=== PATIENT | male | born 1980 | race American Indian/Alaskan Native ===

== ENCOUNTER 2017-03-20 15:47 | Inpatient (IN) | payer OTHER ==
[2017-03-20 15:48] VITALS: BMI 19.2
--- NOTE | 2017-03-20 16:33 | C.PDOC ---
History Of Present Illness Patient is a 36 y/o male, with PMHx of HTN, and ESRD on hemodialysis (Wednesday, Wednesday, Wednesday), that presents to the ED for evaluation of diffuse abdominal pain associated with nausea and vomiting that began today. Notes last dialysis was yesterday. Otherwise, denies any fever, chills, diarrhea, back pain, urinary symptoms, or any other associated symptoms at this time. Time Seen by Provider: 03/20/17 16:11 Chief Complaint (Nursing): Abdominal Pain History Per: Patient History/Exam Limitations: no limitations Onset/Duration Of Symptoms: Hrs Current Symptoms Are (Timing): Still Present Location Of Pain/Discomfort: Diffuse Radiation Of Pain To:: None Quality Of Discomfort: "Pain" Associated Symptoms: Nausea, Vomiting. denies: Fever, Chills, Diarrhea, Loss Of Appetite, Back Pain, Chest Pain, Constipation, Urinary Symptoms Exacerbating Factors: None Alleviating Factors: None Recent travel outside of the [place]: No Additional History Per: Patient Past Medical History Reviewed: Historical Data, Nursing Documentation, Vital Signs Vital Signs: Last Vital Signs Temp 98.0 F 03/20/17 16:07 Pulse 108 H 03/20/17 19:20 Resp 20 03/20/17 19:20 BP 148/105 H 03/20/17 19:20 Pulse Ox 96 03/20/17 19:20 - Medical History PMH: HTN, End Stage Renal Disease, Chronic Kidney Disease Family History: States: Unknown Family Hx - Social History Hx Tobacco Use: No (DENIED) Hx Alcohol Use: No (DENIED) Hx Substance Use: No (DENIED) - Immunization History Hx Tetanus Toxoid Vaccination: No Hx Influenza Vaccination: No Hx Pneumococcal Vaccination: No Review Of Systems Except As Marked, All Systems Reviewed And Found Negative. Constitutional: Negative for: Fever, Chills Cardiovascular: Negative for: Chest Pain, Palpitations Respiratory: Negative for: Shortness of Breath Gastrointestinal: Positive for: Nausea, Vomiting, Abdominal Pain. Negative for : Diarrhea, Constipation Genitourinary: Negative for: Dysuria, Frequency, Hematuria Musculoskeletal: Negative for: Back Pain Physical Exam - Physical Exam Appears: Non-toxic, Other (moderate painful distress) Skin: Normal Color, Warm, Dry Head: Atraumatic, Normacephalic Eye(s): bilateral: Normal Inspection Neck: Normal ROM, Supple Chest: Symmetrical, No Tenderness Cardiovascular: Rhythm Regular, No Murmur Respiratory: Normal Breath Sounds, No Rales, No Rhonchi, No Wheezing Gastrointestinal/Abdominal: Soft, Tenderness (diffuse, non-focal), No Guarding, No Rebound Neurological/Psych: Oriented x3, Normal Speech, Normal Cognition ED Course And Treatment - Laboratory Results Result Diagrams: 03/20/17 18:54 03/20/17 16:38 O2 Sat by Pulse Oximetry: 95 Pulse Ox Interpretation: Normal Progress Note: Blood work, urinalysis ordered and reviewed. Patient was given Zofran, and Protonix in the ER. Medical Decision Making Medical Decision Making: abdominal n/v- consider colitis, gastritis, pud- labs imaging pending 700: labs resulted with hyperkalemia, pt reports that received hd yesterday. arrangements made for hd Spoke with Dr. Wilson, covering physician for Dr. El, who suggested patient to get dialysis after IV contrast. ekg sinus tach 104 lvh with repol. 800: ct shows iliac dissection and aneursym. case discussed with dr velez, surgical residnet, and dr elliott. advise as small, likely incidentla. no e/o of ischemia. pulses palp, femoral and distal. no motor deficit. foot warm. resident saw pt bedside. advises non op. accepted to tele. Disposition - Disposition Disposition: HOSPITALIZED Disposition Time: 20:38 Condition: FAIR - Clinical Impression Clinical Impression: Hyperkalemia, Abdominal pain, Renal failure, Iliac aneurysm, Iliac dissection - Scribe Statement The provider has reviewed the documentation as recorded by the Moiibgemma Kim All medical record entries made by the Moiibgemma were at my direction and personally dictated by me. I have reviewed the chart and agree that the record accurately reflects my personal performance of the history, physical exam, medical decision making, and the department course for this patient. I have also personally directed, reviewed, and agree with the discharge instructions and disposition. Decision To Admit - Pt Status Changed To: Hospital Disposition Of: Inpatient - Admit Certification Admit to Inpatient:: After my assessment, the patient will require hospitalization for at least two midnights. This is because of the severity of symptoms shown, intensity of services needed, and/or the medical risk in this patient being treated as an outpatient. - InPatient: Physician Admission Certification:: pt with iliac dissection, hyperk , needs emergent hd, and surgicla eval. - . Bed Request Type: Telemetry Admitting Physician: Maggie Elliott Patient Diagnosis: Hyperkalemia, Abdominal pain, Renal failure, Iliac aneurysm, Iliac dissection
[2017-03-20 16:54] LABS: ALBUMIN 4.1 g/dL (3.5-5.0)
[2017-03-20 16:58] LABS: CALCIUM 10.2 mg/dl (8.6-10.4)
[2017-03-20] MEDS ORDERED: Dextrose 50% SYRINGE Inj (50 ml) IV STA (17:12)
[2017-03-20] MEDS ORDERED: (Novolin R) Insulin Human Regular 100 units/ml vial IV STA (17:12)
[2017-03-20] MEDS ORDERED: (Novolin R) Insulin Human Regular 100 units/ml vial ONE (17:20)
[2017-03-20] MEDS ORDERED: Dextrose 50% SYRINGE Inj (50 ml) ONE (17:21)
[2017-03-20] MEDS ORDERED: Iodixanol 320 mg/ml 150 ml Bottle IV ONE (17:31)
--- NOTE | 2017-03-20 18:43 | CT ---
EXAM: CT Abdomen and Pelvis With Intravenous Contrast CLINICAL HISTORY: 36 years old, male; Pain; Abdominal pain; Epigastric; Additional info: Abd pain TECHNIQUE: Axial computed tomography images of the abdomen and pelvis with intravenous contrast. This CT exam was performed using one or more of the following dose reduction techniques: automated exposure control, adjustment of the mA and/or kV according to patient size, and/or use of iterative reconstruction technique. Coronal and sagittal reformatted images were created and reviewed. CONTRAST: 100 mL of [id number] administered intravenously. EXAM DATE/TIME: Exam ordered 03/20/2017 4:43 PM COMPARISON: No relevant prior studies available. FINDINGS: Lower thorax: The heart is moderately enlarged. There is a trace amount of pericardial fluid/thickening. Epicardial pacemaker wires are noted. There is elevation of the right hemidiaphragm. There is a 4.5 mm nodule noted in the right lower lobe anterior basal segment (series 2 image 2). A 2 mm nodule is noted in the lateral basal segment of the right lower lobe (series 2 image 6). Coarse linear densities are noted in the left lower lobe which may represent discoid atelectasis or scar. Hazy groundglass densities noted in the dependent portion of both lung bases may to be due to hypoventilatory change. ABDOMEN: Liver: Surgical clips are noted in the anterior aspect of the abdomen just below the inferior edge of the liver. The liver measures 19 cm in craniocaudal span. Gallbladder and bile ducts: Surgical clips are seen in the gallbladder fossa. No calcified stones. No ductal dilation. Pancreas: Unremarkable. No mass. No ductal dilation. Spleen: The spleen measures 11 cm in craniocaudal span. Adrenals: Unremarkable. No mass. Kidneys and ureters: The kidneys are atrophic. A 1 cm hyperdense mass projecting off the lower pole of the left kidney. 1H. No hydronephrosis. Stomach and bowel: Unremarkable. No obstruction. No mucosal thickening. Appendix: No findings to suggest acute appendicitis. PELVIS: Bladder: Unremarkable. No mass. Reproductive: Unremarkable as visualized. ABDOMEN and PELVIS: Intraperitoneal space: There is moderate perihepatic ascites and perisplenic ascites. there is moderate amount of pelvic ascites. No free air. Bones/joints: The patient has had a median sternotomy. Is abnormal increased density noted of the bones which may reflect underlying renal osteodystrophy. No acute fracture. No dislocation. Soft tissues: Hazy change is noted of the mesenteric fat. Vasculature: The inferior vena cava and hepatic veins are distended. There is an aneurysm of the left common iliac artery with a maximal diameter of 1.9 cm.There is aneurysmal dilatation of the left external iliac artery with a maximal diameter of 2.2 cm. There is a dissection of the left external iliac artery Lymph nodes: Unremarkable. No enlarged lymph nodes. IMPRESSION: 1. Right-sided heart failure with mild hepatomegaly, moderate intra-abdominal ascites. 2. Atrophic kidneys bilaterally. 3. 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 4. Renal osteodystrophy. 5. Right sided pulmonary nodules. For low-risk patients, no follow-up is necessary. For high-risk patients (smoking history or other known risk factors) an optional CT at 12 months could be performed. 6. Hyperdense left renal mass measuring 1 cm. This could represent a hemorrhagic cyst or a solid renal mass
[2017-03-20 19:03] LABS: BASO # 0.1 K/uL (0.0-0.2); BASO % 0.9 % (0.0-2.0); EOS % 0.4 % (0.0-4.0); LYMPH # 1.5 K/uL (1.0-4.3); LYMPH % 17.8 % (20.0-40.0); MEAN CELL VOLUME 93.9 fL (80.0-94.0); MEAN CORPUSCULAR HEMOGLOBIN 29.1 pg (27.0-31.0); MEAN PLATELET VOLUME 10.4 fL (7.2-11.7); MONO # 1.1 K/uL (0.0-0.8); MONO % 13.5 % (0.0-10.0); NEUT # 5.7 K/uL (1.8-7.0); NEUT % 67.4 % (50.0-75.0); NRBC % 0.4 % (0.0-2.0); RBC 4.28 Mil/uL (4.40-5.90); RED CELL DISTRIBUTION WIDTH 24.3 % (11.5-14.5); WHITE BLOOD COUNT 8.5 K/uL (4.8-10.8)
[2017-03-20 19:13] LABS: INR 1.5; PROTHROMBIN TIME 16.9 SECONDS (9.7-12.2)
[2017-03-20 19:21] LABS: HEMOGLOBIN 12.5 g/dL (12.0-18.0)
--- NOTE | 2017-03-20 21:41 | CP.PCM.CON ---
History of Present Illness - History of Present Illness History of Present Illness: Vascular Surgery Consult note. Dr. Sanchez 36yo M with PMHx of HTN, ESRD, Cardiac valve disease here for evaluation of Abdominal pain. Vascular surgery consulted due incidental findings on CT Abd on 03/20. Patient states that he came to the ER for evaluation of abdominal pain which has been present for the past 5 years off and on, worse today. Patient states that he was diagnosed with ESRD about 10 years ago and gets dialysis on MWF, last dialysis was yesterday. Today, he had an episode of nausea and vomiting (nonbloody, nonbilious) with associated severe abdominal pain located in the center of his abdomen and came to [facility] ED for further evaluation. Patient states that he was never been told that he has any vascular aneurysms. In the ED, Patient underwent a CT Abd/Pelvis with IV contrast to evaluate abd pain and was found to have L common iliac and L external iliac aneurysm with questionable dissection of left external iliac. Patient does report pain in right distal lower leg upon walking for an extended amount of time. Patient states that he sometimes also feels a pain at the right groin region, however, he is unable to describe the quality or character. He denies any current pain in either lower extremity. Denies any F/C. No CP/SOB. No headaches. Does c/o fatigue. PMHx: HTN, ESRD (HD on MWF), Kidney stones (reports unknown procedure to extract stones 5 years ago), Cardiac valvular disease (unknown procedure performed at [facility] last month to "repair damaged valve") PSHx: Kidney stones removed 5 yrs ago. "Cardiac valve repair" last month at [facility] Faimly Hx: Father - ESRD Social Hx: Denies Tobacco use, denies ETOH use, Denies illicit drugs. NKDA Review of Systems - Review of Systems All systems: reviewed and no additional remarkable complaints except - Constitutional Constitutional: Fatigue. absent: Chills, Fever - Cardiovascular Cardiovascular: absent: Chest Pain, Diaphoresis, Dyspnea - Respiratory Respiratory: absent: Dyspnea - Gastrointestinal Gastrointestinal: Abdominal Pain, Nausea, Vomiting. absent: Diarrhea, Melena - Musculoskeletal Musculoskeletal: absent: Back Pain - Neurological Neurological: absent: Dizziness, Focal Weakness - Psychiatric Psychiatric: absent: Anxiety Past Patient History - Past Social History Smoking Status: Never Smoked - CARDIAC Hx Hypertension: Yes - RENAL Hx Chronic Kidney Disease: Yes - PSYCHIATRIC Hx Substance Use: No (DENIED) - SURGICAL HISTORY Hx Surgeries: Yes Hx Arteriovenous Shunt: Yes (left arm(new) ,rt arm(old)) Hx Valve Replacement: Yes - ANESTHESIA Hx Anesthesia: Yes Hx Anesthesia Reactions: No Meds Allergies/Adverse Reactions: Allergies Allergy/AdvReac Type Severity Reaction Status Date / Time No Known Allergies Allergy Verified 03/20/17 16:25 Physical Exam - Constitutional Appears: Well, No Acute Distress Additional comments: Currently receiving HD bedside at ED room 5. - Head Exam Head Exam: ATRAUMATIC, NORMAL INSPECTION, NORMOCEPHALIC - Eye Exam Eye Exam: EOMI - ENT Exam ENT Exam: Mucous Membranes Moist - Respiratory Exam Respiratory Exam: NORMAL BREATHING PATTERN - GI/Abdominal Exam GI & Abdominal Exam: Soft. absent: Distended, Firm, Guarding, Rebound, Rigid, Tenderness - Extremities Exam Extremities exam: Positive for: normal inspection, pedal pulses present. Negative for: calf tenderness, pedal edema, tenderness Additional comments: Lower extremity exam: Palpable femoral pulses bilaterally. Palpable Dorsalis pedis and Posterial tibial pulses bilaterally. Bilateral Dorsalis pedis pulses confirmed with doppler. No calf tenderness. Muscle strength intact bilaterally. No erythema. Cap refill intact. - Neurological Exam Neurological exam: Alert, Oriented x3 - Psychiatric Exam Psychiatric exam: Normal Affect, Normal Mood - Skin Skin Exam: Dry, Intact, Normal Color, Warm Results - Vital Signs Recent Vital Signs: Last Vital Signs Temp 97.5 F L 03/20/17 19:55 Pulse 108 H 03/20/17 19:55 Resp 20 03/20/17 19:55 BP 137/56 L 03/20/17 21:23 Pulse Ox 95 03/20/17 20:39 - Labs Result Diagrams: 03/20/17 18:54 03/20/17 16:38 Assessment & Plan - Assessment and Plan (Free Text) Assessment: 36M with 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 ? Dissection of left external iliac - low suspicion for acute limb ischemia - Continue to monitor clinically - continue current treatment - No current plans for urgent surgical intervention - will follow Discussed case with Dr. Daniel Marques PGY1
[2017-03-20] MEDS ORDERED: HYDROmorphone 1 mg/ml ISec IVP PRN (21:53)
[2017-03-21] MEDS: Pantoprazole 40 mg EC Tab PO SCH (10:22)
--- NOTE | 2017-03-21 11:35 | CP.PCM.CON ---
History of Present Illness - History of Present Illness History of Present Illness: I was asked to see patient by Dr. Elliott. Patient is 36 year old male with PMH HTN, ESRD on HD,mitral regurgitation s/p mitral valve replacement who presents with abdominal pain. Symptoms began one day ago. There was associated nausea. He had a CT scan abdomen and pelvis. The patient has been seen by surgery. Review of Systems - Constitutional Constitutional: absent: As Per HPI, Anorexia, Chills, Daytime Sleepiness, Excessive Sweating, Fatigue, Fever, Frequent Falls, Headache, Increased Appetite , Lethargy, Malaise, Night Sweats, Snoring, Sleep Apnea, Weight Gain, Weight Loss, Weakness, Other - EENT Eyes: absent: As Per HPI, Blind Spots, Blurred Vision, Change in Vision, Decreased Night Vision, Diplopia, Discharge, Dry Eye, Exophthalmos, Floaters, Irritation, Itchy Eyes, Loss of Peripheral Vision, Pain, Photophobia, Requires Corrective Lenses, Sees Flashes, Spots in Vision, Tunnel Vision, Other Visual Disturbances, Loss of Vision, Other Ears: absent: As Per HPI, Decreased Hearing, Ear Discharge, Ear Pain, Tinnitus, Abnormal Hearing, Disequilibrium, Dizziness, Other Nose/Mouth/Throat: absent: As Per HPI, Epistaxis, Nasal Congestion, Nasal Discharge, Nasal Obstruction, Nasal Trauma, Nose Pain, Post Nasal Drip, Sinus Pain, Sinus Pressure, Bleeding Gums, Change in Voice, Dental Pain, Dry Mouth, Dysphagia, Halitosis, Hoarsness, Lip Swelling, Mouth Lesions, Mouth Pain, Odynophagia, Sore Throat, Throat Swelling, Tongue Swelling, Facial Pain, Neck Pain, Neck Mass, Other - Cardiovascular Cardiovascular: absent: As Per HPI, Acrocyanosis, Chest Pain, Chest Pain at Rest , Chest Pain with Activity, Claudication, Diaphoresis, Dyspnea, Dyspnea on Exertion, Edema, Irregular Heart Rhythm, Pain Radiating to Arm/Neck/Jaw, Leg Edema, Leg Ulcers, Lightheadedness, Orthopnea, Palpitations, Paroxysmal Nocturnal Dyspnea, Pedal Edema, Radiating Pain, Rapid Heart Rate, Slow Heart Rate, Syncope, Other - Respiratory Respiratory: absent: As Per HPI, Cough, Dyspnea, Hemoptysis, Dyspnea on Exertion , Wheezing, Snoring, Stridor, Pain on Inspiration, Chest Congestion, Excessive Mucous Production, Change in Mucous Color, Pain with Coughing, Other - Gastrointestinal Gastrointestinal: Abdominal Pain - Genitourinary Genitourinary: absent: As Per HPI, Change in Urinary Stream, Difficulty Urinating, Dysuria, Flank Pain, Hematuria, Pyuria, Nocturia, Urinary Incontinence, Urinary Frequency, Urinary Hesitance, Urinary Urgency, Voiding Freq/Small Amts, Freq UTI, Hx Renal/Bladder Calculi, Hx /Renal Surgery, Bladder Distension, Other - Musculoskeletal Musculoskeletal: absent: As Per HPI, Abnormal Gait, Arthralgias, Atrophy, Back Pain, Deformity, Joint Swelling, Limited Range of Motion, Loss of Height, Muscle Cramps, Muscle Weakness, Myalgias, Neck Pain, Numbness, Radiating Pain into Limb, Stiffness, Tingling, Other - Integumentary Integumentary: absent: As Per HPI, Acne, Alopecia, Bleeding Lesions, Change in Hair, Change in Nails, Change in Pigmentation, Changing Lesions, Dry Skin, Erythema, Furuncle, Hirsutism, Lesions, New Lesions, Non-Healing Lesions, Photosensitivity, Pruritus, Rash, Skin Pain, Skin Ulcer, Sores, Striae, Swelling , Unusual Bruising, Wounds, Jaundice, Other - Neurological Neurological: absent: As Per HPI, Abnormal Gait, Abnormal Hearing, Abnormal Movements, Abnormal Speech, Behavioral Changes, Burning Sensations, Confusion, Convulsions, Disequilibrium, Dizziness, Numbness, Focal Weakness, Frequent Falls , Headaches, Lack of Coordination, Loss of Vision, Memory Loss, Paresthesias, Radicular Pain, Restless Legs, Sensory Deficit, Syncope, Tingling, Tremor, Vertigo, Weakness, Other Visual Disturbances, Other - Psychiatric Psychiatric: absent: As Per HPI, Abnormal Sleep Pattern, Anhedonia, Anxiety, Auditory Hallucinations, Behavioral Changes, Change in Appetite, Change in Libido, Confusion, Depression, Difficulty Concentrating, Hallucinations, Homicidal Ideation, Hopelessness, Irritability, Memory Loss, Mood Swings, Panic Attacks, Paranoia, Suicidal Ideation, Visual Hallucinations, Tactile Hallucinations, Other - Endocrine Endocrine: absent: As Per HPI, Change in Body Appearance, Change in Libido, Cold Intolorance, Deepening of Voice, Excessive Sweating, Fatigue, Flushing, Heat Intolorance, Increase in Ring/Shoe/Hat Size, Palpitations, Polydipsia, Polyphagia, Polyuria, Other - Hematologic/Lymphatic Hematologic: absent: As Per HPI, Easy Bleeding, Easy Bruising, Lymphadenopathy, Other Past Patient History - Past Medical History & Family History Past Medical History?: Yes - Past Social History Smoking Status: Never Smoked - CARDIAC Hx Hypertension: Yes - RENAL Hx Chronic Kidney Disease: Yes Type of Dialysis Access: left avs Date of Last Dialysis Treatment: 03/20/17 - ENDOCRINE/METABOLIC Hx Endocrine Disorders: No - HEMATOLOGICAL/ONCOLOGICAL Hx Blood Disorders: No - INTEGUMENTARY Hx Dermatological Problems: No - MUSCULOSKELETAL/RHEUMATOLOGICAL Hx Musculoskeletal Disorders: No Hx Falls: No - GASTROINTESTINAL Hx Gastrointestinal Disorders: No - GENITOURINARY/GYNECOLOGICAL Hx Genitourinary Disorders: No - PSYCHIATRIC Hx Psychophysiologic Disorder: No Hx Substance Use: No (DENIED) - SURGICAL HISTORY Hx Surgeries: Yes Hx Arteriovenous Shunt: Yes (left arm(new) ,rt arm(old)) Hx Valve Replacement: Yes - ANESTHESIA Hx Anesthesia: Yes Hx Anesthesia Reactions: No Hx Malignant Hyperthermia: No Has any member of the family had a problem w/ anesthesia?: No Meds Allergies/Adverse Reactions: Allergies Allergy/AdvReac Type Severity Reaction Status Date / Time No Known Allergies Allergy Verified 03/20/17 16:25 - Medications Medications: Current Medications Clonidine HCl (Catapres) 0.3 mg PO TID [facility] Last Admin: 03/21/17 10:22 Dose: 0.3 mg Hydromorphone HCl (Dilaudid) 1 mg IVP Q4H PRN PRN Reason: Pain, severe (8-10) Last Admin: 03/20/17 22:01 Dose: 1 mg Ondansetron HCl (Zofran Inj) 4 mg IVP ONCE ONE Stop: 03/21/17 11:29 Pantoprazole Sodium (Protonix Ec Tab) 40 mg PO DAILY [facility] Last Admin: 03/21/17 10:22 Dose: 40 mg Physical Exam - Constitutional Appears: Non-toxic - Head Exam Head Exam: NORMAL INSPECTION - Eye Exam Eye Exam: Normal appearance - ENT Exam ENT Exam: Mucous Membranes Moist - Neck Exam Neck exam: Positive for: Full Rom - Respiratory Exam Respiratory Exam: NORMAL BREATHING PATTERN - Cardiovascular Exam Cardiovascular Exam: REGULAR RHYTHM - GI/Abdominal Exam GI & Abdominal Exam: Normal Bowel Sounds - Rectal Exam Rectal Exam: Deferred - Extremities Exam Extremities exam: Positive for: pedal edema - Back Exam Back exam: NORMAL INSPECTION - Neurological Exam Neurological exam: Alert, Oriented x3 - Psychiatric Exam Psychiatric exam: Normal Affect - Skin Skin Exam: Normal Color Results - Vital Signs Recent Vital Signs: Last Vital Signs Temp 97.4 F L 03/21/17 00:22 Pulse 99 H 03/21/17 11:18 Resp 20 03/21/17 00:22 BP 151/112 H 03/21/17 11:18 Pulse Ox 95 03/21/17 00:22 - Labs Result Diagrams: 03/20/17 18:54 03/20/17 16:38 - EKG Data EKG Interpreted by: Myself Assessment & Plan (1) Mitral valve disease Assessment and Plan: s/p MVR. continue current management. Status: Acute (2) Hypertension Assessment and Plan: continue catapres. add Losartan Status: Acute (3) Cardiomyopathy Assessment and Plan: as above. no current CHF Status: Acute - Assessment and Plan (Free Text) Assessment: cardiomyopathy
--- NOTE | 2017-03-21 12:55 | CP.PCM.CON ---
History of Present Illness - History of Present Illness History of Present Illness: 36 y/o male with ESRD on Maintenance HD every MWF,Cardiomyopathy, MVR a month ago @ [facility] is admitted for abdominal pain Pt reports pain over mid lower abdomen & had noted some redness in that area prior to coming to hosp. Pt is anuric. A CT scan of abdomen was done last evening which showed abdominal ascitis & Lt iliac artery aneurysm Pt has dialysis last evening after CT scan with contrast Past Patient History - Past Medical History & Family History Past Medical History?: Yes - Past Social History Smoking Status: Never Smoked - CARDIAC Hx Hypertension: Yes - RENAL Hx Chronic Kidney Disease: Yes Hx Dialysis: Yes (HD MWF) Type of Dialysis Access: left avs Date of Last Dialysis Treatment: 03/20/17 - ENDOCRINE/METABOLIC Hx Endocrine Disorders: No - HEMATOLOGICAL/ONCOLOGICAL Hx Blood Disorders: No - INTEGUMENTARY Hx Dermatological Problems: No - MUSCULOSKELETAL/RHEUMATOLOGICAL Hx Musculoskeletal Disorders: No Hx Falls: No - GASTROINTESTINAL Hx Gastrointestinal Disorders: No - GENITOURINARY/GYNECOLOGICAL Hx Genitourinary Disorders: No - PSYCHIATRIC Hx Psychophysiologic Disorder: No Hx Substance Use: No (DENIED) - SURGICAL HISTORY Hx Surgeries: Yes Hx Arteriovenous Shunt: Yes (left arm(new) ,rt arm(old)) Hx Valve Replacement: Yes - ANESTHESIA Hx Anesthesia: Yes Hx Anesthesia Reactions: No Hx Malignant Hyperthermia: No Has any member of the family had a problem w/ anesthesia?: No Meds Allergies/Adverse Reactions: Allergies Allergy/AdvReac Type Severity Reaction Status Date / Time No Known Allergies Allergy Verified 03/20/17 16:25 - Medications Medications: Current Medications Clonidine HCl (Catapres) 0.3 mg PO TID [facility] Last Admin: 03/21/17 10:22 Dose: 0.3 mg Hydromorphone HCl (Dilaudid) 1 mg IVP Q4H PRN PRN Reason: Pain, severe (8-10) Last Admin: 03/20/17 22:01 Dose: 1 mg Losartan Potassium (Cozaar) 25 mg PO DAILY [facility] Last Admin: 03/21/17 12:35 Dose: 25 mg Pantoprazole Sodium (Protonix Ec Tab) 40 mg PO DAILY [facility] Last Admin: 03/21/17 10:22 Dose: 40 mg Physical Exam - Constitutional Appears: No Acute Distress - Head Exam Head Exam: ATRAUMATIC, NORMOCEPHALIC - Eye Exam Eye Exam: Normal appearance - ENT Exam ENT Exam: Mucous Membranes Dry - Neck Exam Additional comments: JVD + @ 35 degrees - Respiratory Exam Additional comments: Lungs clear - Cardiovascular Exam Cardiovascular Exam: REGULAR RHYTHM Additional comments: Well healed surgical scar ayanna chest - GI/Abdominal Exam GI & Abdominal Exam: Soft Additional comments: Tenderness with guarding over suprapubic area Now[place]th or erythema noted - Extremities Exam Additional comments: No edema or cyanosis PP palp b/l Results - Vital Signs Recent Vital Signs: Last Vital Signs Temp 97.4 F L 03/21/17 00:22 Pulse 99 H 03/21/17 11:18 Resp 20 03/21/17 00:22 BP 151/112 H 03/21/17 11:18 Pulse Ox 95 03/21/17 00:22 - Labs Result Diagrams: 03/20/17 18:54 03/20/17 16:38 Assessment & Plan - Assessment and Plan (Free Text) Assessment: ESRD on HD Abdominal pain Cardiomyopathy, S/P MVR Plan: Continue HD MWF UA + C/S Phos level Renal diet
--- NOTE | 2017-03-22 07:02 | CP.PCM.PN ---
Subjective - Date & Time of Evaluation Date of Evaluation: 03/21/17 Time of Evaluation: 07:00 - Subjective Subjective: VASCULAR SURGERY PROGRESS NOTE FOR DR. JOHNS Patient seen and examined at bedside. He states that he has had pain in his legs for years from the knee to the ankle and this pain is unchanged. Objective - Vital Signs/Intake and Output Vital Signs (last 24 hours): Temp Pulse Resp BP Pulse Ox 98 F 95 H 18 144/93 H 94 L 03/22/17 00:00 03/22/17 00:00 03/22/17 00:00 03/22/17 00:00 03/22/17 00:00 - Medications Medications: Current Medications Clonidine HCl (Catapres) 0.3 mg PO TID [facility] Last Admin: 03/21/17 19:16 Dose: 0.3 mg Hydromorphone HCl (Dilaudid) 1 mg IVP Q4H PRN PRN Reason: Pain, severe (8-10) Last Admin: 03/20/17 22:01 Dose: 1 mg Losartan Potassium (Cozaar) 25 mg PO DAILY [facility] Last Admin: 03/21/17 12:35 Dose: 25 mg Pantoprazole Sodium (Protonix Ec Tab) 40 mg PO DAILY [facility] Last Admin: 03/21/17 10:22 Dose: 40 mg Pneumococcal Polyvalent Vaccine (Pneumovax 23 Vaccine) 0.5 ml IM .ONCE ONE Stop: 03/24/17 10:01 - Labs Labs: PT 16.9 SECONDS (9.7-12.2) H 03/20/17 18:54 INR 1.5 03/20/17 18:54 APTT 34 SECONDS (21-34) 03/20/17 18:54 - Constitutional Appears: Non-toxic, No Acute Distress - Head Exam Head Exam: ATRAUMATIC - Respiratory Exam Respiratory Exam: NORMAL BREATHING PATTERN. 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 Questionable dissection of left external iliac, low suspicion for acute limb ischemia - Continue to monitor clinically - Pulses palpable bilateral DP - No plans for urgent surgical intervention - Will continue to follow - Discussed plan with Dr. Daniel June PGY-3
[2017-03-22] MEDS: Pantoprazole 40 mg EC Tab PO SCH (09:24)
--- NOTE | 2017-03-22 09:42 | CP.PCM.PN ---
Subjective - Date & Time of Evaluation Date of Evaluation: 03/22/17 Time of Evaluation: 09:42 - Subjective Subjective: PGY 2 Medicine Note- Dr. Elliott's service Pt seen and examined in no acute distress. Patient denies abdominal pain at this time. In brief, this is a 36yo M with PMHx of HTN, ESRD on HD, history of mitral regurgitation with mitral valve replacement in February of 2017 who presented here on 03/20 for evaluation of Abdominal pain. He has had the abdominal pain off and on for the past five years however the pain intensified on the day of admission. Patient states that he was diagnosed with ESRD about 10 years ago and receives dialysis on MWF, with last dialysis March 20. In the ED, Patient had a CT Abd/Pelvis with IV contrast to evaluate abd pain and was found to have L common iliac and L external iliac aneurysm with questionable dissection of left external iliac. Patient reported pain in right distal lower leg with ambulation to vascular surgery team; however denies pain today on further questioning. He currently denies lower extremity pain either sitting or with ambulation, subjective fevers or chills, nausea, vomiting, diarrhea, radiation of abdominal pain, chest pain, palpitations, constipation or diarrhea at this time. PMHx: HTN, ESRD (HD on MWF), Kidney stones (reports unknown procedure to extract stones 5 years ago), Cardiac valvular disease mitral valve replacement performed at [facility] [place] February 2017 PSHx: Kidney stones removed 5 yrs ago, mitral valve replacement last month at [facility] [place] Family Hx: Father - ESRD Social Hx: Denies Tobacco use, denies ETOH use, Denies illicit drugs. Allergies- NKDA Objective - Vital Signs/Intake and Output Vital Signs (last 24 hours): Temp Pulse Resp BP Pulse Ox 97.5 F L 95 H 20 119/66 93 L 03/22/17 07:00 03/22/17 00:00 03/22/17 07:00 03/22/17 07:00 03/22/17 07:00 Intake and Output: 03/22/17 03/22/17 06:59 18:59 Intake Total 400 Balance 400 - Medications Medications: Current Medications Clonidine HCl (Catapres) 0.3 mg PO TID [facility] Last Admin: 03/22/17 09:24 Dose: 0.3 mg Hydromorphone HCl (Dilaudid) 1 mg IVP Q4H PRN PRN Reason: Pain, severe (8-10) Last Admin: 03/20/17 22:01 Dose: 1 mg Losartan Potassium (Cozaar) 25 mg PO DAILY [facility] Last Admin: 03/22/17 09:24 Dose: 25 mg Pantoprazole Sodium (Protonix Ec Tab) 40 mg PO DAILY [facility] Last Admin: 03/22/17 09:24 Dose: 40 mg Pneumococcal Polyvalent Vaccine (Pneumovax 23 Vaccine) 0.5 ml IM .ONCE ONE Stop: 03/24/17 10:01 - Labs Labs: PT 16.9 SECONDS (9.7-12.2) H 03/20/17 18:54 INR 1.5 03/20/17 18:54 APTT 34 SECONDS (21-34) 03/20/17 18:54 - Constitutional Appears: Non-toxic, No Acute Distress - Head Exam Head Exam: ATRAUMATIC, NORMAL INSPECTION, NORMOCEPHALIC - Eye Exam Eye Exam: EOMI, Normal appearance, PERRL Pupil Exam: NORMAL ACCOMODATION, PERRL - ENT Exam ENT Exam: Mucous Membranes Moist - Neck Exam Neck Exam: Full ROM - Respiratory Exam Respiratory Exam: NORMAL BREATHING PATTERN. absent: Wheezes - Cardiovascular Exam Cardiovascular Exam: Tachycardia, +S1, +S2 - GI/Abdominal Exam GI & Abdominal Exam: Soft, Normal Bowel Sounds. absent: Tenderness - Extremities Exam Extremities Exam: Full ROM, Normal Capillary Refill. absent: Calf Tenderness, Joint Swelling, Pedal Edema, Tenderness Additional comments: Dorsalis pedis pulses palpated bilaterally; extremities warm to touch - Back Exam Back Exam: Full ROM - Neurological Exam Neurological Exam: Alert, Awake, CN II-XII Intact, Oriented x3 - Psychiatric Exam Psychiatric exam: Normal Affect, Normal Mood - Skin Skin Exam: Dry, Intact, Normal Color, Warm Assessment and Plan (1) Transaminitis Assessment & Plan: F/U abd U/S Review NAN Mendoza has adverse reaction of hepatitis.- Will hold at this time as blood pressure is normotensive Status: Acute (2) Abdominal pain Assessment & Plan: CT abdomen and pelvis performed 03/20: Right sided heart failure with mild hepatomegaly; moderate ascites; atrophic kidneys bilaterally; noted left iliac aneursym ( see below); renal osteodystrophy; pulm nodules ( right) and left renal mass ( hemorrhagic cyst vs solid renal mass) Dilaudid 1 mg Q4 PRN Zofran one time dose (x2)- Stable at this time; will add on board if nausea continues Transaminitis- Will review NOV. F/U Abd U/S Status: Acute (3) ESRD (end stage renal disease) on dialysis Assessment & Plan: Will have HD this afternoon- draw labs then. On HD M,W,F ( had last HD on 03/20) Patient states that he completed HD on Monday 03/19 as well. F/U UA and U/C- Renal Diet F/U labs Status: Chronic (4) S/P mitral valve replacement Assessment & Plan: Hx of mtitral regurg Patient s/p mitral valve replacement at [facility] [place] 02/27 Continue Catapres 0.3 mg PO TID and Losartan 25mg PO daily Continue to monitor Status: Acute (5) Iliac aneurysm Assessment & Plan: -Dr. Sanchez (Vascular Surg) on the case- F/U recommendations - low suspicion for acute limb ischemia - Continue to monitor clinically - Dorsalis pedis pulses palpated bilaterally; extremities warm to touch - No current plans for urgent surgical intervention Status: Acute (6) Hypertension Assessment & Plan: Normotensive at this time. Continue meds Clonidine and Losartan Cont to monitor Status: Acute (7) Prophylactic measure Assessment & Plan: SCDs GI prophylaxis 40 mg PO daily Patient was to be discharged however in light of recent tranaminitis; will monitor overnight. F/U U/S as indicated above. Status: Acute
--- NOTE | 2017-03-22 11:23 | CP.PCM.PN ---
Subjective - Date & Time of Evaluation Date of Evaluation: 03/22/17 Time of Evaluation: 11:15 - Subjective Subjective: Feels better today. No c/o abdominal pain today. Objective - Vital Signs/Intake and Output Vital Signs (last 24 hours): Temp Pulse Resp BP Pulse Ox 97.5 F L 95 H 20 119/66 93 L 03/22/17 07:00 03/22/17 00:00 03/22/17 07:00 03/22/17 07:00 03/22/17 07:00 Intake and Output: 03/22/17 03/22/17 06:59 18:59 Intake Total 400 Balance 400 - Medications Medications: Current Medications Clonidine HCl (Catapres) 0.3 mg PO TID [facility] Last Admin: 03/22/17 09:24 Dose: 0.3 mg Hydromorphone HCl (Dilaudid) 1 mg IVP Q4H PRN PRN Reason: Pain, severe (8-10) Last Admin: 03/20/17 22:01 Dose: 1 mg Losartan Potassium (Cozaar) 25 mg PO DAILY [facility] Last Admin: 03/22/17 09:24 Dose: 25 mg Pantoprazole Sodium (Protonix Ec Tab) 40 mg PO DAILY [facility] Last Admin: 03/22/17 09:24 Dose: 40 mg Pneumococcal Polyvalent Vaccine (Pneumovax 23 Vaccine) 0.5 ml IM .ONCE ONE Stop: 03/24/17 10:01 - Labs Labs: PT 16.9 SECONDS (9.7-12.2) H 03/20/17 18:54 INR 1.5 03/20/17 18:54 APTT 34 SECONDS (21-34) 03/20/17 18:54 - Respiratory Exam Additional comments: Lungs clear - Cardiovascular Exam Cardiovascular Exam: REGULAR RHYTHM - GI/Abdominal Exam Additional comments: Abdomen soft & nontender - Extremities Exam Additional comments: No edema Assessment and Plan - Assessment and Plan (Free Text) Assessment: ESRD on [facility] HD HTN Cardiomyopathy, MVR Plan: For dialysis today BP & labs stable Labs ordered
--- NOTE | 2017-03-22 13:33 | CARD ---
APPROVED REPORT EKG Measurement Heart [id number] <Conclusion> Sinus tachycardia with occasional premature ventricular complexes Left ventricular hypertrophy with repolarization abnormality Abnormal ECG
[2017-03-22 14:16] LABS: BASO # 0.1 K/uL (0.0-0.2); BASO % 1.1 % (0.0-2.0); EOS # 0.1 K/uL (0.0-0.7)
[2017-03-22 14:26] LABS: EOS % 1.2 % (0.0-4.0); HEMOGLOBIN 11.7 g/dL (12.0-18.0); LYMPH % 15.7 % (20.0-40.0); MEAN CORPUSCULAR HEMOGLOBIN 29.5 pg (27.0-31.0); MEAN CORPUSCULAR HGB CONC 32.1 g/dL (33.0-37.0); MEAN PLATELET VOLUME 10.2 fL (7.2-11.7); MONO % 15.6 % (0.0-10.0); NEUT # 4.1 K/uL (1.8-7.0); NEUT % 66.4 % (50.0-75.0); NRBC % 2.3 % (0.0-2.0); RBC 3.98 Mil/uL (4.40-5.90); RED CELL DISTRIBUTION WIDTH 23.6 % (11.5-14.5); WHITE BLOOD COUNT 6.1 K/uL (4.8-10.8)
[2017-03-22 14:29] LABS: ALBUMIN 3.3 g/dL (3.5-5.0)
[2017-03-22 14:33] LABS: CALCIUM 9.1 mg/dl (8.6-10.4); MAGNESIUM 2.4 mg/dL (1.6-2.3)
--- NOTE | 2017-03-22 16:35 | CP.PCM.PN ---
Subjective - Date & Time of Evaluation Date of Evaluation: 03/22/17 Time of Evaluation: 07:15 - Subjective Subjective: Patient seen and examined this morning. No complaints. Denies fever/chills, n/v , abdominal pain. Objective - Vital Signs/Intake and Output Vital Signs (last 24 hours): Temp Pulse Resp BP Pulse Ox 97.5 F L 96 H 20 119/66 93 L 03/22/17 07:00 03/22/17 08:00 03/22/17 07:00 03/22/17 07:00 03/22/17 07:00 Intake and Output: 03/22/17 03/22/17 06:59 18:59 Intake Total 400 Balance 400 - Medications Medications: Current Medications Clonidine HCl (Catapres) 0.3 mg PO TID [facility] Last Admin: 03/22/17 13:07 Dose: 0.3 mg Hydromorphone HCl (Dilaudid) 1 mg IVP Q4H PRN PRN Reason: Pain, severe (8-10) Losartan Potassium (Cozaar) 25 mg PO DAILY [facility] Last Admin: 03/22/17 09:24 Dose: 25 mg Pantoprazole Sodium (Protonix Ec Tab) 40 mg PO DAILY [facility] Last Admin: 03/22/17 09:24 Dose: 40 mg Pneumococcal Polyvalent Vaccine (Pneumovax 23 Vaccine) 0.5 ml IM .ONCE ONE Stop: 03/24/17 10:01 - Labs Labs: 03/22/17 14:04 03/22/17 14:04 PT 16.9 SECONDS (9.7-12.2) H 03/20/17 18:54 INR 1.5 03/20/17 18:54 APTT 34 SECONDS (21-34) 03/20/17 18:54 - Constitutional Appears: Non-toxic, No Acute Distress - Head Exam Head Exam: NORMOCEPHALIC - Eye Exam Eye Exam: Normal appearance - ENT Exam ENT Exam: Mucous Membranes Moist - Respiratory Exam Respiratory Exam: NORMAL BREATHING PATTERN - Cardiovascular Exam Cardiovascular Exam: +S1, +S2 - GI/Abdominal Exam GI & Abdominal Exam: Soft - Neurological Exam Neurological Exam: Alert, Awake, Oriented x3 - Psychiatric Exam Psychiatric exam: Normal Mood - Skin Skin Exam: Dry, Intact, Warm Assessment and Plan - Assessment and Plan (Free Text) Assessment: 36yo M with 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 Questionable dissection of left external iliac, low suspicion for acute limb ischemia - No plans for urgent surgical intervention -Patient clear for discharge from surgical standpoint - Discussed plan with Dr. Sanchez
--- NOTE | 2017-03-22 18:29 | CP.PCM.PN ---
Subjective - Date & Time of Evaluation Date of Evaluation: 03/22/17 Time of Evaluation: 18:25 - Subjective Subjective: patient has no complaints. denies chest pain or dyspnea Objective - Vital Signs/Intake and Output Vital Signs (last 24 hours): Temp Pulse Resp BP Pulse Ox 97.3 F L 107 H 17 115/87 97 03/22/17 16:29 03/22/17 16:29 03/22/17 16:29 03/22/17 16:40 03/22/17 14:40 Intake and Output: 03/22/17 03/22/17 06:59 18:59 Intake Total 400 Balance 400 - Medications Medications: Current Medications Clonidine HCl (Catapres) 0.3 mg PO TID [facility] Last Admin: 03/22/17 13:07 Dose: 0.3 mg Hydromorphone HCl (Dilaudid) 1 mg IVP Q4H PRN PRN Reason: Pain, severe (8-10) Losartan Potassium (Cozaar) 25 mg PO DAILY [facility] Last Admin: 03/22/17 09:24 Dose: 25 mg Pantoprazole Sodium (Protonix Ec Tab) 40 mg PO DAILY [facility] Last Admin: 03/22/17 09:24 Dose: 40 mg Pneumococcal Polyvalent Vaccine (Pneumovax 23 Vaccine) 0.5 ml IM .ONCE ONE Stop: 03/24/17 10:01 - Labs Labs: 03/22/17 14:04 03/22/17 14:04 PT 16.9 SECONDS (9.7-12.2) H 03/20/17 18:54 INR 1.5 03/20/17 18:54 APTT 34 SECONDS (21-34) 03/20/17 18:54 - Constitutional Appears: Non-toxic - Head Exam Head Exam: NORMAL INSPECTION - Eye Exam Eye Exam: Normal appearance - ENT Exam ENT Exam: Mucous Membranes Moist - Neck Exam Neck Exam: Normal Inspection - Respiratory Exam Respiratory Exam: Clear to Ausculation Bilateral - Cardiovascular Exam Cardiovascular Exam: REGULAR RHYTHM - GI/Abdominal Exam GI & Abdominal Exam: Normal Bowel Sounds - Rectal Exam Rectal Exam: Deferred - Extremities Exam Extremities Exam: absent: Pedal Edema - Back Exam Back Exam: NORMAL INSPECTION - Neurological Exam Neurological Exam: Alert - Psychiatric Exam Psychiatric exam: Normal Affect - Skin Skin Exam: Normal Color Assessment and Plan (1) Mitral valve disease Assessment & Plan: stable valvular status Status: Acute (2) Hypertension Assessment & Plan: blood pressure improving ARB added Status: Acute (3) Cardiomyopathy Assessment & Plan: no current CHF Status: Acute
--- NOTE | 2017-03-23 07:11 | CP.PCM.PN ---
Subjective - Date & Time of Evaluation Date of Evaluation: 03/23/17 Time of Evaluation: 07:35 - Subjective Subjective: PGY 2 Medicine Note- Dr. Elliott's service Pt seen and examined in no acute distress. Patient denied abdominal pain, nausea or vomiting. He expressed wanting to go home. He denies subjective fevers or chills, headaches, chest pain, paresthesias at this time. Patient expressed wanting to go home. Patient was to be discharged yesterday but kept overnight for monitoring after a jump in the liver enzymes. Objective - Vital Signs/Intake and Output Vital Signs (last 24 hours): Temp Pulse Resp BP Pulse Ox 97.7 F 81 16 118/80 98 03/22/17 17:40 03/22/17 17:40 03/22/17 17:40 03/22/17 17:40 03/22/17 17:40 - Medications Medications: Current Medications Clonidine HCl (Catapres) 0.3 mg PO TID [facility] Last Admin: 03/22/17 20:12 Dose: Not Given Hydromorphone HCl (Dilaudid) 1 mg IVP Q4H PRN PRN Reason: Pain, severe (8-10) Losartan Potassium (Cozaar) 25 mg PO DAILY [facility] Last Admin: 03/22/17 09:24 Dose: 25 mg Pantoprazole Sodium (Protonix Ec Tab) 40 mg PO DAILY [facility] Last Admin: 03/22/17 09:24 Dose: 40 mg Pneumococcal Polyvalent Vaccine (Pneumovax 23 Vaccine) 0.5 ml IM .ONCE ONE Stop: 03/24/17 10:01 - Labs Labs: 03/22/17 14:04 03/22/17 14:04 PT 16.9 SECONDS (9.7-12.2) H 03/20/17 18:54 INR 1.5 03/20/17 18:54 APTT 34 SECONDS (21-34) 03/20/17 18:54 - Constitutional Appears: Non-toxic, No Acute Distress - Head Exam Head Exam: ATRAUMATIC, NORMAL INSPECTION, NORMOCEPHALIC - Eye Exam Eye Exam: EOMI, Normal appearance, PERRL Pupil Exam: NORMAL ACCOMODATION - ENT Exam ENT Exam: Mucous Membranes Moist - Neck Exam Neck Exam: Full ROM - Respiratory Exam Respiratory Exam: NORMAL BREATHING PATTERN. absent: Wheezes - Cardiovascular Exam Cardiovascular Exam: REGULAR RHYTHM, +S1, +S2 - GI/Abdominal Exam GI & Abdominal Exam: Soft, Normal Bowel Sounds. absent: Distended, Firm, Guarding, Tenderness - Extremities Exam Extremities Exam: Full ROM. absent: Pedal Edema, Tenderness - Back Exam Back Exam: Full ROM - Neurological Exam Neurological Exam: Alert, Awake, Oriented x3 Neuro motor strength exam: Left Upper Extremity: 5, Right Upper Extremity: 5, Left Lower Extremity: 5, Right Lower Extremity: 5 - Psychiatric Exam Psychiatric exam: Normal Affect, Normal Mood - Skin Skin Exam: Dry, Normal Color, Warm Assessment and Plan (1) Transaminitis Status: Acute (2) Abdominal pain Status: Resolved (3) ESRD (end stage renal disease) on dialysis Status: Chronic (4) S/P mitral valve replacement Status: Acute (5) Iliac aneurysm Status: Acute (6) Hypertension Status: Acute (7) Prophylactic measure Status: Acute - Assessment and Plan (Free Text) Assessment: (1) Transaminitis Assessment & Plan: Abd U/S- bilateral atrophic kidneys w/o hydronephrosis; fatty liver with ascites; non visualized cholecystectomy; CBD 4 mm ( no dilatation noted) Cozaar has adverse reaction of hepatitis.- Will hold at this time as blood pressure is normotensive Hepatitis panel negative Status: Acute (2) Abdominal pain Assessment & Plan: Resolved CT abdomen and pelvis performed 03/20: Right sided heart failure with mild hepatomegaly; moderate ascites; atrophic kidneys bilaterally; noted left iliac aneursym (see below); renal osteodystrophy; pulm nodules (right) and left renal mass ( hemorrhagic cyst vs solid renal mass) Dilaudid 1 mg Q4 PRN Zofran one time dose (x2)- Stable at this time; will add on board if nausea continues Transaminitis noted above- Cozaar has adverse reaction of hepatitis.- Will hold at this time as blood pressure is normotensive Abd U/S results reported above Status: Acute (3) ESRD (end stage renal disease) on dialysis Assessment & Plan: HD 03/22 On HD M,W,F ( had last HD on 03/20) Patient states that he completed HD on Monday 03/19 as well. F/U UA and U/C Renal Diet F/U labs Status: Chronic (4) S/P mitral valve replacement Assessment & Plan: Hx of mtitral regurg Patient s/p mitral valve replacement at [facility] [place] 02/27 Continue Catapres 0.3 mg PO TID. Hold Losartan 25mg PO daily due to adverse elevation of LFTs Continue to monitor Status: Acute (5) Iliac aneurysm Assessment & Plan: -Dr. Sanchez (Vascular Surg) on the case- F/U recommendations - low suspicion for acute limb ischemia - Continue to monitor clinically - Dorsalis pedis pulses palpated bilaterally; extremities warm to touch - No current plans for urgent surgical intervention Status: Acute (6) Hypertension Assessment & Plan: Normotensive at this time. Continue meds Clonidine . Hold Losartan Cont to monitor Status: Acute (7) Prophylactic measure Assessment & Plan: SCDs GI prophylaxis 40 mg PO daily Discharge planning: Patient is medically stable for discharge home per Dr. Elliott. Patient to follow up with primary medical doctor within one week to follow up with liver enzyme levels. He will be provided with a prescriptionn/. Patient to follow up with [employer], Dr. Mora within two weeks for follow up management. Patient may resume hemodialysis schedule. Patient to resume other home medications. Patient counseled on not drinking alcohol or taking medications that have tylenol/ acetaminophen. If symptoms return, go to emergency room. Instructions explained to patient who is aware. Management per Dr. Elliott
[2017-03-23 08:15] VITALS: BP 126/74; RESP 20; TEMP 97.6; O2SAT 95
[2017-03-23 08:17] VITALS: PULSE 107
[2017-03-23] MEDS: Pantoprazole 40 mg EC Tab PO SCH (10:16)
[2017-03-23 10:58] LABS: BASO % 0.8 % (0.0-2.0); EOS # 0.1 K/uL (0.0-0.7); EOS % 1.7 % (0.0-4.0); HEMOGLOBIN 11.5 g/dL (12.0-18.0); LYMPH # 0.9 K/uL (1.0-4.3); MEAN CELL VOLUME 93.4 fL (80.0-94.0); MEAN CORPUSCULAR HEMOGLOBIN 29.8 pg (27.0-31.0); MEAN CORPUSCULAR HGB CONC 31.9 g/dL (33.0-37.0); MEAN PLATELET VOLUME 10.4 fL (7.2-11.7); MONO # 0.4 K/uL (0.0-0.8); NEUT # 3.4 K/uL (1.8-7.0); NEUT % 69.5 % (50.0-75.0); NRBC % 0.3 % (0.0-2.0); RBC 3.88 Mil/uL (4.40-5.90); WHITE BLOOD COUNT 4.9 K/uL (4.8-10.8)
[2017-03-23 11:01] LABS: ALB/GLOB RATIO 0.9 (1.0-2.1)
[2017-03-23 11:02] LABS: CALCIUM 8.2 mg/dl (8.6-10.4)
--- NOTE | 2017-03-23 11:21 | CP.PCM.PN ---
Subjective - Date & Time of Evaluation Date of Evaluation: 03/23/17 Time of Evaluation: 11:00 - Subjective Subjective: Pt states that he feels better today Objective - Vital Signs/Intake and Output Vital Signs (last 24 hours): Temp Pulse Resp BP Pulse Ox 97.6 F 81 20 126/74 95 03/23/17 08:14 03/22/17 17:40 03/23/17 08:14 03/23/17 08:14 03/23/17 08:14 - Medications Medications: Current Medications Clonidine HCl (Catapres) 0.3 mg PO TID [facility] Last Admin: 03/23/17 10:16 Dose: 0.3 mg Hydromorphone HCl (Dilaudid) 1 mg IVP Q4H PRN PRN Reason: Pain, severe (8-10) Losartan Potassium (Cozaar) 25 mg PO DAILY [facility] Last Admin: 03/22/17 09:24 Dose: 25 mg Pantoprazole Sodium (Protonix Ec Tab) 40 mg PO DAILY [facility] Last Admin: 03/23/17 10:16 Dose: 40 mg Pneumococcal Polyvalent Vaccine (Pneumovax 23 Vaccine) 0.5 ml IM .ONCE ONE Stop: 03/24/17 10:01 - Labs Labs: 03/23/17 10:38 03/23/17 10:38 PT 16.9 SECONDS (9.7-12.2) H 03/20/17 18:54 INR 1.5 03/20/17 18:54 APTT 34 SECONDS (21-34) 03/20/17 18:54 - Respiratory Exam Respiratory Exam: NORMAL BREATHING PATTERN - Cardiovascular Exam Cardiovascular Exam: REGULAR RHYTHM - Extremities Exam Additional comments: Noedema or cyanosis Assessment and Plan - Assessment and Plan (Free Text) Assessment: ESRD on maintenance HD Cardiomyopathy, MVR Iliac artery aneurysm f/b Vascular Plan: Dialysis was tolerated well yesterday Labs stable Volume controlled Continue HD per schedule
--- NOTE | 2017-03-23 11:25 | US ---
HISTORY: abdominal pain, transaminitis COMPARISON: CT abdomen and pelvis 03/20/2017 TECHNIQUE: Sonographic evaluation of the abdomen. FINDINGS: LIVER: Measures 18 cm cm. Increased echogenicity of the liver parenchyma. No mass. No intrahepatic bile duct dilatation. GALLBLADDER: Nonvisualized -cholecystectomy COMMON BILE DUCT: Measures 4 mm. No stones. No dilatation. PANCREAS: Unremarkable as visualized. No mass. No ductal dilatation. RIGHT KIDNEY: Measures 7.5 x 3.8 x 3.8cm. Diffuse increased echogenicity small kidneys consistent with . No calculus, solid mass, or hydronephrosis. Midpole cyst 1.8 x 1.6 x 1.5 cm LEFT KIDNEY: Measures similarly the as small atrophic appearing left kidneymeasuring 7 x 3.4 x 4.2 cm atrophic kidneys . No calculus, solid mass, or hydronephrosis. Mid to lower pole left renal cyst 8 x 10 x 6 mm -this probably relates to be hyperdense CT cyst - a hemorrhagic cyst is consistent with this SPLEEN: Normal in size and contour. No mass. AORTA: No aneurysmal dilatation. IVC: Unremarkable. OTHER FINDINGS: Ascites around the liver and spleen IMPRESSION: Bilateral atrophic kidneys. No hydronephrosis. Bilateral renal cysts. The hyperdense mass left renal lower pole is consistent with a hemorrhagic cyst. Fatty liver. Ascites
--- NOTE | 2017-03-23 11:32 | CP.PCM.PN ---
Subjective - Date & Time of Evaluation Date of Evaluation: 03/23/17 Time of Evaluation: 11:00 - Subjective Subjective: no complaints Objective - Vital Signs/Intake and Output Vital Signs (last 24 hours): Temp Pulse Resp BP Pulse Ox 97.6 F 81 20 126/74 95 03/23/17 08:14 03/22/17 17:40 03/23/17 08:14 03/23/17 08:14 03/23/17 08:14 - Medications Medications: Current Medications Clonidine HCl (Catapres) 0.3 mg PO TID [facility] Last Admin: 03/23/17 10:16 Dose: 0.3 mg Hydromorphone HCl (Dilaudid) 1 mg IVP Q4H PRN PRN Reason: Pain, severe (8-10) Losartan Potassium (Cozaar) 25 mg PO DAILY [facility] Last Admin: 03/22/17 09:24 Dose: 25 mg Pantoprazole Sodium (Protonix Ec Tab) 40 mg PO DAILY [facility] Last Admin: 03/23/17 10:16 Dose: 40 mg Pneumococcal Polyvalent Vaccine (Pneumovax 23 Vaccine) 0.5 ml IM .ONCE ONE Stop: 03/24/17 10:01 - Labs Labs: 03/23/17 10:38 03/23/17 10:38 PT 16.9 SECONDS (9.7-12.2) H 03/20/17 18:54 INR 1.5 03/20/17 18:54 APTT 34 SECONDS (21-34) 03/20/17 18:54 - Constitutional Appears: Non-toxic - Head Exam Head Exam: NORMAL INSPECTION - Eye Exam Eye Exam: Normal appearance - ENT Exam ENT Exam: Mucous Membranes Moist - Respiratory Exam Respiratory Exam: NORMAL BREATHING PATTERN - Cardiovascular Exam Cardiovascular Exam: REGULAR RHYTHM - GI/Abdominal Exam GI & Abdominal Exam: Normal Bowel Sounds - Rectal Exam Rectal Exam: Deferred - Extremities Exam Extremities Exam: Full ROM - Neurological Exam Neurological Exam: Alert, Oriented x3 - Psychiatric Exam Psychiatric exam: Normal Mood Assessment and Plan (1) Mitral valve disease Assessment & Plan: normal valvular function Status: Acute (2) Hypertension Assessment & Plan: blood pressure control Status: Acute (3) Cardiomyopathy Assessment & Plan: not in CHF. Status: Acute
[2017-03-23 11:35] LABS: HEPATITIS B SURFACE AG NEGATIVE (NEGATIVE)
[2017-03-23 11:40] LABS: HEPATITIS A IGM NEGATIVE (NEGATIVE)
[2017-03-23 11:41] LABS: HEPATITIS B CORE AB NEGATIVE (NEGATIVE)
[2017-03-23 11:52] LABS: HEPATITIS C ANTIBODY NEGATIVE (NEGATIVE)
[2017-03-24] MEDS ORDERED: Pneumococcal 23-Valent Vaccine IM ONE (10:00)
== END 2017-03-23 15:00 | disposition home or self-care (01) | DRG 543 ==
LOC: C.ER 15:47 → C.9E 20:39 → C.5T 22:48
PROVIDERS: ADMIT Internal Medicine Pulmonary Disease; ATTEND Internal Medicine Pulmonary Disease
PROC: 5A1D60Z (ICD-10-PCS; principal; 2017-03-20)
DX: I72.3 Aneurysm of iliac artery (principal); I77.72 Dissection of iliac artery; I12.0 Hypertensive chronic kidney disease with stage 5 chronic kidney disease or end stage renal disease; N18.6 End stage renal disease; I42.9 Cardiomyopathy, unspecified; R18.8 Other ascites; E87.5 Hyperkalemia; Z99.2 Dependence on renal dialysis; Z95.2 Presence of prosthetic heart valve; R74.0 Nonspecific elevation of levels of transaminase and lactic acid dehydrogenase [LDH]

== ENCOUNTER 2017-03-27 19:33 | Emergency (ER) | payer OTHER ==
[2017-03-27 19:34] VITALS: BMI 19.2
[2017-03-27 19:46] VITALS: O2SAT 98
[2017-03-27 21:25] LABS: BASO # 0.1 K/uL (0.0-0.2); BASO % 1.2 % (0.0-2.0); EOS # 0.1 K/uL (0.0-0.7); EOS % 1.6 % (0.0-4.0); HEMOGLOBIN 12.1 g/dL (12.0-18.0); LYMPH % 24.9 % (20.0-40.0); MEAN CELL VOLUME 92.8 fL (80.0-94.0); MEAN CORPUSCULAR HEMOGLOBIN 29.5 pg (27.0-31.0); MEAN CORPUSCULAR HGB CONC 31.8 g/dL (33.0-37.0); MEAN PLATELET VOLUME 10.9 fL (7.2-11.7); MONO # 0.8 K/uL (0.0-0.8); MONO % 10.3 % (0.0-10.0); NRBC % 0.3 % (0.0-2.0); RBC 4.09 Mil/uL (4.40-5.90); RED CELL DISTRIBUTION WIDTH 23.7 % (11.5-14.5)
[2017-03-27 21:38] LABS: ALBUMIN 3.7 g/dL (3.5-5.0)
--- NOTE | 2017-03-27 21:39 | C.PDOC ---
History Of Present Illness 26 year old male who presents to the ER with a complaint of vague abdominal pain since his evaluation on 03/20 where he had an incidental finding of a left iliac artery aneurysm; he was evaluated and cleared by vascular surgery and cardiology. Patient was on dilaudid regularly during inpatient and is having the same discomfort now that he had since he was discharged. Denies fever, nausea, or vomiting. Time Seen by Provider: 03/27/17 20:22 Chief Complaint (Nursing): Abdominal Pain History Per: Patient History/Exam Limitations: no limitations Onset/Duration Of Symptoms: Days Current Symptoms Are (Timing): Still Present Location Of Pain/Discomfort: Diffuse Radiation Of Pain To:: None Quality Of Discomfort: Unable To Describe Associated Symptoms: denies: Fever, Nausea, Vomiting Exacerbating Factors: None Alleviating Factors: None Recent travel outside of the [place]: No Past Medical History Reviewed: Historical Data, Nursing Documentation, Vital Signs Vital Signs: Last Vital Signs Temp Pulse 103 H 03/27/17 19:40 Resp 17 03/27/17 19:40 BP 189/83 H 03/27/17 19:40 Pulse Ox 98 03/27/17 21:45 - Medical History PMH: HTN, End Stage Renal Disease, Chronic Kidney Disease - [facility] Procedures PERFORMANCE OF URINARY FILTRATION, MULTIPLE (03/20/17) Family History: States: Unknown Family Hx - Social History Hx Tobacco Use: No (DENIED) Hx Alcohol Use: No Hx Substance Use: No (DENIED) - Immunization History Hx Tetanus Toxoid Vaccination: No Hx Influenza Vaccination: No Hx Pneumococcal Vaccination: No Review Of Systems Constitutional: Negative for: Fever Gastrointestinal: Positive for: Abdominal Pain. Negative for: Nausea, Vomiting Physical Exam - Physical Exam Appears: Non-toxic, No Acute Distress Skin: Normal Color, Warm, Dry Head: Atraumatic, Normacephalic Oral Mucosa: Moist Chest: Symmetrical, No Tenderness Cardiovascular: Rhythm Regular, No Murmur Respiratory: Normal Breath Sounds, No Rales, No Rhonchi, No Wheezing Gastrointestinal/Abdominal: Soft, Tenderness (Vague diffusely), Distention (Mild ), Other (Dull to percussion) Neurological/Psych: Oriented x3, Normal Speech, Normal Cognition ED Course And Treatment - Laboratory Results Result Diagrams: 03/27/17 21:21 03/27/17 21:21 Lab Interpretation: Abnormal (baseline for HD pt) O2 Sat by Pulse Oximetry: 98 (Room air) Pulse Ox Interpretation: Normal - Radiology CXR: Interpreted by Me CXR Interpretation: Yes: No Acute Disease, Heart Size - Other Rad abd x 2 X-Ray: Interpreted by Me (+FOS, + mild ascites) Progress Note: EKG, blood work, and abdominal x-ray ordered. Reevaluation Time: 21:50 Reassessment Condition: Unchanged Medical Decision Making Medical Decision Making: mild/mod ascites, and large constipation, may be related to extensive recent narcotics use for abd pain without stool softners/laxatives Defer more narcotics and prescribe Miralax for relief. opt f/u with PMD Disposition Doctor Will See Patient In The: Office Counseled Patient/Family Regarding: Studies Performed, Diagnosis - Disposition Disposition: HOME/ ROUTINE Disposition Time: 21:52 Condition: GOOD - Clinical Impression Clinical Impression: ESRD (end stage renal disease) on dialysis, Abdominal bloating, Ascites - Scribe Statement The provider has reviewed the documentation as recorded by the Moiibgemma Major All medical record entries made by the Moiibgemma were at my direction and personally dictated by me. I have reviewed the chart and agree that the record accurately reflects my personal performance of the history, physical exam, medical decision making, and the department course for this patient. I have also personally directed, reviewed, and agree with the discharge instructions and disposition.
[2017-03-27 21:41] LABS: CALCIUM 9.1 mg/dl (8.6-10.4)
[2017-03-27 21:53] LABS: TROPONIN I 0.074 ng/mL (0.00-0.120)
[2017-03-27 22:31] VITALS: BP 178/82; PULSE 100; RESP 18; TEMP 98.6
--- NOTE | 2017-03-28 11:12 | RAD ---
PROCEDURE: Radiographs of the chest and abdomen (obstructive series) HISTORY: abd pain COMPARISON: Comparison is made to the previous CT of the abdomen dated 03/20/2017 previous chest x-ray dated 05/25/2015 TECHNIQUE: AP radiograph of the chest, with upright and supine radiographs of the abdomen. FINDINGS: CHEST: Lungs: Mild pulmonary vascular congestion and reticular opacities are seen more prominent at the mid and lower portion. Cardiovascular: Cardiomegaly. Status post mitral valve replacement. Pleura: No pleural fluid. No pneumothorax. Other findings: None. ABDOMEN AND PELVIS: Bowel: Unremarkable bowel gas pattern. No evidence of mechanical obstruction. Free air: None. Bones: Unremarkable. Other findings: Surgical clips at the right upper abdomen likely due to prior cholecystectomy. IMPRESSION: Cardiomegaly and mild pulmonary vascular congestion. . No evidence of mechanical bowel obstruction.
== END 2017-03-27 22:31 | disposition home or self-care (01) ==
LOC: C.ER 19:33
DX: R18.8 Other ascites (principal); I12.0 Hypertensive chronic kidney disease with stage 5 chronic kidney disease or end stage renal disease; N18.6 End stage renal disease; Z99.2 Dependence on renal dialysis

== ENCOUNTER 2017-08-01 10:41 | Inpatient (IN) | payer OTHER ==
[2017-08-01 10:41] VITALS: BMI 19.2
[2017-08-01] MEDS ORDERED: Sodium Chloride 0.9% 500 ML IV ONE (11:20)
--- NOTE | 2017-08-01 11:28 | C.PDOC ---
History Of Present Illness 37 yo male w/PMHx of ESRD on HD ( M,W,F), cardiomyopathy, hx of iliac aneurysm, come in for evaluation of left sided reproducible chest pain for past 1.5 weeks. Pt reports, pain is localized, reproducible, constant,m sharp. Otherwise , pt denies fever, chills, headache, dizziness, weakness, neck apin, SOB, dyspnea, diaphoresis, palpitation, abd. pain, N/V/D. Pt admits, last dialysis was on Wednesday. Due to holidays, pt was scheduled to have dialysis today and Wednesday instead of Wednesday. Pt reports, was seen at [facility] 1 week ago due to same complaints, when was told " have some infection in my chest and was given medication, but did not received rx". Ambulate to Ed for evaluation, not in any apparent distress. Time Seen by Provider: 08/01/17 10:43 Chief Complaint (Nursing): Chest Pain History Per: Patient Past Medical History Reviewed: Historical Data, Nursing Documentation, Vital Signs Vital Signs: Last Vital Signs Temp 97.8 F 08/01/17 10:48 Pulse 67 08/01/17 13:50 Resp 20 08/01/17 13:50 BP 123/70 08/01/17 13:50 Pulse Ox 99 08/01/17 13:50 - Medical History PMH: CHF, HTN, End Stage Renal Disease, Chronic Kidney Disease Other PMH: iliac aneurysm - [facility] Procedures PERFORMANCE OF URINARY FILTRATION, MULTIPLE (03/20/17) Family History: States: CAD, Other - Social History Hx Tobacco Use: No (DENIED) Hx Alcohol Use: No Hx Substance Use: No (DENIED) - Immunization History Hx Tetanus Toxoid Vaccination: No Hx Influenza Vaccination: No Hx Pneumococcal Vaccination: No Review Of Systems Except As Marked, All Systems Reviewed And Found Negative. Constitutional: Negative for: Fever, Chills Eyes: Negative for: Conjunctivae Inflammation ENT: Negative for: Throat Pain, Throat Swelling Cardiovascular: Positive for: Chest Pain. Negative for: Palpitations, Orthopnea , Light Headedness Respiratory: Negative for: Cough, Shortness of Breath, Wheezing Gastrointestinal: Negative for: Nausea, Vomiting, Abdominal Pain, Diarrhea Genitourinary: Negative for: Dysuria Musculoskeletal: Negative for: Neck Pain, Back Pain Skin: Negative for: Rash Neurological: Negative for: Weakness, Numbness, Altered Mental Status, Headache , Dizziness Physical Exam - Physical Exam Appears: Well, Non-toxic, No Acute Distress Skin: Normal Color, Warm, Dry, No Rash Head: Normacephalic Eye(s): bilateral: PERRL Nose: No Flaring, No Discharge Oral Mucosa: Moist, No Drooling Throat: No Erythema, No Exudate, No Drooling Neck: Trachea Midline, Supple Chest: Tenderness (left lateral anterior chest wall overlying 4-5 intercostal spaces. No deformity, no skin changes.), No Ecchymosis, No Subcutaneous Emphysema Cardiovascular: Rhythm Regular, Murmur, No JVD Respiratory: No Decreased Breath Sounds, No Accessory Muscle Use, No Stridor, No Wheezing Gastrointestinal/Abdominal: Soft, No Tenderness, Distention (mild), No Guarding , No Ascites Extremity: Normal ROM, No Pedal Edema, No Deformity, Other (Left upper arm AV shunt, (+) thrill.) Neurological/Psych: Oriented x3, Normal Speech ED Course And Treatment - Laboratory Results Result Diagrams: 08/01/17 11:20 08/01/17 Unknown Lab Interpretation: Abnormal ECG: Interpreted By Me, Viewed By Me ECG Interpretation: No Changes From Prior Interpretation Of ECG: SR@72/min,NAD, LVH, prolong QT, no acute ST-T changes. O2 Sat by Pulse Oximetry: 97 Pulse Ox Interpretation: Normal Progress Note: On re-evaluation, pt remained stable. NOn-toxic. case discussed with ( pts nephro) and blood work review. Low hemoglobin noted, as per , last CBC result was 2 weeks ago and Hg 8.2. NO other new acute abnoramlitie snoted on blood work. BUN/Cr appears at baseline. recommend dialysis tomorrow, as scheduled at 10:30 AM. paged to review case at 14:15. Disposition - Disposition Disposition: HOSPITALIZED Disposition Time: 13:40 Condition: STABLE Forms: [facility] (Namibian) - Clinical Impression Clinical Impression: Cardiomyopathy, Chest pain, ESRD (end stage renal disease) on dialysis
[2017-08-01 11:43] LABS: BASO # 0.1 K/uL (0.0-0.2); BASO % 1.3 % (0.0-2.0); EOS # 0.1 K/uL (0.0-0.7); EOS % 2.2 % (0.0-4.0); HEMATOCRIT 23.9 % (35.0-51.0); LYMPH # 1.1 K/uL (1.0-4.3); LYMPH % 20.1 % (20.0-40.0); MEAN CORPUSCULAR HEMOGLOBIN 27.2 pg (27.0-31.0); MEAN PLATELET VOLUME 8.1 fL (7.2-11.7); MONO # 0.6 K/uL (0.0-0.8); MONO % 10.5 % (0.0-10.0); NRBC % 0.1 % (0.0-2.0); RED CELL DISTRIBUTION WIDTH 21.8 % (11.5-14.5); WHITE BLOOD COUNT 5.3 K/uL (4.8-10.8)
[2017-08-01 11:51] LABS: INR 1.2
[2017-08-01 13:22] LABS: ALB/GLOB RATIO 0.7 (1.0-2.1); ALKALINE PHOSPHATASE 231 U/L (38-126); ALT/SGPT 35 U/L (21-72); AST/SGOT 47 U/L (17-59); BLOOD UREA NITROGEN 54 mg/dL (9-20); CALCIUM 9.2 mg/dl (8.6-10.4); CARBON DIOXIDE 29 mmol/L (22-30); CHLORIDE 94 mmol/L (98-107); GFR AFRICAN-AMERICAN 8; GLUCOSE,RANDOM 84 mg/dL (75-110); POTASSIUM 4.2 mmol/L (3.6-5.2); SODIUM 136 mmol/L (132-148); TOTAL PROTEIN 8.1 g/dL (6.3-8.3)
--- NOTE | 2017-08-01 13:34 | RAD ---
HISTORY: chest pain COMPARISON: 05/25/2015 TECHNIQUE: Chest PA and lateral FINDINGS: LUNGS: Left-sided pacer device. Clinical correlation as to positioning. Status post median sternotomy. Prior valve replacement. Surgical clips in the left axilla. Diffuse increased interstitial lung markings which may represent moderate venous congestion and/or interstitial infiltrates. Some patchy increased markings at both lung bases ; left greater than right. Question trace left pleural effusion. Few punctate nodular densities projecting over the left lung apex. PLEURA: As above. CARDIOVASCULAR: Cardiomegaly. OSSEOUS STRUCTURES: Degenerative changes. VISUALIZED UPPER ABDOMEN: Normal. OTHER FINDINGS: None. IMPRESSION: Left-sided pacer device. Clinical correlation as to positioning. Status post median sternotomy. Prior valve replacement. Surgical clips in the left axilla. Diffuse increased interstitial lung markings which may represent moderate venous congestion and/or interstitial infiltrates. Some patchy increased markings at both lung bases ; left greater than right. Question trace left pleural effusion. Few punctate nodular densities projecting over the left lung apex.
[2017-08-01] MEDS: Oxycodone/Acetaminophen 5/325 mg Tab PO PRN (19:06)
[2017-08-02] MEDS: Oxycodone/Acetaminophen 5/325 mg Tab PO PRN ×4 (00:25→19:31)
--- NOTE | 2017-08-02 07:59 | CP.PCM.CON ---
History of Present Illness - History of Present Illness History of Present Illness: patient seen/examined. full consult to follow. recommend transfusion (Hgb 7.6) has severe LV dysfunction. Past Patient History - Past Medical History & Family History Past Medical History?: Yes - Past Social History Smoking Status: Former Smoker - CARDIAC Hx Congestive Heart Failure: Yes Hx Hypertension: Yes - PULMONARY Hx Respiratory Disorders: No - NEUROLOGICAL Hx Neurological Disorder: No - RENAL Hx Chronic Kidney Disease: Yes Hx Dialysis: Yes Date of Last Dialysis Treatment: 07/30/17 - ENDOCRINE/METABOLIC Hx Endocrine Disorders: No - HEMATOLOGICAL/ONCOLOGICAL Hx Blood Disorders: No - INTEGUMENTARY Hx Dermatological Problems: No - MUSCULOSKELETAL/RHEUMATOLOGICAL Hx Musculoskeletal Disorders: No Hx Falls: No - GASTROINTESTINAL Hx Gastrointestinal Disorders: No - GENITOURINARY/GYNECOLOGICAL Hx Genitourinary Disorders: No - PSYCHIATRIC Hx Substance Use: No (DENIED) - SURGICAL HISTORY Hx Surgeries: Yes Hx Arteriovenous Shunt: Yes (left arm(new) ,rt arm(old)) Hx Valve Replacement: Yes - ANESTHESIA Hx Anesthesia: Yes Hx Anesthesia Reactions: No Hx Malignant Hyperthermia: No Has any member of the family had a problem w/ anesthesia?: No Meds Allergies/Adverse Reactions: Allergies Allergy/AdvReac Type Severity Reaction Status Date / Time No Known Allergies Allergy Verified 08/01/17 10:58 - Medications Medications: Current Medications Amiodarone HCl (Cordarone) 200 mg PO DAILY [facility] Aspirin (Aspirin Chewable) 81 mg PO DAILY [facility] Clonidine HCl (Catapres) 0.1 mg PO TID [facility] Gabapentin (Neurontin) 100 mg PO HS [facility] Last Admin: 08/01/17 21:59 Dose: 100 mg Heparin Sodium (Porcine) (Heparin) 5,000 units SC Q8 [facility] Last Admin: 08/02/17 06:00 Dose: 5,000 units Hydralazine HCl (Apresoline) 25 mg PO TID [facility] Metoprolol Tartrate (Lopressor) 50 mg PO DAILY [facility] Ondansetron HCl (Zofran Tab) 4 mg PO Q6H PRN PRN Reason: Nausea/Vomiting Oxycodone/Acetaminophen (Percocet 5/325 Mg Tab) 1 tab PO Q4H PRN PRN Reason: Pain Stop: 08/04/17 18:21 Last Admin: 08/02/17 05:59 Dose: 1 tab Pantoprazole Sodium (Protonix Ec Tab) 40 mg PO DAILY [facility] Rosuvastatin Calcium (Crestor) 20 mg PO HS [facility] Last Admin: 08/01/17 21:59 Dose: 20 mg Results - Vital Signs Recent Vital Signs: Last Vital Signs Temp 98.3 F 08/02/17 07:53 Pulse 79 08/02/17 07:53 Resp 20 08/02/17 07:53 BP 163/93 H 08/02/17 07:53 Pulse Ox 99 08/02/17 07:53 - Labs Result Diagrams: 08/01/17 11:20 08/01/17 Unknown Labs: Laboratory Results - last 24 hr 08/01/17 08/01/17 08/01/17 11:20 11:20 Unknown WBC 5.3 RBC 2.81 L Hgb 7.6 L D Hct 23.9 L MCV 85.0 D MCH 27.2 MCHC 32.0 L RDW 21.8 H Plt Count 154 MPV 8.1 Neut % (Auto) 65.9 Lymph % (Auto) 20.1 [place] % (Auto) 10.5 H Eos % (Auto) 2.2 Baso % (Auto) 1.3 Neut # 3.5 Lymph # 1.1 [place] # 0.6 Eos # 0.1 Baso # 0.1 PT 14.1 H INR 1.2 APTT 38 H Sodium 136 Potassium 4.2 Chloride 94 L Carbon Dioxide 29 Anion Gap 17 BUN 54 H Creatinine 8.7 H* Est GFR ( Amer) 8 Est GFR (Non-Af Amer) 7 Random Glucose 84 Calcium 9.2 Total Bilirubin 1.0 AST 47 ALT 35 Alkaline Phosphatase 231 H Troponin I 0.0600 NT-Pro-B Natriuret Pep > 621263 H Total Protein 8.1 Albumin 3.5 Globulin 4.6 H Albumin/Globulin Ratio 0.7 L
--- NOTE | 2017-08-02 08:32 | CP.PCM.PN ---
Subjective - Date & Time of Evaluation Date of Evaluation: 08/02/17 Time of Evaluation: 10:00 - Subjective Subjective: Dr. Elliott: Patient is a 37 year old male with a history of cardiomyapthy, ESRD, pacemaker placement is here with chest pain. He says the pain is reproducible with pressure to his chest wall. He says the pain is stabbing, constant and non radiating. Objective - Vital Signs/Intake and Output Vital Signs (last 24 hours): Temp Pulse Resp BP Pulse Ox 98.3 F 79 20 163/93 H 99 08/02/17 07:53 08/02/17 07:53 08/02/17 07:53 08/02/17 07:53 08/02/17 07:53 Intake and Output: 08/02/17 08/02/17 06:59 18:59 Intake Total 130 Output Total 0 Balance 130 - Medications Medications: Current Medications Amiodarone HCl (Cordarone) 200 mg PO DAILY [facility] Aspirin (Aspirin Chewable) 81 mg PO DAILY [facility] Clonidine HCl (Catapres) 0.1 mg PO TID [facility] Gabapentin (Neurontin) 100 mg PO HS [facility] Last Admin: 08/01/17 21:59 Dose: 100 mg Heparin Sodium (Porcine) (Heparin) 5,000 units SC Q8 [facility] Last Admin: 08/02/17 06:00 Dose: 5,000 units Hydralazine HCl (Apresoline) 25 mg PO TID [facility] Metoprolol Tartrate (Lopressor) 50 mg PO DAILY [facility] Ondansetron HCl (Zofran Tab) 4 mg PO Q6H PRN PRN Reason: Nausea/Vomiting Oxycodone/Acetaminophen (Percocet 5/325 Mg Tab) 1 tab PO Q4H PRN PRN Reason: Pain Stop: 08/04/17 18:21 Last Admin: 08/02/17 05:59 Dose: 1 tab Pantoprazole Sodium (Protonix Ec Tab) 40 mg PO DAILY [facility] Rosuvastatin Calcium (Crestor) 20 mg PO HS [facility] Last Admin: 08/01/17 21:59 Dose: 20 mg - Labs Labs: 08/01/17 11:20 08/01/17 Unknown PT 14.1 SECONDS (9.7-12.2) H 08/01/17 11:20 INR 1.2 08/01/17 11:20 APTT 38 SECONDS (21-34) H 08/01/17 11:20 - Constitutional Appears: Non-toxic, No Acute Distress - Eye Exam Eye Exam: Normal appearance Pupil Exam: NORMAL ACCOMODATION - Neck Exam Neck Exam: Normal Inspection - Respiratory Exam Respiratory Exam: Clear to Ausculation Bilateral. absent: Rales, Rhonchi, Wheezes - Cardiovascular Exam Cardiovascular Exam: REGULAR RHYTHM, RRR, +S1, +S2. absent: Gallop, Rubs - GI/Abdominal Exam GI & Abdominal Exam: Soft, Normal Bowel Sounds. absent: Tenderness - Extremities Exam Extremities Exam: Pedal Edema. absent: Normal Inspection - Back Exam Back Exam: NORMAL INSPECTION - Psychiatric Exam Psychiatric exam: Normal Affect, Normal Mood - Skin Skin Exam: Normal Color Assessment and Plan (1) Chest pain Assessment & Plan: Troponin is negative x2, will follow up another one. Dr. Mora consulted, spoke with him he said he would have his pacemaker evaluated. Will give Status: Acute (2) Anemia Assessment & Plan: Follow up iron studies, most likely anemia of chronic disease. Status: Acute (3) ESRD (end stage renal disease) on dialysis Assessment & Plan: Dialysis today, continue his regular outpatient schedule. Status: Chronic (4) Hypertension Assessment & Plan: Clonidin 0.1mg TID Hydralazine 25mg tid Cozaar 25mg Lopressor 50mg Amiodarone 200mg Aspirin 81mg Status: Chronic (5) Cardiomyopathy Assessment & Plan: cardiology consult Status: Chronic (6) Mitral valve disease Assessment & Plan: Dr. Mora consulted. Status: Chronic (7) HLD (hyperlipidemia) Assessment & Plan: Crestor Status: Chronic (8) Prophylactic measure Assessment & Plan: Heparin 5000 units sc q8h Protonix 40mg SCDS as needed. Status: Acute
[2017-08-02] MEDS: Pantoprazole 40 mg EC Tab PO SCH (10:51)
[2017-08-02] MEDS ORDERED: EPOETIN ALFA 4,000 UNIT/ML ML Dialysis IV SCH (13:00)
[2017-08-02] MEDS ORDERED: Epoetin Alfa 10,000 unit/ml Dialysis IV SCH (13:00)
--- NOTE | 2017-08-02 15:46 | CP.PCM.CON ---
History of Present Illness - History of Present Illness History of Present Illness: Initial Nephrology Consultation: Assessment: Stable ? fluid overload status versus CHF exacerbation Hypertensive Chronic Kidney Disease (I12.0) End stage renal disease (N18.6) dependence on hemodialysis (Z99.2) (MWF) via AVF Anemia (D64.9), Hyperphosphatemia (E83.39), Secondary Hyperparathyroidism (E21.1 ), HTN (I12.0) CHF, hx of PPM Plan: Will plan for HD today as ordered. Continue with Nephrovite 1 tab/day. re- assess for extra HD in AM PRBC as needed for anemia. added ILIANA as epogen 14,000 with HD Continue with phos binders home dose, check phos level BP control with meds as ordered. Patient not on RAAS natasha hence will start losartan Glycemic control, Dialysis consistent diet Further work up/management as per primary team Dose meds/antibiotics (if needed) for ESRD status. Avoid fleets enema/magnesium based laxatives. Thanks for allowing me to participate in care of your patient. Will follow patient with you. Please call if any Qs Dr Hector Serrato Office: [phone] Chief Complaint;chest pain HPI: Pt is a 37 y/o M with hx of ESRD on hemodialysis (MWF) via AVF, last dialysis fri, chronic anemia, hyperphosphatemia, secondary hyperparathyroidism, hypertension, CHF, s/p PPM presented with complaints of left side chest pain x 1 month and also c/o shortness of breath, denies leg swelling ROS: Constitutional Symptoms: Denies fever. No chills. No Recent Weight Changes Eyes: denies change in vision, denies watery eyes, denies double vision Ears/Nose/Mouth/Throat: Denies Abnormal Taste. No Bad breath or Bad Taste. Cardiovascular: c/o chest pain. There is c/o shortness of breath. No palpitations. Pulmonary: c/o shortness of breath no cough. Gastrointestinal: denies abdominal pain No nausea. No vomiting. Denies change in bowel habits. Denies Bleeding Genitourinary: anuric. Neurological: Denies headaches. No dizziness. Denies loss of balance. Denies weakness, denies tingling/numbness Dermatological: No Rash or Bruising or ulcers. Psychiatric: Denies Anxiety. No depression. Denies hallucinations. Rheumatological: No joint pain. Denies Joint swelling Endocrine: Denies over tiredness. Denies Fatigue and denies Heat/Cold Intolerance. All other negative. Physical Examination: General Appearance: Comfortable, in no acute respiratory distress, co-operative . Vitals reviewed and noted as below Head; Atraumatic, normocephalic ENT: no ulcers no thrush. Tongue is midline. Oropharynx: no rash or ulcers. EYES: Pupils are equal, round and reactive to light accommodation. Eye muscles and extraocular movement intact. Sclera is anicteric. Neck; supple no lymphadenopathy, no thyromegaly or bruit. neck veins distended Lungs: Normal respiratory rate/effort. Breath sounds bilateral equal and has basal crackles Heart: Normal rate. s1s2 normal. No rub or gallop. Extremities: no edema. No varicose veins Neurological: Patient is alert, awake and oriented to person, place and time. No focal deficit. Strength bilateral appropriate and equal Skin: Warm and dry. Normal turgor. No rash. Palpitation: Normal elasticity for age Abdomen: Abdomen is soft. Bowel sounds +. There is no abdominal tenderness, no guarding/rigidity or organomegaly Psych: normal insight and normal affect/mood MSK: no joint tenderness or swelling. Digits and nails normal, no deformity : kidney or bladder not palpable Access: AVF Labs/imaging reviewed. Past medical history, past surgical history, family history, social history, allergy reviewed and noted as below Family Hx: no hx of CKD. Non contributory Past Patient History - Past Medical History & Family History Past Medical History?: Yes - Past Social History Smoking Status: Former Smoker - CARDIAC Hx Congestive Heart Failure: Yes Hx Hypertension: Yes - PULMONARY Hx Respiratory Disorders: No - NEUROLOGICAL Hx Neurological Disorder: No - RENAL Hx Chronic Kidney Disease: Yes Hx Dialysis: Yes Date of Last Dialysis Treatment: 07/30/17 - ENDOCRINE/METABOLIC Hx Endocrine Disorders: No - HEMATOLOGICAL/ONCOLOGICAL Hx Blood Disorders: No - INTEGUMENTARY Hx Dermatological Problems: No - MUSCULOSKELETAL/RHEUMATOLOGICAL Hx Musculoskeletal Disorders: No Hx Falls: No - GASTROINTESTINAL Hx Gastrointestinal Disorders: No - GENITOURINARY/GYNECOLOGICAL Hx Genitourinary Disorders: No - PSYCHIATRIC Hx Substance Use: No (DENIED) - SURGICAL HISTORY Hx Surgeries: Yes Hx Arteriovenous Shunt: Yes (left arm(new) ,rt arm(old)) Hx Valve Replacement: Yes - ANESTHESIA Hx Anesthesia: Yes Hx Anesthesia Reactions: No Hx Malignant Hyperthermia: No Has any member of the family had a problem w/ anesthesia?: No Meds Allergies/Adverse Reactions: Allergies Allergy/AdvReac Type Severity Reaction Status Date / Time No Known Allergies Allergy Verified 08/01/17 10:58 - Medications Medications: Current Medications Amiodarone HCl (Cordarone) 200 mg PO DAILY [facility] Last Admin: 08/02/17 10:51 Dose: 200 mg Aspirin (Aspirin Chewable) 81 mg PO DAILY [facility] Last Admin: 08/02/17 10:51 Dose: 81 mg Clonidine HCl (Catapres) 0.1 mg PO TID [facility] Last Admin: 08/02/17 14:02 Dose: Not Given Epoetin Thomas (Procrit) 10,000 unit IV MWF [facility] Epoetin Thomas (Procrit) 4,000 unit IV MWF [facility] Gabapentin (Neurontin) 100 mg PO HS [facility] Last Admin: 08/01/17 21:59 Dose: 100 mg Heparin Sodium (Porcine) (Heparin) 5,000 units SC Q8 [facility] Last Admin: 08/02/17 14:02 Dose: Not Given Hydralazine HCl (Apresoline) 25 mg PO TID [facility] Last Admin: 08/02/17 14:01 Dose: Not Given Losartan Potassium (Cozaar) 25 mg PO DAILY [facility] Metoprolol Tartrate (Lopressor) 50 mg PO DAILY [facility] Last Admin: 08/02/17 14:02 Dose: Not Given Ondansetron HCl (Zofran Tab) 4 mg PO Q6H PRN PRN Reason: Nausea/Vomiting Oxycodone/Acetaminophen (Percocet 5/325 Mg Tab) 1 tab PO Q4H PRN PRN Reason: Pain Stop: 08/04/17 18:21 Last Admin: 08/02/17 13:28 Dose: 1 tab Pantoprazole Sodium (Protonix Ec Tab) 40 mg PO DAILY [facility] Last Admin: 08/02/17 10:51 Dose: 40 mg Rosuvastatin Calcium (Crestor) 20 mg PO HS [facility] Last Admin: 08/01/17 21:59 Dose: 20 mg Vitamin B Complex/Vit C/Folic Acid (Nephro-Duane) 1 tab PO 0800 [facility] Results - Vital Signs Recent Vital Signs: Last Vital Signs Temp 98 F 08/02/17 13:19 Pulse 81 08/02/17 13:19 Resp 18 08/02/17 13:19 BP 137/75 08/02/17 13:19 Pulse Ox 94 L 08/02/17 13:19 - Labs Result Diagrams: 08/01/17 11:20 08/01/17 Unknown Labs: Laboratory Results - last 24 hr 08/02/17 14:47 Retic Count 2.4 H
[2017-08-02 16:01] LABS: TROPONIN I 0.038 ng/mL (0.00-0.120)
[2017-08-02 16:12] LABS: IRON 42 ug/dL (49-181)
[2017-08-02 16:13] LABS: ALB/GLOB RATIO 0.7 (1.0-2.1); BILIRUBIN,TOTAL 0.9 mg/dL (0.2-1.3); CALCIUM 8.9 mg/dl (8.6-10.4); PHOSPHOROUS 6.1 mg/dL (2.5-4.5); POTASSIUM 4.7 mmol/L (3.6-5.2); TOTAL PROTEIN 8.3 g/dL (6.3-8.3)
[2017-08-02 16:25] LABS: BASO % 0.8 % (0.0-2.0); EOS # 0.2 K/uL (0.0-0.7); EOS % 3.1 % (0.0-4.0); HEMATOCRIT 24.5 % (35.0-51.0); LYMPH % 21.8 % (20.0-40.0); MEAN CORPUSCULAR HEMOGLOBIN 26.1 pg (27.0-31.0); MEAN PLATELET VOLUME 8.3 fL (7.2-11.7); MONO # 0.3 K/uL (0.0-0.8); MONO % 6.9 % (0.0-10.0); NRBC % 0.2 % (0.0-2.0); RED CELL DISTRIBUTION WIDTH 22.2 % (11.5-14.5); WHITE BLOOD COUNT 4.8 K/uL (4.8-10.8)
[2017-08-02 16:58] LABS: FOLATE 7.1 ng/mL
[2017-08-03] MEDS: Oxycodone/Acetaminophen 5/325 mg Tab PO PRN ×3 (02:09→15:08)
--- NOTE | 2017-08-03 07:21 | HP ---
HISTORY OF PRESENT ILLNESS: A 37-year-old male admitted to the hospital with chief complaint of weakness, fatigue and tiredness. The patient came to the ER, while admission the patient had renal failure, hypertension, congestive heart failure, replacement. PHYSICAL EXAMINATION: GENERAL: Patient is awake, alert and oriented. VITAL SIGNS: Temperature 98, pulse 90. HEENT: Within normal limits. NECK: Supple. CHEST: Symmetrical. HEART: Distant sound. ABDOMEN: Soft. EXTREMITIES: No edema. ASSESSMENT AND PLAN: The patient suffered from chest pain, heart failure by history, renal failure and hypertension by history. The patient getting bedrest, dialysis, cardiology evaluation. Maggie Elliott MD
[2017-08-03] MEDS: Multivitamin Vitamin B Complex (Nephro-Vite) Tab PO SCH (08:29)
--- NOTE | 2017-08-03 09:12 | CP.PCM.PN ---
Subjective - Date & Time of Evaluation Date of Evaluation: 08/03/17 Time of Evaluation: 09:00 - Subjective Subjective: AICD interrogated. no events. patient is clinically stable from a cardiac standpoint. CP is noncardiac in origin Objective - Vital Signs/Intake and Output Vital Signs (last 24 hours): Temp Pulse Resp BP Pulse Ox 98.4 F 88 20 165/104 H 100 08/03/17 08:46 08/03/17 08:46 08/03/17 08:46 08/03/17 08:46 08/03/17 08:46 Intake and Output: 08/03/17 08/03/17 06:59 18:59 Intake Total 300 Balance 300 - Medications Medications: Current Medications Amiodarone HCl (Cordarone) 200 mg PO DAILY [facility] Last Admin: 08/02/17 10:51 Dose: 200 mg Aspirin (Aspirin Chewable) 81 mg PO DAILY [facility] Last Admin: 08/02/17 10:51 Dose: 81 mg Clonidine HCl (Catapres) 0.1 mg PO TID [facility] Last Admin: 08/02/17 17:17 Dose: 0.1 mg Epoetin Thomas (Procrit) 10,000 unit IV MWF [facility] Last Admin: 08/02/17 17:02 Dose: 10,000 unit Epoetin Thomas (Procrit) 4,000 unit IV [facility] Ferric Sodium Gluconate Complex (Ferrlecit) 125 mg IVPB DAILY [facility] Stop: 08/07/17 10:01 Gabapentin (Neurontin) 100 mg PO HS [facility] Last Admin: 08/02/17 21:51 Dose: 100 mg Heparin Sodium (Porcine) (Heparin) 5,000 units SC Q8 [facility] Last Admin: 08/02/17 21:53 Dose: Not Given Hydralazine HCl (Apresoline) 25 mg PO Q8 [facility] Last Admin: 08/03/17 08:24 Dose: 25 mg Losartan Potassium (Cozaar) 50 mg PO DAILY [facility] Metoprolol Tartrate (Lopressor) 50 mg PO DAILY [facility] Last Admin: 08/03/17 08:14 Dose: 50 mg Ondansetron HCl (Zofran Tab) 4 mg PO Q6H PRN PRN Reason: Nausea/Vomiting Oxycodone/Acetaminophen (Percocet 5/325 Mg Tab) 1 tab PO Q4H PRN PRN Reason: Pain Stop: 08/04/17 18:21 Last Admin: 08/03/17 02:09 Dose: 1 tab Pantoprazole Sodium (Protonix Ec Tab) 40 mg PO DAILY [facility] Last Admin: 08/02/17 10:51 Dose: 40 mg Rosuvastatin Calcium (Crestor) 20 mg PO HS [facility] Last Admin: 08/02/17 21:51 Dose: 20 mg Vitamin B Complex/Vit C/Folic Acid (Nephro-Duane) 1 tab PO 0800 [facility] Last Admin: 08/03/17 08:29 Dose: 1 tab - Labs Labs: 08/02/17 16:20 08/02/17 14:47 PT 14.1 SECONDS (9.7-12.2) H 08/01/17 11:20 INR 1.2 08/01/17 11:20 APTT 38 SECONDS (21-34) H 08/01/17 11:20
[2017-08-03] MEDS: Ferric Sodium Gluconat Complex 62.5 mg/5 ml Vial IVPB SCH ×2 (09:31→17:10)
[2017-08-03] MEDS: Pantoprazole 40 mg EC Tab PO SCH (09:31)
--- NOTE | 2017-08-03 11:07 | CP.PCM.PN ---
Subjective - Date & Time of Evaluation Date of Evaluation: 08/03/17 Time of Evaluation: 10:00 - Subjective Subjective: PGY3 on medicine Dr. Elliott service: Pt seen and examined at bedside this morning. Pt reports left nipple pain still and reproducible. No other complaints at the moment. AICD interrogated and showed no events per Dr. Mora. Pt also complains of worsening abdominal distention. Objective - Vital Signs/Intake and Output Vital Signs (last 24 hours): Temp Pulse Resp BP Pulse Ox 98.4 F 81 20 160/79 H 100 08/03/17 08:46 08/03/17 09:27 08/03/17 08:46 08/03/17 09:27 08/03/17 08:46 Intake and Output: 08/03/17 08/03/17 06:59 18:59 Intake Total 300 Balance 300 - Medications Medications: Current Medications Amiodarone HCl (Cordarone) 200 mg PO DAILY [facility] Last Admin: 08/03/17 09:31 Dose: 200 mg Aspirin (Aspirin Chewable) 81 mg PO DAILY [facility] Last Admin: 08/03/17 09:31 Dose: 81 mg Clonidine HCl (Catapres) 0.1 mg PO TID [facility] Last Admin: 08/03/17 09:32 Dose: 0.1 mg Epoetin Thomas (Procrit) 10,000 unit IV MWF [facility] Last Admin: 08/02/17 17:02 Dose: 10,000 unit Epoetin Thomas (Procrit) 4,000 unit IV MWF [facility] Ferric Sodium Gluconate Complex (Ferrlecit) 125 mg IVPB DAILY [facility] Stop: 08/07/17 10:01 Last Admin: 08/03/17 09:31 Dose: 125 mg Gabapentin (Neurontin) 100 mg PO HS [facility] Last Admin: 08/02/17 21:51 Dose: 100 mg Heparin Sodium (Porcine) (Heparin) 5,000 units SC Q8 [facility] Last Admin: 08/02/17 21:53 Dose: Not Given Hydralazine HCl (Apresoline) 25 mg PO Q8 [facility] Last Admin: 08/03/17 08:24 Dose: 25 mg Losartan Potassium (Cozaar) 50 mg PO DAILY [facility] Last Admin: 08/03/17 09:32 Dose: Not Given Metoprolol Tartrate (Lopressor) 50 mg PO DAILY [facility] Last Admin: 08/03/17 09:33 Dose: Not Given Ondansetron HCl (Zofran Tab) 4 mg PO Q6H PRN PRN Reason: Nausea/Vomiting Oxycodone/Acetaminophen (Percocet 5/325 Mg Tab) 1 tab PO Q4H PRN PRN Reason: Pain Stop: 08/04/17 18:21 Last Admin: 08/03/17 09:31 Dose: 1 tab Pantoprazole Sodium (Protonix Ec Tab) 40 mg PO DAILY [facility] Last Admin: 08/03/17 09:31 Dose: 40 mg Rosuvastatin Calcium (Crestor) 20 mg PO HS [facility] Last Admin: 08/02/17 21:51 Dose: 20 mg Vitamin B Complex/Vit C/Folic Acid (Nephro-Duane) 1 tab PO 0800 [facility] Last Admin: 08/03/17 08:29 Dose: 1 tab - Labs Labs: 08/02/17 16:20 08/02/17 14:47 PT 14.1 SECONDS (9.7-12.2) H 08/01/17 11:20 INR 1.2 08/01/17 11:20 APTT 38 SECONDS (21-34) H 08/01/17 11:20 - Constitutional Appears: Non-toxic, No Acute Distress, Chronically Ill - Head Exam Head Exam: NORMAL INSPECTION, NORMOCEPHALIC - Eye Exam Eye Exam: Normal appearance Pupil Exam: NORMAL ACCOMODATION - Respiratory Exam Respiratory Exam: Chest Wall Tenderness (left nipple), Clear to Ausculation Bilateral, NORMAL BREATHING PATTERN. absent: Wheezes - Cardiovascular Exam Cardiovascular Exam: REGULAR RHYTHM, +S1, +S2. absent: Gallop, Rubs Additional comments: AICD left axil - GI/Abdominal Exam GI & Abdominal Exam: Distended, Soft, Normal Bowel Sounds. absent: Tenderness, Hyperactive Bowel Sounds - Neurological Exam Neurological Exam: Alert, Awake, Oriented x3 - Psychiatric Exam Psychiatric exam: Normal Mood - Skin Skin Exam: Intact Assessment and Plan - Assessment and Plan (Free Text) Assessment: Abdominal distention Assessment & Plan: IR paracentesis consult placed, help appreciated. F/U fluid studies. Status: Acute Chest pain Assessment & Plan: AICD interrogated, no event noted per Dr. Mora. Status: Acute Anemia Assessment & Plan: Most likely secondary to anemia of chronic disease. Status: Acute ESRD (end stage renal disease) on dialysis Assessment & Plan: HD MWF Status: Chronic Hypertension Assessment & Plan: Clonidin 0.1mg TID Hydralazine 25mg tid Cozaar 25mg Lopressor 50mg Amiodarone 200mg Aspirin 81mg Status: Chronic Cardiomyopathy Assessment & Plan: cardiology consult Status: Chronic Mitral valve disease Assessment & Plan: Dr. Mora consulted. Status: Chronic HLD (hyperlipidemia) Assessment & Plan: Crestor Status: Chronic Prophylactic measure Assessment & Plan: Heparin 5000 units sc q8h Protonix 40mg SCDS as needed. Status: Acute Management as per Dr. Elliott.
[2017-08-03 12:05] LABS: BASO # 0.1 K/uL (0.0-0.2); BASO % 1.2 % (0.0-2.0); EOS # 0.1 K/uL (0.0-0.7); HEMATOCRIT 25.7 % (35.0-51.0); LYMPH # 0.9 K/uL (1.0-4.3); LYMPH % 19.2 % (20.0-40.0); MEAN CELL VOLUME 84.3 fL (80.0-94.0); MEAN CORPUSCULAR HEMOGLOBIN 26.9 pg (27.0-31.0); MEAN CORPUSCULAR HGB CONC 31.9 g/dL (33.0-37.0); MEAN PLATELET VOLUME 8.2 fL (7.2-11.7); MONO # 0.4 K/uL (0.0-0.8); MONO % 8.4 % (0.0-10.0); NRBC % 0.1 % (0.0-2.0); RED CELL DISTRIBUTION WIDTH 21.7 % (11.5-14.5); WHITE BLOOD COUNT 4.9 K/uL (4.8-10.8)
[2017-08-03 12:52] LABS: BILIRUBIN,TOTAL 1.2 mg/dL (0.2-1.3); CALCIUM 8.8 mg/dl (8.6-10.4); POTASSIUM 4.4 mmol/L (3.6-5.2); TOTAL PROTEIN 7.1 g/dL (6.3-8.3)
--- NOTE | 2017-08-03 13:48 | CP.PCM.PN ---
Subjective - Date & Time of Evaluation Date of Evaluation: 08/03/17 Time of Evaluation: 13:44 - Subjective Subjective: Nephrology Consultation: Assessment: Stable ? fluid overload status versus CHF exacerbation, atypical chest pain Hypertensive Chronic Kidney Disease (I12.0) End stage renal disease (N18.6) dependence on hemodialysis (Z99.2) (MWF) via AVF Anemia (D64.9), Hyperphosphatemia (E83.39), Secondary Hyperparathyroidism (E21.1 ), HTN (I12.0) CHF, hx of PPM ? ascites Plan: pt planned for dc home today hence Will plan for HD today as ordered as his next outpt HD will be on wednesday. Continue with Nephrovite 1 tab/day. PRBC as needed for anemia. added ILIANA as epogen 14,000 with HD and IV iron Continue with phos binders home dose, last phos level 6.1 BP control with meds as ordered. Patient not on RAAS natasha hence started on losartan, increased to 50 mg Glycemic control, Dialysis consistent diet Further work up/management as per primary team Dose meds/antibiotics (if needed) for ESRD status. Avoid fleets enema/magnesium based laxatives. if not done in past, consider work up for abdomen distension ? ascites Thanks for allowing me to participate in care of your patient. Will follow patient with you. Please call if any Qs. d/w team Dr Hector Serrato Office: [phone] Chief Complaint;chest pain HPI: Pt is a 37 y/o M with hx of ESRD on hemodialysis (MWF) via AVF, last dialysis fri, chronic anemia, hyperphosphatemia, secondary hyperparathyroidism, hypertension, CHF, s/p PPM presented with complaints of left side chest pain x 1 month and also c/o shortness of breath, denies leg swelling ros; feels better. denies SOB. c/o abdomen distension. chest wall pain better. denies leg swelling Physical Examination: General Appearance: Comfortable, in no acute respiratory distress, co-operative . Vitals reviewed and noted as below Head; Atraumatic, normocephalic ENT: no ulcers no thrush. Tongue is midline. Oropharynx: no rash or ulcers. EYES: Pupils are equal, round and reactive to light accommodation. Eye muscles and extraocular movement intact. Sclera is anicteric. Neck; supple no lymphadenopathy, no thyromegaly or bruit. neck veins distended chronically Lungs: Normal respiratory rate/effort. Breath sounds bilateral equal and clear today Heart: Normal rate. s1s2 normal. No rub or gallop. Extremities: no edema. No varicose veins Neurological: Patient is alert, awake and oriented to person, place and time. No focal deficit. Strength bilateral appropriate and equal Skin: Warm and dry. Normal turgor. No rash. Palpitation: Normal elasticity for age Abdomen: Abdomen is soft. Bowel sounds +. There is no abdominal tenderness, no guarding/rigidity or organomegaly. Distended ? ascitic Psych: normal insight and normal affect/mood MSK: no joint tenderness or swelling. Digits and nails normal, no deformity : kidney or bladder not palpable Access: AVF Labs/imaging reviewed. Past medical history, past surgical history, family history, social history, allergy reviewed and noted as below Family Hx: no hx of CKD. Non contributory Objective - Vital Signs/Intake and Output Vital Signs (last 24 hours): Temp Pulse Resp BP Pulse Ox 98.4 F 81 20 160/79 H 100 08/03/17 08:46 08/03/17 09:27 08/03/17 08:46 08/03/17 09:27 08/03/17 08:46 Intake and Output: 08/03/17 08/03/17 06:59 18:59 Intake Total 300 Balance 300 - Medications Medications: Current Medications Amiodarone HCl (Cordarone) 200 mg PO DAILY [facility] Last Admin: 08/03/17 09:31 Dose: 200 mg Aspirin (Aspirin Chewable) 81 mg PO DAILY [facility] Last Admin: 08/03/17 09:31 Dose: 81 mg Clonidine HCl (Catapres) 0.1 mg PO TID [facility] Last Admin: 08/03/17 09:32 Dose: 0.1 mg Epoetin Thomas (Procrit) 10,000 unit IV MWF [facility] Last Admin: 08/02/17 17:02 Dose: 10,000 unit Epoetin Thomas (Procrit) 4,000 unit IV MWF [facility] Ferric Sodium Gluconate Complex (Ferrlecit) 125 mg IVPB DAILY [facility] Stop: 08/07/17 10:01 Gabapentin (Neurontin) 100 mg PO HS [facility] Last Admin: 08/02/17 21:51 Dose: 100 mg Heparin Sodium (Porcine) (Heparin) 5,000 units SC Q8 [facility] Last Admin: 08/02/17 21:53 Dose: Not Given Hydralazine HCl (Apresoline) 25 mg PO Q8 [facility] Last Admin: 08/03/17 08:24 Dose: 25 mg Losartan Potassium (Cozaar) 50 mg PO DAILY [facility] Last Admin: 08/03/17 09:32 Dose: Not Given Metoprolol Tartrate (Lopressor) 50 mg PO DAILY [facility] Last Admin: 08/03/17 09:33 Dose: Not Given Ondansetron HCl (Zofran Tab) 4 mg PO Q6H PRN PRN Reason: Nausea/Vomiting Oxycodone/Acetaminophen (Percocet 5/325 Mg Tab) 1 tab PO Q4H PRN PRN Reason: Pain Stop: 08/04/17 18:21 Last Admin: 08/03/17 09:31 Dose: 1 tab Pantoprazole Sodium (Protonix Ec Tab) 40 mg PO DAILY [facility] Last Admin: 08/03/17 09:31 Dose: 40 mg Rosuvastatin Calcium (Crestor) 20 mg PO HS [facility] Last Admin: 08/02/17 21:51 Dose: 20 mg Vitamin B Complex/Vit C/Folic Acid (Nephro-Duane) 1 tab PO 0800 [facility] Last Admin: 08/03/17 08:29 Dose: 1 tab - Labs Labs: 08/03/17 11:53 08/03/17 11:53 PT 14.1 SECONDS (9.7-12.2) H 08/01/17 11:20 INR 1.2 08/01/17 11:20 APTT 38 SECONDS (21-34) H 08/01/17 11:20
[2017-08-03] MEDS ORDERED: DiphenhydrAMINE 50 mg/ml Inj IVP ONE (15:14)
[2017-08-03 19:13] VITALS: RESP 20
[2017-08-04] MEDS: Oxycodone/Acetaminophen 5/325 mg Tab PO PRN ×3 (00:53→17:53)
--- NOTE | 2017-08-04 07:10 | CP.PCM.CON ---
History of Present Illness - History of Present Illness History of Present Illness: I was asked to see patient by Dr Elliott. Patient is a 37 year old male with PMH dilated cardiomyopathy, AICD, severe mitral regurgitation s/p repair, who presents with chest pain and abdominal pain. The patient has noted pain at the left chest and nipple region, worse with palpation. The patient states symptoms do not worsen with walking. He has chronic abdominal pain and distension. Review of Systems - Constitutional Constitutional: absent: As Per HPI, Anorexia, Chills, Daytime Sleepiness, Excessive Sweating, Fatigue, Fever, Frequent Falls, Headache, Increased Appetite , Lethargy, Malaise, Night Sweats, Snoring, Sleep Apnea, Weight Gain, Weight Loss, Weakness, Other - EENT Eyes: absent: As Per HPI, Blind Spots, Blurred Vision, Change in Vision, Decreased Night Vision, Diplopia, Discharge, Dry Eye, Exophthalmos, Floaters, Irritation, Itchy Eyes, Loss of Peripheral Vision, Pain, Photophobia, Requires Corrective Lenses, Sees Flashes, Spots in Vision, Tunnel Vision, Other Visual Disturbances, Loss of Vision, Other Ears: absent: As Per HPI, Decreased Hearing, Ear Discharge, Ear Pain, Tinnitus, Abnormal Hearing, Disequilibrium, Dizziness, Other Nose/Mouth/Throat: absent: As Per HPI, Epistaxis, Nasal Congestion, Nasal Discharge, Nasal Obstruction, Nasal Trauma, Nose Pain, Post Nasal Drip, Sinus Pain, Sinus Pressure, Bleeding Gums, Change in Voice, Dental Pain, Dry Mouth, Dysphagia, Halitosis, Hoarsness, Lip Swelling, Mouth Lesions, Mouth Pain, Odynophagia, Sore Throat, Throat Swelling, Tongue Swelling, Facial Pain, Neck Pain, Neck Mass, Other - Cardiovascular Cardiovascular: Dyspnea - Respiratory Respiratory: absent: As Per HPI, Cough, Dyspnea, Hemoptysis, Dyspnea on Exertion , Wheezing, Snoring, Stridor, Pain on Inspiration, Chest Congestion, Excessive Mucous Production, Change in Mucous Color, Pain with Coughing, Other - Gastrointestinal Gastrointestinal: Abdominal Pain - Genitourinary Genitourinary: absent: As Per HPI, Change in Urinary Stream, Difficulty Urinating, Dysuria, Flank Pain, Hematuria, Pyuria, Nocturia, Urinary Incontinence, Urinary Frequency, Urinary Hesitance, Urinary Urgency, Voiding Freq/Small Amts, Freq UTI, Hx Renal/Bladder Calculi, Hx /Renal Surgery, Bladder Distension, Other - Musculoskeletal Musculoskeletal: absent: As Per HPI, Abnormal Gait, Arthralgias, Atrophy, Back Pain, Deformity, Joint Swelling, Limited Range of Motion, Loss of Height, Muscle Cramps, Muscle Weakness, Myalgias, Neck Pain, Numbness, Radiating Pain into Limb, Stiffness, Tingling, Other - Integumentary Integumentary: absent: As Per HPI, Acne, Alopecia, Bleeding Lesions, Change in Hair, Change in Nails, Change in Pigmentation, Changing Lesions, Dry Skin, Erythema, Furuncle, Hirsutism, Lesions, New Lesions, Non-Healing Lesions, Photosensitivity, Pruritus, Rash, Skin Pain, Skin Ulcer, Sores, Striae, Swelling , Unusual Bruising, Wounds, Jaundice, Other - Neurological Neurological: absent: As Per HPI, Abnormal Gait, Abnormal Hearing, Abnormal Movements, Abnormal Speech, Behavioral Changes, Burning Sensations, Confusion, Convulsions, Disequilibrium, Dizziness, Numbness, Focal Weakness, Frequent Falls , Headaches, Lack of Coordination, Loss of Vision, Memory Loss, Paresthesias, Radicular Pain, Restless Legs, Sensory Deficit, Syncope, Tingling, Tremor, Vertigo, Weakness, Other Visual Disturbances, Other - Endocrine Endocrine: absent: As Per HPI, Change in Body Appearance, Change in Libido, Cold Intolorance, Deepening of Voice, Excessive Sweating, Fatigue, Flushing, Heat Intolorance, Increase in Ring/Shoe/Hat Size, Palpitations, Polydipsia, Polyphagia, Polyuria, Other - Hematologic/Lymphatic Hematologic: absent: As Per HPI, Easy Bleeding, Easy Bruising, Lymphadenopathy, Other Past Patient History - Past Medical History & Family History Past Medical History?: Yes - Past Social History Smoking Status: Former Smoker - CARDIAC Hx Congestive Heart Failure: Yes Hx Hypertension: Yes - PULMONARY Hx Respiratory Disorders: No - NEUROLOGICAL Hx Neurological Disorder: No - RENAL Hx Chronic Kidney Disease: Yes Hx Dialysis: Yes Date of Last Dialysis Treatment: 07/30/17 - ENDOCRINE/METABOLIC Hx Endocrine Disorders: No - HEMATOLOGICAL/ONCOLOGICAL Hx Blood Disorders: No - INTEGUMENTARY Hx Dermatological Problems: No - MUSCULOSKELETAL/RHEUMATOLOGICAL Hx Musculoskeletal Disorders: No Hx Falls: No - GASTROINTESTINAL Hx Gastrointestinal Disorders: No - GENITOURINARY/GYNECOLOGICAL Hx Genitourinary Disorders: No - PSYCHIATRIC Hx Substance Use: No (DENIED) - SURGICAL HISTORY Hx Surgeries: Yes Hx Arteriovenous Shunt: Yes (left arm(new) ,rt arm(old)) Hx Valve Replacement: Yes - ANESTHESIA Hx Anesthesia: Yes Hx Anesthesia Reactions: No Hx Malignant Hyperthermia: No Has any member of the family had a problem w/ anesthesia?: No Meds Allergies/Adverse Reactions: Allergies Allergy/AdvReac Type Severity Reaction Status Date / Time No Known Allergies Allergy Verified 08/01/17 10:58 - Medications Medications: Current Medications Amiodarone HCl (Cordarone) 200 mg PO DAILY [facility] Last Admin: 08/03/17 09:31 Dose: 200 mg Aspirin (Aspirin Chewable) 81 mg PO DAILY [facility] Last Admin: 08/03/17 09:31 Dose: 81 mg Clonidine HCl (Catapres) 0.1 mg PO TID [facility] Last Admin: 08/03/17 19:15 Dose: 0.1 mg Epoetin Thomas (Procrit) 10,000 unit IV MWF [facility] Last Admin: 08/02/17 17:02 Dose: 10,000 unit Epoetin Thomas (Procrit) 4,000 unit IV MWF [facility] Ferric Sodium Gluconate Complex (Ferrlecit) 125 mg IVPB DAILY [facility] Stop: 08/07/17 10:01 Last Admin: 08/03/17 17:10 Dose: 125 mg Gabapentin (Neurontin) 100 mg PO HS [facility] Last Admin: 08/03/17 22:34 Dose: 100 mg Heparin Sodium (Porcine) (Heparin) 5,000 units SC Q8 [facility] Last Admin: 08/03/17 22:33 Dose: Not Given Hydralazine HCl (Apresoline) 25 mg PO Q8 [facility] Last Admin: 08/04/17 06:49 Dose: 25 mg Losartan Potassium (Cozaar) 50 mg PO DAILY [facility] Last Admin: 08/03/17 09:32 Dose: Not Given Metoprolol Tartrate (Lopressor) 50 mg PO DAILY [facility] Last Admin: 08/03/17 09:33 Dose: Not Given Ondansetron HCl (Zofran Tab) 4 mg PO Q6H PRN PRN Reason: Nausea/Vomiting Oxycodone/Acetaminophen (Percocet 5/325 Mg Tab) 1 tab PO Q4H PRN PRN Reason: Pain Stop: 08/04/17 18:21 Last Admin: 08/04/17 00:53 Dose: 1 tab Pantoprazole Sodium (Protonix Ec Tab) 40 mg PO DAILY [facility] Last Admin: 08/03/17 09:31 Dose: 40 mg Rosuvastatin Calcium (Crestor) 20 mg PO HS [facility] Last Admin: 08/03/17 22:34 Dose: 20 mg Sevelamer Carbonate (Renvela) 800 mg PO TIDCC [facility] Last Admin: 08/03/17 19:14 Dose: 800 mg Vitamin B Complex/Vit C/Folic Acid (Nephro-Duane) 1 tab PO 0800 [facility] Last Admin: 08/03/17 08:29 Dose: 1 tab Physical Exam - Constitutional Appears: Chronically Ill - Head Exam Head Exam: NORMAL INSPECTION - Eye Exam Eye Exam: Normal appearance - ENT Exam ENT Exam: Mucous Membranes Moist - Neck Exam Neck exam: Positive for: Full Rom - Respiratory Exam Respiratory Exam: Decreased Breath Sounds - Cardiovascular Exam Cardiovascular Exam: REGULAR RHYTHM - GI/Abdominal Exam GI & Abdominal Exam: Normal Bowel Sounds - Rectal Exam Rectal Exam: Deferred - Extremities Exam Extremities exam: Negative for: pedal edema - Back Exam Back exam: NORMAL INSPECTION - Neurological Exam Neurological exam: Alert, Oriented x3 - Psychiatric Exam Psychiatric exam: Normal Affect - Skin Skin Exam: Normal Color Results - Vital Signs Recent Vital Signs: Last Vital Signs Temp 98.5 F 08/04/17 06:51 Pulse 91 H 08/04/17 06:51 Resp 20 08/04/17 06:51 BP 172/110 H 08/04/17 06:51 Pulse Ox 99 08/04/17 06:51 - Labs Result Diagrams: 08/03/17 11:53 08/03/17 11:53 Labs: Laboratory Results - last 24 hr 08/03/17 08/03/17 08/03/17 11:53 11:53 18:46 WBC 4.9 RBC 3.05 L Hgb 8.2 L Hct 25.7 L MCV 84.3 MCH 26.9 L MCHC 31.9 L RDW 21.7 H Plt Count 160 MPV 8.2 Neut % (Auto) 69.2 Lymph % (Auto) 19.2 L Foard % (Auto) 8.4 Eos % (Auto) 2.0 Baso % (Auto) 1.2 Neut # 3.4 Lymph # 0.9 L Foard # 0.4 Eos # 0.1 Baso # 0.1 Sodium 134 Potassium 4.4 Chloride 93 L Carbon Dioxide 31 H Anion Gap 15 BUN 41 H Creatinine 7.9 H* D Est GFR ( Amer) 9 Est GFR (Non-Af Amer) 8 Random Glucose 98 Calcium 8.8 Total Bilirubin 1.2 AST 27 ALT 36 Alkaline Phosphatase 245 H Total Protein 7.1 Albumin 3.5 Globulin 3.6 Albumin/Globulin Ratio 1.0 Lipase 82 - EKG Data EKG Interpreted by: Myself Assessment & Plan (1) Anemia Assessment and Plan: patient's Hgb is 7.6. consider repeat and possible transfusion. Status: Acute (2) Chest pain Assessment and Plan: appears noncardiac. Status: Acute (3) Cardiomyopathy Assessment and Plan: s/p AICD. will interrogate Status: Chronic (4) ESRD (end stage renal disease) on dialysis Assessment and Plan: renal following Status: Chronic
[2017-08-04 07:58] LABS: BASO # 0.1 K/uL (0.0-0.2); EOS # 0.1 K/uL (0.0-0.7); HEMATOCRIT 25.8 % (35.0-51.0); LYMPH # 0.9 K/uL (1.0-4.3); LYMPH % 17.2 % (20.0-40.0); MEAN CELL VOLUME 84.3 fL (80.0-94.0); MEAN CORPUSCULAR HEMOGLOBIN 26.8 pg (27.0-31.0); MEAN CORPUSCULAR HGB CONC 31.7 g/dL (33.0-37.0); MONO # 0.5 K/uL (0.0-0.8); MONO % 8.5 % (0.0-10.0); NRBC % 0.1 % (0.0-2.0); RED CELL DISTRIBUTION WIDTH 21.7 % (11.5-14.5); WHITE BLOOD COUNT 5.3 K/uL (4.8-10.8)
[2017-08-04 08:26] LABS: ALB/GLOB RATIO 0.7 (1.0-2.1); CALCIUM 8.7 mg/dl (8.6-10.4); TOTAL PROTEIN 8.4 g/dL (6.3-8.3)
[2017-08-04] MEDS: Multivitamin Vitamin B Complex (Nephro-Vite) Tab PO SCH (08:42)
--- NOTE | 2017-08-04 09:01 | CP.PCM.PN ---
Subjective - Date & Time of Evaluation Date of Evaluation: 08/04/17 Time of Evaluation: 09:00 - Subjective Subjective: Dr. Elliott note: Patient seen and examined. He says he is still having chest pain that has worsened but is relieved with Tylenol. He says his breathing is better but feels is abdomen is distended. He currently denies shortness of breath. Objective - Vital Signs/Intake and Output Vital Signs (last 24 hours): Temp Pulse Resp BP Pulse Ox 98.6 F 93 H 20 165/110 H 99 08/04/17 08:22 08/04/17 08:22 08/04/17 08:22 08/04/17 08:22 08/04/17 08:22 - Medications Medications: Current Medications Amiodarone HCl (Cordarone) 200 mg PO DAILY [facility] Last Admin: 08/03/17 09:31 Dose: 200 mg Aspirin (Aspirin Chewable) 81 mg PO DAILY [facility] Last Admin: 08/03/17 09:31 Dose: 81 mg Clonidine HCl (Catapres) 0.1 mg PO TID [facility] Last Admin: 08/03/17 19:15 Dose: 0.1 mg Epoetin Thomas (Procrit) 10,000 unit IV MWF [facility] Last Admin: 08/02/17 17:02 Dose: 10,000 unit Epoetin Thomas (Procrit) 4,000 unit IV MWF [facility] Ferric Sodium Gluconate Complex (Ferrlecit) 125 mg IVPB DAILY [facility] Stop: 08/07/17 10:01 Last Admin: 08/03/17 17:10 Dose: 125 mg Gabapentin (Neurontin) 100 mg PO HS [facility] Last Admin: 08/03/17 22:34 Dose: 100 mg Heparin Sodium (Porcine) (Heparin) 5,000 units SC Q8 [facility] Last Admin: 08/04/17 06:45 Dose: Not Given Hydralazine HCl (Apresoline) 25 mg PO Q8 [facility] Last Admin: 08/04/17 06:49 Dose: 25 mg Losartan Potassium (Cozaar) 50 mg PO DAILY [facility] Last Admin: 08/03/17 09:32 Dose: Not Given Metoprolol Tartrate (Lopressor) 50 mg PO DAILY [facility] Last Admin: 08/03/17 09:33 Dose: Not Given Ondansetron HCl (Zofran Tab) 4 mg PO Q6H PRN PRN Reason: Nausea/Vomiting Oxycodone/Acetaminophen (Percocet 5/325 Mg Tab) 1 tab PO Q4H PRN PRN Reason: Pain Stop: 08/04/17 18:21 Last Admin: 08/04/17 00:53 Dose: 1 tab Pantoprazole Sodium (Protonix Ec Tab) 40 mg PO DAILY [facility] Last Admin: 08/03/17 09:31 Dose: 40 mg Rosuvastatin Calcium (Crestor) 20 mg PO HS [facility] Last Admin: 08/03/17 22:34 Dose: 20 mg Sevelamer Carbonate (Renvela) 800 mg PO TIDCC [facility] Last Admin: 08/04/17 08:42 Dose: 800 mg Vitamin B Complex/Vit C/Folic Acid (Nephro-Duane) 1 tab PO 0800 [facility] Last Admin: 08/04/17 08:42 Dose: 1 tab - Labs Labs: 08/04/17 07:28 08/04/17 07:28 PT 14.1 SECONDS (9.7-12.2) H 08/01/17 11:20 INR 1.2 08/01/17 11:20 APTT 38 SECONDS (21-34) H 08/01/17 11:20 - Constitutional Appears: Non-toxic, No Acute Distress - Eye Exam Eye Exam: Normal appearance - Respiratory Exam Respiratory Exam: Clear to Ausculation Bilateral. absent: Rales, Rhonchi, Wheezes - Cardiovascular Exam Cardiovascular Exam: REGULAR RHYTHM, RRR, +S1, +S2. absent: Gallop, Rubs - GI/Abdominal Exam GI & Abdominal Exam: Distended, Soft, Normal Bowel Sounds. absent: Tenderness - Extremities Exam Extremities Exam: absent: Pedal Edema - Back Exam Back Exam: NORMAL INSPECTION. absent: CVA tenderness (L), CVA tenderness (R) - Psychiatric Exam Psychiatric exam: Normal Affect, Normal Mood - Skin Skin Exam: Normal Color Assessment and Plan - Assessment and Plan (Free Text) Assessment: Abdominal distention Assessment & Plan: 08/04: Paracentesis prefored, 2.5 liters removed. IR paracentesis consult placed, help appreciated. F/U fluid studies. Status: Acute Chest pain Assessment & Plan: 08/04: Per Dr. Mora note patient's chest pain not cardiac in origin, no events recorded on pacer evaluation. AICD interrogated, no event noted per Dr. Mora. Status: Acute Anemia Assessment & Plan: 08/04: on IV ferricit for low iron. Most likely secondary to anemia of chronic disease. Status: Acute ESRD (end stage renal disease) on dialysis Assessment & Plan: 08/04: went to dialysis yesterday, missed today. HD MWF Status: Chronic Hypertension Assessment & Plan: 08/04: increased his Lopressor to 50mg bid, continue with other htn medication. Increase Cozaar to 50mg, consider further increase of BP not controlled. Clonidin 0.1mg TID Hydralazine 25mg tid Cozaar 25mg Lopressor 50mg Amiodarone 200mg Aspirin 81mg Status: Chronic Cardiomyopathy Assessment & Plan: cardiology consult Status: Chronic Mitral valve disease Assessment & Plan: Dr. Mora consulted. Status: Chronic HLD (hyperlipidemia) Assessment & Plan: Crestor Status: Chronic Prophylactic measure Assessment & Plan: Heparin 5000 units sc q8h Protonix 40mg SCDS as needed.
[2017-08-04] MEDS: Pantoprazole 40 mg EC Tab PO SCH (09:30)
[2017-08-04] MEDS: Ferric Sodium Gluconat Complex 62.5 mg/5 ml Vial IVPB SCH (11:02)
--- NOTE | 2017-08-04 12:30 | PCM.SURG1 ---
Surgeon's Initial Post Op Note - Surgeon's Notes Surgeon: Darwin Kumar MD Public Welfare Director: NONE Type of Anesthesia: Local Pre-Operative Diagnosis: Ascites Operative Findings: US showed a moderate amount of ascites Post-Operative Diagnosis: Ascites Operation Performed: US guided paracentesis. Specimen/Specimens Removed: 2.5 liters of straw colored fluid Estimated Blood Loss: EBL {In ML}: 0 Blood Products Given: N/A Drains Used: No Drains Post-Op Condition: Fair Date of Surgery/Procedure: 08/04/17 Time of Surgery/Procedure: 12:25
--- NOTE | 2017-08-04 12:37 | US ---
Date of Procedure: 08/04/2017 PROCEDURE: Ultrasound-guided paracentesis, CPT 63897 Medications: 7 cc 1% Lidocaine HISTORY: Ascites, abdominal pain TECHNIQUE: Following informed consent , the patient was placed supine on the stretcher and the site was marked. A limited abdominal ultrasound was performed that showed a moderate amount of intra-abdominal fluid. Procedural time out was called and the Pt's abdomen was marked and prepped and draped in the usual sterile fashion. Ultrasound-guided large volume paracentesis performed. A total of 2.5 liters of straw colored fluid was removed without complication. IMPRESSION: Ultrasound-guided large volume paracentesis.
[2017-08-04 13:01] LABS: BODY FLUID TYPE PERITONEAL/ASCITES
[2017-08-04 14:42] LABS: BF GROSS APPEARANCE CLOUDY (CLEAR)
[2017-08-04 14:43] LABS: BODY FLUID TOTAL COUNT 100 (0-0)
--- NOTE | 2017-08-04 16:09 | CP.PCM.PN ---
Subjective - Date & Time of Evaluation Date of Evaluation: 08/04/17 Time of Evaluation: 16:08 - Subjective Subjective: Follow up Nephrology Consultation: Assessment: Stable ? fluid overload status versus CHF exacerbation, atypical chest pain Hypertensive Chronic Kidney Disease (I12.0) End stage renal disease (N18.6) dependence on hemodialysis (Z99.2) (MWF) via AVF Anemia (D64.9), Hyperphosphatemia (E83.39), Secondary Hyperparathyroidism (E21.1 ), HTN (I12.0) CHF, hx of PPM ascites Plan: no acute need for dialysis today Continue with Nephrovite 1 tab/day. PRBC as needed for anemia. added ILIANA as epogen 14,000 with HD and IV iron Continue with phos binders home dose, last phos level 6.1 BP control with meds as ordered. Patient not on RAAS natasha hence started on losartan, increased to 50 mg Glycemic control, Dialysis consistent diet Further work up/management as per primary team Dose meds/antibiotics (if needed) for ESRD status. Avoid fleets enema/magnesium based laxatives. ascites for drainage by IR today Thanks for allowing me to participate in care of your patient. Will follow patient with you. Please call if any Qs. d/w team Dr Hector Serrato Office: [phone] Chief Complaint; abdomen distension HPI: Pt is a 37 y/o M with hx of ESRD on hemodialysis (MWF) via AVF, last dialysis fri, chronic anemia, hyperphosphatemia, secondary hyperparathyroidism, hypertension, CHF, s/p PPM presented with complaints of left side chest pain x 1 month and also c/o shortness of breath, denies leg swelling ros; feels better. denies SOB. c/o abdomen distension. chest wall pain better. denies leg swelling Physical Examination: General Appearance: Comfortable, in no acute respiratory distress, co-operative . Vitals reviewed and noted as below Head; Atraumatic, normocephalic ENT: no ulcers no thrush. Tongue is midline. Oropharynx: no rash or ulcers. EYES: Pupils are equal, round and reactive to light accommodation. Eye muscles and extraocular movement intact. Sclera is anicteric. Neck; supple no lymphadenopathy, no thyromegaly or bruit. neck veins distended chronically Lungs: Normal respiratory rate/effort. Breath sounds bilateral equal and clear Heart: Normal rate. s1s2 normal. No rub or gallop. Extremities: no edema. No varicose veins Neurological: Patient is alert, awake and oriented to person, place and time. No focal deficit. Strength bilateral appropriate and equal Skin: Warm and dry. Normal turgor. No rash. Palpitation: Normal elasticity for age Abdomen: Abdomen is soft. Bowel sounds +. There is no abdominal tenderness, no guarding/rigidity or organomegaly. Distended ? ascitic Psych: normal insight and normal affect/mood MSK: no joint tenderness or swelling. Digits and nails normal, no deformity : kidney or bladder not palpable Access: AVF Labs/imaging reviewed. Past medical history, past surgical history, family history, social history, allergy reviewed and noted as below Family Hx: no hx of CKD. Non contributory Objective - Vital Signs/Intake and Output Vital Signs (last 24 hours): Temp Pulse Resp BP Pulse Ox 99 F 90 20 154/108 H 99 08/04/17 12:44 08/04/17 13:26 08/04/17 12:44 08/04/17 13:26 08/04/17 12:44 - Medications Medications: Current Medications Amiodarone HCl (Cordarone) 200 mg PO DAILY [facility] Last Admin: 08/04/17 09:30 Dose: 200 mg Aspirin (Aspirin Chewable) 81 mg PO DAILY [facility] Last Admin: 08/04/17 10:19 Dose: Not Given Clonidine HCl (Catapres) 0.1 mg PO TID [facility] Last Admin: 08/04/17 13:28 Dose: 0.1 mg Epoetin Thomas (Procrit) 10,000 unit IV MWF [facility] Last Admin: 08/02/17 17:02 Dose: 10,000 unit Epoetin Thomas (Procrit) 4,000 unit IV MWF [facility] Ferric Sodium Gluconate Complex (Ferrlecit) 125 mg IVPB DAILY [facility] Stop: 08/07/17 10:01 Last Admin: 08/04/17 11:02 Dose: 125 mg Gabapentin (Neurontin) 100 mg PO HS [facility] Last Admin: 08/03/17 22:34 Dose: 100 mg Heparin Sodium (Porcine) (Heparin) 5,000 units SC Q8 [facility] Last Admin: 08/04/17 13:29 Dose: Not Given Hydralazine HCl (Apresoline) 25 mg PO Q8 [facility] Last Admin: 08/04/17 13:28 Dose: 25 mg Losartan Potassium (Cozaar) 50 mg PO DAILY [facility] Last Admin: 08/04/17 09:30 Dose: 50 mg Metoprolol Tartrate (Lopressor) 50 mg PO BID [facility] Ondansetron HCl (Zofran Tab) 4 mg PO Q6H PRN PRN Reason: Nausea/Vomiting Oxycodone/Acetaminophen (Percocet 5/325 Mg Tab) 1 tab PO Q4H PRN PRN Reason: Pain Stop: 08/04/17 18:21 Last Admin: 08/04/17 13:33 Dose: 1 tab Pantoprazole Sodium (Protonix Ec Tab) 40 mg PO DAILY [facility] Last Admin: 08/04/17 09:30 Dose: 40 mg Rosuvastatin Calcium (Crestor) 20 mg PO HS [facility] Last Admin: 08/03/17 22:34 Dose: 20 mg Sevelamer Carbonate (Renvela) 800 mg PO TIDCC [facility] Last Admin: 08/04/17 13:28 Dose: 800 mg Vitamin B Complex/Vit C/Folic Acid (Nephro-Duane) 1 tab PO 0800 [facility] Last Admin: 08/04/17 08:42 Dose: 1 tab - Labs Labs: 08/04/17 07:28 08/04/17 07:28 PT 14.1 SECONDS (9.7-12.2) H 08/01/17 11:20 INR 1.2 08/01/17 11:20 APTT 38 SECONDS (21-34) H 08/01/17 11:20
[2017-08-05] MEDS ORDERED: Oxycodone/Acetaminophen 5/325 mg Tab PO ONE (01:18)
[2017-08-05] MEDS: Multivitamin Vitamin B Complex (Nephro-Vite) Tab PO SCH (08:37)
--- NOTE | 2017-08-05 10:53 | CARD ---
APPROVED REPORT EKG Measurement Heart [id number] <Conclusion> Normal sinus rhythm Moderate voltage criteria for LVH, may be normal variant Prolonged QT Abnormal ECG
[2017-08-05] MEDS: Ferric Sodium Gluconat Complex 62.5 mg/5 ml Vial IVPB SCH (11:00)
[2017-08-05 11:09] VITALS: BP 153/98; PULSE 88
[2017-08-05] MEDS: Pantoprazole 40 mg EC Tab PO SCH (11:15)
[2017-08-05 15:56] VITALS: TEMP 98; O2SAT 96
--- NOTE | 2017-08-06 07:59 | DS ---
HOSPITAL COURSE: Mr. Monreal was admitted to the hospital with chief complaint of weakness, fatigue, shortness of breath and chest pain. The patient is now on bedrest, supportive care, getting dialysis. Cardiac exam negative. The patient with supportive care. Discharged to follow up as outpatient. Maggie Elliott MD
== END 2017-08-05 14:00 | disposition home or self-care (01) | DRG 143 ==
LOC: C.ER 10:41 → C.9E 13:45 → UNDOADMOB 13:45 → C.6T 16:58 → OBSVTOIN 08-04 15:58
PROVIDERS: ADMIT Internal Medicine Pulmonary Disease; ATTEND Internal Medicine Pulmonary Disease
PROC: 5A1D70Z Performance of Urinary Filtration, Intermittent, Less than 6 Hours Per Day (ICD-10-PCS; 2017-08-02)
PROC: 0W9G3ZZ Drainage of Peritoneal Cavity, Percutaneous Approach (ICD-10-PCS; principal; 2017-08-04)
PROC: BW40ZZZ Ultrasonography of Abdomen (ICD-10-PCS; 2017-08-04)
DX: R07.89 Other chest pain (principal); R18.8 Other ascites; I13.2 Hypertensive heart and chronic kidney disease with heart failure and with stage 5 chronic kidney disease, or end stage renal disease; I42.0 Dilated cardiomyopathy; N18.6 End stage renal disease; I25.10 Atherosclerotic heart disease of native coronary artery without angina pectoris; N25.81 Secondary hyperparathyroidism of renal origin; I50.9 Heart failure, unspecified; D64.9 Anemia, unspecified; E83.39 Other disorders of phosphorus metabolism; G89.29 Other chronic pain; I34.0 Nonrheumatic mitral (valve) insufficiency; Z87.891 Personal history of nicotine dependence; Z95.810 Presence of automatic (implantable) cardiac defibrillator; Z95.2 Presence of prosthetic heart valve; Z99.2 Dependence on renal dialysis

== ENCOUNTER 2018-02-02 00:06 | Inpatient (IN) | payer OTHER ==
[2018-02-02 00:06] VITALS: BMI 19.2
--- NOTE | 2018-02-02 00:34 | C.PDOC ---
History Of Present Illness Patient presents with worsening shortness of breath. Pt is a MWF HD . Also complaining of abdominal bloating. No f/c/n/v. Speaking in 3-4 word sentences. Pt states his pmd is dr jarrett and hd md is dr vizcarra Time Seen by Provider: 02/02/18 00:33 Chief Complaint (Nursing): Shortness Of Breath History Per: Patient History/Exam Limitations: no limitations Onset/Duration Of Symptoms: Days Current Symptoms Are (Timing): Worse Initiating Event: Other Quality: Dull Exacerbating Factor(s): Exertion, Laying Flat, Coughing Current Respiratory Medications: See Home Med List Severity: Severe Pain Scale Rating Of: 8 Associated Symptoms: denies: Fever, Chills, Chest Pain Reports Recently: Seen In ED, Treated By A Physician, Hospitalized Recent travel outside of the [place]: No Additional History Per: Patient Past Medical History Reviewed: Historical Data, Nursing Documentation, Vital Signs Vital Signs: Last Vital Signs Temp 97.8 F 02/02/18 00:20 Pulse 80 02/02/18 03:28 Resp 16 02/02/18 03:28 BP 133/91 H 02/02/18 03:28 Pulse Ox 100 02/02/18 04:31 - Medical History PMH: CHF, HTN, End Stage Renal Disease, Chronic Kidney Disease - [facility] Procedures (08/04/17) DRAINAGE OF PERITONEAL CAVITY, PERCUTANEOUS APPROACH (08/04/17) PERFORMANCE OF URINARY FILTRATION, MULTIPLE (03/20/17) ULTRASONOGRAPHY OF ABDOMEN (08/04/17) Family History: States: CAD - Social History Hx Tobacco Use: No (DENIED) Hx Alcohol Use: No Hx Substance Use: No (DENIED) - Immunization History Hx Tetanus Toxoid Vaccination: No Hx Influenza Vaccination: No Hx Pneumococcal Vaccination: No Review Of Systems Constitutional: Negative for: Fever, Chills Eyes: Negative for: Vision Change ENT: Negative for: Throat Pain Cardiovascular: Negative for: Chest Pain Respiratory: Positive for: Shortness of Breath, SOB with Excertion Gastrointestinal: Negative for: Nausea, Vomiting, Abdominal Pain Genitourinary: Negative for: Rash Musculoskeletal: Negative for: Back Pain Skin: Negative for: Rash Neurological: Negative for: Weakness Psych: Negative for: Anxiety Physical Exam - Physical Exam Appears: In Acute Distress Skin: Warm, Dry Head: Normacephalic Eye(s): bilateral: Normal Inspection Oral Mucosa: Dry Neck: Supple, Other (JVD) Chest: Symmetrical, Other (upper blebs, left pacer, sternotomy ) Cardiovascular: Rhythm Regular Respiratory: Rales, No Rhonchi, Wheezing Gastrointestinal/Abdominal: Soft, No Tenderness, Distention (? tense ascitis), No Guarding, No Rebound Back: Normal Inspection Extremity: No Tenderness, Pedal Edema, Other (left HD graft with good thrill and bruit) Extremity: Bilateral: Normal ROM Pulses: Left Dorsalis Pedis: Normal, Right Dorsalis Pedis: Normal Neurological/Psych: Oriented x3, Normal Speech, Normal Cognition Gait: Unable To Assess ED Course And Treatment - Laboratory Results Result Diagrams: 02/02/18 01:12 02/02/18 00:52 ECG: Interpreted By Me, Viewed By Me ECG Rhythm: Sinus Rhythm (90), Nonspecific Changes O2 Sat by Pulse Oximetry: 100 Pulse Ox Interpretation: Normal - Radiology CXR: Interpreted by Me CXR Interpretation: Yes: Infiltrates (? rll ), Cardiomegaly, Other (pacer left, avr, sternotomy, ) Critical Care Time - Critical Care Note Total Time (in mins): 30 Documented critical care: time excludes all time spent performing seperately billable procedures. Disposition Discussed With : Tyson Kate Comment: accepted the pt on his service and took over the care at 4:34 AM Doctor Will See Patient In The: ED Counseled Patient/Family Regarding: Studies Performed, Diagnosis - Disposition Disposition: HOSPITALIZED Disposition Time: 00:34 Condition: GUARDED Forms: [facility] ([place]) - POA Present On Arrival: None - Clinical Impression Clinical Impression: Dyspnea, Abdominal bloating, Ascites, ESRD (end stage renal disease) on dialysis, Hypertension Decision To Admit - Pt Status Changed To: Hospital Disposition Of: Inpatient - Admit Certification Admit to Inpatient:: After my assessment, the patient will require hospitalization for at least two midnights. This is because of the severity of symptoms shown, intensity of services needed, and/or the medical risk in this patient being treated as an outpatient. - InPatient: Physician Admission Certification: I certify that this patient requires 2 or more midnights of care for the following reason:: After my assessment, the patient will require hospitalization for at least two midnights. This is because of the severity of symptoms shown, intensity of services needed, and/or the medical risk in this patient being treated as an outpatient. - . Bed Request Type: Telemetry Admitting Physician: Tyson Kate Patient Diagnosis: Dyspnea, Abdominal bloating, Ascites, ESRD (end stage renal disease) on dialysis, Hypertension
[2018-02-02 01:02] LABS: INR 1.2; PROTHROMBIN TIME 13.6 SECONDS (9.7-12.2)
[2018-02-02 01:16] LABS: ALB/GLOB RATIO 0.9 (1.0-2.1); CALCIUM 10.5 mg/dl (8.6-10.4)
[2018-02-02 01:19] LABS: VENOUS BLOOD GAS BASE EXCESS 15.8 mmol/L (0.0-2.0); VENOUS BLOOD GAS PCO2 60 mmHg (40-60); VENOUS BLOOD GAS PO2 48 mm/Hg (30-55); VENOUS BLOOD PH 7.46 (7.32-7.43)
[2018-02-02 01:19] LABS: BASO # 0.1 K/uL (0.0-0.2); MONO # 0.4 K/uL (0.0-0.8); NEUT # 2.8 K/uL (1.8-7.0); NRBC % 0.2 % (0.0-2.0)
[2018-02-02 01:23] LABS: TROPONIN I 0.042 ng/mL (0.00-0.120)
[2018-02-02 01:24] LABS: BASO % 1.3 % (0.0-2.0); EOS # 0.2 K/uL (0.0-0.7); EOS % 4.1 % (0.0-4.0); LYMPH # 0.8 K/uL (1.0-4.3); LYMPH % 19.6 % (20.0-40.0); MEAN CELL VOLUME 87.5 fL (80.0-94.0); MEAN CORPUSCULAR HEMOGLOBIN 28.4 pg (27.0-31.0); MEAN CORPUSCULAR HGB CONC 32.5 g/dL (33.0-37.0); MEAN PLATELET VOLUME 9.4 fL (7.2-11.7); MONO % 9.1 % (0.0-10.0); NEUT % 65.9 % (50.0-75.0); RBC 3.15 Mil/uL (4.40-5.90); WHITE BLOOD COUNT 4.3 K/uL (4.8-10.8)
[2018-02-02 01:43] LABS: ABG ALLEN TEST POS; ARTERIAL BLOOD GAS HCO3 37.2 mmol/L (21-28); ARTERIAL BLOOD GAS O2 SAT 97.1 % (95-98); ARTERIAL BLOOD GAS PCO2 55 mm/Hg (35-45); ARTERIAL BLOOD GAS PH 7.49 (7.35-7.45); ARTERIAL BLOOD GAS PO2 75 mm/Hg (80-100); ARTERIAL BLOOD GAS TCO2 43.6 mmol/L (22-28)
[2018-02-02] MEDS ORDERED: Albuterol-Ipratrop 3 mg / 0.5 (3 ml) UD ONE (03:23)
--- NOTE | 2018-02-02 04:15 | CT ---
EXAM: CT Abdomen and Pelvis Without Intravenous Contrast EXAM DATE/TIME: 02/02/2018 1:51 AM CLINICAL HISTORY: 37 years old, male; Signs and symptoms; Bloating; Patient HX: Dialysis pt for 11 yrs; Additional info: Abd pain, distension TECHNIQUE: Axial computed tomography images of the abdomen and pelvis without intravenous contrast. All CT scans at this facility use one or more dose reduction techniques, viz.: automated exposure control; ma/kV adjustment per patient size (including targeted exams where dose is matched to indication; i.e. head); or iterative reconstruction technique. Coronal and sagittal reformatted images were created and reviewed. COMPARISON: Prior CT abdomen and pelvis of 2017-03-20 FINDINGS: LIMITATIONS: Mild to moderate motion artifact. Streak artifact from a metallic device in the left upper abdominal wall soft tissues. LUNG BASES: Consolidation in the right lung base, abutting the right pleural effusion, most likely representing compressive atelectasis, less likely pneumonia. Recommend clinical correlation. PLEURAL SPACE: Moderate right pleural effusion, incompletely seen, a new finding. HEART: Heart again appears moderately to markedly enlarged. Prosthetic cardiac valve noted. ABDOMEN: LIVER: Demonstrates enlargement of the intrahepatic IVC and the hepatic veins. Findings can be seen in the setting of right-sided heart dysfunction. GALLBLADDER AND BILE DUCTS: Cholecystectomy clips. PANCREAS: No CT evidence of acute pancreatitis. SPLEEN: Mild splenomegaly, with the spleen measuring 15 cm in length. ADRENALS: No acute abnormality of the adrenal glands identified. KIDNEYS AND URETERS: Kidneys appear atrophic, compatible with underlying chronic renal disease. Incidental 2.1 cm indeterminate lesion arising from the lower pole of the right kidney posteriorly, image 102/series 601, which does not appear to represent a simple cyst. There is also a small 7 mm indeterminate hyperdense lesion in the left kidney, image 75/series 3. Recommend further evaluation with renal ultrasound or renal protocol CT or MRI, on a nonemergent basis. Low density lesions in the right kidney, most likely representing cysts. No evidence of hydroureteronephrosis. STOMACH AND BOWEL: No acute abnormality of the stomach, small bowel or colon identified. No evidence of bowel obstruction. PELVIS: APPENDIX: Appendix is seen, and is within normal limits in appearance. BLADDER: No acute abnormality of the bladder identified. REPRODUCTIVE: No acute abnormality of the reproductive organs is seen. ABDOMEN and PELVIS: INTRAPERITONEAL SPACE: Abdominal and pelvic free fluid/ascites, moderate to large in amount, increased compared to the prior exam. No evidence of free air. No evidence of free air. BONES/JOINTS: Bones again appear diffusely abnormal. There is diffuse bony sclerosis, and there are multifocal bony lucencies of varying sizes. Findings are most likely secondary to renal osteodystrophy. No evidence of acute fracture is or large, lytic, destructive bony lesions.. SOFT TISSUES: Diffuse subcutaneous edema/anasarca, a new finding. VASCULATURE: Stable appearance of diffuse, mild aneurysmal dilatation of the left common and external iliac arteries. The left external iliac artery measures up to 2.5 cm in diameter. There is no evidence of aneurysm rupture. No evidence of abdominal aortic aneurysm. No evidence of periaortic hemorrhage. LYMPH NODES: No evidence of diffuse lymphadenopathy. TUBES, LINES AND DEVICES: See above. Epicardial pacing wires again seen. IMPRESSION: - Moderate to large amount of abdominal and pelvic free fluid, increased compared to a prior CT of 03/20/2017. - Moderate right pleural effusion. - Diffuse subcutaneous edema/anasarca. - Otherwise, no evidence of significant acute process on this unenhanced exam. - Cardiomegaly. - Incidental indeterminate renal lesion. See above recommendations. 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 No evidence of aneurysm rupture. - Diffusely abnormal appearance of the bones, most likely secondary to renal osteodystrophy. - See above for remaining findings.
--- NOTE | 2018-02-02 05:45 | CP.PCM.HP ---
Addendum entered and electronically signed by Arnol Herrera DO 02/02/18 07: 37: -will give trial of bipap prn 10/5 with 100 fio2 -will order ascitic fluid culture, gram stain, cell count, amylase, LDH, total protein Original Note: <Arnol Herrera - Last Filed: 02/02/18 07:14> History of Present Illness - History of Present Illness History of Present Illness: This is a 37 yo male with past medical hx of CHF, last EF unknown, valvular disease, ESRD on hemodialysis through left av fistula, cirrhosis of liver, chronic anemia, HTN, presenting with chief complaint of shortness of breath and abdominal pain. Pt states he gets his dialysis today and he does not miss sessions. He says he has been having chronic shortness of breath since his open heart surgery 1 year ago. He says that the shortness of breath was getting so bad he could not take it and he came in by ambulance. He says he would go to lie down in bed and every time he lied down, he became sob. He also reports abdominal pain and bloating feeling that has been going on for weeks. He says it is a "squeezing" sensation. The pain is diffusely located. It is 8/10 and getting worse. He also reports some substernal chest pain that went away prior to arrive. It was a pressure sensation. He took 2 asa and it went away. The pt does not make any urine. He denies current chest pain, fevers, chills, vomiting , diarrhea, nausea, blood in stool. He says he does not miss dialysis appts. PMD: Dr. Hu- last saw 3 weeks ago PMH: CHF, ESRD on HD wednesday, wednesday, , HTN EF unknown, no echo on file PSH: valvular open heart surgery, AICD, placement of AV fistula Allergies: NKDA Home meds: cannot name home meds; uses [facility] in [place] Social hx: Denies smoking. Denies drinking. Denies drug use. Not working. Born in . Lives at home with mother Family hx: Father- living- on dialysis mother-living- stroke No hx of cancer. Insurance: [facility] medicaid Code status: unknown Present on Admission - Present on Admission Any Indicators Present on Admission: No History of DVT/PE: No History of Uncontrolled Diabetes: No Urinary Catheter: No Decubitus Ulcer Present: No Review of Systems - Constitutional Constitutional: absent: Chills, Fever - EENT Eyes: absent: Blurred Vision, Change in Vision Nose/Mouth/Throat: Dry Mouth. absent: Sore Throat - Cardiovascular Cardiovascular: Chest Pain, Dyspnea, Pedal Edema - Respiratory Respiratory: Dyspnea, Dyspnea on Exertion - Gastrointestinal Gastrointestinal: Abdominal Pain, Bloating. absent: Diarrhea - Genitourinary Genitourinary: Change in Urinary Stream Additional comments: does not produce urine - Musculoskeletal Musculoskeletal: absent: Neck Pain, Numbness - Integumentary Integumentary: absent: Pruritus, Rash - Neurological Neurological: absent: Syncope, Other Visual Disturbances - Psychiatric Psychiatric: Abnormal Sleep Pattern - Hematologic/Lymphatic Hematologic: absent: Easy Bleeding, Easy Bruising Past Patient History - Infectious Disease Hx of Infectious Diseases: None - Tetanus Immunizations Tetanus Immunization: Unknown - Past Medical History & Family History Past Medical History?: Yes Pertinent Family History: renal disease and stroke in family - Past Social History Smoking Status: Never Smoked Chewing Tobacco Use: No Cigar Use: No Alcohol: None Drugs: Denies Home Situation {Lives}: With Family Domestic Violence: Negative - CARDIAC Hx Congestive Heart Failure: Yes Hx Hypertension: Yes - PULMONARY Hx Respiratory Disorders: No - NEUROLOGICAL Hx Neurological Disorder: No - HEENT Hx HEENT Problems: No - RENAL Hx Chronic Kidney Disease: Yes - ENDOCRINE/METABOLIC Hx Endocrine Disorders: No - HEMATOLOGICAL/ONCOLOGICAL Hx Blood Disorders: No - INTEGUMENTARY Hx Dermatological Problems: No - MUSCULOSKELETAL/RHEUMATOLOGICAL Hx Musculoskeletal Disorders: No Hx Falls: No - GASTROINTESTINAL Hx Gastrointestinal Disorders: Yes Hx Liver Failure: Yes - GENITOURINARY/GYNECOLOGICAL Hx Genitourinary Disorders: No - PSYCHIATRIC Hx Substance Use: No (DENIED) - SURGICAL HISTORY Hx Surgeries: Yes Hx Arteriovenous Shunt: Yes (left arm(new) ,rt arm(old)) Hx Open Heart Surgery: Yes Hx Valve Replacement: Yes Hx Vascular Access Device: Yes Other/Comment: PACEMAKER - ANESTHESIA Hx Anesthesia: Yes Hx Anesthesia Reactions: No Hx Malignant Hyperthermia: No Meds Allergies/Adverse Reactions: Allergies Allergy/AdvReac Type Severity Reaction Status Date / Time No Known Allergies Allergy Verified 02/02/18 00:24 Physical Exam - Constitutional Appears: Chronically Ill Additional comments: labored breathing, anxious - Head Exam Head Exam: ATRAUMATIC, NORMAL INSPECTION, NORMOCEPHALIC - Eye Exam Eye Exam: EOMI - ENT Exam ENT Exam: Mucous Membranes Dry - Neck Exam Neck exam: Negative for: Normal Inspection Additional comments: positive JVD - Respiratory Exam Respiratory Exam: Rales. absent: Respiratory Distress, NORMAL BREATHING PATTERN - Cardiovascular Exam Cardiovascular Exam: REGULAR RHYTHM, +S1, +S2 Additional comments: sternotomy scar - GI/Abdominal Exam GI & Abdominal Exam: Distended, Tenderness Additional comments: diffusely tender ; positive ascites - Extremities Exam Extremities exam: Positive for: pedal edema. Negative for: full ROM, normal inspection - Back Exam Back exam: NORMAL INSPECTION - Neurological Exam Neurological exam: Alert, CN II-XII Intact, Oriented x3 - Psychiatric Exam Psychiatric exam: Flat Affect - Skin Skin Exam: Dry, Intact, Normal Color, Warm Results - Vital Signs Recent Vital Signs: Last Vital Signs Temp 97.8 F 02/02/18 00:20 Pulse 85 02/02/18 05:14 Resp 20 02/02/18 05:14 BP 135/84 02/02/18 05:14 Pulse Ox 100 02/02/18 04:35 - Labs Result Diagrams: 02/02/18 06:30 02/02/18 06:30 Labs: Laboratory Results - last 24 hr 02/02/18 02/02/18 02/02/18 00:52 00:52 01:10 WBC RBC Hgb Hct MCV MCH MCHC RDW Plt Count MPV Neut % (Auto) Lymph % (Auto) [place] % (Auto) Eos % (Auto) Baso % (Auto) Neut # (Auto) Lymph # (Auto) [place] # (Auto) Eos # (Auto) Baso # (Auto) Differential Comment PT 13.6 H INR 1.2 APTT 32 Puncture Site pCO2 pO2 48 HCO3 ABG pH ABG Total CO2 ABG O2 Saturation ABG Base Excess Tucker Test ABG Potassium VBG pH 7.46 H VBG pCO2 60 VBG HCO3 36.9 VBG Total CO2 44.5 H VBG O2 Sat (Calc) 83.2 H VBG Base Excess 15.8 H VBG Potassium 4.1 A-a O2 Difference Respiratory Index Glucose 100 Lactate 1.1 Liter Flow FiO2 Sodium 151 H 145.0 Potassium 4.4 Chloride 95 L 102.0 Carbon Dioxide 40 H* D Anion Gap 21 H BUN 46 H Creatinine 8.9 H* D Est GFR ( Amer) 8 Est GFR (Non-Af Amer) 7 Random Glucose 98 Calcium 10.5 H Magnesium 2.2 Total Bilirubin 1.9 H AST 37 ALT 20 L D Alkaline Phosphatase 178 H D Troponin I 0.0420 NT-Pro-B Natriuret Pep 033578 H Total Protein 8.7 H Albumin 4.0 Globulin 4.6 H Albumin/Globulin Ratio 0.9 L Arterial Blood Potassium Venous Blood Potassium 4.1 02/02/18 02/02/18 01:12 01:35 WBC 4.3 L RBC 3.15 L Hgb 9.0 L Hct 27.5 L MCV 87.5 D MCH 28.4 MCHC 32.5 L RDW 23.0 H Plt Count 88 L D MPV 9.4 Neut % (Auto) 65.9 Lymph % (Auto) 19.6 L [place] % (Auto) 9.1 Eos % (Auto) 4.1 H Baso % (Auto) 1.3 Neut # (Auto) 2.8 Lymph # (Auto) 0.8 L [place] # (Auto) 0.4 Eos # (Auto) 0.2 Baso # (Auto) 0.1 Differential Comment PT INR APTT Puncture Site Rr pCO2 55 H pO2 75 L HCO3 37.2 H ABG pH 7.49 H ABG Total CO2 43.6 H ABG O2 Saturation 97.1 ABG Base Excess 15.8 H Tucker Test Pos ABG Potassium 4.2 VBG pH VBG pCO2 VBG HCO3 VBG Total CO2 VBG O2 Sat (Calc) VBG Base Excess VBG Potassium A-a O2 Difference 56.0 Respiratory Index 0.7 Glucose 98 Lactate 0.7 Liter Flow 2.0 FiO2 28.0 Sodium 145.0 Potassium Chloride 103.0 Carbon Dioxide Anion Gap BUN Creatinine Est GFR ( Amer) Est GFR (Non-Af Amer) Random Glucose Calcium Magnesium Total Bilirubin AST ALT Alkaline Phosphatase Troponin I NT-Pro-B Natriuret Pep Total Protein Albumin Globulin Albumin/Globulin Ratio Arterial Blood Potassium 4.2 Venous Blood Potassium Assessment & Plan - Assessment and Plan (Free Text) Assessment: This is a 37 yo male with past medical hx of CHF, open heart surgery, ESRD on HD presenting with 1. Shortness of breath -did get 80 mg IV lasix stat in ER -likely secondary to fluid overload -EKG initial shows normal sinus rhythm, no st changes -initial trop negative -second troponin negative -follow up serial romis and ekgs -needs dialysis -nephrology consult. recs appreciated. Dr. El. -admit to tele floor 2. Chest pain -asa 81 mg po daily -heparin 5000 mg sc q 8 hrs -serial ekgs -initial ekg normal sinus rhythm, no acute ST changes -first and second trop mildly elevated- likely secondary to renal failure -O2 by nasal cannula prn -HGB a1C -TSH and free t4 -lipid panel -echo ordered -cardio consult. Dr. Glover. recs appreciated. 3. Abominal pain/distention -has ascites -IR consult. Dr. Kumar. recs appreciated. -abdomen pelvis ct performed without PO or IV contrast. -shows diffuse anasarca -shows dilation of left common and iliac arteries -cardiomegaly -moderate abdominal and pelvic fluid 3. hx of CHF -I/O -daily weight -meets [place] criteria: neck vein distention, dyspnea on normal exertion, bilateral ankle edema, 1 major 2 minor -will confirm chf meds with [facility] -hold lasix for now as pt does not make urine and will need dialysis -BNP 167,000 but likely secondary to renal failure -blood culture x 2 4. hx heart surgery -cardio consult. recs appreciated. Dr. Glover 5. hypernatremia -unclear whether acute or chronic -will have dialysis today -no EKG changes 6. hx of end stage renal disease -BNP very elevated, 167,000 likely secondary -on dialysis -nephrology consult as stated above 7. Dilation of left common and iliac arteries -shown on abdominal ct scan -continue to monitor 5. GI/DVT ppx -heparin 5000 mg sc q 8 hrs -protonix 40 mg iv daily Renal diet Bedrest Pt uses [facility] in [place]- did not know home meds. Code status: unknown discussed with Dr. Kate <Tyson Kate - Last Filed: 02/02/18 19:07> Results - Vital Signs Recent Vital Signs: Last Vital Signs Temp 98.6 F 02/02/18 15:41 Pulse 105 H 02/02/18 15:41 Resp 20 02/02/18 15:41 BP 154/115 H 02/02/18 15:41 Pulse Ox 97 02/02/18 15:41 - Labs Result Diagrams: 02/02/18 06:30 02/02/18 06:30 Labs: Laboratory Results - last 24 hr 02/02/18 02/02/18 02/02/18 00:52 00:52 01:10 WBC RBC Hgb Hct MCV MCH MCHC RDW Plt Count MPV Neut % (Auto) Lymph % (Auto) [place] % (Auto) Eos % (Auto) Baso % (Auto) Neut # (Auto) Lymph # (Auto) [place] # (Auto) Eos # (Auto) Baso # (Auto) Differential Comment PT 13.6 H INR 1.2 APTT 32 Puncture Site pCO2 pO2 48 HCO3 ABG pH ABG Total CO2 ABG O2 Saturation ABG Base Excess Tucker Test ABG Potassium VBG pH 7.46 H VBG pCO2 60 VBG HCO3 36.9 VBG Total CO2 44.5 H VBG O2 Sat (Calc) 83.2 H VBG Base Excess 15.8 H VBG Potassium 4.1 A-a O2 Difference Respiratory Index Glucose 100 Lactate 1.1 Liter Flow FiO2 Sodium 151 H 145.0 Potassium 4.4 Chloride 95 L 102.0 Carbon Dioxide 40 H* D Anion Gap 21 H BUN 46 H Creatinine 8.9 H* D Est GFR ( Amer) 8 Est GFR (Non-Af Amer) 7 Random Glucose 98 Hemoglobin A1c Calcium 10.5 H Magnesium 2.2 Total Bilirubin 1.9 H AST 37 ALT 20 L D Alkaline Phosphatase 178 H D Total Creatine Kinase CK-MB (Mass) Troponin I 0.0420 NT-Pro-B Natriuret Pep 590371 H Total Protein 8.7 H Albumin 4.0 Globulin 4.6 H Albumin/Globulin Ratio 0.9 L Triglycerides Cholesterol LDL Cholesterol Direct HDL Cholesterol Free T4 TSH 3rd Generation Arterial Blood Potassium Venous Blood Potassium 4.1 Mycoplasma pneumon IgM 02/02/18 02/02/18 02/02/18 01:12 01:35 06:30 WBC 4.3 L 3.5 L RBC 3.15 L 3.18 L Hgb 9.0 L 9.1 L Hct 27.5 L 27.9 L MCV 87.5 D 87.9 MCH 28.4 28.7 MCHC 32.5 L 32.6 L RDW 23.0 H 22.7 H Plt Count 88 L D 94 L MPV 9.4 9.3 Neut % (Auto) 65.9 66.6 Lymph % (Auto) 19.6 L 19.7 L [place] % (Auto) 9.1 9.0 Eos % (Auto) 4.1 H 3.4 Baso % (Auto) 1.3 1.3 Neut # (Auto) 2.8 2.3 Lymph # (Auto) 0.8 L 0.7 L [place] # (Auto) 0.4 0.3 Eos # (Auto) 0.2 0.1 Baso # (Auto) 0.1 0.0 Differential Comment PT INR APTT Puncture Site Rr pCO2 55 H pO2 75 L HCO3 37.2 H ABG pH 7.49 H ABG Total CO2 43.6 H ABG O2 Saturation 97.1 ABG Base Excess 15.8 H Tucker Test Pos ABG Potassium 4.2 VBG pH VBG pCO2 VBG HCO3 VBG Total CO2 VBG O2 Sat (Calc) VBG Base Excess VBG Potassium A-a O2 Difference 56.0 Respiratory Index 0.7 Glucose 98 Lactate 0.7 Liter Flow 2.0 FiO2 28.0 Sodium 145.0 Potassium Chloride 103.0 Carbon Dioxide Anion Gap BUN Creatinine Est GFR ( Amer) Est GFR (Non-Af Amer) Random Glucose Hemoglobin A1c Calcium Magnesium Total Bilirubin AST ALT Alkaline Phosphatase Total Creatine Kinase CK-MB (Mass) Troponin I NT-Pro-B Natriuret Pep Total Protein Albumin Globulin Albumin/Globulin Ratio Triglycerides Cholesterol LDL Cholesterol Direct HDL Cholesterol Free T4 TSH 3rd Generation Arterial Blood Potassium 4.2 Venous Blood Potassium Mycoplasma pneumon IgM 02/02/18 02/02/18 02/02/18 06:30 10:06 11:30 WBC RBC Hgb Hct MCV MCH MCHC RDW Plt Count MPV Neut % (Auto) Lymph % (Auto) [place] % (Auto) Eos % (Auto) Baso % (Auto) Neut # (Auto) Lymph # (Auto) [place] # (Auto) Eos # (Auto) Baso # (Auto) Differential Comment PT INR APTT Puncture Site pCO2 pO2 HCO3 ABG pH ABG Total CO2 ABG O2 Saturation ABG Base Excess Tucker Test ABG Potassium VBG pH VBG pCO2 VBG HCO3 VBG Total CO2 VBG O2 Sat (Calc) VBG Base Excess VBG Potassium A-a O2 Difference Respiratory Index Glucose Lactate Liter Flow FiO2 Sodium 149 H Potassium 4.7 Chloride 95 L Carbon Dioxide 39 H Anion Gap 20 BUN 43 H Creatinine 9.4 H* Est GFR ( Amer) 8 Est GFR (Non-Af Amer) 6 Random Glucose 89 Hemoglobin A1c 4.5 Calcium 10.0 Magnesium Total Bilirubin 1.6 H AST 36 ALT 19 L Alkaline Phosphatase 158 H Total Creatine Kinase 125 CK-MB (Mass) 3.87 H Troponin I 0.0530 NT-Pro-B Natriuret Pep Total Protein 8.4 H Albumin 4.2 Globulin 4.1 H Albumin/Globulin Ratio 1.0 Triglycerides 44 Cholesterol 142 LDL Cholesterol Direct 54 HDL Cholesterol 49 Free T4 TSH 3rd Generation 2.00 Arterial Blood Potassium Venous Blood Potassium Mycoplasma pneumon IgM 02/02/18 02/02/18 02/02/18 11:30 11:30 16:00 WBC RBC Hgb Hct MCV MCH MCHC RDW Plt Count MPV Neut % (Auto) Lymph % (Auto) [place] % (Auto) Eos % (Auto) Baso % (Auto) Neut # (Auto) Lymph # (Auto) [place] # (Auto) Eos # (Auto) Baso # (Auto) Differential Comment PT INR APTT Puncture Site Right ra pCO2 46 H pO2 96 HCO3 36.5 H ABG pH 7.54 H ABG Total CO2 40.7 H ABG O2 Saturation 99.1 H ABG Base Excess 14.8 H Tucker Test Na ABG Potassium 4.4 VBG pH VBG pCO2 VBG HCO3 VBG Total CO2 VBG O2 Sat (Calc) VBG Base Excess VBG Potassium A-a O2 Difference 132.0 Respiratory Index 1.4 Glucose 95 Lactate 0.9 Liter Flow 5.0 FiO2 40.0 Sodium 141.0 Potassium Chloride 102.0 Carbon Dioxide Anion Gap BUN Creatinine Est GFR ( Amer) Est GFR (Non-Af Amer) Random Glucose Hemoglobin A1c Calcium Magnesium Total Bilirubin AST ALT Alkaline Phosphatase Total Creatine Kinase CK-MB (Mass) Troponin I NT-Pro-B Natriuret Pep Total Protein Albumin Globulin Albumin/Globulin Ratio Triglycerides Cholesterol LDL Cholesterol Direct HDL Cholesterol Free T4 2.20 H TSH 3rd Generation Arterial Blood Potassium 4.4 Venous Blood Potassium Mycoplasma pneumon IgM Negative 02/02/18 17:12 WBC RBC Hgb Hct MCV MCH MCHC RDW Plt Count MPV Neut % (Auto) Lymph % (Auto) [place] % (Auto) Eos % (Auto) Baso % (Auto) Neut # (Auto) Lymph # (Auto) [place] # (Auto) Eos # (Auto) Baso # (Auto) Differential Comment PT INR APTT Puncture Site pCO2 pO2 HCO3 ABG pH ABG Total CO2 ABG O2 Saturation ABG Base Excess Tucker Test ABG Potassium VBG pH VBG pCO2 VBG HCO3 VBG Total CO2 VBG O2 Sat (Calc) VBG Base Excess VBG Potassium A-a O2 Difference Respiratory Index Glucose Lactate Liter Flow FiO2 Sodium Potassium Chloride Carbon Dioxide Anion Gap BUN Creatinine Est GFR ( Amer) Est GFR (Non-Af Amer) Random Glucose Hemoglobin A1c Calcium Magnesium Total Bilirubin AST ALT Alkaline Phosphatase Total Creatine Kinase 131 CK-MB (Mass) 4.18 H Troponin I 0.0370 NT-Pro-B Natriuret Pep Total Protein Albumin Globulin Albumin/Globulin Ratio Triglycerides Cholesterol LDL Cholesterol Direct HDL Cholesterol Free T4 TSH 3rd Generation Arterial Blood Potassium Venous Blood Potassium Mycoplasma pneumon IgM Assessment & Plan - Date & Time Date: 02/02/18 (I have seen and examined the patient. I agree with the findings and plan of care as documented by Dr. Herrera. Patient with anasarca. history of ESRD on dialysis. Previously had paracentesis. Consult IR for repeat. Consult nephro for dialysis. ROMIx3 with EKG due to SOB and chest pain complaints. Monitor for acute changes.) Time: 19:06 Attending/Attestation - Attestation I have personally seen and examined this patient.: Yes I have fully participated in the care of the patient.: Yes I have reviewed all pertinent clinical information: Yes
[2018-02-02 06:37] LABS: BASO % 1.3 % (0.0-2.0); EOS # 0.1 K/uL (0.0-0.7); EOS % 3.4 % (0.0-4.0); HEMOGLOBIN 9.1 g/dL (12.0-18.0); LYMPH # 0.7 K/uL (1.0-4.3); LYMPH % 19.7 % (20.0-40.0); MEAN CELL VOLUME 87.9 fL (80.0-94.0); MEAN CORPUSCULAR HEMOGLOBIN 28.7 pg (27.0-31.0); MEAN CORPUSCULAR HGB CONC 32.6 g/dL (33.0-37.0); MEAN PLATELET VOLUME 9.3 fL (7.2-11.7); MONO # 0.3 K/uL (0.0-0.8); NEUT # 2.3 K/uL (1.8-7.0); NEUT % 66.6 % (50.0-75.0); NRBC % 0.1 % (0.0-2.0); RBC 3.18 Mil/uL (4.40-5.90); RED CELL DISTRIBUTION WIDTH 22.7 % (11.5-14.5); WHITE BLOOD COUNT 3.5 K/uL (4.8-10.8)
[2018-02-02 06:57] LABS: ALBUMIN 4.2 g/dL (3.5-5.0)
[2018-02-02 07:02] LABS: CK-MB 3.87 ng/mL (0.0-3.38); TROPONIN I 0.053 ng/mL (0.00-0.120)
[2018-02-02] MEDS ORDERED: Albuterol-Ipratrop 3 mg / 0.5 (3 ml) UD INH PRN (07:19)
--- NOTE | 2018-02-02 08:22 | CP.PCM.CON ---
History of Present Illness - History of Present Illness History of Present Illness: Patient seen/examined. full consult to follow echocardiogram likely acute on chronic systolic dsyfunction. Patient may need retirement inotropic therapy. Heart failure/ transplant evaluation at [facility]. Past Patient History - Infectious Disease Hx of Infectious Diseases: None - Tetanus Immunizations Tetanus Immunization: Unknown - Past Medical History & Family History Past Medical History?: Yes - Past Social History Smoking Status: Never Smoked Chewing Tobacco Use: No Cigar Use: No Alcohol: None Drugs: Denies Home Situation {Lives}: With Family Domestic Violence: Negative - CARDIAC Hx Congestive Heart Failure: Yes Hx Hypertension: Yes - PULMONARY Hx Respiratory Disorders: No - NEUROLOGICAL Hx Neurological Disorder: No - HEENT Hx HEENT Problems: No - RENAL Hx Chronic Kidney Disease: Yes - ENDOCRINE/METABOLIC Hx Endocrine Disorders: No - HEMATOLOGICAL/ONCOLOGICAL Hx Blood Disorders: No - INTEGUMENTARY Hx Dermatological Problems: No - MUSCULOSKELETAL/RHEUMATOLOGICAL Hx Musculoskeletal Disorders: No Hx Falls: No - GASTROINTESTINAL Hx Gastrointestinal Disorders: Yes Hx Liver Failure: Yes - GENITOURINARY/GYNECOLOGICAL Hx Genitourinary Disorders: No - PSYCHIATRIC Hx Substance Use: No (DENIED) - SURGICAL HISTORY Hx Surgeries: Yes Hx Arteriovenous Shunt: Yes (left arm(new) ,rt arm(old)) Hx Open Heart Surgery: Yes Hx Valve Replacement: Yes Hx Vascular Access Device: Yes Other/Comment: PACEMAKER - ANESTHESIA Hx Anesthesia: Yes Hx Anesthesia Reactions: No Hx Malignant Hyperthermia: No Meds Allergies/Adverse Reactions: Allergies Allergy/AdvReac Type Severity Reaction Status Date / Time No Known Allergies Allergy Verified 02/02/18 00:24 - Medications Medications: Current Medications Albuterol/Ipratropium (Duoneb 3 Mg/0.5 Mg (3 Ml) Ud) 3 ml INH RQ6 PRN PRN Reason: Shortness of Breath Aspirin (Aspirin Chewable) 81 mg PO DAILY [facility] Losartan Potassium (Cozaar) 50 mg PO DAILY [facility] Rosuvastatin Calcium (Crestor) 10 mg PO HS [facility] Vitamin B Complex/Vit C/Folic Acid (Nephro-Duane) 1 tab PO DAILY [facility] Results - Vital Signs Recent Vital Signs: Last Vital Signs Temp 97.8 F 02/02/18 00:20 Pulse 87 02/02/18 05:45 Resp 20 02/02/18 05:14 BP 135/84 02/02/18 05:14 Pulse Ox 100 02/02/18 05:45 - Labs Result Diagrams: 02/02/18 06:30 02/02/18 06:30 Labs: Laboratory Results - last 24 hr 02/02/18 02/02/18 02/02/18 00:52 00:52 01:10 WBC RBC Hgb Hct MCV MCH MCHC RDW Plt Count MPV Neut % (Auto) Lymph % (Auto) [place] % (Auto) Eos % (Auto) Baso % (Auto) Neut # (Auto) Lymph # (Auto) [place] # (Auto) Eos # (Auto) Baso # (Auto) Differential Comment PT 13.6 H INR 1.2 APTT 32 Puncture Site pCO2 pO2 48 HCO3 ABG pH ABG Total CO2 ABG O2 Saturation ABG Base Excess Tucker Test ABG Potassium VBG pH 7.46 H VBG pCO2 60 VBG HCO3 36.9 VBG Total CO2 44.5 H VBG O2 Sat (Calc) 83.2 H VBG Base Excess 15.8 H VBG Potassium 4.1 A-a O2 Difference Respiratory Index Glucose 100 Lactate 1.1 Liter Flow FiO2 Sodium 151 H 145.0 Potassium 4.4 Chloride 95 L 102.0 Carbon Dioxide 40 H* D Anion Gap 21 H BUN 46 H Creatinine 8.9 H* D Est GFR ( Amer) 8 Est GFR (Non-Af Amer) 7 Random Glucose 98 Calcium 10.5 H Magnesium 2.2 Total Bilirubin 1.9 H AST 37 ALT 20 L D Alkaline Phosphatase 178 H D Total Creatine Kinase CK-MB (Mass) Troponin I 0.0420 NT-Pro-B Natriuret Pep 337821 H Total Protein 8.7 H Albumin 4.0 Globulin 4.6 H Albumin/Globulin Ratio 0.9 L Arterial Blood Potassium Venous Blood Potassium 4.1 02/02/18 02/02/18 02/02/18 01:12 01:35 06:30 WBC 4.3 L 3.5 L RBC 3.15 L 3.18 L Hgb 9.0 L 9.1 L Hct 27.5 L 27.9 L MCV 87.5 D 87.9 MCH 28.4 28.7 MCHC 32.5 L 32.6 L RDW 23.0 H 22.7 H Plt Count 88 L D 94 L MPV 9.4 9.3 Neut % (Auto) 65.9 66.6 Lymph % (Auto) 19.6 L 19.7 L [place] % (Auto) 9.1 9.0 Eos % (Auto) 4.1 H 3.4 Baso % (Auto) 1.3 1.3 Neut # (Auto) 2.8 2.3 Lymph # (Auto) 0.8 L 0.7 L [place] # (Auto) 0.4 0.3 Eos # (Auto) 0.2 0.1 Baso # (Auto) 0.1 0.0 Differential Comment PT INR APTT Puncture Site Rr pCO2 55 H pO2 75 L HCO3 37.2 H ABG pH 7.49 H ABG Total CO2 43.6 H ABG O2 Saturation 97.1 ABG Base Excess 15.8 H Tucker Test Pos ABG Potassium 4.2 VBG pH VBG pCO2 VBG HCO3 VBG Total CO2 VBG O2 Sat (Calc) VBG Base Excess VBG Potassium A-a O2 Difference 56.0 Respiratory Index 0.7 Glucose 98 Lactate 0.7 Liter Flow 2.0 FiO2 28.0 Sodium 145.0 Potassium Chloride 103.0 Carbon Dioxide Anion Gap BUN Creatinine Est GFR ( Amer) Est GFR (Non-Af Amer) Random Glucose Calcium Magnesium Total Bilirubin AST ALT Alkaline Phosphatase Total Creatine Kinase CK-MB (Mass) Troponin I NT-Pro-B Natriuret Pep Total Protein Albumin Globulin Albumin/Globulin Ratio Arterial Blood Potassium 4.2 Venous Blood Potassium 02/02/18 06:30 WBC RBC Hgb Hct MCV MCH MCHC RDW Plt Count MPV Neut % (Auto) Lymph % (Auto) [place] % (Auto) Eos % (Auto) Baso % (Auto) Neut # (Auto) Lymph # (Auto) [place] # (Auto) Eos # (Auto) Baso # (Auto) Differential Comment PT INR APTT Puncture Site pCO2 pO2 HCO3 ABG pH ABG Total CO2 ABG O2 Saturation ABG Base Excess Tucker Test ABG Potassium VBG pH VBG pCO2 VBG HCO3 VBG Total CO2 VBG O2 Sat (Calc) VBG Base Excess VBG Potassium A-a O2 Difference Respiratory Index Glucose Lactate Liter Flow FiO2 Sodium 149 H Potassium 4.7 Chloride 95 L Carbon Dioxide 39 H Anion Gap 20 BUN 43 H Creatinine 9.4 H* Est GFR ( Amer) 8 Est GFR (Non-Af Amer) 6 Random Glucose 89 Calcium 10.0 Magnesium Total Bilirubin 1.6 H AST 36 ALT 19 L Alkaline Phosphatase 158 H Total Creatine Kinase 125 CK-MB (Mass) 3.87 H Troponin I 0.0530 NT-Pro-B Natriuret Pep Total Protein 8.4 H Albumin 4.2 Globulin 4.1 H Albumin/Globulin Ratio 1.0 Arterial Blood Potassium Venous Blood Potassium
--- NOTE | 2018-02-02 08:22 | CP.PCM.CON ---
History of Present Illness - History of Present Illness History of Present Illness: I was asked to see patient by Dr Lowry. Patient is a 37 year old male with PMH HTN, ESRD on HD, valvular cardiomyopathy , s/p MVR, chronic systolic dsyfunction s.p AICD who presents with dyspnea and abdominal distension. Symptoms began a few weeks ago, and have been progressively worse. The patient has noted increased orthopnea. He was previously recommend for heart failure transplant evaluation at [facility], however the patient has not followed up. Review of Systems - Constitutional Constitutional: Fatigue - EENT Eyes: absent: As Per HPI, Blind Spots, Blurred Vision, Change in Vision, Decreased Night Vision, Diplopia, Discharge, Dry Eye, Exophthalmos, Floaters, Irritation, Itchy Eyes, Loss of Peripheral Vision, Pain, Photophobia, Requires Corrective Lenses, Sees Flashes, Spots in Vision, Tunnel Vision, Other Visual Disturbances, Loss of Vision, Other Ears: absent: As Per HPI, Decreased Hearing, Ear Discharge, Ear Pain, Tinnitus, Abnormal Hearing, Disequilibrium, Dizziness, Other Nose/Mouth/Throat: absent: As Per HPI, Epistaxis, Nasal Congestion, Nasal Discharge, Nasal Obstruction, Nasal Trauma, Nose Pain, Post Nasal Drip, Sinus Pain, Sinus Pressure, Bleeding Gums, Change in Voice, Dental Pain, Dry Mouth, Dysphagia, Halitosis, Hoarsness, Lip Swelling, Mouth Lesions, Mouth Pain, Odynophagia, Sore Throat, Throat Swelling, Tongue Swelling, Facial Pain, Neck Pain, Neck Mass, Other - Cardiovascular Cardiovascular: Dyspnea - Respiratory Respiratory: absent: As Per HPI, Cough, Dyspnea, Hemoptysis, Dyspnea on Exertion , Wheezing, Snoring, Stridor, Pain on Inspiration, Chest Congestion, Excessive Mucous Production, Change in Mucous Color, Pain with Coughing, Other - Gastrointestinal Gastrointestinal: absent: As Per HPI, Abdominal Pain, Belching, Bloating, Change in Bowel Habits, Change in Stool Character, Coffee Ground Emesis, Constipation, Cramping, Diarrhea, Dyspepsia, Dysphagia, Early Satiety, Excessive Flatus, Fecal Incontinence, Heartburn, Hematemesis, Hematochezia, Loose Stools, Melena, Nausea, Odynophagia, Temesmus, Vomiting, Other - Genitourinary Genitourinary: absent: As Per HPI, Change in Urinary Stream, Difficulty Urinating, Dysuria, Flank Pain, Hematuria, Pyuria, Nocturia, Urinary Incontinence, Urinary Frequency, Urinary Hesitance, Urinary Urgency, Voiding Freq/Small Amts, Freq UTI, Hx Renal/Bladder Calculi, Hx /Renal Surgery, Bladder Distension, Other - Musculoskeletal Musculoskeletal: absent: As Per HPI, Abnormal Gait, Arthralgias, Atrophy, Back Pain, Deformity, Joint Swelling, Limited Range of Motion, Loss of Height, Muscle Cramps, Muscle Weakness, Myalgias, Neck Pain, Numbness, Radiating Pain into Limb, Stiffness, Tingling, Other - Integumentary Integumentary: absent: As Per HPI, Acne, Alopecia, Bleeding Lesions, Change in Hair, Change in Nails, Change in Pigmentation, Changing Lesions, Dry Skin, Erythema, Furuncle, Hirsutism, Lesions, New Lesions, Non-Healing Lesions, Photosensitivity, Pruritus, Rash, Skin Pain, Skin Ulcer, Sores, Striae, Swelling , Unusual Bruising, Wounds, Jaundice, Other - Neurological Neurological: absent: As Per HPI, Abnormal Gait, Abnormal Hearing, Abnormal Movements, Abnormal Speech, Behavioral Changes, Burning Sensations, Confusion, Convulsions, Disequilibrium, Dizziness, Numbness, Focal Weakness, Frequent Falls , Headaches, Lack of Coordination, Loss of Vision, Memory Loss, Paresthesias, Radicular Pain, Restless Legs, Sensory Deficit, Syncope, Tingling, Tremor, Vertigo, Weakness, Other Visual Disturbances, Other - Psychiatric Psychiatric: absent: As Per HPI, Abnormal Sleep Pattern, Anhedonia, Anxiety, Auditory Hallucinations, Behavioral Changes, Change in Appetite, Change in Libido, Confusion, Depression, Difficulty Concentrating, Hallucinations, Homicidal Ideation, Hopelessness, Irritability, Memory Loss, Mood Swings, Panic Attacks, Paranoia, Suicidal Ideation, Visual Hallucinations, Tactile Hallucinations, Other - Endocrine Endocrine: absent: As Per HPI, Change in Body Appearance, Change in Libido, Cold Intolorance, Deepening of Voice, Excessive Sweating, Fatigue, Flushing, Heat Intolorance, Increase in Ring/Shoe/Hat Size, Palpitations, Polydipsia, Polyphagia, Polyuria, Other - Hematologic/Lymphatic Hematologic: absent: As Per HPI, Easy Bleeding, Easy Bruising, Lymphadenopathy, Other Past Patient History - Infectious Disease Hx of Infectious Diseases: None - Tetanus Immunizations Tetanus Immunization: Unknown - Past Medical History & Family History Past Medical History?: Yes - Past Social History Smoking Status: Never Smoked Chewing Tobacco Use: No Cigar Use: No Alcohol: None Drugs: Denies Home Situation {Lives}: With Family Domestic Violence: Negative - CARDIAC Hx Congestive Heart Failure: Yes Hx Hypertension: Yes - PULMONARY Hx Respiratory Disorders: No - NEUROLOGICAL Hx Neurological Disorder: No - HEENT Hx HEENT Problems: No - RENAL Hx Chronic Kidney Disease: Yes - ENDOCRINE/METABOLIC Hx Endocrine Disorders: No - HEMATOLOGICAL/ONCOLOGICAL Hx Blood Disorders: No - INTEGUMENTARY Hx Dermatological Problems: No - MUSCULOSKELETAL/RHEUMATOLOGICAL Hx Musculoskeletal Disorders: No Hx Falls: No - GASTROINTESTINAL Hx Gastrointestinal Disorders: Yes Hx Liver Failure: Yes - GENITOURINARY/GYNECOLOGICAL Hx Genitourinary Disorders: No - PSYCHIATRIC Hx Substance Use: No (DENIED) - SURGICAL HISTORY Hx Surgeries: Yes Hx Arteriovenous Shunt: Yes (left arm(new) ,rt arm(old)) Hx Open Heart Surgery: Yes Hx Valve Replacement: Yes Hx Vascular Access Device: Yes Other/Comment: PACEMAKER - ANESTHESIA Hx Anesthesia: Yes Hx Anesthesia Reactions: No Hx Malignant Hyperthermia: No Meds Allergies/Adverse Reactions: Allergies Allergy/AdvReac Type Severity Reaction Status Date / Time No Known Allergies Allergy Verified 02/02/18 00:24 - Medications Medications: Current Medications Albuterol/Ipratropium (Duoneb 3 Mg/0.5 Mg (3 Ml) Ud) 3 ml INH RQ6 PRN PRN Reason: Shortness of Breath Aspirin (Aspirin Chewable) 81 mg PO DAILY [facility] Losartan Potassium (Cozaar) 50 mg PO DAILY [facility] Rosuvastatin Calcium (Crestor) 10 mg PO HS [facility] Vitamin B Complex/Vit C/Folic Acid (Nephro-Duane) 1 tab PO DAILY [facility] Physical Exam - Constitutional Appears: Non-toxic - Head Exam Head Exam: NORMAL INSPECTION - Eye Exam Eye Exam: Normal appearance - ENT Exam ENT Exam: Mucous Membranes Moist - Neck Exam Neck exam: Positive for: Normal Inspection - Respiratory Exam Respiratory Exam: Decreased Breath Sounds - Cardiovascular Exam Cardiovascular Exam: REGULAR RHYTHM - GI/Abdominal Exam GI & Abdominal Exam: Distended, Normal Bowel Sounds - Rectal Exam Rectal Exam: Deferred - Extremities Exam Extremities exam: Positive for: pedal edema - Back Exam Back exam: NORMAL INSPECTION - Neurological Exam Neurological exam: Alert, Oriented x3 - Psychiatric Exam Psychiatric exam: Normal Affect - Skin Skin Exam: Normal Color Results - Vital Signs Recent Vital Signs: Last Vital Signs Temp 97.8 F 02/02/18 00:20 Pulse 87 02/02/18 05:45 Resp 20 02/02/18 05:14 BP 135/84 02/02/18 05:14 Pulse Ox 100 02/02/18 05:45 - Labs Result Diagrams: 02/06/18 06:54 02/06/18 06:54 Labs: Laboratory Results - last 24 hr 02/02/18 02/02/18 02/02/18 00:52 00:52 01:10 WBC RBC Hgb Hct MCV MCH MCHC RDW Plt Count MPV Neut % (Auto) Lymph % (Auto) [place] % (Auto) Eos % (Auto) Baso % (Auto) Neut # (Auto) Lymph # (Auto) [place] # (Auto) Eos # (Auto) Baso # (Auto) Differential Comment PT 13.6 H INR 1.2 APTT 32 Puncture Site pCO2 pO2 48 HCO3 ABG pH ABG Total CO2 ABG O2 Saturation ABG Base Excess Tucker Test ABG Potassium VBG pH 7.46 H VBG pCO2 60 VBG HCO3 36.9 VBG Total CO2 44.5 H VBG O2 Sat (Calc) 83.2 H VBG Base Excess 15.8 H VBG Potassium 4.1 A-a O2 Difference Respiratory Index Glucose 100 Lactate 1.1 Liter Flow FiO2 Sodium 151 H 145.0 Potassium 4.4 Chloride 95 L 102.0 Carbon Dioxide 40 H* D Anion Gap 21 H BUN 46 H Creatinine 8.9 H* D Est GFR ( Amer) 8 Est GFR (Non-Af Amer) 7 Random Glucose 98 Calcium 10.5 H Magnesium 2.2 Total Bilirubin 1.9 H AST 37 ALT 20 L D Alkaline Phosphatase 178 H D Total Creatine Kinase CK-MB (Mass) Troponin I 0.0420 NT-Pro-B Natriuret Pep 718212 H Total Protein 8.7 H Albumin 4.0 Globulin 4.6 H Albumin/Globulin Ratio 0.9 L Arterial Blood Potassium Venous Blood Potassium 4.1 02/02/18 02/02/18 02/02/18 01:12 01:35 06:30 WBC 4.3 L 3.5 L RBC 3.15 L 3.18 L Hgb 9.0 L 9.1 L Hct 27.5 L 27.9 L MCV 87.5 D 87.9 MCH 28.4 28.7 MCHC 32.5 L 32.6 L RDW 23.0 H 22.7 H Plt Count 88 L D 94 L MPV 9.4 9.3 Neut % (Auto) 65.9 66.6 Lymph % (Auto) 19.6 L 19.7 L [place] % (Auto) 9.1 9.0 Eos % (Auto) 4.1 H 3.4 Baso % (Auto) 1.3 1.3 Neut # (Auto) 2.8 2.3 Lymph # (Auto) 0.8 L 0.7 L [place] # (Auto) 0.4 0.3 Eos # (Auto) 0.2 0.1 Baso # (Auto) 0.1 0.0 Differential Comment PT INR APTT Puncture Site Rr pCO2 55 H pO2 75 L HCO3 37.2 H ABG pH 7.49 H ABG Total CO2 43.6 H ABG O2 Saturation 97.1 ABG Base Excess 15.8 H Tucker Test Pos ABG Potassium 4.2 VBG pH VBG pCO2 VBG HCO3 VBG Total CO2 VBG O2 Sat (Calc) VBG Base Excess VBG Potassium A-a O2 Difference 56.0 Respiratory Index 0.7 Glucose 98 Lactate 0.7 Liter Flow 2.0 FiO2 28.0 Sodium 145.0 Potassium Chloride 103.0 Carbon Dioxide Anion Gap BUN Creatinine Est GFR ( Amer) Est GFR (Non-Af Amer) Random Glucose Calcium Magnesium Total Bilirubin AST ALT Alkaline Phosphatase Total Creatine Kinase CK-MB (Mass) Troponin I NT-Pro-B Natriuret Pep Total Protein Albumin Globulin Albumin/Globulin Ratio Arterial Blood Potassium 4.2 Venous Blood Potassium 02/02/18 06:30 WBC RBC Hgb Hct MCV MCH MCHC RDW Plt Count MPV Neut % (Auto) Lymph % (Auto) [place] % (Auto) Eos % (Auto) Baso % (Auto) Neut # (Auto) Lymph # (Auto) [place] # (Auto) Eos # (Auto) Baso # (Auto) Differential Comment PT INR APTT Puncture Site pCO2 pO2 HCO3 ABG pH ABG Total CO2 ABG O2 Saturation ABG Base Excess Tucker Test ABG Potassium VBG pH VBG pCO2 VBG HCO3 VBG Total CO2 VBG O2 Sat (Calc) VBG Base Excess VBG Potassium A-a O2 Difference Respiratory Index Glucose Lactate Liter Flow FiO2 Sodium 149 H Potassium 4.7 Chloride 95 L Carbon Dioxide 39 H Anion Gap 20 BUN 43 H Creatinine 9.4 H* Est GFR ( Amer) 8 Est GFR (Non-Af Amer) 6 Random Glucose 89 Calcium 10.0 Magnesium Total Bilirubin 1.6 H AST 36 ALT 19 L Alkaline Phosphatase 158 H Total Creatine Kinase 125 CK-MB (Mass) 3.87 H Troponin I 0.0530 NT-Pro-B Natriuret Pep Total Protein 8.4 H Albumin 4.2 Globulin 4.1 H Albumin/Globulin Ratio 1.0 Arterial Blood Potassium Venous Blood Potassium - EKG Data EKG Interpreted by: Myself EKG shows normal: Sinus rhythm Assessment & Plan (1) Systolic dysfunction with acute on chronic heart failure Assessment and Plan: will need improved blood pressure control. will reeval LV function with echocardiogram. consider inotropic therapy. Status: Acute (2) ESRD (end stage renal disease) on dialysis Assessment and Plan: consider change to dialysis 4 times daily for volume control Status: Chronic (3) Hypertension Assessment and Plan: blood pressure control Status: Chronic (4) Cardiomyopathy Assessment and Plan: s/p AICD Status: Chronic
--- NOTE | 2018-02-02 08:40 | RAD ---
PROCEDURE: CHEST RADIOGRAPH, 1 VIEW HISTORY: SOB COMPARISON: 08/01/2017. FINDINGS: LUNGS: There is severe pulmonary venous congestion and redistribution. There is airspace disease in the right lower lobe. PLEURA: No pneumothorax. Bilateral pleural effusions, larger on the right. CARDIOVASCULAR: Again seen is severe cardiomegaly. Status post CABG and aortic valve replacement. OSSEOUS STRUCTURES: No significant abnormalities. VISUALIZED UPPER ABDOMEN: Normal. OTHER FINDINGS: None. IMPRESSION: Findings are consistent with congestive heart failure. Airspace disease in the right lower lobe may represent atelectasis/ pneumonia. Follow-up is advised.
[2018-02-02] MEDS ORDERED: Pantoprazole 40 mg EC Tab PO SCH (10:00)
[2018-02-02] MEDS ORDERED: Multivitamin Vitamin B Complex (Nephro-Vite) Tab PO SCH (10:00)
--- NOTE | 2018-02-02 14:13 | CP.PCM.PN ---
<Dasha Aburto - Last Filed: 02/02/18 15:55> Subjective - Date & Time of Evaluation Date of Evaluation: 02/02/18 Time of Evaluation: 15:08 - Subjective Subjective: Progress Note for Dr. Lowry Patient was seen and examined at bedside short of breath and drowsy. Patient denied BIPAP. Patient states he does not have chest pain right now. Patient denied fever, chills, nausea, vomiting, diarrhea. Patient states his legs hurt and that he wants pain medication but it was explained to patient that his drowsy state that he should not be taking strong medication at this time. Objective - Vital Signs/Intake and Output Vital Signs (last 24 hours): Temp Pulse Resp BP Pulse Ox 97.9 F 91 H 20 169/118 H 99 02/02/18 13:25 02/02/18 13:25 02/02/18 13:25 02/02/18 13:25 02/02/18 13:25 - Medications Medications: Current Medications Albuterol/Ipratropium (Duoneb 3 Mg/0.5 Mg (3 Ml) Ud) 3 ml INH RQ6 PRN PRN Reason: Shortness of Breath Amlodipine Besylate (Norvasc) 10 mg PO DAILY [facility] Last Admin: 02/02/18 14:04 Dose: 10 mg Aspirin (Aspirin Chewable) 81 mg PO DAILY [facility] Last Admin: 02/02/18 09:33 Dose: 81 mg Clonidine HCl (Catapres) 0.3 mg PO BID [facility] Gabapentin (Neurontin) 300 mg PO BID [facility] Hydralazine HCl (Apresoline) 100 mg PO TID [facility] Last Admin: 02/02/18 14:03 Dose: 100 mg Lactulose (Enulose) 20 gm PO HS [facility] Losartan Potassium (Cozaar) 50 mg PO DAILY [facility] Last Admin: 02/02/18 09:33 Dose: 50 mg Metoprolol Succinate (Toprol Xl) 100 mg PO DAILY [facility] Rosuvastatin Calcium (Crestor) 10 mg PO HS [facility] Vitamin B Complex/Vit C/Folic Acid (Nephro-Duane) 1 tab PO DAILY [facility] - Labs Labs: 02/02/18 06:30 02/02/18 06:30 PT 13.6 SECONDS (9.7-12.2) H 02/02/18 00:52 INR 1.2 02/02/18 00:52 APTT 32 SECONDS (21-34) 02/02/18 00:52 - Extremities Exam Extremities Exam: Normal Inspection - Additional Findings Additional findings: - Head Exam Head Exam: ATRAUMATIC, NORMAL INSPECTION, NORMOCEPHALIC - Eye Exam Eye Exam: EOMI - ENT Exam ENT Exam: Mucous Membranes Dry - Neck Exam Neck exam: Negative for: Normal Inspection Additional comments: positive JVD - Respiratory Exam Respiratory Exam: Rales. absent: Respiratory Distress, NORMAL BREATHING PATTERN - Cardiovascular Exam Cardiovascular Exam: REGULAR RHYTHM, +S1, +S2 Additional comments: sternotomy scar - GI/Abdominal Exam GI & Abdominal Exam: Distended, Tenderness Additional comments: diffusely tender ; positive ascites - Extremities Exam Extremities exam: Positive for: pedal edema. Negative for: full ROM, normal inspection - Back Exam Back exam: NORMAL INSPECTION - Neurological Exam Neurological exam: Alert, CN II-XII Intact, Oriented x3 - Psychiatric Exam Psychiatric exam: Flat Affect - Skin Skin Exam: Dry, Intact, Normal Color, Warm Assessment and Plan - Assessment and Plan (Free Text) Assessment: 06/17 with 100 fio2 -will order ascitic fluid culture, gram stain, cell count, amylase, LDH, total protein This is a 37 yo male with past medical hx of CHF, open heart surgery, ESRD on HD presenting with 1. Shortness of breath -did get 80 mg IV lasix stat in ER -likely secondary to fluid overload CT abdomen pelvis notes pleural effusion CT chest ordered -EKG initial shows normal sinus rhythm, no st changes ROBIN negative x 3 Patient had dialysis today Nephrology consult: Dr. El Cardio Consult: Dr. Mora: patient will likely need ionotrope Patient had uncontrolled HTN (on Norvasc 10 mg PO QD, Hydralazine 100mg PO TID, Metoprolol XL 100 mg PO QD, Clonidine 0.3 mg PO BID) Echo ordered BIPAP ordered, patient refused. Norvasc 10 mg PO QD Hydralazine 100mg PO TID Metoprolol XL 100 mg PO QD Clonidine 0.3 mg PO BID 2. Chest pain -asa 81 mg po daily -heparin 5000 mg sc q 8 hrs -serial ekgs -initial ekg normal sinus rhythm, no acute ST changes -first and second trop mildly elevated- likely secondary to renal failure -O2 by nasal cannula prn -HGB a1C -TSH and free t4 -lipid panel -echo ordered -cardio consult. Dr. Glover. recs appreciated. 3. Abominal pain/distention -has ascites -IR consult. Dr. Kumar. recs appreciated. -abdomen pelvis ct performed without PO or IV contrast. -shows diffuse anasarca -shows dilation of left common and iliac arteries -cardiomegaly -moderate abdominal and pelvic fluids 3. hx of CHF -I/O -daily weight -meets [place] criteria: neck vein distention, dyspnea on normal exertion, bilateral ankle edema, 1 major 2 minor -will confirm chf meds with [facility] -hold lasix for now as pt does not make urine and will need dialysis -BNP 167,000 but likely secondary to renal failure -blood culture x 2 4. hx heart surgery -cardio consult. recs appreciated. Dr. Glover 5. hypernatremia -unclear whether acute or chronic -will have dialysis today -no EKG changes 6. hx of end stage renal disease -BNP very elevated, 167,000 likely secondary -on dialysis -nephrology consult as stated above 7. Dilation of left common and iliac arteries -shown on abdominal ct scan -continue to monitor 5. GI/DVT ppx -heparin 5000 mg sc q 8 hrs -protonix 40 mg iv daily Renal diet Bedrest Patient uses [facility] pharmacy in [place]; did not know home meds. Patient received dialysis today tolerated well. discussed with Dr. Essence Aburto DO PGY1 <Patito Lowry V - Last Filed: 02/02/18 23:17> Objective - Vital Signs/Intake and Output Vital Signs (last 24 hours): Temp Pulse Resp BP Pulse Ox 98.6 F 105 H 20 154/115 H 97 02/02/18 15:41 02/02/18 15:41 02/02/18 15:41 02/02/18 15:41 02/02/18 15:41 - Medications Medications: Current Medications Albuterol/Ipratropium (Duoneb 3 Mg/0.5 Mg (3 Ml) Ud) 3 ml INH RQ6 PRN PRN Reason: Shortness of Breath Amlodipine Besylate (Norvasc) 10 mg PO DAILY [facility] Last Admin: 02/02/18 14:04 Dose: 10 mg Aspirin (Aspirin Chewable) 81 mg PO DAILY [facility] Last Admin: 02/02/18 09:33 Dose: 81 mg Clonidine HCl (Catapres) 0.3 mg PO BID [facility] Last Admin: 02/02/18 18:41 Dose: 0.3 mg Gabapentin (Neurontin) 300 mg PO BID [facility] Last Admin: 02/02/18 19:08 Dose: 300 mg Hydralazine HCl (Apresoline) 100 mg PO TID [facility] Last Admin: 02/02/18 18:41 Dose: 100 mg Lactulose (Enulose) 20 gm PO HS [facility] Last Admin: 02/02/18 22:03 Dose: 20 gm Losartan Potassium (Cozaar) 50 mg PO DAILY [facility] Last Admin: 02/02/18 09:33 Dose: 50 mg Metoprolol Succinate (Toprol Xl) 100 mg PO DAILY [facility] Rosuvastatin Calcium (Crestor) 10 mg PO HS [facility] Last Admin: 02/02/18 22:03 Dose: 10 mg Vitamin B Complex/Vit C/Folic Acid (Nephro-Duane) 1 tab PO DAILY [facility] - Labs Labs: 02/02/18 06:30 02/02/18 06:30 PT 13.6 SECONDS (9.7-12.2) H 02/02/18 00:52 INR 1.2 02/02/18 00:52 APTT 32 SECONDS (21-34) 02/02/18 00:52 Attending/Attestation - Attestation I have personally seen and examined this patient.: Yes I have fully participated in the care of the patient.: Yes I have reviewed all pertinent clinical information, including history, physical exam and plan: Yes Notes (Text): This is a 37 yo male with past medical hx of CHF, open heart surgery, ESRD on HD presenting with shortness of breathe, chest pain, fluid overloaded state. Patient seen this morning. Patient reports shortness of breathe, he states he takes his dialysis 3x a week, but reports he had this squeezing pain in his chest. Patient reports he has been on dialysis for about 11 years. Patient also reports history of mitral valve replacement not on any anticoagulation. He also reports he has a pacemaker (I believe its an AICD) which did not fire and was checked recently. Patient reports his bag patcher is Dr. Mora; cancelled consult to Dr. Glover given this knowledge, ordered for echocardiogram, ROMIs are negative. Patient did appear mildly lethargic and tired. He refused bipap this morning reports he feels very anxious and I also kindly reminded him he will also go anxious if he cannot breathe or if his heart hurts as well. I consented patient for dialysis this morning witnessed by his nurse, Karis. Patient underwent dialysis today. We also checked with Dr. Hu's office and received his most updated medication list. Patient was unable to go to paracentesis because he ate breakfast today; will go for tomorrow. Pulmonary consulted given his shortness of breathe given multiple organs involved regulating fluid. Assessment/Plan 1. Shortness of breath secondary to fluid overload * Patient is ESRD, cardiomyopathy, ascites. Patient required paracentesis in last admission about 2.5 Liters removed * Nephrology (Dr. El) on board-->help appreciated * Cardiology (Dr. Mora) on board-->help appreciated * Pulmonary (Dr. Rose) on board-->help appreciated * Bipap ordered this AM, patient refused inspite risks * CT abdomen/pelvis (02/02/18): moderate to large amount of abdominal and pelvic free fluid, increased compared to prior CT 03/20/17. Moderate right pleural effusion. Diffuse subcutanous edema/anasarca. No evidence of significant acute process, Diffuse mild aneurysm; dilatation of the left common and external iliac arteries, up to 2.5cm in diameter, unchanged. no evidence of aneurysm rupture. Diffusely abnormal appearance of the bones, most likely secondary to renal osteodystrophy * CT chest ordered to view right pleural effusion * Patient underwent dialysis today; will need short session tomorrow per nephrology * Will need to f/u w nephrology/cardiology regarding PICC line for iontrope therapy * Ordered for paracentesis 02/03 NPO past midnight tonight with fluid studies * EKG initial shows normal sinus rhythm, no st changes * ROBIN negative x 3 2) Hypertensive urgency secondary to fluid overload * Nephrology (Dr. El) on board-->help appreciated * Cardiology (Dr. Mora) on board-->help appreciated * medications confirmed with PMD: * Norvasc 10 mg PO QDaily * Hydralazine 100mg PO TID * Metoprolol XL 100 mg PO QD * Clonidine 0.3 mg PO BID 2. Chest pain History of mitral valve replacement History of AICD * Cardiology (Dr. Mora) on board-->help appreciated * May need inotrope therapy * Aspirin 81mg PO daily * serial ekgs; initial ekg normal sinus rhythm, no acute ST changes; first and second trop indeterminate range elevated- likely secondary to renal failure * O2 by nasal cannula prn * HGB a1C: 4.5 * TSH and free t4: 2.00/2.20 * lipid panel: T, cholerstrol: 142, LDL: 54, HDL: 49 * echo ordered 3. Abdominal pain/distention secondary to fluid overload * CT abdomen/pelvis (02/02/18): moderate to large amount of abdominal and pelvic free fluid, increased compared to prior CT 03/20/17. Moderate right pleural effusion. Diffuse subcutanous edema/anasarca. No evidence of significant acute process, Diffuse mild aneurysm; dilatation of the left common and external iliac arteries, up to 2.5cm in diameter, unchanged. no evidence of aneurysm rupture. Diffusely abnormal appearance of the bones, most likely secondary to renal osteodystrophy * IR consult. Dr. Kumar. recs appreciated. * NPO past midnight for paracentesis in the AM 4. hx of Cardiomyopathy * Cardiology (Dr. Mora) on board-->help appreciated * Monitor on telemetry * I/O * Fluid restriction * hold lasix for now as pt does not make urine * Echocardiogram ordered, unknown EF * Aspirin 81mg PO daily * Norvasc 10 mg PO QDaily * Hydralazine 100mg PO TID * Metoprolol XL 100 mg PO QD * Clonidine 0.3 mg PO BID 5. hypernatremia * Patient is not clinically dry; in fluid overloaded state 6. hx of end stage renal disease * Nephrology (Dr. El) on board-->help appreciated * BNP very elevated, 167,000 likely secondary * Went for dialysis today and ordered for short session tomorrow 7. Thrombocytopenia * held dvt ppx given thrombocytopenia 8. GI/DVT ppx * protonix 40 mg iv daily
--- NOTE | 2018-02-02 14:41 | CP.PCM.CON ---
History of Present Illness - History of Present Illness History of Present Illness: This patient over 37 years of age male presented to the emergency room complaining of shortness of breath difficulty breathing was volume overloaded than sign of congestive heart failure. An emergency hemodialysis called and the patient sent for hemodialysis. Patient on with end stage renal disease he has been dialyzed 3 times a week. And patient apparently retaining much fluid noncompliance with the diet and fluid. PMH: CHF, ESRD on HD wednesday, wednesday, , HTN EF unknown, no echo on file PSH: valvular open heart surgery, AICD, placement of AV fistula Review of Systems - Review of Systems Systems not reviewed;Unavailable: Respiratory Distress - Constitutional Constitutional: Anorexia. absent: Chills - EENT Eyes: As Per HPI Ears: As Per HPI - Cardiovascular Cardiovascular: Dyspnea, Edema, Orthopnea, Pedal Edema. absent: Chest Pain - Respiratory Respiratory: Cough, Dyspnea, Chest Congestion. absent: Hemoptysis - Gastrointestinal Gastrointestinal: Abdominal Pain. absent: Coffee Ground Emesis, Diarrhea - Genitourinary Genitourinary: Nocturia - Musculoskeletal Musculoskeletal: Muscle Weakness. absent: Arthralgias, Numbness - Integumentary Integumentary: Dry Skin - Neurological Neurological: absent: Focal Weakness, Headaches - Endocrine Endocrine: absent: Cold Intolorance, Flushing - Hematologic/Lymphatic Hematologic: absent: Easy Bleeding Past Patient History - Infectious Disease Hx of Infectious Diseases: None - Tetanus Immunizations Tetanus Immunization: Unknown - Past Medical History & Family History Past Medical History?: Yes - Past Social History Smoking Status: Never Smoked Chewing Tobacco Use: No Cigar Use: No Alcohol: None Drugs: Denies Home Situation {Lives}: With Family Domestic Violence: Negative - CARDIAC Hx Congestive Heart Failure: Yes Hx Hypertension: Yes - PULMONARY Hx Respiratory Disorders: No - NEUROLOGICAL Hx Neurological Disorder: No - HEENT Hx HEENT Problems: No - RENAL Hx Chronic Kidney Disease: Yes - ENDOCRINE/METABOLIC Hx Endocrine Disorders: No - HEMATOLOGICAL/ONCOLOGICAL Hx Blood Disorders: No - INTEGUMENTARY Hx Dermatological Problems: No - MUSCULOSKELETAL/RHEUMATOLOGICAL Hx Musculoskeletal Disorders: No Hx Falls: No - GASTROINTESTINAL Hx Gastrointestinal Disorders: Yes Hx Liver Failure: Yes - GENITOURINARY/GYNECOLOGICAL Hx Genitourinary Disorders: No - PSYCHIATRIC Hx Substance Use: No (DENIED) - SURGICAL HISTORY Hx Surgeries: Yes Hx Arteriovenous Shunt: Yes (left arm(new) ,rt arm(old)) Hx Open Heart Surgery: Yes Hx Valve Replacement: Yes Hx Vascular Access Device: Yes Other/Comment: PACEMAKER - ANESTHESIA Hx Anesthesia: Yes Hx Anesthesia Reactions: No Hx Malignant Hyperthermia: No Meds Allergies/Adverse Reactions: Allergies Allergy/AdvReac Type Severity Reaction Status Date / Time No Known Allergies Allergy Verified 02/02/18 00:24 - Medications Medications: Current Medications Albuterol/Ipratropium (Duoneb 3 Mg/0.5 Mg (3 Ml) Ud) 3 ml INH RQ6 PRN PRN Reason: Shortness of Breath Amlodipine Besylate (Norvasc) 10 mg PO DAILY [facility] Last Admin: 02/02/18 14:04 Dose: 10 mg Aspirin (Aspirin Chewable) 81 mg PO DAILY [facility] Last Admin: 02/02/18 09:33 Dose: 81 mg Clonidine HCl (Catapres) 0.3 mg PO BID [facility] Hydralazine HCl (Apresoline) 100 mg PO TID [facility] Last Admin: 02/02/18 14:03 Dose: 100 mg Lactulose (Enulose) 20 gm PO HS [facility] Losartan Potassium (Cozaar) 50 mg PO DAILY [facility] Last Admin: 02/02/18 09:33 Dose: 50 mg Metoprolol Succinate (Toprol Xl) 100 mg PO DAILY [facility] Rosuvastatin Calcium (Crestor) 10 mg PO HS [facility] Vitamin B Complex/Vit C/Folic Acid (Nephro-Duane) 1 tab PO DAILY [facility] Physical Exam - Constitutional Appears: In Acute Distress - Eye Exam Eye Exam: Conjunctival injection - ENT Exam ENT Exam: Mucous Membranes Moist - Respiratory Exam Respiratory Exam: Rales, Rhonchi. absent: Chest Wall Tenderness - Cardiovascular Exam Cardiovascular Exam: JVD. absent: Gallop, Rubs - GI/Abdominal Exam GI & Abdominal Exam: Normal Bowel Sounds. absent: Guarding - Extremities Exam Extremities exam: Negative for: calf tenderness - Back Exam Back exam: absent: CVA tenderness (L), CVA tenderness (R) - Neurological Exam Neurological exam: Alert - Psychiatric Exam Psychiatric exam: Normal Affect Results - Vital Signs Recent Vital Signs: Last Vital Signs Temp 97.9 F 02/02/18 13:25 Pulse 91 H 02/02/18 13:25 Resp 20 02/02/18 13:25 BP 169/118 H 02/02/18 13:25 Pulse Ox 99 02/02/18 13:25 - Labs Result Diagrams: 02/02/18 06:30 02/02/18 06:30 Labs: Laboratory Results - last 24 hr 02/02/18 02/02/18 02/02/18 00:52 00:52 01:10 WBC RBC Hgb Hct MCV MCH MCHC RDW Plt Count MPV Neut % (Auto) Lymph % (Auto) [place] % (Auto) Eos % (Auto) Baso % (Auto) Neut # (Auto) Lymph # (Auto) [place] # (Auto) Eos # (Auto) Baso # (Auto) Differential Comment PT 13.6 H INR 1.2 APTT 32 Puncture Site pCO2 pO2 48 HCO3 ABG pH ABG Total CO2 ABG O2 Saturation ABG Base Excess Tucker Test ABG Potassium VBG pH 7.46 H VBG pCO2 60 VBG HCO3 36.9 VBG Total CO2 44.5 H VBG O2 Sat (Calc) 83.2 H VBG Base Excess 15.8 H VBG Potassium 4.1 A-a O2 Difference Respiratory Index Glucose 100 Lactate 1.1 Liter Flow FiO2 Sodium 151 H 145.0 Potassium 4.4 Chloride 95 L 102.0 Carbon Dioxide 40 H* D Anion Gap 21 H BUN 46 H Creatinine 8.9 H* D Est GFR ( Amer) 8 Est GFR (Non-Af Amer) 7 Random Glucose 98 Hemoglobin A1c Calcium 10.5 H Magnesium 2.2 Total Bilirubin 1.9 H AST 37 ALT 20 L D Alkaline Phosphatase 178 H D Total Creatine Kinase CK-MB (Mass) Troponin I 0.0420 NT-Pro-B Natriuret Pep [id number] H Total Protein 8.7 H Albumin 4.0 Globulin 4.6 H Albumin/Globulin Ratio 0.9 L Triglycerides Cholesterol LDL Cholesterol Direct HDL Cholesterol TSH 3rd Generation Arterial Blood Potassium Venous Blood Potassium 4.1 02/02/18 02/02/18 02/02/18 01:12 01:35 06:30 WBC 4.3 L 3.5 L RBC 3.15 L 3.18 L Hgb 9.0 L 9.1 L Hct 27.5 L 27.9 L MCV 87.5 D 87.9 MCH 28.4 28.7 MCHC 32.5 L 32.6 L RDW 23.0 H 22.7 H Plt Count 88 L D 94 L MPV 9.4 9.3 Neut % (Auto) 65.9 66.6 Lymph % (Auto) 19.6 L 19.7 L [place] % (Auto) 9.1 9.0 Eos % (Auto) 4.1 H 3.4 Baso % (Auto) 1.3 1.3 Neut # (Auto) 2.8 2.3 Lymph # (Auto) 0.8 L 0.7 L [place] # (Auto) 0.4 0.3 Eos # (Auto) 0.2 0.1 Baso # (Auto) 0.1 0.0 Differential Comment PT INR APTT Puncture Site Rr pCO2 55 H pO2 75 L HCO3 37.2 H ABG pH 7.49 H ABG Total CO2 43.6 H ABG O2 Saturation 97.1 ABG Base Excess 15.8 H Tucker Test Pos ABG Potassium 4.2 VBG pH VBG pCO2 VBG HCO3 VBG Total CO2 VBG O2 Sat (Calc) VBG Base Excess VBG Potassium A-a O2 Difference 56.0 Respiratory Index 0.7 Glucose 98 Lactate 0.7 Liter Flow 2.0 FiO2 28.0 Sodium 145.0 Potassium Chloride 103.0 Carbon Dioxide Anion Gap BUN Creatinine Est GFR ( Amer) Est GFR (Non-Af Amer) Random Glucose Hemoglobin A1c Calcium Magnesium Total Bilirubin AST ALT Alkaline Phosphatase Total Creatine Kinase CK-MB (Mass) Troponin I NT-Pro-B Natriuret Pep Total Protein Albumin Globulin Albumin/Globulin Ratio Triglycerides Cholesterol LDL Cholesterol Direct HDL Cholesterol TSH 3rd Generation Arterial Blood Potassium 4.2 Venous Blood Potassium 02/02/18 02/02/18 02/02/18 06:30 10:06 11:30 WBC RBC Hgb Hct MCV MCH MCHC RDW Plt Count MPV Neut % (Auto) Lymph % (Auto) [place] % (Auto) Eos % (Auto) Baso % (Auto) Neut # (Auto) Lymph # (Auto) [place] # (Auto) Eos # (Auto) Baso # (Auto) Differential Comment PT INR APTT Puncture Site pCO2 pO2 HCO3 ABG pH ABG Total CO2 ABG O2 Saturation ABG Base Excess Tucker Test ABG Potassium VBG pH VBG pCO2 VBG HCO3 VBG Total CO2 VBG O2 Sat (Calc) VBG Base Excess VBG Potassium A-a O2 Difference Respiratory Index Glucose Lactate Liter Flow FiO2 Sodium 149 H Potassium 4.7 Chloride 95 L Carbon Dioxide 39 H Anion Gap 20 BUN 43 H Creatinine 9.4 H* Est GFR ( Amer) 8 Est GFR (Non-Af Amer) 6 Random Glucose 89 Hemoglobin A1c 4.5 Calcium 10.0 Magnesium Total Bilirubin 1.6 H AST 36 ALT 19 L Alkaline Phosphatase 158 H Total Creatine Kinase 125 CK-MB (Mass) 3.87 H Troponin I 0.0530 NT-Pro-B Natriuret Pep Total Protein 8.4 H Albumin 4.2 Globulin 4.1 H Albumin/Globulin Ratio 1.0 Triglycerides 44 Cholesterol 142 LDL Cholesterol Direct 54 HDL Cholesterol 49 TSH 3rd Generation 2.00 Arterial Blood Potassium Venous Blood Potassium Assessment & Plan (1) Volume overload Status: Acute (2) Abdominal bloating Status: Acute (3) ESRD (end stage renal disease) on dialysis Assessment and Plan: Patient with end stage renal disease admitted with volume overloaded and sign of congestive heart failure and leg edema. Emergency hemodialysis called and started approximately 10:15AM. Other medical problem severe hypertension. And as noted by the cardiology whether congestive heart failure as well with the status post coronary bypass surgery and AICD. Abdomen ascites Leg edema History of hyperphosphatemia History of secondary hyperparathyroidism Status: Chronic (4) Hypertension Status: Chronic
--- NOTE | 2018-02-02 14:57 | CP.PCM.PN ---
Subjective - Date & Time of Evaluation Date of Evaluation: 02/02/18 Time of Evaluation: 13:10 - Subjective Subjective: Dialysis note He was seen on hemodialysis. Blood pressures are still elevated about 1 75 x 124 by the end of the dialysis. He was given a stat antihypertensive medication including Catapres and metoprolol on the rest of his antihypertensive medications. breasts but much better by near the end of the dialysis Objective - Vital Signs/Intake and Output Vital Signs (last 24 hours): Temp Pulse Resp BP Pulse Ox 97.9 F 91 H 20 169/118 H 99 02/02/18 13:25 02/02/18 13:25 02/02/18 13:25 02/02/18 13:25 02/02/18 13:25 - Medications Medications: Current Medications Albuterol/Ipratropium (Duoneb 3 Mg/0.5 Mg (3 Ml) Ud) 3 ml INH RQ6 PRN PRN Reason: Shortness of Breath Amlodipine Besylate (Norvasc) 10 mg PO DAILY [facility] Last Admin: 02/02/18 14:04 Dose: 10 mg Aspirin (Aspirin Chewable) 81 mg PO DAILY [facility] Last Admin: 02/02/18 09:33 Dose: 81 mg Clonidine HCl (Catapres) 0.3 mg PO BID [facility] Hydralazine HCl (Apresoline) 100 mg PO TID [facility] Last Admin: 02/02/18 14:03 Dose: 100 mg Lactulose (Enulose) 20 gm PO HS [facility] Losartan Potassium (Cozaar) 50 mg PO DAILY [facility] Last Admin: 02/02/18 09:33 Dose: 50 mg Metoprolol Succinate (Toprol Xl) 100 mg PO DAILY [facility] Rosuvastatin Calcium (Crestor) 10 mg PO HS [facility] Vitamin B Complex/Vit C/Folic Acid (Nephro-Duane) 1 tab PO DAILY [facility] - Labs Labs: 02/02/18 06:30 02/02/18 06:30 PT 13.6 SECONDS (9.7-12.2) H 02/02/18 00:52 INR 1.2 02/02/18 00:52 APTT 32 SECONDS (21-34) 02/02/18 00:52 - Constitutional Appears: No Acute Distress - ENT Exam ENT Exam: Mucous Membranes Moist - Neck Exam Neck Exam: absent: Lymphadenopathy - Respiratory Exam Respiratory Exam: Rhonchi, NORMAL BREATHING PATTERN. absent: Chest Wall Tenderness - Cardiovascular Exam Cardiovascular Exam: JVD. absent: Gallop, Rubs - GI/Abdominal Exam GI & Abdominal Exam: Guarding, Soft, Normal Bowel Sounds Additional comments: distended abdomen probably abdominal ascites? - Extremities Exam Extremities Exam: absent: Calf Tenderness - Back Exam Back Exam: absent: CVA tenderness (L), CVA tenderness (R) - Neurological Exam Neurological Exam: Alert - Psychiatric Exam Psychiatric exam: Agitated - Skin Skin Exam: absent: Cyanosis Assessment and Plan (1) Volume overload Status: Acute (2) Abdominal bloating Status: Acute (3) ESRD (end stage renal disease) on dialysis Assessment & Plan: Patient receiving an emergent hemodialysis. Because of the volume overload shortness of breath and congestive heart failure. Dialysis order as follow Sodium bath 138 Bicarbonate bath 34 Potassium bath 3 mEq Ultrafiltration 3000 mL I did discuss the dialysis for the dialysis with aquatics assistant department head. Patient showed the end of the treatment when this didn't have edema although he feels better and he will need extra hemodialysis tomorrow because of the severe volume overloaded patient appeared to be refusing so far and not cooperating. Blood pressure is still elevated by the end of that treatment now I gave him Catapres and to continue withthe rest oft antihypertensive medication. Status: Chronic (4) Hypertension Status: Chronic
--- NOTE | 2018-02-02 15:07 | CP.PCM.PN ---
Subjective - Date & Time of Evaluation Date of Evaluation: 02/02/18 Time of Evaluation: 08:00 - Subjective Subjective: Progress Note for Dr. Lowry Patient was seen and examined at bedside short of breath and drowsy. Patient denied BIPAP. Patient states he does not have chest pain right now. Patient denied fever, chills, nausea, vomiting, diarrhea. Objective - Vital Signs/Intake and Output Vital Signs (last 24 hours): Temp Pulse Resp BP Pulse Ox 97.9 F 91 H 20 169/118 H 99 02/02/18 13:25 02/02/18 13:25 02/02/18 13:25 02/02/18 13:25 02/02/18 13:25 - Medications Medications: Current Medications Albuterol/Ipratropium (Duoneb 3 Mg/0.5 Mg (3 Ml) Ud) 3 ml INH RQ6 PRN PRN Reason: Shortness of Breath Amlodipine Besylate (Norvasc) 10 mg PO DAILY [facility] Last Admin: 02/02/18 14:04 Dose: 10 mg Aspirin (Aspirin Chewable) 81 mg PO DAILY [facility] Last Admin: 02/02/18 09:33 Dose: 81 mg Clonidine HCl (Catapres) 0.3 mg PO BID [facility] Hydralazine HCl (Apresoline) 100 mg PO TID [facility] Last Admin: 02/02/18 14:03 Dose: 100 mg Lactulose (Enulose) 20 gm PO HS [facility] Losartan Potassium (Cozaar) 50 mg PO DAILY [facility] Last Admin: 02/02/18 09:33 Dose: 50 mg Metoprolol Succinate (Toprol Xl) 100 mg PO DAILY [facility] Rosuvastatin Calcium (Crestor) 10 mg PO HS [facility] Vitamin B Complex/Vit C/Folic Acid (Nephro-Duane) 1 tab PO DAILY [facility] - Labs Labs: 02/02/18 06:30 02/02/18 06:30 PT 13.6 SECONDS (9.7-12.2) H 02/02/18 00:52 INR 1.2 02/02/18 00:52 APTT 32 SECONDS (21-34) 02/02/18 00:52
[2018-02-02 16:21] LABS: ARTERIAL BLOOD GAS HCO3 36.5 mmol/L (21-28); ARTERIAL BLOOD GAS O2 SAT 99.1 % (95-98); ARTERIAL BLOOD GAS PCO2 46 mm/Hg (35-45); ARTERIAL BLOOD GAS PH 7.54 (7.35-7.45); ARTERIAL BLOOD GAS PO2 96 mm/Hg (80-100); ARTERIAL BLOOD GAS TCO2 40.7 mmol/L (22-28)
--- NOTE | 2018-02-02 17:09 | CP.PCM.PN ---
Subjective - Date & Time of Evaluation Date of Evaluation: 02/02/18 Time of Evaluation: 13:00 - Subjective Subjective: Reason for consult: SOB, pleural effusion Patient is a 37 year old male who was admitted to [facility] on 02/02 due to worsening SOB. Patient had a mitral valve replacement 1 year ago and notes that his SOB has been progressively worse since this surgery. Patient has ESRD and is on a MWF dialysis schedule. Patient also has CHF with an unknown ejection fraction. Patient seen and examined in dialysis infusion center and was notably tachypneic. Patient was awake, but not alert, oriented or able to communicate. Assessment/Plan 1. Dyspnea ABG shows pCO2 = 46, elevated bicarb = 36.5, alkalotic pH = 7.54 and normal lactate. Trial BiPap overnight if SOB and re-check ABG in the morning. Continue to monitor for signs/symptoms of sepsis. 2. Pleural effusion IR consult for possible thoracentesis. 3. ESRD Continue current dialysis schedule. Objective - Vital Signs/Intake and Output Vital Signs (last 24 hours): Temp Pulse Resp BP Pulse Ox 98.6 F 105 H 20 154/115 H 97 02/02/18 15:41 02/02/18 15:41 02/02/18 15:41 02/02/18 15:41 02/02/18 15:41 - Medications Medications: Current Medications Albuterol/Ipratropium (Duoneb 3 Mg/0.5 Mg (3 Ml) Ud) 3 ml INH RQ6 PRN PRN Reason: Shortness of Breath Amlodipine Besylate (Norvasc) 10 mg PO DAILY [facility] Last Admin: 02/02/18 14:04 Dose: 10 mg Aspirin (Aspirin Chewable) 81 mg PO DAILY [facility] Last Admin: 02/02/18 09:33 Dose: 81 mg Clonidine HCl (Catapres) 0.3 mg PO BID [facility] Hydralazine HCl (Apresoline) 100 mg PO TID [facility] Lactulose (Enulose) 20 gm PO HS [facility] Losartan Potassium (Cozaar) 50 mg PO DAILY [facility] Last Admin: 02/02/18 09:33 Dose: 50 mg Metoprolol Succinate (Toprol Xl) 100 mg PO DAILY [facility] Rosuvastatin Calcium (Crestor) 10 mg PO HS [facility] Vitamin B Complex/Vit C/Folic Acid (Nephro-Duane) 1 tab PO DAILY [facility] - Labs Labs: 02/02/18 06:30 02/02/18 06:30 PT 13.6 SECONDS (9.7-12.2) H 02/02/18 00:52 INR 1.2 02/02/18 00:52 APTT 32 SECONDS (21-34) 02/02/18 00:52
[2018-02-02 17:53] LABS: CK-MB 4.18 ng/mL (0.0-3.38); TROPONIN I 0.037 ng/mL (0.00-0.120)
--- NOTE | 2018-02-02 22:57 | CARD ---
APPROVED REPORT EKG Measurement Heart [id number] <Conclusion> Normal sinus rhythm Nonspecific ST and T wave abnormality Abnormal ECG
--- NOTE | 2018-02-02 22:57 | CARD ---
APPROVED REPORT EKG Measurement Heart [id number] [place] [id number] <Conclusion> Normal sinus rhythm Nonspecific T wave abnormality Abnormal ECG
[2018-02-03 06:26] LABS: BASO # 0.1 K/uL (0.0-0.2); BASO % 1.3 % (0.0-2.0); EOS # 0.1 K/uL (0.0-0.7); EOS % 2.6 % (0.0-4.0); HEMOGLOBIN 9.1 g/dL (12.0-18.0); LYMPH # 0.8 K/uL (1.0-4.3); LYMPH % 19.1 % (20.0-40.0); MEAN CELL VOLUME 88.9 fL (80.0-94.0); MEAN CORPUSCULAR HEMOGLOBIN 28.5 pg (27.0-31.0); MEAN PLATELET VOLUME 9.2 fL (7.2-11.7); MONO # 0.4 K/uL (0.0-0.8); MONO % 8.5 % (0.0-10.0); NEUT # 2.9 K/uL (1.8-7.0); NEUT % 68.5 % (50.0-75.0); NRBC % 0.2 % (0.0-2.0); RBC 3.19 Mil/uL (4.40-5.90); RED CELL DISTRIBUTION WIDTH 23.1 % (11.5-14.5); WHITE BLOOD COUNT 4.2 K/uL (4.8-10.8)
[2018-02-03 08:11] LABS: ALB/GLOB RATIO 0.9 (1.0-2.1); ALBUMIN 3.8 g/dL (3.5-5.0); CALCIUM 10.4 mg/dl (8.6-10.4)
--- NOTE | 2018-02-03 08:57 | CP.PCM.PN ---
Addendum entered and electronically signed by Dasha Aburto DO 02/05/18 12:42: - Head Exam Head Exam: ATRAUMATIC, NORMAL INSPECTION, NORMOCEPHALIC - Eye Exam Eye Exam: EOMI - ENT Exam ENT Exam: Mucous Membranes Dry - Neck Exam Neck exam: Negative for: Normal Inspection Additional comments: positive JVD - Respiratory Exam Respiratory Exam: Rales. absent: Respiratory Distress, NORMAL BREATHING PATTERN - Cardiovascular Exam Cardiovascular Exam: REGULAR RHYTHM, +S1, +S2 Additional comments: sternotomy scar - GI/Abdominal Exam GI & Abdominal Exam: Distended, Tenderness Additional comments: diffusely tender ; positive ascites - Extremities Exam Extremities exam: Negative for: full ROM, normal inspection, edema - Back Exam Back exam: NORMAL INSPECTION - Neurological Exam Neurological exam: Alert, CN II-XII Intact, Oriented x3 - Psychiatric Exam Psychiatric exam: Flat Affect - Skin Skin Exam: Dry, Intact, Normal Color, Warm Addendum entered and electronically signed by Dasha Aburto DO 02/03/18 15:18: Patient is on zosyn 2.275 gm IV Q8H vanco 1 gm after dialysis f/u with Dr. El to see if patient can have PICC line for antibiotics upon discharge Original Note: <Dasha Aburto - Last Filed: 02/03/18 15:06> Subjective - Date & Time of Evaluation Date of Evaluation: 02/03/18 Time of Evaluation: 15:13 - Subjective Subjective: Progress Note for Dr. Lowry Patient seen and examined at bedside. No acute events overnight. Patient refused bipap. Patient denies fever, chills, nausea, vomiting. Patient refused blood culture draws and allowed for blood draws during dialysis. Objective - Vital Signs/Intake and Output Vital Signs (last 24 hours): Temp Pulse Resp BP Pulse Ox 98.0 F 92 H 20 149/101 H 100 02/03/18 08:28 02/03/18 08:28 02/03/18 08:28 02/03/18 08:28 02/03/18 08:28 Intake and Output: 02/03/18 02/03/18 06:59 18:59 Intake Total 120 Balance 120 - Medications Medications: Current Medications Albuterol/Ipratropium (Duoneb 3 Mg/0.5 Mg (3 Ml) Ud) 3 ml INH RQ6 PRN PRN Reason: Shortness of Breath Amlodipine Besylate (Norvasc) 10 mg PO DAILY [facility] Last Admin: 02/02/18 14:04 Dose: 10 mg Aspirin (Aspirin Chewable) 81 mg PO DAILY [facility] Last Admin: 02/02/18 09:33 Dose: 81 mg Clonidine HCl (Catapres) 0.3 mg PO BID [facility] Last Admin: 02/02/18 18:41 Dose: 0.3 mg Hydralazine HCl (Apresoline) 100 mg PO TID [facility] Last Admin: 02/02/18 18:41 Dose: 100 mg Losartan Potassium (Cozaar) 50 mg PO DAILY [facility] Last Admin: 02/02/18 09:33 Dose: 50 mg Metoprolol Succinate (Toprol Xl) 100 mg PO DAILY [facility] Rosuvastatin Calcium (Crestor) 10 mg PO HS [facility] Last Admin: 02/02/18 22:03 Dose: 10 mg Vitamin B Complex/Vit C/Folic Acid (Nephro-Duane) 1 tab PO DAILY [facility] - Labs Labs: 02/03/18 06:21 02/03/18 06:21 PT 13.6 SECONDS (9.7-12.2) H 02/02/18 00:52 INR 1.2 02/02/18 00:52 APTT 32 SECONDS (21-34) 02/02/18 00:52 Assessment and Plan - Assessment and Plan (Free Text) Assessment: CHF mitral valve replacement F/u echo Crestor 10 mg PO Q HS ASA 81mg PO QD Cardiology Consult: Dr. Mora Uncontrolled HTN Hydralazine 100 mg PO TID Toprol XL 100 mg PO QD Clonidine hcl 0.3 mg PO BID Norvasc 10 mg PO QD Cardiology Consult: Dr. Mora Right Pleural Effusion Patient refused CT chest Patient refused bipap 02/02, Repeat ABG shock ordered 02/03 Continue current dialysis schedule Pulmonology Consult: Dr. Rose Cirrhosis, ascites Paracentesis: 3.5 L serosanguinous removed Lactulose 10 gm/15ml 15cc POQD IR Consult: Dr. Kumar ESRD Epogen 45695 unit/ml solution, held for now monitor Heparin 5000 SC Q8H Protonix 40mg IVP QD discussed with Dr. Lowry. Dasha Aburto, DO PGY1 <Patito Lowry V - Last Filed: 02/05/18 16:21> Objective - Vital Signs/Intake and Output Vital Signs (last 24 hours): Temp Pulse Resp BP Pulse Ox 99.0 F 91 H 20 156/112 H 97 02/05/18 08:49 02/05/18 08:49 02/05/18 08:49 02/05/18 08:49 02/05/18 08:49 - Medications Medications: Current Medications Acetaminophen (Tylenol 325mg Tab) 650 mg PO Q6 PRN PRN Reason: Fever >100.4 F Last Admin: 02/04/18 10:58 Dose: 650 mg Albuterol/Ipratropium (Duoneb 3 Mg/0.5 Mg (3 Ml) Ud) 3 ml INH RQ6 PRN PRN Reason: Shortness of Breath Amlodipine Besylate (Norvasc) 10 mg PO DAILY [facility] Last Admin: 02/05/18 10:03 Dose: 10 mg Aspirin (Aspirin Chewable) 81 mg PO DAILY [facility] Last Admin: 02/05/18 10:02 Dose: 81 mg Clonidine HCl (Catapres) 0.3 mg PO BID [facility] Last Admin: 02/05/18 10:02 Dose: 0.3 mg Gabapentin (Neurontin) 100 mg PO HS [facility] Last Admin: 02/04/18 22:09 Dose: 100 mg Hydralazine HCl (Apresoline) 100 mg PO TID [facility] Last Admin: 02/05/18 13:56 Dose: 100 mg Piperacillin Sod/Tazobactam Sod (Zosyn 2.25 Gm Iv Premix) 2.25 gm in 50 mls @ 100 mls/hr IVPB Q8H [facility] PRN Reason: Protocol Last Admin: 02/05/18 13:56 Dose: 100 mls/hr Vancomycin/Sodium Chloride (Vancomycin 1 Gm/Ns 200 Ml) 1 gm in 200 mls @ 133 mls/hr IVPB MWF [facility] PRN Reason: Protocol Stop: 02/09/18 17:01 Metoprolol Succinate (Toprol Xl) 100 mg PO DAILY [facility] Last Admin: 02/05/18 10:02 Dose: 100 mg Rosuvastatin Calcium (Crestor) 10 mg PO HS [facility] Last Admin: 02/04/18 22:09 Dose: 10 mg Sacubitril/Valsartan (Entresto 49 Mg-51 Mg) 1 tab PO BID [facility] Last Admin: 02/05/18 10:02 Dose: 1 tab Vitamin B Complex/Vit C/Folic Acid (Nephro-Duane) 1 tab PO DAILY [facility] - Labs Labs: 02/05/18 06:45 02/05/18 06:45 PT 13.6 SECONDS (9.7-12.2) H 02/02/18 00:52 INR 1.2 02/02/18 00:52 APTT 32 SECONDS (21-34) 02/02/18 00:52 Attending/Attestation - Attestation I have personally seen and examined this patient.: Yes I have fully participated in the care of the patient.: Yes I have reviewed all pertinent clinical information, including history, physical exam and plan: Yes Notes (Text): This is late computer entry 02/03/18. Patient seen, examined, and case discussed with day-time resident. Patient is s/p for paracentesis for ascites; removed 3.5 Liters. Infectious disease consulted given one of the blood cultures is positive. Started Zosyn and Vancomycin IV to cover. Will f/u cardiology regards to patient needs PICC for iontrope and if referral to [facility] as outpatient or during hsopitalization. There was concern when patient was evaluated that he appeared lethargic. He was ordered for ammonia, and started on lactulose. I saw the patient in the afternoon with the resident, mental status improved compared to this morning. Held Neurotonin. Patient scheduled for second dialysis today. Assessment/Plan 1) Shortness of breath secondary to fluid overload * Nephrology (Dr. El) on board-->help appreciated * Cardiology (Dr. Mora) on board-->help appreciated * Pulmonary (Dr. Rose) on board-->help appreciated * Bipap ordered this AM, patient refused inspite risks * CT abdomen/pelvis (02/02/18): moderate to large amount of abdominal and pelvic free fluid, increased compared to prior CT 03/20/17. Moderate right pleural effusion. Diffuse subcutanous edema/anasarca. No evidence of significant acute process, Diffuse mild aneurysm; dilatation of the left common and external iliac arteries, up to 2.5cm in diameter, unchanged. no evidence of aneurysm rupture. Diffusely abnormal appearance of the bones, most likely secondary to renal osteodystrophy * CT chest ordered to view right pleural effusion-->Patient refused it. * Patient underwent dialysis yesterday ; will need short session today per nephrology * EKG initial shows normal sinus rhythm, no st changes * ROBIN negative x 3 * Echocardiogram (02/03/18): mild concentric left ventricular hypertrophy, left ventricle systolic function is moderately to severely impaired. EF: 35-40%. Flattened septum consistent with right ventricle pressure. severe tricuspid regurgitation. Moderate-severe pulmonary hypertension * s/p paracentesis: 3.4 Liters on 02/03/18-->f/u fluid studies 2) Hypertensive urgency secondary to fluid overload * Nephrology (Dr. El) on board-->help appreciated * Cardiology (Dr. Mora) on board-->help appreciated * Echocardiogram (02/03/18): mild concentric left ventricular hypertrophy, left ventricle systolic function is moderately to severely impaired. EF: 35-40%. Flattened septum consistent with right ventricle pressure. severe tricuspid regurgitation. Moderate-severe pulmonary hypertension * medications confirmed with PMD: * Norvasc 10 mg PO QDaily * Hydralazine 100mg PO TID * Metoprolol XL 100 mg PO QD * Clonidine 0.3 mg PO BID 3) Chest pain History of mitral valve replacement History of AICD * Cardiology (Dr. Mora) on board-->help appreciated * Aspirin 81mg PO daily * serial ekgs; initial ekg normal sinus rhythm, no acute ST changes; first and second trop indeterminate range elevated- likely secondary to renal failure * Echocardiogram (02/03/18): mild concentric left ventricular hypertrophy, left ventricle systolic function is moderately to severely impaired. EF: 35-40%. Flattened septum consistent with right ventricle pressure. severe tricuspid regurgitation. Moderate-severe pulmonary hypertension * O2 by nasal cannula prn * HGB a1C: 4.5 * TSH and free t4: 2.00/2.20 * lipid panel: T, cholerstrol: 142, LDL: 54, HDL: 49 4). Abdominal pain/distention secondary to fluid overload * CT abdomen/pelvis (02/02/18): moderate to large amount of abdominal and pelvic free fluid, increased compared to prior CT 03/20/17. Moderate right pleural effusion. Diffuse subcutanous edema/anasarca. No evidence of significant acute process, Diffuse mild aneurysm; dilatation of the left common and external iliac arteries, up to 2.5cm in diameter, unchanged. no evidence of aneurysm rupture. Diffusely abnormal appearance of the bones, most likely secondary to renal osteodystrophy * IR consult. Dr. Kumar. recs appreciated. * Patient is ESRD, cardiomyopathy, ascites. Patient required paracentesis in last admission about 2.5 Liters removed * s/p paracentesis: 3.4 Liters on 02/03/18 5). Hx of Cardiomyopathy EF: 35-40% Systolic dysfunction with acute on Chronic heart Failure * Cardiology (Dr. Mora) on board-->help appreciated * Await volume removal with dialysis. recommend continued medical therapy woith betablocker. add Entresto. Patient wi agreeable to referral to [facility] as outpatient * Systolic dysfunction with acute on Chronic heart Failure * Monitor on telemetry and I/O * Fluid restriction * hold lasix for now as pt does not make urine * Echocardiogram (02/03/18): mild concentric left ventricular hypertrophy, left ventricle systolic function is moderately to severely impaired. EF: 35-40%. Flattened septum consistent with right ventricle pressure. severe tricuspid regurgitation. Moderate-severe pulmonary hypertension * Aspirin 81mg PO daily * Norvasc 10 mg PO QDaily * Hydralazine 100mg PO TID * Metoprolol XL 100 mg PO QD * Clonidine 0.3 mg PO BID 6). Hypernatremia-->normalized * Underwent dialysis on 02/02 and scheduled for 02/03 short session 7). Hx of end stage renal disease * Nephrology (Dr. El) on board-->help appreciated * BNP very elevated, 167,000 likely secondary * Went for dialysis yesterday and ordered for short session today 8). Thrombocytopenia * held dvt ppx given thrombocytopenia 9). Bacteremia * Infectious Disease (Dr. Parrish) on board-->help appreciated * Zosy 2.25 gm IVPB Q8H (active since 02/03/18) * Blood culture (02/02/18): no growth * Blood culture (02/02/18): gram positive cocci * Repeat blood cultures (02/03/18): pending 10). GI/DVT ppx * protonix 40 mg iv daily * chemical anticoagulation secondary to thrombocytopenia
[2018-02-03] MEDS ORDERED: Metoprolol Succinate 100 mg XL Tab PO SCH (10:00)
--- NOTE | 2018-02-03 10:07 | PCM.SURG1 ---
Surgeon's Initial Post Op Note - Surgeon's Notes Surgeon: Darwin Kumar MD Tray Packer: NONE Type of Anesthesia: Local Pre-Operative Diagnosis: Ascites Operative Findings: US showed a moderate amount of ascites Post-Operative Diagnosis: Ascites Operation Performed: US guided paracentesis Specimen/Specimens Removed: 3.5 liters of slight serosanguinous fluid Estimated Blood Loss: EBL {In ML}: 0 Blood Products Given: N/A Drains Used: No Drains Post-Op Condition: Fair Date of Surgery/Procedure: 02/03/18 Time of Surgery/Procedure: 10:05
[2018-02-03] MEDS: Metoprolol Succinate 100 mg XL Tab PO SCH ×3 (10:58→11:07)
[2018-02-03 12:32] LABS: BODY FLUID TYPE PERITONEAL/ASCITES
--- NOTE | 2018-02-03 12:51 | CP.PCM.PN ---
Subjective - Date & Time of Evaluation Date of Evaluation: 02/03/18 Time of Evaluation: 12:00 - Subjective Subjective: Patient is s/p paracentesis. Objective - Vital Signs/Intake and Output Vital Signs (last 24 hours): Temp Pulse Resp BP Pulse Ox 98.0 F 82 20 140/99 H 100 02/03/18 08:28 02/03/18 11:07 02/03/18 08:28 02/03/18 11:07 02/03/18 08:28 Intake and Output: 02/03/18 02/03/18 06:59 18:59 Intake Total 120 Balance 120 - Medications Medications: Current Medications Albuterol/Ipratropium (Duoneb 3 Mg/0.5 Mg (3 Ml) Ud) 3 ml INH RQ6 PRN PRN Reason: Shortness of Breath Amlodipine Besylate (Norvasc) 10 mg PO DAILY [facility] Last Admin: 02/03/18 11:02 Dose: Not Given Aspirin (Aspirin Chewable) 81 mg PO DAILY [facility] Last Admin: 02/03/18 11:02 Dose: Not Given Clonidine HCl (Catapres) 0.3 mg PO BID [facility] Last Admin: 02/03/18 11:02 Dose: Not Given Hydralazine HCl (Apresoline) 100 mg PO TID [facility] Last Admin: 02/03/18 11:02 Dose: Not Given Piperacillin Sod/Tazobactam Sod (Zosyn 2.25 Gm Iv Premix) 2.25 gm in 50 mls @ 100 mls/hr IVPB Q8H [facility] PRN Reason: Protocol Vancomycin HCl 500 mg/ Sodium (Chloride) 100 mls @ 100 mls/hr IVPB ONCE ONE PRN Reason: Protocol Stop: 02/03/18 14:29 Losartan Potassium (Cozaar) 50 mg PO DAILY [facility] Last Admin: 02/03/18 11:02 Dose: Not Given Metoprolol Succinate (Toprol Xl) 100 mg PO DAILY [facility] Last Admin: 02/03/18 11:07 Dose: 100 mg Rosuvastatin Calcium (Crestor) 10 mg PO [facility] Last Admin: 02/02/18 22:03 Dose: 10 mg Vitamin B Complex/Vit C/Folic Acid (Nephro-Duane) 1 tab PO DAILY [facility] - Labs Labs: 02/03/18 06:21 05/24/18 06:21 PT 13.6 SECONDS (9.7-12.2) H 02/02/18 00:52 INR 1.2 02/02/18 00:52 APTT 32 SECONDS (21-34) 02/02/18 00:52 - Constitutional Appears: Chronically Ill - Head Exam Head Exam: NORMAL INSPECTION - Eye Exam Eye Exam: Normal appearance - ENT Exam ENT Exam: Mucous Membranes Moist - Neck Exam Neck Exam: Full ROM - Respiratory Exam Respiratory Exam: Decreased Breath Sounds - Cardiovascular Exam Cardiovascular Exam: REGULAR RHYTHM - GI/Abdominal Exam GI & Abdominal Exam: Normal Bowel Sounds - Rectal Exam Rectal Exam: Deferred - Extremities Exam Extremities Exam: Pedal Edema - Back Exam Back Exam: NORMAL INSPECTION - Neurological Exam Neurological Exam: Alert - Psychiatric Exam Psychiatric exam: Normal Affect - Skin Skin Exam: Normal Color Assessment and Plan (1) Systolic dysfunction with acute on chronic heart failure Assessment & Plan: await volume removal with dialysis. recommend continued medical therapy woith betablocker. add Entresto. Patient wi agreeable to referral to [facility] as outpatient Status: Acute
[2018-02-03] MEDS: Sacubitril/Valsartan 49-51 Tab PO SCH ×2 (13:13→19:46)
[2018-02-03 13:26] LABS: BF GROSS APPEARANCE BLOODY (CLEAR)
[2018-02-03 13:27] LABS: BODY FLUID MONO/MACROPHAGE 1 % (0-0); BODY FLUID TOTAL COUNT 100 (0-0)
--- NOTE | 2018-02-03 13:37 | US ---
Date of Procedure: 02/03/2018 PROCEDURE: Ultrasound-guided paracentesis, CPT 67704 Medications: 7 cc 1% Lidocaine HISTORY: Ascites, abdominal pain TECHNIQUE: Following informed consent , the patient was placed supine on the stretcher and the site was marked. A limited abdominal ultrasound was performed that showed a large amount of intra-abdominal fluid. Procedural time out was called and the Pt's abdomen was marked and prepped and draped in the usual sterile fashion. Ultrasound-guided large volume paracentesis performed. A total of 3.5 liters of slight serosanguinous fluid was removed without complication. IMPRESSION: Ultrasound-guided large volume paracentesis.
--- NOTE | 2018-02-03 13:57 | CARD ---
APPROVED REPORT EKG Measurement Heart [id number] <Conclusion> Normal sinus rhythm Nonspecific T wave abnormality Prolonged QT Abnormal ECG
--- NOTE | 2018-02-03 14:36 | CARD ---
APPROVED REPORT EXAM: Two-dimensional and M-mode echocardiogram with Doppler and color Doppler. Other Information Quality : GoodRhythm : INDICATION Dyspnea Chest Pain ESRD,SEVERE ASCITIS Surgery/Intervention Status/Post Mitral Valve Replacement: Bioprosthetic RISK FACTORS Hypertension Hyperlipidemia 2D DIMENSIONS IVSd1.5 (0.7-1.1cm)LVDd5.0 (3.9-5.9cm) PWd1.5 (0.7-1.1cm)LVDs3.3 (2.5-4.0cm) FS (%) 34.0 %LVEF (%)45.0 (>50%) M-Mode DIMENSIONS RVDd4.57 (2.1-3.2cm)Left Atrium (MM)6.49 (2.5-4.0cm) IVSd1.28 (0.7-1.1cm)Aortic Root2.97 (2.2-3.7cm) LVDd5.40 (4.0-5.6cm)Aortic Cusp Exc.1.89 (1.5-2.0cm) PWd1.11 (0.7-1.1cm)FS (%) 24 % LVDs4.08 (2.0-3.8cm)LVEF (%)48 (>50%) Mitral Valve MV E Lqmmgeaf752.5cm/sMV E Peak Gr.26mmHgMV A Mwwswtcy089.7cm/s MV E Mean Gr.10mmHgMV ZKB83jkB/A ratio1.4 MVA (PHT)2.48cm2 TDI E/Lateral E'0.0E/Medial E'0.0 Tricuspid Valve TR Peak Okebcnhh699hc/sTR Peak Gr.74zgBcLYSK07mlZu LEFT VENTRICLE The left ventricle is normal size. There is mild concentric left ventricular hypertrophy. Left ventricle systolic function is moderately to severely impaired. The Ejection Fraction is 35-40%. There is a flattened septum consistent with right ventricle pressure overload. Transmitral Doppler flow pattern is Grade II-pseudonormal filling dynamics. There is no ventricular septal defect visualized. RIGHT VENTRICLE The right ventricle is mildly dilated. The right ventricle is mildly hypertrophied. The right ventricular systolic function is normal. ATRIA The left atrium is moderately dilated. The right atrium is moderately dilated. AORTIC VALVE The aortic valve is moderately sclerotic. The aortic valve is tri-cuspid. No aortic regurgitation is present. There is no aortic valvular stenosis. MITRAL VALVE The mitral valve leaflets are thickened and calcified. There is no evidence of mitral valve prolapse. There is mild mitral valve stenosis. Calculated mitral valve area is 2.2 cm2 There is no mitral valve regurgitation noted. There is a bioprosthetic mitral valve. TRICUSPID VALVE The tricuspid valve is normal in structure. There is severe tricuspid regurgitation. Right ventricular systolic pressure is estimated at 50-60 mmHg. There is moderate-severe pulmonary hypertension. PULMONIC VALVE The pulmonic valve is not well visualized. There is mild pulmonic valvular regurgitation. GREAT VESSELS The aortic root is normal in size. The ascending aorta is normal in size. The IVC is dilated. PERICARDIAL EFFUSION There is no pericardial effusion. <Conclusion> There is mild concentric left ventricular hypertrophy. Left ventricle systolic function is moderately to severely impaired. The Ejection Fraction is 35-40%. There is a flattened septum consistent with right ventricle pressure overload. Transmitral Doppler flow pattern is Grade II-pseudonormal filling dynamics. There is severe tricuspid regurgitation. There is moderate-severe pulmonary hypertension.
--- NOTE | 2018-02-03 15:39 | CP.PCM.PN ---
Subjective - Date & Time of Evaluation Date of Evaluation: 02/03/18 Time of Evaluation: 15:37 - Subjective Subjective: renal follow up note Nephrology Consultation Note: Assessment: stable ESRD on director of sustainability hemodialysis volume overload ascites chf Hypertensive Chronic Kidney Disease (I12.9) Anemia (D64.9), Hyperphosphatemia (E83.39), Secondary Hyperparathyroidism (E21.1 ), HTN (I12.9) Fluid overload, CHF, Plan HD continue per MWF, continue with nephrovite 1 tab/day Hypertension control with meds as ordered. continue binders anemia epo as needed with hd ascites: s/p paracentesis Physical Examination: General Appearance: Comfortable, in no acute respiratory distress, co-operative . Vitals reviewed and noted as below Head; Atraumatic, normocephalic ENT: no ulcers no thrush. EYES: Sclera is anicteric. Neck; supple Lungs: Normal respiratory rate/effort. Breath sounds bilateral clear Heart: Normal rate. s1s2 normal. No rub or gallop. Extremities: no edema. No varicose veins. Neurological: Patient is alert, awake and oriented to person, place and time. No focal deficit. Strength bilateral appropriate and equal Skin: Warm and dry. Normal turgor. Abdomen: Abdomen is soft. Bowel sounds +.distension+ Psych: normal insight and normal affect/mood MSK: no joint tenderness Objective - Vital Signs/Intake and Output Vital Signs (last 24 hours): Temp Pulse Resp BP Pulse Ox 98.0 F 82 20 140/99 H 100 02/03/18 08:28 02/03/18 11:07 02/03/18 08:28 02/03/18 11:07 02/03/18 08:28 Intake and Output: 02/03/18 02/03/18 06:59 18:59 Intake Total 120 Balance 120 - Medications Medications: Current Medications Albuterol/Ipratropium (Duoneb 3 Mg/0.5 Mg (3 Ml) Ud) 3 ml INH RQ6 PRN PRN Reason: Shortness of Breath Amlodipine Besylate (Norvasc) 10 mg PO DAILY [facility] Last Admin: 02/03/18 11:02 Dose: Not Given Aspirin (Aspirin Chewable) 81 mg PO DAILY [facility] Last Admin: 02/03/18 11:02 Dose: Not Given Clonidine HCl (Catapres) 0.3 mg PO BID [facility] Last Admin: 02/03/18 11:02 Dose: Not Given Hydralazine HCl (Apresoline) 100 mg PO TID [facility] Last Admin: 02/03/18 15:22 Dose: Not Given Piperacillin Sod/Tazobactam Sod (Zosyn 2.25 Gm Iv Premix) 2.25 gm in 50 mls @ 100 mls/hr IVPB Q8H [facility] PRN Reason: Protocol Metoprolol Succinate (Toprol Xl) 100 mg PO DAILY [facility] Last Admin: 02/03/18 11:07 Dose: 100 mg Rosuvastatin Calcium (Crestor) 10 mg PO HS [facility] Last Admin: 02/02/18 22:03 Dose: 10 mg Sacubitril/Valsartan (Entresto 49 Mg-51 Mg) 1 tab PO BID [facility] Last Admin: 02/03/18 13:13 Dose: 1 tab Vitamin B Complex/Vit C/Folic Acid (Nephro-Duane) 1 tab PO DAILY [facility] - Labs Labs: 02/03/18 06:21 02/03/18 06:21 PT 13.6 SECONDS (9.7-12.2) H 02/02/18 00:52 INR 1.2 02/02/18 00:52 APTT 32 SECONDS (21-34) 02/02/18 00:52
[2018-02-03] MEDS ORDERED: Vancomycin 1 gm/NS 200 ml 1 GM/200 ML BAG IVPB ONE (17:00)
--- NOTE | 2018-02-03 17:32 | CP.PCM.PN ---
Subjective - Date & Time of Evaluation Date of Evaluation: 02/03/18 Time of Evaluation: 10:45 - Subjective Subjective: Follow-up Consult Reason for Consult: Pleural effusion Patient seen after paracentesis procedure this morning. Patient awake, but notably lethargic, disoriented and incoherent. Per medicine team, patient is refusing new blood draws and treatment. Patient refused BiPap overnight, but is currently saturating well on room air. Objective - Vital Signs/Intake and Output Vital Signs (last 24 hours): Temp Pulse Resp BP Pulse Ox 97.2 F L 83 20 147/106 H 100 02/03/18 15:40 02/03/18 15:40 02/03/18 15:40 02/03/18 16:40 02/03/18 15:40 Intake and Output: 02/03/18 02/03/18 06:59 18:59 Intake Total 120 Balance 120 - Medications Medications: Current Medications Albuterol/Ipratropium (Duoneb 3 Mg/0.5 Mg (3 Ml) Ud) 3 ml INH RQ6 PRN PRN Reason: Shortness of Breath Amlodipine Besylate (Norvasc) 10 mg PO DAILY [facility] Last Admin: 02/03/18 11:02 Dose: Not Given Aspirin (Aspirin Chewable) 81 mg PO DAILY [facility] Last Admin: 02/03/18 11:02 Dose: Not Given Clonidine HCl (Catapres) 0.3 mg PO BID [facility] Last Admin: 02/03/18 11:02 Dose: Not Given Hydralazine HCl (Apresoline) 100 mg PO TID [facility] Last Admin: 02/03/18 15:22 Dose: Not Given Piperacillin Sod/Tazobactam Sod (Zosyn 2.25 Gm Iv Premix) 2.25 gm in 50 mls @ 100 mls/hr IVPB Q8H [facility] PRN Reason: Protocol Vancomycin/Sodium Chloride (Vancomycin 1 Gm/Ns 200 Ml) 1 gm in 200 mls @ 133 mls/hr IVPB STAT ONE PRN Reason: Protocol Stop: 02/03/18 18:30 Metoprolol Succinate (Toprol Xl) 100 mg PO DAILY [facility] Last Admin: 02/03/18 11:07 Dose: 100 mg Rosuvastatin Calcium (Crestor) 10 mg PO HS [facility] Last Admin: 02/02/18 22:03 Dose: 10 mg Sacubitril/Valsartan (Entresto 49 Mg-51 Mg) 1 tab PO BID [facility] Last Admin: 02/03/18 13:13 Dose: 1 tab Vitamin B Complex/Vit C/Folic Acid (Nephro-Duane) 1 tab PO DAILY [facility] - Labs Labs: 02/03/18 06:21 02/03/18 06:21 PT 13.6 SECONDS (9.7-12.2) H 02/02/18 00:52 INR 1.2 02/02/18 00:52 APTT 32 SECONDS (21-34) 02/02/18 00:52 - Head Exam Head Exam: ATRAUMATIC, NORMOCEPHALIC - Eye Exam Eye Exam: Normal appearance - ENT Exam ENT Exam: Mucous Membranes Moist - Neck Exam Neck Exam: Normal Inspection - Respiratory Exam Respiratory Exam: Decreased Breath Sounds - Cardiovascular Exam Cardiovascular Exam: REGULAR RHYTHM - GI/Abdominal Exam GI & Abdominal Exam: Soft Assessment and Plan (1) Pleural effusion Assessment & Plan: right-sided pleural effusion secondary to ascites Status post paracentesis Continue hemodialysis Status: Acute (2) Ascites Status: Acute (3) ESRD (end stage renal disease) on dialysis Status: Chronic
[2018-02-03] MEDS: Piperacill/Tazo 2.25gm in Dex 2.25 GM/50 ML BAG IVPB SCH ×2 (18:54→21:26)
--- NOTE | 2018-02-03 19:25 | CP.PCM.CON ---
History of Present Illness - History of Present Illness History of Present Illness: dictated Past Patient History - Infectious Disease Hx of Infectious Diseases: None - Tetanus Immunizations Tetanus Immunization: Unknown - Past Medical History & Family History Past Medical History?: Yes - Past Social History Smoking Status: Never Smoked Chewing Tobacco Use: No Cigar Use: No Alcohol: None Drugs: Denies Home Situation {Lives}: With Family Domestic Violence: Negative - CARDIAC Hx Congestive Heart Failure: Yes Hx Hypertension: Yes - PULMONARY Hx Respiratory Disorders: No - NEUROLOGICAL Hx Neurological Disorder: No - HEENT Hx HEENT Problems: No - RENAL Hx Chronic Kidney Disease: Yes - ENDOCRINE/METABOLIC Hx Endocrine Disorders: No - HEMATOLOGICAL/ONCOLOGICAL Hx Blood Disorders: No - INTEGUMENTARY Hx Dermatological Problems: No - MUSCULOSKELETAL/RHEUMATOLOGICAL Hx Musculoskeletal Disorders: No Hx Falls: No - GASTROINTESTINAL Hx Gastrointestinal Disorders: Yes Hx Liver Failure: Yes - GENITOURINARY/GYNECOLOGICAL Hx Genitourinary Disorders: No - PSYCHIATRIC Hx Substance Use: No (DENIED) - SURGICAL HISTORY Hx Surgeries: Yes Hx Arteriovenous Shunt: Yes (left arm(new) ,rt arm(old)) Hx Open Heart Surgery: Yes Hx Valve Replacement: Yes Hx Vascular Access Device: Yes Other/Comment: PACEMAKER - ANESTHESIA Hx Anesthesia: Yes Hx Anesthesia Reactions: No Hx Malignant Hyperthermia: No Meds Allergies/Adverse Reactions: Allergies Allergy/AdvReac Type Severity Reaction Status Date / Time No Known Allergies Allergy Verified 02/02/18 00:24 - Medications Medications: Current Medications Albuterol/Ipratropium (Duoneb 3 Mg/0.5 Mg (3 Ml) Ud) 3 ml INH RQ6 PRN PRN Reason: Shortness of Breath Amlodipine Besylate (Norvasc) 10 mg PO DAILY [facility] Last Admin: 02/03/18 11:02 Dose: Not Given Aspirin (Aspirin Chewable) 81 mg PO DAILY [facility] Last Admin: 02/03/18 11:02 Dose: Not Given Clonidine HCl (Catapres) 0.3 mg PO BID [facility] Last Admin: 02/03/18 11:02 Dose: Not Given Gabapentin (Neurontin) 100 mg PO [facility] Hydralazine HCl (Apresoline) 100 mg PO TID [facility] Last Admin: 02/03/18 15:22 Dose: Not Given Piperacillin Sod/Tazobactam Sod (Zosyn 2.25 Gm Iv Premix) 2.25 gm in 50 mls @ 100 mls/hr IVPB Q8H [facility] PRN Reason: Protocol Last Admin: 02/03/18 18:54 Dose: Not Given Lactulose (Enulose) 20 gm PO [facility] Metoprolol Succinate (Toprol Xl) 100 mg PO DAILY [facility] Last Admin: 02/03/18 11:07 Dose: 100 mg Rosuvastatin Calcium (Crestor) 10 mg PO HS [facility] Last Admin: 02/02/18 22:03 Dose: 10 mg Sacubitril/Valsartan (Entresto 49 Mg-51 Mg) 1 tab PO BID [facility] Last Admin: 02/03/18 13:13 Dose: 1 tab Vitamin B Complex/Vit C/Folic Acid (Nephro-Duane) 1 tab PO DAILY [facility] Results - Vital Signs Recent Vital Signs: Last Vital Signs Temp 97.2 F L 02/03/18 15:40 Pulse 83 02/03/18 15:40 Resp 20 02/03/18 15:40 BP 149/96 H 02/03/18 18:40 Pulse Ox 100 02/03/18 15:40 - Labs Result Diagrams: 02/03/18 06:21 02/03/18 06:21 Labs: Laboratory Results - last 24 hr 02/03/18 02/03/18 02/03/18 06:21 06:21 12:23 WBC 4.2 L RBC 3.19 L Hgb 9.1 L Hct 28.3 L MCV 88.9 MCH 28.5 MCHC 32.0 L RDW 23.1 H Plt Count 81 L MPV 9.2 Neut % (Auto) 68.5 Lymph % (Auto) 19.1 L Mineral % (Auto) 8.5 Eos % (Auto) 2.6 Baso % (Auto) 1.3 Neut # (Auto) 2.9 Lymph # (Auto) 0.8 L Mineral # (Auto) 0.4 Eos # (Auto) 0.1 Baso # (Auto) 0.1 Sodium 140 Potassium 5.0 Chloride 94 L Carbon Dioxide 33 H Anion Gap 18 BUN 35 H Creatinine 7.5 H* D Est GFR ( Amer) 10 Est GFR (Non-Af Amer) 8 Random Glucose 93 Calcium 10.4 Phosphorus 5.3 H Magnesium 2.0 Total Bilirubin 1.9 H AST 40 ALT 30 Alkaline Phosphatase 186 H Ammonia Total Protein 7.9 Albumin 3.8 Globulin 4.1 H Albumin/Globulin Ratio 0.9 L Procalcitonin Fluid Source Peritoneal/ascites Fluid Appearance Bloody Fluid WBC 340.0 H Fluid RBC 08828.0 H Fluid Tot Cell Count 100 H Fluid Neutrophils 10.0 H Fluid Lymphocytes 89.0 H Fld Monocyte/Macrophag 1 H Fluid Comment 02/03/18 02/03/18 17:04 17:04 WBC RBC Hgb Hct MCV MCH MCHC RDW Plt Count MPV Neut % (Auto) Lymph % (Auto) Mineral % (Auto) Eos % (Auto) Baso % (Auto) Neut # (Auto) Lymph # (Auto) Mineral # (Auto) Eos # (Auto) Baso # (Auto) Sodium Potassium Chloride Carbon Dioxide Anion Gap BUN Creatinine Est GFR ( Amer) Est GFR (Non-Af Amer) Random Glucose Calcium Phosphorus Magnesium Total Bilirubin AST ALT Alkaline Phosphatase Ammonia 65 H Total Protein Albumin Globulin Albumin/Globulin Ratio Procalcitonin 0.68 H Fluid Source Fluid Appearance Fluid WBC Fluid RBC Fluid Tot Cell Count Fluid Neutrophils Fluid Lymphocytes Fld Monocyte/Macrophag Fluid Comment
[2018-02-04] MEDS: Piperacill/Tazo 2.25gm in Dex 2.25 GM/50 ML BAG IVPB SCH ×3 (04:46→19:11)
--- NOTE | 2018-02-04 06:39 | CON ---
DATE: INFECTIOUS DISEASE CONSULTATION REQUESTED BY: Dr. Kate. HISTORY OF PRESENT ILLNESS: This patient is 37-year-old male. He has end-stage renal disease, CHF, and hypertension. He is on dialysis and he was admitted with shortness of breath and volume overload. I am seeing him on dialysis at this time and is not able to ask much questions. They are drawing blood cultures on him, as one of his cultures had come back [facility] [place]. He does have AV fistula on his left arm. He also has a history of AICD, and he has had a valvular open heart surgery in the past. This much information is obtained from the chart. PAST MEDICAL HISTORY: CHF, end-stage renal disease. He is being followed by the parks and recreation manager at this time. He came in with shortness of breath. He has a left arm AV fistula. He also has cirrhosis of liver, chronic anemia, hypertension, left AV fistula. He also was complaining of abdominal pain. He said he does not miss sessions. He told the ER he has had open heart surgery one year ago. He also has abdominal pain, squeezing sensation that was 8/10. He also had substernal pain when chest pain was admitted. He is presently on dialysis. He is not allergic to any medicines. His dialysis is Wednesday, Wednesday and Wednesday. Hypertension and he had a valvular open heart surgery. I did not get a chance of asking today, but will do so on my next visit. MEDICATIONS: At the present time, he is on albuterol, amlodipine, aspirin, clonidine, hydralazine, metoprolol. He is on Zosyn. We are going to give a dose of vancomycin at this time. He is also getting Entresto, calcium, and on vitamin B complex. He was given yesterday clonidine and gabapentin, which have been discontinued at this time. REVIEW OF SYSTEMS: Unable to obtain at this time, but he came in with shortness of breath. He has ascites. His fluid was tapped. Micro warren, one of the blood cultures that was done when he came in, which is probably peripheral, I would think is GPC and the second set is negative. So, we are going to get cultures through the dialysis catheter. At this time, I have added vancomycin. He had a peritoneal tap done today. So, we will follow those cultures. PHYSICAL EXAMINATION: VITAL SIGNS: T-max is 97.7 right now, pulse 84, blood pressure 148/99, heart rate of 113. HEENT: Head is atraumatic and normocephalic. Pupils are reacting to light. LUNGS: Clear. Coarse breath sounds. HEART: S1 and S2, is tachycardic. He has an AV fistula where they are doing the dialysis from. ABDOMEN: Distended and prominent, but it is soft now as they have just done a peritoneal tap on him. EXTREMITIES: Have no edema. LABORATORY DATA: Labs are noted. Labs show white count is 4.2 today, hemoglobin 9.1, hematocrit is 28.3, platelet count is only 81. His platelets have been low, but yesterday was 94. Sodium 140, potassium 5, chloride is 94, CO2 is 33, BUN is 35, creatinine is 7.5, anion gap is 18 and calcium is 7.4. Ammonia level is 65 today, they did that. Procalcitonin is 0.68, which is noted as high, but normal range is 0.19 to 0.49; it is high but not extremely. Blood culture came out GPC which is the only I received bottle positive only and that is GPC, it is coagulase negative by . So, we are getting these 2 sets from the AV fistula at this time . His last chest x-ray shows they did an interventional procedure that was the tap documented, and then an abdominal CT was done. IR removed fluid. Abdominal CT shows kidney appears atrophic compatible with underlying chronic renal disease, indeterminate lesion arising in the lower pole of the right kidney, which does not appear to represent a simple cyst and recommend further hyperdense lesion in the left kidney, recommend further evaluation with renal ultrasound. 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 No evidence of aneurysmal rupture. He has diffuse abnormal appearance of the bones secondary to renal osteodystrophy. IMPRESSION: This patient came in with shortness of breath, has congestive heart failure, has valvular heart surgery in the past, has one blood culture which is Staphylococcus epidermidis which is probably peripheral, but due to his valvular surgery, automatic implantable cardioverter-defibrillator and arteriovenous fistula, it became significant. We will get blood cultures again and will give him vancomycin also at this time. Kristie Parrish MD
--- NOTE | 2018-02-04 07:55 | CP.PCM.PN ---
Subjective - Date & Time of Evaluation Date of Evaluation: 02/04/18 Time of Evaluation: 07:45 - Subjective Subjective: patient has no new chest pain. s/p dialysis. Objective - Vital Signs/Intake and Output Vital Signs (last 24 hours): Temp Pulse Resp BP Pulse Ox 98.3 F 89 20 91/60 L 97 02/03/18 23:13 02/03/18 23:13 02/03/18 23:13 02/04/18 06:34 02/03/18 23:13 Intake and Output: 02/04/18 02/04/18 06:59 18:59 Intake Total 240 Balance 240 - Medications Medications: Current Medications Albuterol/Ipratropium (Duoneb 3 Mg/0.5 Mg (3 Ml) Ud) 3 ml INH RQ6 PRN PRN Reason: Shortness of Breath Amlodipine Besylate (Norvasc) 10 mg PO DAILY [facility] Last Admin: 02/03/18 11:02 Dose: Not Given Aspirin (Aspirin Chewable) 81 mg PO DAILY [facility] Last Admin: 02/03/18 11:02 Dose: Not Given Clonidine HCl (Catapres) 0.3 mg PO BID [facility] Last Admin: 02/03/18 19:47 Dose: 0.3 mg Gabapentin (Neurontin) 100 mg PO HS [facility] Last Admin: 02/03/18 22:35 Dose: Not Given Hydralazine HCl (Apresoline) 100 mg PO TID [facility] Last Admin: 02/03/18 19:46 Dose: 100 mg Piperacillin Sod/Tazobactam Sod (Zosyn 2.25 Gm Iv Premix) 2.25 gm in 50 mls @ 100 mls/hr IVPB Q8H [facility] PRN Reason: Protocol Last Admin: 02/04/18 04:46 Dose: 100 mls/hr Lactulose (Enulose) 20 gm PO HS [facility] Last Admin: 02/03/18 21:26 Dose: 20 gm Metoprolol Succinate (Toprol Xl) 100 mg PO DAILY [facility] Last Admin: 02/03/18 11:07 Dose: 100 mg Rosuvastatin Calcium (Crestor) 10 mg PO HS [facility] Last Admin: 02/03/18 21:26 Dose: 10 mg Sacubitril/Valsartan (Entresto 49 Mg-51 Mg) 1 tab PO BID [facility] Last Admin: 02/03/18 19:46 Dose: 1 tab Vitamin B Complex/Vit C/Folic Acid (Nephro-Duane) 1 tab PO DAILY [facility] - Labs Labs: 02/03/18 06:21 02/03/18 06:21 PT 13.6 SECONDS (9.7-12.2) H 02/02/18 00:52 INR 1.2 02/02/18 00:52 APTT 32 SECONDS (21-34) 02/02/18 00:52 - Constitutional Appears: Chronically Ill - Head Exam Head Exam: NORMAL INSPECTION - Eye Exam Eye Exam: Normal appearance - ENT Exam ENT Exam: Mucous Membranes Moist - Neck Exam Neck Exam: Full ROM - Respiratory Exam Respiratory Exam: Decreased Breath Sounds - Cardiovascular Exam Cardiovascular Exam: REGULAR RHYTHM - GI/Abdominal Exam GI & Abdominal Exam: Normal Bowel Sounds - Rectal Exam Rectal Exam: Deferred - Extremities Exam Extremities Exam: absent: Pedal Edema - Back Exam Back Exam: NORMAL INSPECTION - Neurological Exam Neurological Exam: Alert - Psychiatric Exam Psychiatric exam: Normal Affect - Skin Skin Exam: Normal Color Assessment and Plan (1) Systolic dysfunction with acute on chronic heart failure Assessment & Plan: will attemtp medical management. Entresto started. Coreg. outpatient referral to [facility] Status: Acute
[2018-02-04] MEDS: Metoprolol Succinate 100 mg XL Tab PO SCH (10:07)
[2018-02-04] MEDS: Sacubitril/Valsartan 49-51 Tab PO SCH ×2 (10:07→18:29)
[2018-02-04 11:27] LABS: BASO # 0.1 K/uL (0.0-0.2); BASO % 1.3 % (0.0-2.0); EOS # 0.1 K/uL (0.0-0.7); EOS % 2.7 % (0.0-4.0); HEMOGLOBIN 9.3 g/dL (12.0-18.0); LYMPH # 0.8 K/uL (1.0-4.3); LYMPH % 18.5 % (20.0-40.0); MEAN CELL VOLUME 88.5 fL (80.0-94.0); MEAN CORPUSCULAR HEMOGLOBIN 28.8 pg (27.0-31.0); MEAN CORPUSCULAR HGB CONC 32.6 g/dL (33.0-37.0); MEAN PLATELET VOLUME 9.3 fL (7.2-11.7); MONO # 0.4 K/uL (0.0-0.8); NEUT # 2.9 K/uL (1.8-7.0); NEUT % 68.5 % (50.0-75.0); RBC 3.24 Mil/uL (4.40-5.90); RED CELL DISTRIBUTION WIDTH 22.3 % (11.5-14.5); WHITE BLOOD COUNT 4.3 K/uL (4.8-10.8)
[2018-02-04 11:53] LABS: ALB/GLOB RATIO 0.9 (1.0-2.1); ALBUMIN 3.5 g/dL (3.5-5.0); CALCIUM 9.8 mg/dl (8.6-10.4)
--- NOTE | 2018-02-04 13:05 | CP.PCM.PN ---
Subjective - Date & Time of Evaluation Date of Evaluation: 02/04/18 Time of Evaluation: 12:45 - Subjective Subjective: Patient seen and examined at bedside today. Patient was awake and more alert than yesterday. Patient states his shortness of breath is improved. Patient is no longer refusing blood work or medications. Assessment/Plan: 1. Pleural effusion - Right-sided pleural effusion secondary to ascites - Continue monitoring - Continue hemodialysis 2. Ascites - Paracentesis 02/03: Note of many macrophages, occult mesothelial cells; Fluid WBC 340, Fluid RBC 80873, Fluid Total Cell Count 100, Fluid neutrophils 10, fluid lymphocytes 89 - Management per primary team 3. Bacteremia - Blood cx 02/02: Positive for Gram Positive Cocci - Management per primary team - Procalcitonin 0.68 4. ESRD - Managment per primary team Objective - Vital Signs/Intake and Output Vital Signs (last 24 hours): Temp Pulse Resp BP Pulse Ox 98.4 F 78 20 155/88 H 96 02/04/18 09:29 02/04/18 09:29 02/04/18 09:29 02/04/18 09:29 02/04/18 09:29 Intake and Output: 02/04/18 02/04/18 06:59 18:59 Intake Total 240 Balance 240 - Medications Medications: Current Medications Acetaminophen (Tylenol 325mg Tab) 650 mg PO Q6 PRN PRN Reason: Fever >100.4 F Last Admin: 02/04/18 10:58 Dose: 650 mg Albuterol/Ipratropium (Duoneb 3 Mg/0.5 Mg (3 Ml) Ud) 3 ml INH RQ6 PRN PRN Reason: Shortness of Breath Amlodipine Besylate (Norvasc) 10 mg PO DAILY [facility] Last Admin: 02/04/18 10:07 Dose: 10 mg Aspirin (Aspirin Chewable) 81 mg PO DAILY [facility] Last Admin: 02/04/18 10:07 Dose: 81 mg Clonidine HCl (Catapres) 0.3 mg PO BID [facility] Last Admin: 02/04/18 10:07 Dose: 0.3 mg Gabapentin (Neurontin) 100 mg PO HS [facility] Last Admin: 02/03/18 22:35 Dose: Not Given Hydralazine HCl (Apresoline) 100 mg PO TID [facility] Last Admin: 02/04/18 10:07 Dose: 100 mg Piperacillin Sod/Tazobactam Sod (Zosyn 2.25 Gm Iv Premix) 2.25 gm in 50 mls @ 100 mls/hr IVPB Q8H [facility] PRN Reason: Protocol Last Admin: 02/04/18 12:44 Dose: 100 mls/hr Lactulose (Enulose) 20 gm PO HS [facility] Last Admin: 02/03/18 21:26 Dose: 20 gm Metoprolol Succinate (Toprol Xl) 100 mg PO DAILY [facility] Last Admin: 02/04/18 10:07 Dose: 100 mg Rosuvastatin Calcium (Crestor) 10 mg PO HS [facility] Last Admin: 02/03/18 21:26 Dose: 10 mg Sacubitril/Valsartan (Entresto 49 Mg-51 Mg) 1 tab PO BID [facility] Last Admin: 02/04/18 10:07 Dose: 1 tab Vitamin B Complex/Vit C/Folic Acid (Nephro-Duane) 1 tab PO DAILY [facility] - Labs Labs: 02/04/18 11:20 02/04/18 11:20 PT 13.6 SECONDS (9.7-12.2) H 02/02/18 00:52 INR 1.2 02/02/18 00:52 APTT 32 SECONDS (21-34) 02/02/18 00:52 Assessment and Plan (1) Pleural effusion Status: Acute (2) Ascites Status: Acute (3) ESRD (end stage renal disease) on dialysis Status: Chronic
--- NOTE | 2018-02-04 13:23 | CP.PCM.PN ---
Subjective - Date & Time of Evaluation Date of Evaluation: 02/04/18 Time of Evaluation: 10:00 - Subjective Subjective: Patient and bed sitting up and sleeping on 3 pillows because of the shortness of breath which has been improving/ No chest pain reported No nausea or vomiting Objective - Vital Signs/Intake and Output Vital Signs (last 24 hours): Temp Pulse Resp BP Pulse Ox 98.4 F 78 20 155/88 H 96 02/04/18 09:29 02/04/18 09:29 02/04/18 09:29 02/04/18 09:29 02/04/18 09:29 Intake and Output: 02/04/18 02/04/18 06:59 18:59 Intake Total 240 Balance 240 - Medications Medications: Current Medications Acetaminophen (Tylenol 325mg Tab) 650 mg PO Q6 PRN PRN Reason: Fever >100.4 F Last Admin: 02/04/18 10:58 Dose: 650 mg Albuterol/Ipratropium (Duoneb 3 Mg/0.5 Mg (3 Ml) Ud) 3 ml INH RQ6 PRN PRN Reason: Shortness of Breath Amlodipine Besylate (Norvasc) 10 mg PO DAILY [facility] Last Admin: 02/04/18 10:07 Dose: 10 mg Aspirin (Aspirin Chewable) 81 mg PO DAILY [facility] Last Admin: 02/04/18 10:07 Dose: 81 mg Clonidine HCl (Catapres) 0.3 mg PO BID [facility] Last Admin: 02/04/18 10:07 Dose: 0.3 mg Gabapentin (Neurontin) 100 mg PO [facility] Last Admin: 02/03/18 22:35 Dose: Not Given Hydralazine HCl (Apresoline) 100 mg PO TID [facility] Last Admin: 02/04/18 10:07 Dose: 100 mg Piperacillin Sod/Tazobactam Sod (Zosyn 2.25 Gm Iv Premix) 2.25 gm in 50 mls @ 100 mls/hr IVPB Q8H [facility] PRN Reason: Protocol Last Admin: 02/04/18 12:44 Dose: 100 mls/hr Metoprolol Succinate (Toprol Xl) 100 mg PO DAILY [facility] Last Admin: 02/04/18 10:07 Dose: 100 mg Rosuvastatin Calcium (Crestor) 10 mg PO [facility] Last Admin: 02/03/18 21:26 Dose: 10 mg Sacubitril/Valsartan (Entresto 49 Mg-51 Mg) 1 tab PO BID [facility] Last Admin: 02/04/18 10:07 Dose: 1 tab Vitamin B Complex/Vit C/Folic Acid (Nephro-Duane) 1 tab PO DAILY [facility] - Labs Labs: 02/04/18 11:20 02/04/18 11:20 PT 13.6 SECONDS (9.7-12.2) H 02/02/18 00:52 INR 1.2 02/02/18 00:52 APTT 32 SECONDS (21-34) 02/02/18 00:52 - Constitutional Appears: No Acute Distress - ENT Exam ENT Exam: Mucous Membranes Moist - Neck Exam Neck Exam: absent: Lymphadenopathy - Respiratory Exam Respiratory Exam: Rhonchi, NORMAL BREATHING PATTERN. absent: Chest Wall Tenderness - Cardiovascular Exam Cardiovascular Exam: JVD. absent: Gallop, Rubs - GI/Abdominal Exam GI & Abdominal Exam: Soft, Normal Bowel Sounds - Extremities Exam Extremities Exam: absent: Calf Tenderness - Back Exam Back Exam: absent: CVA tenderness (L), CVA tenderness (R) - Neurological Exam Neurological Exam: Alert - Psychiatric Exam Psychiatric exam: absent: Anxious - Skin Skin Exam: absent: Cyanosis Assessment and Plan (1) Volume overload Status: Acute (2) Abdominal bloating Status: Acute (3) ESRD (end stage renal disease) on dialysis Assessment & Plan: End stage renal disease on dialysis patient did have extra hemodialysis yesterday and is scheduled to have dialysis today his normal schedule. Volume overload and was congestive heart failure Possible ascites Hypertension continue medication as noted on antihypertensive. Hyperphosphatemia continue binders Secondary hyperparathyroidism to check on PTH Anemia continue EPO Status: Chronic (4) Hypertension Status: Chronic
--- NOTE | 2018-02-04 15:01 | RAD ---
HISTORY: re-evaluate COMPARISON: Portable chest 02/02/2018. FINDINGS: LUNGS: There is a mild increase in interval airspace disease at the right mid to inferior lung zones, borderline at the left base. PLEURA: Mild right pleural effusion likely persists with none at the left. No pneumothorax bilaterally. CARDIOVASCULAR: Cardiomegaly is stable with pulmonary vascular congestion pattern unchanged. Prosthetic cardiac valve, median sternotomy and implant a cardiac defibrillator/pacemaker reiterated. OSSEOUS STRUCTURES: No significant abnormalities. VISUALIZED UPPER ABDOMEN: Normal. OTHER FINDINGS: None. IMPRESSION: Persistent CHF pattern. Mild right pleural effusion again evident with increased right basilar atelectasis or infiltrate present. Limited left basilar airspace disease may be developing.
--- NOTE | 2018-02-04 17:19 | CP.PCM.PN ---
Subjective - Date & Time of Evaluation Date of Evaluation: 02/04/18 Time of Evaluation: 03:00 - Subjective Subjective: DICTATED Objective - Vital Signs/Intake and Output Vital Signs (last 24 hours): Temp Pulse Resp BP Pulse Ox 98.4 F 90 20 161/94 H 99 02/04/18 14:20 02/04/18 14:20 02/04/18 14:20 02/04/18 16:20 02/04/18 14:20 Intake and Output: 02/04/18 02/04/18 06:59 18:59 Intake Total 240 Balance 240 - Medications Medications: Current Medications Acetaminophen (Tylenol 325mg Tab) 650 mg PO Q6 PRN PRN Reason: Fever >100.4 F Last Admin: 02/04/18 10:58 Dose: 650 mg Albuterol/Ipratropium (Duoneb 3 Mg/0.5 Mg (3 Ml) Ud) 3 ml INH RQ6 PRN PRN Reason: Shortness of Breath Amlodipine Besylate (Norvasc) 10 mg PO DAILY [facility] Last Admin: 02/04/18 10:07 Dose: 10 mg Aspirin (Aspirin Chewable) 81 mg PO DAILY [facility] Last Admin: 02/04/18 10:07 Dose: 81 mg Clonidine HCl (Catapres) 0.3 mg PO BID [facility] Last Admin: 02/04/18 10:07 Dose: 0.3 mg Gabapentin (Neurontin) 100 mg PO HS [facility] Last Admin: 02/03/18 22:35 Dose: Not Given Hydralazine HCl (Apresoline) 100 mg PO TID [facility] Last Admin: 02/04/18 16:35 Dose: Not Given Piperacillin Sod/Tazobactam Sod (Zosyn 2.25 Gm Iv Premix) 2.25 gm in 50 mls @ 100 mls/hr IVPB Q8H [facility] PRN Reason: Protocol Last Admin: 02/04/18 12:44 Dose: 100 mls/hr Vancomycin/Sodium Chloride (Vancomycin 1 Gm/Ns 200 Ml) 1 gm in 200 mls @ 133 mls/hr IVPB MWF [facility] PRN Reason: Protocol Stop: 02/09/18 17:01 Metoprolol Succinate (Toprol Xl) 100 mg PO DAILY [facility] Last Admin: 02/04/18 10:07 Dose: 100 mg Rosuvastatin Calcium (Crestor) 10 mg PO HS [facility] Last Admin: 02/03/18 21:26 Dose: 10 mg Sacubitril/Valsartan (Entresto 49 Mg-51 Mg) 1 tab PO BID [facility] Last Admin: 02/04/18 10:07 Dose: 1 tab Vitamin B Complex/Vit C/Folic Acid (Nephro-Duane) 1 tab PO DAILY [facility] - Labs Labs: 02/04/18 11:20 02/04/18 11:20 PT 13.6 SECONDS (9.7-12.2) H 02/02/18 00:52 INR 1.2 02/02/18 00:52 APTT 32 SECONDS (21-34) 02/02/18 00:52
--- NOTE | 2018-02-04 23:02 | PN ---
DATE: 02/04/2018 SUBJECTIVE: The patient was getting dialysis again today as recommended by Dr. Palacios and the patient was seen while on dialysis. He denied any chest pain. No shortness of breath, but he has to sleep with 3 pillows. So, they were doing dialysis. PHYSICAL EXAMINATION: GENERAL: He was awake and in no acute distress. LUNGS: Had coarse breath sounds. HEART: S1, S2 are regular. ABDOMEN: Prominent with ascites. EXTREMITIES: Have edema otherwise. LABORATORY DATA: His blood culture from 02/02/2018 has GPC which are coagulase-negative staph. He has volume overload, end-stage renal disease, he did have ascites. The blood culture was done peripherally. I had asked them to repeat the cultures and I was covering it as thus patient has history of valvular surgery in the past. We will continue present treatment and need to be on IV antibiotics and to be monitored. We are also doing an HIV test and the repeat blood cultures are pending from 02/03/2018, which were done on dialysis from the arteriovenous fistula and needed to be followed. That will help us to see if this patient has any valvular infection and echo report is also pending. Echo was done 02/02/2018, which shows there is mild concentric left ventricular hypertrophy, left ventricular systolic function is moderate to severely impaired, the ejection fraction is 35-40%. There is flattened septum consistent with right ventricular pressure overload and severe TR, moderate to mild pulmonary hypertension and want to see if any valve was in place. Aortic valve is moderately sclerotic, mitral valve leaflets are thickened and calcified, there is severe TR, he has valvular disease but I do not see that any valvular surgery was done. ASSESSMENT AND PLAN: So, at this time, he is with ascites, volume overload, renal failure which was peripheral, need to repeat this to see if the cultures are okay. For now, I have left him on vancomycin after each dialysis and he should be receiving 1 dose today. He is also on Zosyn. Kristie Parrish MD
[2018-02-05] MEDS: Piperacill/Tazo 2.25gm in Dex 2.25 GM/50 ML BAG IVPB SCH ×3 (03:49→21:41)
[2018-02-05 06:58] LABS: BASO # 0.1 K/uL (0.0-0.2); BASO % 1.4 % (0.0-2.0); EOS # 0.2 K/uL (0.0-0.7); EOS % 4.1 % (0.0-4.0); HEMOGLOBIN 8.8 g/dL (12.0-18.0); LYMPH # 0.8 K/uL (1.0-4.3); LYMPH % 19.8 % (20.0-40.0); MEAN CELL VOLUME 88.5 fL (80.0-94.0); MEAN CORPUSCULAR HEMOGLOBIN 28.9 pg (27.0-31.0); MEAN CORPUSCULAR HGB CONC 32.6 g/dL (33.0-37.0); MEAN PLATELET VOLUME 9.3 fL (7.2-11.7); MONO # 0.4 K/uL (0.0-0.8); MONO % 9.4 % (0.0-10.0); NEUT # 2.5 K/uL (1.8-7.0); NEUT % 65.3 % (50.0-75.0); RBC 3.06 Mil/uL (4.40-5.90); RED CELL DISTRIBUTION WIDTH 22.4 % (11.5-14.5); WHITE BLOOD COUNT 3.9 K/uL (4.8-10.8)
[2018-02-05 07:34] LABS: ALBUMIN 3.8 g/dL (3.5-5.0); CALCIUM 9.5 mg/dl (8.6-10.4)
[2018-02-05] MEDS ORDERED: Vancomycin 1 gm/NS 200 ml 1 GM/200 ML BAG IVPB SCH (10:00)
[2018-02-05] MEDS: Metoprolol Succinate 100 mg XL Tab PO SCH (10:02)
[2018-02-05] MEDS: Sacubitril/Valsartan 49-51 Tab PO SCH ×2 (10:02→17:37)
--- NOTE | 2018-02-05 10:18 | CP.PCM.PN ---
<Dasha Aburto - Last Filed: 02/05/18 14:38> Subjective - Date & Time of Evaluation Date of Evaluation: 02/04/18 Time of Evaluation: 10:18 - Subjective Subjective: Progress note Patient seen and examined at bedside. At this time, patient is aware that he has a positive blood culture, and we are awaiting new blood culture results drawn yesterday 02/03/18. Patient expressed wish to leave due to home issues, but agreed to stay due to knowledge of severity of his illness. Patient currently denies fever, chills, cough, shortness of breath, dizziness, weakness , numbness, tingling Objective - Vital Signs/Intake and Output Vital Signs (last 24 hours): Temp Pulse Resp BP Pulse Ox 99.0 F 91 H 20 156/112 H 97 02/05/18 08:49 02/05/18 08:49 02/05/18 08:49 02/05/18 08:49 02/05/18 08:49 - Medications Medications: Current Medications Acetaminophen (Tylenol 325mg Tab) 650 mg PO Q6 PRN PRN Reason: Fever >100.4 F Last Admin: 02/04/18 10:58 Dose: 650 mg Albuterol/Ipratropium (Duoneb 3 Mg/0.5 Mg (3 Ml) Ud) 3 ml INH RQ6 PRN PRN Reason: Shortness of Breath Amlodipine Besylate (Norvasc) 10 mg PO DAILY [facility] Last Admin: 02/05/18 10:03 Dose: 10 mg Aspirin (Aspirin Chewable) 81 mg PO DAILY [facility] Last Admin: 02/05/18 10:02 Dose: 81 mg Clonidine HCl (Catapres) 0.3 mg PO BID [facility] Last Admin: 02/05/18 10:02 Dose: 0.3 mg Gabapentin (Neurontin) 100 mg PO HS [facility] Last Admin: 02/04/18 22:09 Dose: 100 mg Hydralazine HCl (Apresoline) 100 mg PO TID [facility] Last Admin: 02/05/18 10:02 Dose: 100 mg Piperacillin Sod/Tazobactam Sod (Zosyn 2.25 Gm Iv Premix) 2.25 gm in 50 mls @ 100 mls/hr IVPB Q8H [facility] PRN Reason: Protocol Last Admin: 02/05/18 03:49 Dose: 100 mls/hr Vancomycin/Sodium Chloride (Vancomycin 1 Gm/Ns 200 Ml) 1 gm in 200 mls @ 133 mls/hr IVPB MWF [facility] PRN Reason: Protocol Stop: 02/09/18 17:01 Metoprolol Succinate (Toprol Xl) 100 mg PO DAILY [facility] Last Admin: 02/05/18 10:02 Dose: 100 mg Rosuvastatin Calcium (Crestor) 10 mg PO [facility] Last Admin: 02/04/18 22:09 Dose: 10 mg Sacubitril/Valsartan (Entresto 49 Mg-51 Mg) 1 tab PO BID [facility] Last Admin: 02/05/18 10:02 Dose: 1 tab Vitamin B Complex/Vit C/Folic Acid (Nephro-Duane) 1 tab PO DAILY [facility] - Labs Labs: 02/05/18 06:45 02/05/18 06:45 PT 13.6 SECONDS (9.7-12.2) H 02/02/18 00:52 INR 1.2 02/02/18 00:52 APTT 32 SECONDS (21-34) 02/02/18 00:52 - Additional Findings Additional findings: - Head Exam Head Exam: ATRAUMATIC, NORMAL INSPECTION, NORMOCEPHALIC - Eye Exam Eye Exam: EOMI - ENT Exam ENT Exam: Mucous Membranes Dry - Neck Exam Neck exam: Negative for: Normal Inspection Additional comments: positive JVD - Respiratory Exam Respiratory Exam: Rales. absent: Respiratory Distress, NORMAL BREATHING PATTERN - Cardiovascular Exam Cardiovascular Exam: REGULAR RHYTHM, +S1, +S2 Additional comments: sternotomy scar - GI/Abdominal Exam GI & Abdominal Exam: Distended, Tenderness Additional comments: diffusely tender ; positive ascites - Extremities Exam Extremities exam: Positive for: pedal edema. Negative for: full ROM, normal inspection - Back Exam Back exam: NORMAL INSPECTION - Neurological Exam Neurological exam: Alert, CN II-XII Intact, Oriented x3 - Psychiatric Exam Psychiatric exam: Flat Affect - Skin Skin Exam: Dry, Intact, Normal Color, Warm Assessment and Plan - Assessment and Plan (Free Text) Assessment: 02/02 blood cultures positive for coagulase negative staph 02/03 blood cultures no growth after 24 hours x 2 02/03 abdominal fluid, no growth <Patito Lowry V - Last Filed: 02/05/18 18:36> Objective - Vital Signs/Intake and Output Vital Signs (last 24 hours): Temp Pulse Resp BP Pulse Ox 97.9 F 92 H 20 147/102 H 96 02/05/18 16:00 02/05/18 16:00 02/05/18 16:00 02/05/18 16:00 02/05/18 16:00 - Medications Medications: Current Medications Acetaminophen (Tylenol 325mg Tab) 650 mg PO Q6 PRN PRN Reason: Fever >100.4 F Last Admin: 02/04/18 10:58 Dose: 650 mg Albuterol/Ipratropium (Duoneb 3 Mg/0.5 Mg (3 Ml) Ud) 3 ml INH RQ6 PRN PRN Reason: Shortness of Breath Amlodipine Besylate (Norvasc) 10 mg PO DAILY [facility] Last Admin: 02/05/18 10:03 Dose: 10 mg Aspirin (Aspirin Chewable) 81 mg PO DAILY [facility] Last Admin: 02/05/18 10:02 Dose: 81 mg Clonidine HCl (Catapres) 0.3 mg PO BID [facility] Last Admin: 02/05/18 17:37 Dose: 0.3 mg Gabapentin (Neurontin) 100 mg PO [facility] Last Admin: 02/04/18 22:09 Dose: 100 mg Hydralazine HCl (Apresoline) 100 mg PO TID [facility] Last Admin: 02/05/18 17:37 Dose: 100 mg Piperacillin Sod/Tazobactam Sod (Zosyn 2.25 Gm Iv Premix) 2.25 gm in 50 mls @ 100 mls/hr IVPB Q8H [facility] PRN Reason: Protocol Last Admin: 02/05/18 13:56 Dose: 100 mls/hr Vancomycin/Sodium Chloride (Vancomycin 1 Gm/Ns 200 Ml) 1 gm in 200 mls @ 133 mls/hr IVPB MWF [facility] PRN Reason: Protocol Stop: 02/09/18 17:01 Metoprolol Succinate (Toprol Xl) 100 mg PO DAILY [facility] Last Admin: 02/05/18 10:02 Dose: 100 mg Rosuvastatin Calcium (Crestor) 10 mg PO HS [facility] Last Admin: 02/04/18 22:09 Dose: 10 mg Sacubitril/Valsartan (Entresto 49 Mg-51 Mg) 1 tab PO BID [facility] Last Admin: 02/05/18 17:37 Dose: 1 tab Vitamin B Complex/Vit C/Folic Acid (Nephro-Duane) 1 tab PO DAILY [facility] - Labs Labs: 02/05/18 06:45 02/05/18 06:45 PT 13.6 SECONDS (9.7-12.2) H 02/02/18 00:52 INR 1.2 02/02/18 00:52 APTT 32 SECONDS (21-34) 02/02/18 00:52 Attending/Attestation - Attestation Notes (Text): please disregard resident note. Advised to rewrite the note with the pertinent information necessary for the patient.
--- NOTE | 2018-02-05 11:49 | CP.PCM.PN ---
Subjective - Date & Time of Evaluation Date of Evaluation: 02/05/18 Time of Evaluation: 11:45 - Subjective Subjective: The patient was Seen/interviewed and examined by me at the bedside, Medical records reviewed and Management issues were discussed and formulated with the house staff. Events reviewed Patient lying in bed comfortably. Pt AAO x3. Alert, follows commands Patient states dyspnea on exertion improved since admission. Denies chest pain Breathing unlabored, Adequate saturation on room air O2 I&O reviewed Afebrile, NSR on the monitor Most recent Bolld C/S negative AM Labs reviewed, No Leucocytosis Last HD yesterday Objective - Vital Signs/Intake and Output Vital Signs (last 24 hours): Temp Pulse Resp BP Pulse Ox 99.0 F 91 H 20 156/112 H 97 02/05/18 08:49 02/05/18 08:49 02/05/18 08:49 02/05/18 08:49 02/05/18 08:49 - Medications Medications: Current Medications Acetaminophen (Tylenol 325mg Tab) 650 mg PO Q6 PRN PRN Reason: Fever >100.4 F Last Admin: 02/04/18 10:58 Dose: 650 mg Albuterol/Ipratropium (Duoneb 3 Mg/0.5 Mg (3 Ml) Ud) 3 ml INH RQ6 PRN PRN Reason: Shortness of Breath Amlodipine Besylate (Norvasc) 10 mg PO DAILY [facility] Last Admin: 02/05/18 10:03 Dose: 10 mg Aspirin (Aspirin Chewable) 81 mg PO DAILY [facility] Last Admin: 02/05/18 10:02 Dose: 81 mg Clonidine HCl (Catapres) 0.3 mg PO BID [facility] Last Admin: 02/05/18 10:02 Dose: 0.3 mg Gabapentin (Neurontin) 100 mg PO HS [facility] Last Admin: 02/04/18 22:09 Dose: 100 mg Hydralazine HCl (Apresoline) 100 mg PO TID [facility] Last Admin: 02/05/18 10:02 Dose: 100 mg Piperacillin Sod/Tazobactam Sod (Zosyn 2.25 Gm Iv Premix) 2.25 gm in 50 mls @ 100 mls/hr IVPB Q8H [facility] PRN Reason: Protocol Last Admin: 02/05/18 03:49 Dose: 100 mls/hr Vancomycin/Sodium Chloride (Vancomycin 1 Gm/Ns 200 Ml) 1 gm in 200 mls @ 133 mls/hr IVPB MWF [facility] PRN Reason: Protocol Stop: 02/09/18 17:01 Metoprolol Succinate (Toprol Xl) 100 mg PO DAILY [facility] Last Admin: 02/05/18 10:02 Dose: 100 mg Rosuvastatin Calcium (Crestor) 10 mg PO HS [facility] Last Admin: 02/04/18 22:09 Dose: 10 mg Sacubitril/Valsartan (Entresto 49 Mg-51 Mg) 1 tab PO BID [facility] Last Admin: 02/05/18 10:02 Dose: 1 tab Vitamin B Complex/Vit C/Folic Acid (Nephro-Duane) 1 tab PO DAILY [facility] - Labs Labs: 02/05/18 06:45 02/05/18 06:45 PT 13.6 SECONDS (9.7-12.2) H 02/02/18 00:52 INR 1.2 02/02/18 00:52 APTT 32 SECONDS (21-34) 02/02/18 00:52 - Head Exam Head Exam: ATRAUMATIC, NORMAL INSPECTION. absent: NORMOCEPHALIC - Eye Exam Eye Exam: EOMI. absent: Normal appearance - ENT Exam ENT Exam: Mucous Membranes Moist - Neck Exam Neck Exam: Full ROM. absent: Lymphadenopathy, Meningismus, Normal Inspection, Tenderness, Thyromegaly - Respiratory Exam Respiratory Exam: Decreased Breath Sounds, Rales, Rhonchi. absent: Accessory Muscle Use, Chest Wall Tenderness, Prolonged Expiratory Phase, Wheezes - Cardiovascular Exam Cardiovascular Exam: REGULAR RHYTHM, RRR, +S1, +S2. absent: Bradycardia, Tachycardia, Diastolic murmur, Irregular Rhythm, JVD, Murmur - GI/Abdominal Exam GI & Abdominal Exam: Distended, Firm, Normal Bowel Sounds. absent: Guarding, Rigid, Soft, Tenderness - Extremities Exam Extremities Exam: Full ROM, Normal Capillary Refill, Pedal Edema. absent: Calf Tenderness, Joint Swelling, Normal Inspection, Tenderness - Back Exam Back Exam: absent: CVA tenderness (L), CVA tenderness (R) - Neurological Exam Neurological Exam: Alert, Altered, Awake, CN II-XII Intact, Motor Sensory Deficit, Normal Gait, Oriented x3 Assessment and Plan (1) Ascites Status: Acute (2) Dyspnea Status: Acute (3) Pleural effusion Status: Acute (4) Systolic dysfunction with acute on chronic heart failure Status: Acute (5) Volume overload Status: Acute (6) ESRD (end stage renal disease) on dialysis Status: Chronic - Assessment and Plan (Free Text) Assessment: Assessment/Plan: 1. Pleural effusion - Right-sided pleural effusion secondary to ascites - Continue monitoring - Continue hemodialysis 2. Ascites - Paracentesis 02/03: Note of many macrophages, occult mesothelial cells; Fluid WBC 340, Fluid RBC 26037, Fluid Total Cell Count 100, Fluid neutrophils 10, fluid lymphocytes 89 - Management per primary team 3. Bacteremia - Blood cx 02/02: Positive for Gram Positive Cocci - Management per primary team - Procalcitonin 0.68 4. ESRD - Managment per primary team
--- NOTE | 2018-02-05 12:06 | CP.PCM.PN ---
<CriseldaDasha - Last Filed: 02/05/18 12:46> Subjective - Date & Time of Evaluation Date of Evaluation: 02/04/18 Time of Evaluation: 12:06 - Subjective Subjective: Progress note Patient seen and examined at bedside. No acute events overnight. Patient currently denies fever, chills, cough, shortness of breath, dizziness, weakness at this time. Objective - Vital Signs/Intake and Output Vital Signs (last 24 hours): Temp Pulse Resp BP Pulse Ox 99.0 F 91 H 20 156/112 H 97 02/05/18 08:49 02/05/18 08:49 02/05/18 08:49 02/05/18 08:49 02/05/18 08:49 - Medications Medications: Current Medications Acetaminophen (Tylenol 325mg Tab) 650 mg PO Q6 PRN PRN Reason: Fever >100.4 F Last Admin: 02/04/18 10:58 Dose: 650 mg Albuterol/Ipratropium (Duoneb 3 Mg/0.5 Mg (3 Ml) Ud) 3 ml INH RQ6 PRN PRN Reason: Shortness of Breath Amlodipine Besylate (Norvasc) 10 mg PO DAILY [facility] Last Admin: 02/05/18 10:03 Dose: 10 mg Aspirin (Aspirin Chewable) 81 mg PO DAILY [facility] Last Admin: 02/05/18 10:02 Dose: 81 mg Clonidine HCl (Catapres) 0.3 mg PO BID [facility] Last Admin: 02/05/18 10:02 Dose: 0.3 mg Gabapentin (Neurontin) 100 mg PO HS [facility] Last Admin: 02/04/18 22:09 Dose: 100 mg Hydralazine HCl (Apresoline) 100 mg PO TID [facility] Last Admin: 02/05/18 10:02 Dose: 100 mg Piperacillin Sod/Tazobactam Sod (Zosyn 2.25 Gm Iv Premix) 2.25 gm in 50 mls @ 100 mls/hr IVPB Q8H [facility] PRN Reason: Protocol Last Admin: 02/05/18 03:49 Dose: 100 mls/hr Vancomycin/Sodium Chloride (Vancomycin 1 Gm/Ns 200 Ml) 1 gm in 200 mls @ 133 mls/hr IVPB MWF [facility] PRN Reason: Protocol Stop: 02/09/18 17:01 Metoprolol Succinate (Toprol Xl) 100 mg PO DAILY [facility] Last Admin: 02/05/18 10:02 Dose: 100 mg Rosuvastatin Calcium (Crestor) 10 mg PO HS [facility] Last Admin: 02/04/18 22:09 Dose: 10 mg Sacubitril/Valsartan (Entresto 49 Mg-51 Mg) 1 tab PO BID [facility] Last Admin: 02/05/18 10:02 Dose: 1 tab Vitamin B Complex/Vit C/Folic Acid (Nephro-Duane) 1 tab PO DAILY [facility] - Labs Labs: 02/05/18 06:45 02/05/18 06:45 PT 13.6 SECONDS (9.7-12.2) H 02/02/18 00:52 INR 1.2 02/02/18 00:52 APTT 32 SECONDS (21-34) 02/02/18 00:52 Assessment and Plan - Assessment and Plan (Free Text) Assessment: CHF mitral valve replacement (past) Echo: 45% ejection fraction, left ventricl systolic function is moderately to severely impaired. Flattened septum consistent with right ventricle pressure overload. Severe tricuspid regurgitation. moderate-severe pulmonary htn. severe tricuspid regurgitation, moderate-severe pulmonary htn. Crestor 10 mg PO Q HS ASA 81mg PO QD Cardiology Consult: Dr. Mora per cardiology patient will likely need ionotrope, currently waiting blood cultures for further management. Uncontrolled HTN Hydralazine 100 mg PO TID Toprol XL 100 mg PO QD Clonidine hcl 0.3 mg PO BID Norvasc 10 mg PO QD Cardiology Consult: Dr. Mora Right Pleural Effusion Patient refused CT chest Patient refused bipap 02/02, Repeat ABG shock ordered 02/03 Continue current dialysis schedule 02/05 patient currently has less difficulty breathing and is saturating well on nasal cannula. IR Consult: Dr. Kumar Pulmonology Consult: Dr. Rose Cirrhosis, ascites 02/02 Paracentesis: 3.5 L serosanguinous removed Lactulose 10 gm/15ml 15cc POQD IR Consult: Dr. Kumar ESRD Epogen 62746 unit/ml solution, held for now monitor Heparin 5000 SC Q8H Protonix 40mg IVP QD discussed with Dr. Lowry. Dasha Aburto DO PGY1 <Patito Lowry V - Last Filed: 02/05/18 18:34> Objective - Vital Signs/Intake and Output Vital Signs (last 24 hours): Temp Pulse Resp BP Pulse Ox 99.0 F 91 H 20 156/112 H 97 02/05/18 08:49 02/05/18 08:49 02/05/18 08:49 02/05/18 08:49 02/05/18 08:49 - Medications Medications: Current Medications Acetaminophen (Tylenol 325mg Tab) 650 mg PO Q6 PRN PRN Reason: Fever >100.4 F Last Admin: 02/04/18 10:58 Dose: 650 mg Albuterol/Ipratropium (Duoneb 3 Mg/0.5 Mg (3 Ml) Ud) 3 ml INH RQ6 PRN PRN Reason: Shortness of Breath Amlodipine Besylate (Norvasc) 10 mg PO DAILY [facility] Last Admin: 02/05/18 10:03 Dose: 10 mg Aspirin (Aspirin Chewable) 81 mg PO DAILY [facility] Last Admin: 02/05/18 10:02 Dose: 81 mg Clonidine HCl (Catapres) 0.3 mg PO BID [facility] Last Admin: 02/05/18 10:02 Dose: 0.3 mg Gabapentin (Neurontin) 100 mg PO HS [facility] Last Admin: 02/04/18 22:09 Dose: 100 mg Hydralazine HCl (Apresoline) 100 mg PO TID [facility] Last Admin: 02/05/18 13:56 Dose: 100 mg Piperacillin Sod/Tazobactam Sod (Zosyn 2.25 Gm Iv Premix) 2.25 gm in 50 mls @ 100 mls/hr IVPB Q8H [facility] PRN Reason: Protocol Last Admin: 02/05/18 13:56 Dose: 100 mls/hr Vancomycin/Sodium Chloride (Vancomycin 1 Gm/Ns 200 Ml) 1 gm in 200 mls @ 133 mls/hr IVPB MWF [facility] PRN Reason: Protocol Stop: 02/09/18 17:01 Metoprolol Succinate (Toprol Xl) 100 mg PO DAILY [facility] Last Admin: 02/05/18 10:02 Dose: 100 mg Rosuvastatin Calcium (Crestor) 10 mg PO HS [facility] Last Admin: 02/04/18 22:09 Dose: 10 mg Sacubitril/Valsartan (Entresto 49 Mg-51 Mg) 1 tab PO BID [facility] Last Admin: 02/05/18 10:02 Dose: 1 tab Vitamin B Complex/Vit C/Folic Acid (Nephro-Duane) 1 tab PO DAILY [facility] - Labs Labs: 02/05/18 06:45 02/05/18 06:45 PT 13.6 SECONDS (9.7-12.2) H 02/02/18 00:52 INR 1.2 02/02/18 00:52 APTT 32 SECONDS (21-34) 02/02/18 00:52 Attending/Attestation - Attestation I have personally seen and examined this patient.: Yes I have fully participated in the care of the patient.: Yes I have reviewed all pertinent clinical information, including history, physical exam and plan: Yes Notes (Text): This is late computer entry 02/04/18. Patient seen, examined, and case discussed with day-time resident. Patient seen and examined this morning. Patient understands he has a weak heart and is amenable for further evaluation [facility]. Discussed with cardiology, recommending for Entresto and for [facility] evaluation which patient is amenable for. We are awaiting the results from the repeat 02/04/18 blood cultures. Patient is on IV abx for possible bacteremia and high risk in light of arjun valve replacement. Assessment/Plan 1) Shortness of breath secondary to fluid overload * Nephrology (Dr. El) on board-->help appreciated * Cardiology (Dr. Mora) on board-->help appreciated * Pulmonary (Dr. Rose) on board-->help appreciated * Bipap ordered this AM, patient refused inspite risks * CT abdomen/pelvis (02/02/18): moderate to large amount of abdominal and pelvic free fluid, increased compared to prior CT 03/20/17. Moderate right pleural effusion. Diffuse subcutanous edema/anasarca. No evidence of significant acute process, Diffuse mild aneurysm; dilatation of the left common and external iliac arteries, up to 2.5cm in diameter, unchanged. no evidence of aneurysm rupture. Diffusely abnormal appearance of the bones, most likely secondary to renal osteodystrophy * CT chest ordered to view right pleural effusion-->Patient refused it. * Dialysis per nephrology * EKG initial shows normal sinus rhythm, no st changes * ROBIN negative x 3 * Echocardiogram (02/03/18): mild concentric left ventricular hypertrophy, left ventricle systolic function is moderately to severely impaired. EF: 35-40%. Flattened septum consistent with right ventricle pressure. severe tricuspid regurgitation. Moderate-severe pulmonary hypertension * s/p paracentesis: 3.4 Liters on 02/03/18-->f/u fluid studies 2) Hypertensive urgency secondary to fluid overload * Nephrology (Dr. El) on board-->help appreciated * Cardiology (Dr. Mora) on board-->help appreciated * Echocardiogram (02/03/18): mild concentric left ventricular hypertrophy, left ventricle systolic function is moderately to severely impaired. EF: 35-40%. Flattened septum consistent with right ventricle pressure. severe tricuspid regurgitation. Moderate-severe pulmonary hypertension * medications confirmed with PMD: * Norvasc 10 mg PO QDaily * Hydralazine 100mg PO TID * Metoprolol XL 100 mg PO QD * Clonidine 0.3 mg PO BID 3) Chest pain History of mitral valve replacement History of AICD * Cardiology (Dr. Mora) on board-->help appreciated * Aspirin 81mg PO daily * serial ekgs; initial ekg normal sinus rhythm, no acute ST changes; first and second trop indeterminate range elevated- likely secondary to renal failure * Echocardiogram (02/03/18): mild concentric left ventricular hypertrophy, left ventricle systolic function is moderately to severely impaired. EF: 35-40%. Flattened septum consistent with right ventricle pressure. severe tricuspid regurgitation. Moderate-severe pulmonary hypertension * O2 by nasal cannula prn * HGB a1C: 4.5 * TSH and free t4: 2.00/2.20 * lipid panel: T, cholerstrol: 142, LDL: 54, HDL: 49 4). Abdominal pain/distention secondary to fluid overload * CT abdomen/pelvis (02/02/18): moderate to large amount of abdominal and pelvic free fluid, increased compared to prior CT 03/20/17. Moderate right pleural effusion. Diffuse subcutanous edema/anasarca. No evidence of significant acute process, Diffuse mild aneurysm; dilatation of the left common and external iliac arteries, up to 2.5cm in diameter, unchanged. no evidence of aneurysm rupture. Diffusely abnormal appearance of the bones, most likely secondary to renal osteodystrophy * IR consult. Dr. Kumar. recs appreciated. * Patient is ESRD, cardiomyopathy, ascites. Patient required paracentesis in last admission about 2.5 Liters removed * s/p paracentesis: 3.4 Liters on 02/03/18 5). Hx of Cardiomyopathy EF: 35-40% Systolic dysfunction with acute on Chronic heart Failure * Cardiology (Dr. Mora) on board-->help appreciated * Await volume removal with dialysis. recommend continued medical therapy with betablocker. add Entresto. Patient wi agreeable to referral to I as outpatient * Systolic dysfunction with acute on Chronic heart Failure * Monitor on telemetry and I/O * Fluid restriction * hold lasix for now as pt does not make urine * Echocardiogram (02/03/18): mild concentric left ventricular hypertrophy, left ventricle systolic function is moderately to severely impaired. EF: 35-40%. Flattened septum consistent with right ventricle pressure. severe tricuspid regurgitation. Moderate-severe pulmonary hypertension * Aspirin 81mg PO daily * Norvasc 10 mg PO QDaily * Hydralazine 100mg PO TID * Metoprolol XL 100 mg PO QD * Clonidine 0.3 mg PO BID * Entresto 6). Hypernatremia-->normalized * Underwent dialysis on 02/02 and scheduled for 02/03 short session 7). Hx of end stage renal disease * Nephrology (Dr. El) on board-->help appreciated * BNP very elevated, 167,000 likely secondary * Dialysis schedule per renal 8). Thrombocytopenia * held dvt ppx given thrombocytopenia 9). Bacteremia * Infectious Disease (Dr. Parrish) on board-->help appreciated * Zosyn 2.25 gm IVPB Q8H (active since 02/03/18) * Blood culture (02/02/18): no growth * Blood culture (02/02/18): gram positive cocci * Repeat blood cultures (02/03/18): pending 10). GI/DVT ppx * protonix 40 mg iv daily * chemical anticoagulation secondary to thrombocytopenia
--- NOTE | 2018-02-05 18:43 | CP.PCM.PN ---
<CriseldaDasha - Last Filed: 02/05/18 18:45> Subjective - Date & Time of Evaluation Date of Evaluation: 02/05/18 Time of Evaluation: 18:43 - Subjective Subjective: Progress note Patient seen and examined at bedside. At this time, patient is aware that he has a positive blood culture, and we are awaiting new blood culture results drawn yesterday 02/03/18. Patient expressed wish to leave due to home issues, but agreed to stay due to knowledge of severity of his illness. Patient currently denies fever, chills, cough, shortness of breath, dizziness, weakness , numbness, tingling Objective - Vital Signs/Intake and Output Vital Signs (last 24 hours): Temp Pulse Resp BP Pulse Ox 97.9 F 92 H 20 147/102 H 96 02/05/18 16:00 02/05/18 16:00 02/05/18 16:00 02/05/18 16:00 02/05/18 16:00 - Medications Medications: Current Medications Acetaminophen (Tylenol 325mg Tab) 650 mg PO Q6 PRN PRN Reason: Fever >100.4 F Last Admin: 02/04/18 10:58 Dose: 650 mg Albuterol/Ipratropium (Duoneb 3 Mg/0.5 Mg (3 Ml) Ud) 3 ml INH RQ6 PRN PRN Reason: Shortness of Breath Amlodipine Besylate (Norvasc) 10 mg PO DAILY [facility] Last Admin: 02/05/18 10:03 Dose: 10 mg Aspirin (Aspirin Chewable) 81 mg PO DAILY [facility] Last Admin: 02/05/18 10:02 Dose: 81 mg Clonidine HCl (Catapres) 0.3 mg PO BID [facility] Last Admin: 02/05/18 17:37 Dose: 0.3 mg Gabapentin (Neurontin) 100 mg PO HS [facility] Last Admin: 02/04/18 22:09 Dose: 100 mg Hydralazine HCl (Apresoline) 100 mg PO TID [facility] Last Admin: 02/05/18 17:37 Dose: 100 mg Piperacillin Sod/Tazobactam Sod (Zosyn 2.25 Gm Iv Premix) 2.25 gm in 50 mls @ 100 mls/hr IVPB Q8H [facility] PRN Reason: Protocol Last Admin: 02/05/18 13:56 Dose: 100 mls/hr Vancomycin/Sodium Chloride (Vancomycin 1 Gm/Ns 200 Ml) 1 gm in 200 mls @ 133 mls/hr IVPB MWF [facility] PRN Reason: Protocol Stop: 02/09/18 17:01 Metoprolol Succinate (Toprol Xl) 100 mg PO DAILY [facility] Last Admin: 02/05/18 10:02 Dose: 100 mg Rosuvastatin Calcium (Crestor) 10 mg PO HS [facility] Last Admin: 02/04/18 22:09 Dose: 10 mg Sacubitril/Valsartan (Entresto 49 Mg-51 Mg) 1 tab PO BID [facility] Last Admin: 02/05/18 17:37 Dose: 1 tab Vitamin B Complex/Vit C/Folic Acid (Nephro-Duane) 1 tab PO DAILY [facility] - Labs Labs: 02/05/18 06:45 02/05/18 06:45 PT 13.6 SECONDS (9.7-12.2) H 02/02/18 00:52 INR 1.2 02/02/18 00:52 APTT 32 SECONDS (21-34) 02/02/18 00:52 - Additional Findings Additional findings: - Head Exam Head Exam: ATRAUMATIC, NORMAL INSPECTION, NORMOCEPHALIC - Eye Exam Eye Exam: EOMI - ENT Exam ENT Exam: Mucous Membranes Dry - Neck Exam Neck exam: Negative for: Normal Inspection Additional comments: positive JVD - Respiratory Exam Respiratory Exam: Rales. absent: Respiratory Distress, NORMAL BREATHING PATTERN - Cardiovascular Exam Cardiovascular Exam: REGULAR RHYTHM, +S1, +S2 Additional comments: sternotomy scar - GI/Abdominal Exam GI & Abdominal Exam: Distended, soft, Tenderness Additional comments: positive ascites - Extremities Exam Extremities exam: Negative for: full ROM, normal inspection, pedal edema - Back Exam Back exam: NORMAL INSPECTION - Neurological Exam Neurological exam: Alert, CN II-XII Intact, Oriented x3 - Psychiatric Exam Psychiatric exam: Flat Affect - Skin Skin Exam: Dry, Intact, Normal Color, Warm Assessment and Plan - Assessment and Plan (Free Text) Assessment: CHF mitral valve replacement (past) Echo: 45% ejection fraction, left ventricle systolic function is moderately to severely impaired. Flattened septum consistent with right ventricle pressure overload. Severe tricuspid regurgitation. moderate-severe pulmonary htn. severe tricuspid regurgitation, moderate-severe pulmonary hypertension. Crestor 10 mg PO Q HS ASA 81mg PO QD Cardiology Consult: Dr. Mora per cardiology patient will likely need ionotrope, currently waiting blood cultures for further management. Uncontrolled HTN Hydralazine 100 mg PO TID Toprol XL 100 mg PO QD Clonidine hcl 0.3 mg PO BID Norvasc 10 mg PO QD Cardiology Consult: Dr. Mora Right Pleural Effusion Patient refused CT chest Patient refused bipap 02/02, Repeat ABG shock ordered 02/03 Continue current dialysis schedule 02/05 patient currently has less difficulty breathing and is saturating well on nasal cannula. IR Consult: Dr. Kumar Pulmonology Consult: Dr. Rose Cirrhosis, ascites 02/02 Paracentesis: 3.5 L serosanguinous removed 02/03 abdominal fluid culture, no growth Lactulose 10 gm/15ml 15cc POQD IR Consult: Dr. Kumra ESRD Epogen 94090 unit/ml solution, held for now monitor Microbiology 02/02 blood cultures positive for coagulase negative staph 02/03 blood cultures no growth after 24 hours x 2 Heparin 5000 SC Q8H Protonix 40mg IVP QD discussed with Dr. Lowry. Dasha Aburto DO PGY1 <Patito Lowry V - Last Filed: 02/06/18 11:01> Objective - Vital Signs/Intake and Output Vital Signs (last 24 hours): Temp Pulse Resp BP Pulse Ox 98.0 F 84 18 158/99 H 100 02/06/18 07:10 02/06/18 07:10 02/06/18 07:10 02/06/18 07:10 02/06/18 07:10 - Medications Medications: Current Medications Acetaminophen (Tylenol 325mg Tab) 650 mg PO Q6 PRN PRN Reason: Fever >100.4 F Last Admin: 02/06/18 09:26 Dose: 650 mg Albuterol/Ipratropium (Duoneb 3 Mg/0.5 Mg (3 Ml) Ud) 3 ml INH RQ6 PRN PRN Reason: Shortness of Breath Amlodipine Besylate (Norvasc) 10 mg PO DAILY [facility] Last Admin: 02/06/18 09:27 Dose: 10 mg Aspirin (Aspirin Chewable) 81 mg PO DAILY [facility] Last Admin: 02/06/18 09:27 Dose: 81 mg Clonidine HCl (Catapres) 0.3 mg PO BID [facility] Last Admin: 02/06/18 09:27 Dose: 0.3 mg Gabapentin (Neurontin) 100 mg PO HS [facility] Last Admin: 02/05/18 21:41 Dose: 100 mg Hydralazine HCl (Apresoline) 100 mg PO TID [facility] Last Admin: 02/06/18 09:27 Dose: 100 mg Piperacillin Sod/Tazobactam Sod (Zosyn 2.25 Gm Iv Premix) 2.25 gm in 50 mls @ 100 mls/hr IVPB Q8H [facility] PRN Reason: Protocol Last Admin: 02/06/18 04:02 Dose: 100 mls/hr Vancomycin/Sodium Chloride (Vancomycin 1 Gm/Ns 200 Ml) 1 gm in 200 mls @ 133 mls/hr IVPB MWF [facility] PRN Reason: Protocol Stop: 02/09/18 17:01 Metoprolol Succinate (Toprol Xl) 200 mg PO DAILY [facility] Rosuvastatin Calcium (Crestor) 10 mg PO [facility] Last Admin: 02/05/18 21:41 Dose: 10 mg Sacubitril/Valsartan (Entresto 49 Mg-51 Mg) 1 tab PO BID [facility] Last Admin: 02/06/18 09:27 Dose: 1 tab Vitamin B Complex/Vit C/Folic Acid (Nephro-Duane) 1 tab PO DAILY [facility] - Labs Labs: 02/06/18 06:54 02/06/18 06:54 PT 13.6 SECONDS (9.7-12.2) H 02/02/18 00:52 INR 1.2 02/02/18 00:52 APTT 32 SECONDS (21-34) 02/02/18 00:52 Attending/Attestation - Attestation I have personally seen and examined this patient.: Yes I have fully participated in the care of the patient.: Yes I have reviewed all pertinent clinical information, including history, physical exam and plan: Yes Notes (Text): This is late computer entry for 02/05/18. Patient seen, examined, and case discussed with day-time resident. Patient seen and examined this morning. Patient understands he has a weak heart and is amenable for further evaluation [facility]. When the resident encountered the patient this morning, he wanted to leave against medical advice , but is amenable to staying. Discussed with cardiology, recommending for Entresto. We are awaiting the results from the repeat 02/04/18 blood cultures. Patient is on IV abx for possible bacteremia and high risk in light of arjun valve replacement. Assessment/Plan 1) Shortness of breath secondary to fluid overload * Nephrology (Dr. El) on board-->help appreciated * Cardiology (Dr. Mora) on board-->help appreciated * Pulmonary (Dr. Rose) on board-->help appreciated * Patient refused ABG/ CT on admission in-spite risks * CT abdomen/pelvis (02/02/18): moderate to large amount of abdominal and pelvic free fluid, increased compared to prior CT 03/20/17. Moderate right pleural effusion. Diffuse subcutanous edema/anasarca. No evidence of significant acute process, Diffuse mild aneurysm; dilatation of the left common and external iliac arteries, up to 2.5cm in diameter, unchanged. no evidence of aneurysm rupture. Diffusely abnormal appearance of the bones, most likely secondary to renal osteodystrophy * CT chest ordered to view right pleural effusion-->Patient refused it. * Dialysis per nephrology * EKG initial shows normal sinus rhythm, no st changes * ROBIN negative x 3 * Echocardiogram (02/03/18): mild concentric left ventricular hypertrophy, left ventricle systolic function is moderately to severely impaired. EF: 35-40%. Flattened septum consistent with right ventricle pressure. severe tricuspid regurgitation. Moderate-severe pulmonary hypertension * s/p paracentesis: 3.4 Liters on 02/03/18-->f/u fluid studies 2) Hypertensive urgency secondary to fluid overload * Nephrology (Dr. El) on board-->help appreciated * Cardiology (Dr. Mora) on board-->help appreciated * Echocardiogram (02/03/18): mild concentric left ventricular hypertrophy, left ventricle systolic function is moderately to severely impaired. EF: 35-40%. Flattened septum consistent with right ventricle pressure. severe tricuspid regurgitation. Moderate-severe pulmonary hypertension * medications confirmed with PMD: * Norvasc 10 mg PO QDaily * Hydralazine 100mg PO TID * Metoprolol XL 100 mg PO QD * Clonidine 0.3 mg PO BID 3) Chest pain History of mitral valve replacement History of AICD * Cardiology (Dr. Mora) on board-->help appreciated * Aspirin 81mg PO daily * serial ekgs; initial ekg normal sinus rhythm, no acute ST changes; first and second trop indeterminate range elevated- likely secondary to renal failure * Echocardiogram (02/03/18): mild concentric left ventricular hypertrophy, left ventricle systolic function is moderately to severely impaired. EF: 35-40%. Flattened septum consistent with right ventricle pressure. severe tricuspid regurgitation. Moderate-severe pulmonary hypertension * O2 by nasal cannula prn * HGB a1C: 4.5 * TSH and free t4: 2.00/2.20 * lipid panel: T, cholerstrol: 142, LDL: 54, HDL: 49 4). Abdominal pain/distention secondary to fluid overload * CT abdomen/pelvis (02/02/18): moderate to large amount of abdominal and pelvic free fluid, increased compared to prior CT 03/20/17. Moderate right pleural effusion. Diffuse subcutanous edema/anasarca. No evidence of significant acute process, Diffuse mild aneurysm; dilatation of the left common and external iliac arteries, up to 2.5cm in diameter, unchanged. no evidence of aneurysm rupture. Diffusely abnormal appearance of the bones, most likely secondary to renal osteodystrophy * IR consult. Dr. Kumar. recs appreciated. * Patient is ESRD, cardiomyopathy, ascites. Patient required paracentesis in last admission about 2.5 Liters removed * s/p paracentesis: 3.4 Liters on 02/03/18 5). Hx of Cardiomyopathy EF: 35-40% Systolic dysfunction with acute on Chronic heart Failure * Cardiology (Dr. Mora) on board-->help appreciated * Await volume removal with dialysis. recommend continued medical therapy with betablocker. add Entresto. Patient wi agreeable to referral to [facility] as outpatient * Systolic dysfunction with acute on Chronic heart Failure * Monitor on telemetry and I/O * Fluid restriction * hold lasix for now as pt does not make urine * Echocardiogram (02/03/18): mild concentric left ventricular hypertrophy, left ventricle systolic function is moderately to severely impaired. EF: 35-40%. Flattened septum consistent with right ventricle pressure. severe tricuspid regurgitation. Moderate-severe pulmonary hypertension * Aspirin 81mg PO daily * Norvasc 10 mg PO QDaily * Hydralazine 100mg PO TID * Metoprolol XL 100 mg PO QD * Clonidine 0.3 mg PO BID * Entresto 6). Hypernatremia-->normalized * Underwent dialysis on 02/02 and scheduled for 02/03 short session 7). Hx of end stage renal disease * Nephrology (Dr. El) on board-->help appreciated * BNP very elevated, 167,000 likely secondary * Dialysis schedule per renal 8). Thrombocytopenia * held dvt ppx given thrombocytopenia 9). Bacteremia * Infectious Disease (Dr. Parrish) on board-->help appreciated * Note: patient high risk given mitral valve replacement * Zosyn 2.25 gm IVPB Q8H (active since 02/03/18) * Blood culture (02/02/18): no growth * Blood culture (02/02/18): gram positive cocci * Repeat blood cultures (02/03/18): pending 10). GI/DVT ppx * protonix 40 mg iv daily * chemical anticoagulation secondary to thrombocytopenia
--- NOTE | 2018-02-05 23:00 | CP.PCM.PN ---
Subjective - Date & Time of Evaluation Date of Evaluation: 02/05/18 Time of Evaluation: 11:00 - Subjective Subjective: follow up renal note no events overnight Assessment: stable ESRD on senior care hemodialysis volume overload ascites chf Hypertensive Chronic Kidney Disease (I12.9) Anemia (D64.9), Hyperphosphatemia (E83.39), Secondary Hyperparathyroidism (E21.1 ), HTN (I12.9) CHF Plan HD continue per MWF Hypertension control with meds as ordered. continue binders anemia epo as needed with hd continue nephrocaps ascites: s/p paracentesis Physical Examination: General Appearance: Comfortable, in no acute respiratory distress, co-operative . Vitals reviewed Head; Atraumatic, normocephalic ENT: no ulcers no thrush. EYES: Sclera is anicteric. Neck; supple Lungs: Normal respiratory rate/effort. Breath sounds bilateral clear Heart: Normal rate. s1s2 normal. No rub or gallop. Extremities: no edema. No varicose veins. Neurological: Patient is alert, awake and oriented to person, place and time. No focal deficit. Strength bilateral appropriate and equal Skin: Warm and dry. Normal turgor. Abdomen: Abdomen is soft. Bowel sounds +.distension+ Psych: normal insight Objective - Vital Signs/Intake and Output Vital Signs (last 24 hours): Temp Pulse Resp BP Pulse Ox 97.9 F 92 H 20 147/102 H 96 02/05/18 16:00 02/05/18 16:00 02/05/18 16:00 02/05/18 16:00 02/05/18 16:00 - Medications Medications: Current Medications Acetaminophen (Tylenol 325mg Tab) 650 mg PO Q6 PRN PRN Reason: Fever >100.4 F Last Admin: 02/04/18 10:58 Dose: 650 mg Albuterol/Ipratropium (Duoneb 3 Mg/0.5 Mg (3 Ml) Ud) 3 ml INH RQ6 PRN PRN Reason: Shortness of Breath Amlodipine Besylate (Norvasc) 10 mg PO DAILY [facility] Last Admin: 02/05/18 10:03 Dose: 10 mg Aspirin (Aspirin Chewable) 81 mg PO DAILY [facility] Last Admin: 02/05/18 10:02 Dose: 81 mg Clonidine HCl (Catapres) 0.3 mg PO BID [facility] Last Admin: 02/05/18 17:37 Dose: 0.3 mg Gabapentin (Neurontin) 100 mg PO HS [facility] Last Admin: 02/05/18 21:41 Dose: 100 mg Hydralazine HCl (Apresoline) 100 mg PO TID [facility] Last Admin: 02/05/18 17:37 Dose: 100 mg Piperacillin Sod/Tazobactam Sod (Zosyn 2.25 Gm Iv Premix) 2.25 gm in 50 mls @ 100 mls/hr IVPB Q8H [facility] PRN Reason: Protocol Last Admin: 02/05/18 21:41 Dose: 100 mls/hr Vancomycin/Sodium Chloride (Vancomycin 1 Gm/Ns 200 Ml) 1 gm in 200 mls @ 133 mls/hr IVPB MWF [facility] PRN Reason: Protocol Stop: 02/09/18 17:01 Metoprolol Succinate (Toprol Xl) 100 mg PO DAILY [facility] Last Admin: 02/05/18 10:02 Dose: 100 mg Rosuvastatin Calcium (Crestor) 10 mg PO HS [facility] Last Admin: 02/05/18 21:41 Dose: 10 mg Sacubitril/Valsartan (Entresto 49 Mg-51 Mg) 1 tab PO BID [facility] Last Admin: 02/05/18 17:37 Dose: 1 tab Vitamin B Complex/Vit C/Folic Acid (Nephro-Duane) 1 tab PO DAILY [facility] - Labs Labs: 02/05/18 06:45 02/05/18 06:45 PT 13.6 SECONDS (9.7-12.2) H 02/02/18 00:52 INR 1.2 02/02/18 00:52 APTT 32 SECONDS (21-34) 02/02/18 00:52
[2018-02-06] MEDS: Piperacill/Tazo 2.25gm in Dex 2.25 GM/50 ML BAG IVPB SCH ×3 (04:02→21:10)
[2018-02-06 06:59] LABS: BASO # 0.1 K/uL (0.0-0.2); BASO % 1.9 % (0.0-2.0); EOS # 0.1 K/uL (0.0-0.7); EOS % 3.7 % (0.0-4.0); HEMOGLOBIN 9.1 g/dL (12.0-18.0); LYMPH # 0.8 K/uL (1.0-4.3); LYMPH % 21.3 % (20.0-40.0); MEAN CELL VOLUME 87.4 fL (80.0-94.0); MEAN CORPUSCULAR HEMOGLOBIN 28.3 pg (27.0-31.0); MEAN CORPUSCULAR HGB CONC 32.3 g/dL (33.0-37.0); MEAN PLATELET VOLUME 8.7 fL (7.2-11.7); MONO # 0.4 K/uL (0.0-0.8); MONO % 10.1 % (0.0-10.0); NEUT # 2.4 K/uL (1.8-7.0); NRBC % 0.1 % (0.0-2.0); RBC 3.23 Mil/uL (4.40-5.90); RED CELL DISTRIBUTION WIDTH 22.4 % (11.5-14.5); WHITE BLOOD COUNT 3.8 K/uL (4.8-10.8)
[2018-02-06 07:30] LABS: ALB/GLOB RATIO 0.9 (1.0-2.1); ALBUMIN 3.6 g/dL (3.5-5.0)
[2018-02-06] MEDS: Metoprolol Succinate 100 mg XL Tab PO SCH (09:26)
[2018-02-06] MEDS: Sacubitril/Valsartan 49-51 Tab PO SCH ×2 (09:27→21:06)
[2018-02-06] MEDS ORDERED: Metoprolol Succinate 100 mg XL Tab PO SCH (10:13)
--- NOTE | 2018-02-06 10:20 | CP.PCM.PN ---
Subjective - Date & Time of Evaluation Date of Evaluation: 02/06/18 Time of Evaluation: 10:00 - Subjective Subjective: patient is asleep. blood pressure is elevated. I will increase Toprol XL Objective - Vital Signs/Intake and Output Vital Signs (last 24 hours): Temp Pulse Resp BP Pulse Ox 98.0 F 84 18 158/99 H 100 02/06/18 07:10 02/06/18 07:10 02/06/18 07:10 02/06/18 07:10 02/06/18 07:10 - Medications Medications: Current Medications Acetaminophen (Tylenol 325mg Tab) 650 mg PO Q6 PRN PRN Reason: Fever >100.4 F Last Admin: 02/06/18 09:26 Dose: 650 mg Albuterol/Ipratropium (Duoneb 3 Mg/0.5 Mg (3 Ml) Ud) 3 ml INH RQ6 PRN PRN Reason: Shortness of Breath Amlodipine Besylate (Norvasc) 10 mg PO DAILY [facility] Last Admin: 02/06/18 09:27 Dose: 10 mg Aspirin (Aspirin Chewable) 81 mg PO DAILY [facility] Last Admin: 02/06/18 09:27 Dose: 81 mg Clonidine HCl (Catapres) 0.3 mg PO BID [facility] Last Admin: 02/06/18 09:27 Dose: 0.3 mg Gabapentin (Neurontin) 100 mg PO HS [facility] Last Admin: 02/05/18 21:41 Dose: 100 mg Hydralazine HCl (Apresoline) 100 mg PO TID [facility] Last Admin: 02/06/18 09:27 Dose: 100 mg Piperacillin Sod/Tazobactam Sod (Zosyn 2.25 Gm Iv Premix) 2.25 gm in 50 mls @ 100 mls/hr IVPB Q8H [facility] PRN Reason: Protocol Last Admin: 02/06/18 04:02 Dose: 100 mls/hr Vancomycin/Sodium Chloride (Vancomycin 1 Gm/Ns 200 Ml) 1 gm in 200 mls @ 133 mls/hr IVPB MWF [facility] PRN Reason: Protocol Stop: 02/09/18 17:01 Metoprolol Succinate (Toprol Xl) 200 mg PO DAILY [facility] Rosuvastatin Calcium (Crestor) 10 mg PO HS [facility] Last Admin: 02/05/18 21:41 Dose: 10 mg Sacubitril/Valsartan (Entresto 49 Mg-51 Mg) 1 tab PO BID [facility] Last Admin: 02/06/18 09:27 Dose: 1 tab Vitamin B Complex/Vit C/Folic Acid (Nephro-Duane) 1 tab PO DAILY [facility] - Labs Labs: 02/06/18 06:54 02/06/18 06:54 PT 13.6 SECONDS (9.7-12.2) H 02/02/18 00:52 INR 1.2 02/02/18 00:52 APTT 32 SECONDS (21-34) 02/02/18 00:52 Assessment and Plan (1) Systolic dysfunction with acute on chronic heart failure Status: Acute (2) ESRD (end stage renal disease) on dialysis Status: Chronic (3) Hypertension Status: Chronic (4) Cardiomyopathy Status: Chronic
--- NOTE | 2018-02-06 11:05 | CP.PCM.PN ---
Subjective - Date & Time of Evaluation Date of Evaluation: 02/06/18 Time of Evaluation: 10:45 - Subjective Subjective: Medical Attending Note: Patient seen and examined this morning. Patient reports he has tired this morning. Patient reports he did not sleep last night. Patient is due to dialysis tomorrow. Patient denies other complaints. Objective - Vital Signs/Intake and Output Vital Signs (last 24 hours): Temp Pulse Resp BP Pulse Ox 98.0 F 84 18 158/99 H 100 02/06/18 07:10 02/06/18 07:10 02/06/18 07:10 02/06/18 07:10 02/06/18 07:10 - Medications Medications: Current Medications Acetaminophen (Tylenol 325mg Tab) 650 mg PO Q6 PRN PRN Reason: Fever >100.4 F Last Admin: 02/06/18 09:26 Dose: 650 mg Albuterol/Ipratropium (Duoneb 3 Mg/0.5 Mg (3 Ml) Ud) 3 ml INH RQ6 PRN PRN Reason: Shortness of Breath Amlodipine Besylate (Norvasc) 10 mg PO DAILY [facility] Last Admin: 02/06/18 09:27 Dose: 10 mg Aspirin (Aspirin Chewable) 81 mg PO DAILY [facility] Last Admin: 02/06/18 09:27 Dose: 81 mg Clonidine HCl (Catapres) 0.3 mg PO BID [facility] Last Admin: 02/06/18 09:27 Dose: 0.3 mg Gabapentin (Neurontin) 100 mg PO HS [facility] Last Admin: 02/05/18 21:41 Dose: 100 mg Hydralazine HCl (Apresoline) 100 mg PO TID [facility] Last Admin: 02/06/18 09:27 Dose: 100 mg Piperacillin Sod/Tazobactam Sod (Zosyn 2.25 Gm Iv Premix) 2.25 gm in 50 mls @ 100 mls/hr IVPB Q8H [facility] PRN Reason: Protocol Last Admin: 02/06/18 04:02 Dose: 100 mls/hr Vancomycin/Sodium Chloride (Vancomycin 1 Gm/Ns 200 Ml) 1 gm in 200 mls @ 133 mls/hr IVPB MWF [facility] PRN Reason: Protocol Stop: 02/09/18 17:01 Metoprolol Succinate (Toprol Xl) 200 mg PO DAILY [facility] Rosuvastatin Calcium (Crestor) 10 mg PO HS [facility] Last Admin: 02/05/18 21:41 Dose: 10 mg Sacubitril/Valsartan (Entresto 49 Mg-51 Mg) 1 tab PO BID [facility] Last Admin: 02/06/18 09:27 Dose: 1 tab Vitamin B Complex/Vit C/Folic Acid (Nephro-Duane) 1 tab PO DAILY [facility] - Labs Labs: 02/06/18 06:54 02/06/18 06:54 PT 13.6 SECONDS (9.7-12.2) H 02/02/18 00:52 INR 1.2 02/02/18 00:52 APTT 32 SECONDS (21-34) 02/02/18 00:52 - Constitutional Appears: Non-toxic, No Acute Distress - Head Exam Head Exam: NORMAL INSPECTION - Eye Exam Eye Exam: EOMI - ENT Exam ENT Exam: Mucous Membranes Moist - Respiratory Exam Respiratory Exam: Rales, NORMAL BREATHING PATTERN. absent: Respiratory Distress , Stridor - Cardiovascular Exam Cardiovascular Exam: REGULAR RHYTHM, JVD, +S1, +S2 - GI/Abdominal Exam GI & Abdominal Exam: Soft, Normal Bowel Sounds. absent: Distended, Firm, Guarding, Rigid, Tenderness, Rebound - Extremities Exam Extremities Exam: Pedal Edema (lymphedema, nonpitting). absent: Tenderness - Neurological Exam Neurological Exam: Alert, Awake, Oriented x3 Neuro motor strength exam: Left Upper Extremity: 5, Right Upper Extremity: 5, Left Lower Extremity: 5, Right Lower Extremity: 5 - Skin Skin Exam: Dry, Intact, Normal Color, Warm Assessment and Plan (1) Fluid overload Status: Acute (2) Ascites Status: Acute (3) Systolic dysfunction with acute on chronic heart failure Status: Acute (4) Renal failure Status: Acute (5) S/P mitral valve replacement Status: Acute (6) Cardiomyopathy Status: Chronic (7) HLD (hyperlipidemia) Status: Chronic (8) Bacteremia due to coagulase-negative Staphylococcus Status: Acute (9) Prophylactic measure Status: Acute Attending/Attestation - Attestation I have personally seen and examined this patient.: Yes I have fully participated in the care of the patient.: Yes I have reviewed all pertinent clinical information, including history, physical exam and plan: Yes Notes (Text): Patient seen, examined, and case discussed with day-time resident. Patient reports he feels fatigued and tired. Patient reports he did not sleep last night. Patient is currently on Zosyn and Vancomycin IV; patient to receive second dose of dialysis tomorrow. Repeat blood cultures (02/04/18): negative for 48 hours. patient ordered for repeat chest xray today. Patient's blood pressure uncontrolled; cardiology has increased Toprol XL 200mg PO daily. Discussed with cardiology, patient is for outpatient evaluation for [facility]. We will need to f/u with infectious disease (Dr. Fierro is covering Dr. Parrish until 02/10/18) and with pulmonary (Dr. Burt is covering Dr Rose during holiday weekend when stable for discharge from their perspectives. Will repeat procalcitonin tomorrow Unclear why patient is neutropenic; HIV nonreactive. Assessment/Plan 1) Shortness of breath secondary to fluid overload * Nephrology (Dr. El) on board-->help appreciated * Cardiology (Dr. Mora) on board-->help appreciated * Pulmonary (Dr. Rose) on board-->help appreciated * Dr. Burt is covering during holiday weekend * Patient refused ABG/ CT on admission in-spite risks * CT abdomen/pelvis (02/02/18): moderate to large amount of abdominal and pelvic free fluid, increased compared to prior CT 03/20/17. Moderate right pleural effusion. Diffuse subcutanous edema/anasarca. No evidence of significant acute process, Diffuse mild aneurysm; dilatation of the left common and external iliac arteries, up to 2.5cm in diameter, unchanged. no evidence of aneurysm rupture. Diffusely abnormal appearance of the bones, most likely secondary to renal osteodystrophy * CT chest ordered to view right pleural effusion-->Patient refused it. * Dialysis per nephrology * EKG initial shows normal sinus rhythm, no st changes * ROBIN negative x 3 * Echocardiogram (02/03/18): mild concentric left ventricular hypertrophy, left ventricle systolic function is moderately to severely impaired. EF: 35-40%. Flattened septum consistent with right ventricle pressure. severe tricuspid regurgitation. Moderate-severe pulmonary hypertension * s/p paracentesis: 3.4 Liters on 02/03/18-->f/u fluid studies 2) Hypertensive urgency secondary to fluid overload * Nephrology (Dr. El) on board-->help appreciated * Cardiology (Dr. Mora) on board-->help appreciated * Echocardiogram (02/03/18): mild concentric left ventricular hypertrophy, left ventricle systolic function is moderately to severely impaired. EF: 35-40%. Flattened septum consistent with right ventricle pressure. severe tricuspid regurgitation. Moderate-severe pulmonary hypertension * medications confirmed with PMD: * Norvasc 10 mg PO QDaily * Hydralazine 100mg PO TID * Metoprolol XL 200 mg PO QD * Clonidine 0.3 mg PO BID 3) Chest pain History of mitral valve replacement History of AICD * Cardiology (Dr. Mora) on board-->help appreciated * Aspirin 81mg PO daily * serial ekgs; initial ekg normal sinus rhythm, no acute ST changes; first and second trop indeterminate range elevated- likely secondary to renal failure * Echocardiogram (02/03/18): mild concentric left ventricular hypertrophy, left ventricle systolic function is moderately to severely impaired. EF: 35-40%. Flattened septum consistent with right ventricle pressure. severe tricuspid regurgitation. Moderate-severe pulmonary hypertension * O2 by nasal cannula prn * HGB a1C: 4.5 * TSH and free t4: 2.00/2.20 * lipid panel: T, cholerstrol: 142, LDL: 54, HDL: 49 4). Abdominal pain/distention secondary to fluid overload * CT abdomen/pelvis (02/02/18): moderate to large amount of abdominal and pelvic free fluid, increased compared to prior CT 03/20/17. Moderate right pleural effusion. Diffuse subcutanous edema/anasarca. No evidence of significant acute process, Diffuse mild aneurysm; dilatation of the left common and external iliac arteries, up to 2.5cm in diameter, unchanged. no evidence of aneurysm rupture. Diffusely abnormal appearance of the bones, most likely secondary to renal osteodystrophy * IR consult. Dr. Kumar. recs appreciated. * Patient is ESRD, cardiomyopathy, ascites. Patient required paracentesis in last admission about 2.5 Liters removed * s/p paracentesis: 3.4 Liters on 02/03/18 5). Hx of Cardiomyopathy EF: 35-40% Systolic dysfunction with acute on Chronic heart Failure * Cardiology (Dr. Mora) on board-->help appreciated * Await volume removal with dialysis. recommend continued medical therapy with betablocker. add Entresto. Patient wi agreeable to referral to I as outpatient * Systolic dysfunction with acute on Chronic heart Failure * Monitor on telemetry and I/O * Fluid restriction * hold lasix for now as pt does not make urine * Echocardiogram (02/03/18): mild concentric left ventricular hypertrophy, left ventricle systolic function is moderately to severely impaired. EF: 35-40%. Flattened septum consistent with right ventricle pressure. severe tricuspid regurgitation. Moderate-severe pulmonary hypertension * Aspirin 81mg PO daily * Norvasc 10 mg PO QDaily * Hydralazine 100mg PO TID * Metoprolol XL 200 mg PO QD * Clonidine 0.3 mg PO BID * Entresto 6). Hypernatremia-->normalized * Underwent dialysis on 02/02 and scheduled for 02/03 short session * Patient to have next dialysis on 02/07/18 7). Hx of end stage renal disease * Nephrology (Dr. El) on board-->help appreciated * BNP very elevated, 167,000 likely secondary * Dialysis schedule per renal-->next session tomorrow 8). Thrombocytopenia * held dvt ppx given thrombocytopenia 9). Bacteremia * Infectious Disease (Dr. Parrish) on board-->help appreciated * Dr. Fierro is covering until 02/10/[address] Parrish is away * Note: patient high risk given mitral valve replacement * Echocardiogram (02/03/18): mild concentric left ventricular hypertrophy, left ventricle systolic function is moderately to severely impaired. EF: 35-40%. Flattened septum consistent with right ventricle pressure. severe tricuspid regurgitation. Moderate-severe pulmonary hypertension * Zosyn 2.25 gm IVPB Q8H (active since 02/03/18) * Blood culture (02/02/18): No growth * Blood culture (02/02/18): Coagulase Neg Staphylococcus * Repeat blood cultures (02/03/18): No growth after 48 hours X2 * Vancoycin 1gram IVPB MWF (active since 02/07/18): given dose on 02/03/18 * Procalcitonin: 0.68--->will repeat procalcitonin tomorrow 10). GI/DVT ppx * protonix 40 mg iv daily * chemical anticoagulation secondary to thrombocytopenia
--- NOTE | 2018-02-06 14:21 | RAD ---
HISTORY: shortness of breathe COMPARISON: Portable chest 02/04/2018. FINDINGS: LUNGS: No interval change in right basilar atelectasis or potential infiltrate. PLEURA: Mild right pleural effusion likely persists with trace left pleural effusion suggested. No pneumothorax bilaterally. CARDIOVASCULAR: Cardiomegaly is again identified however pulmonary vascular congestion appears diminishing but with significant residual. Prostatic cardiac valve reiterated. AICD again noted in position. OSSEOUS STRUCTURES: No significant abnormalities. VISUALIZED UPPER ABDOMEN: Normal. OTHER FINDINGS: None. IMPRESSION: Mild improvement in CHF with significant residual remaining. Right basilar atelectasis or infiltrate persists as well as mild right pleural effusion. Trace left pleural effusion in question.
--- NOTE | 2018-02-06 16:45 | CT ---
PROCEDURE: CT Chest without contrast HISTORY: sob COMPARISON: None. TECHNIQUE: Contiguous axial images were obtained through the chest without intravenous contrast enhancement. Sagittal and coronal reconstructions were performed. Radiation dose (DLP): 328.87 mGy-cm. This CT exam was performed using one or more of the following dose reduction techniques: Automated exposure control, adjustment of the mA and/or kV according to patient size, and/or use of iterative reconstruction technique. FINDINGS: LUNGS: Extensive ground-glass opacity seen throughout the lungs diffusely with some septal prominence potentially a function of CHF. Separate interstitial pulmonary disease is questioned at the septal prominence is not as evident as one would expect for moderate or prominent CHF as chest radiography suggests in this patient 02/06/2018 and previously. Breast atelectasis affects the right lower lobe. Limited reticular nodular changes seen at the left greater than right pulmonary apices. Central airways grossly appear clear and linear atelectasis is seen at the lingula base. MEDIASTINUM: Unremarkable thoracic aorta. No aneurysm. Gross cardiomegaly again identified with marked enlarged of the main pulmonary artery up to 4.5 cm suggesting significant pulmonary arterial hypertension. Moderate pulmonary venous congestion is suggested. There is moderate mediastinal lymphadenopathy including a 2.7 x 1.6 cm precarinal lymph node and numerous pre aortic lymph nodes which are relatively small. Further, there is apparent dilatation the left subclavian vein, favored over subclavian artery. Sternotomy wires are reiterated with mitral valve replacement. Chest wall AICD identified. PLEURA: Mild right pleural effusion. No left pleural effusion. No pericardial effusion. BONES: Sternotomy. UPPER ABDOMEN: Anasarca pattern of increased density fatty seen within and extrinsic the abdomen with mild abdominal ascites evident as well. Intra bowel kidneys are identified. OTHER FINDINGS: None. IMPRESSION: Findings still suggest CHF however ground-glass pulmonary changes are diffuse and may not be specifically related to CHF with other interstitial pulmonary etiology is possible. Mild right pleural effusion exerts compression atelectasis in the right lower lobe. No additional effusions identified. Gross cardiomegaly with moderate pulmonary vascular congestion. Moderate mediastinal lymphadenopathy. Prominent left subclavian artery favored over vein as well as left axillary artery and vein from an indeterminate etiology.
[2018-02-06] MEDS: Saccharomyces Boulardi 250 mg Cap PO SCH ×2 (16:59→21:07)
--- NOTE | 2018-02-06 21:26 | CP.PCM.PN ---
Subjective - Date & Time of Evaluation Date of Evaluation: 02/06/18 Time of Evaluation: 21:24 - Subjective Subjective: The patient was Seen/interviewed and examined by me at the bedside, Medical records reviewed and Management issues were discussed and formulated with the house staff. Events reviewed Patient lying in bed comfortably. Pt AAO x3. Alert, follows commands Patient states dyspnea on exertion improved since admission. Denies chest pain Breathing unlabored, Adequate saturation on room air O2 I&O reviewed Afebrile, NSR on the monitor Most recent Bolld C/S negative AM Labs reviewed, No Leucocytosis Pt is due for HD yes Objective - Vital Signs/Intake and Output Vital Signs (last 24 hours): Temp Pulse Resp BP Pulse Ox 98 F 90 20 168/98 H 96 02/06/18 15:00 02/06/18 19:50 02/06/18 15:00 02/06/18 15:00 02/06/18 15:00 Intake and Output: 02/06/18 02/07/18 18:59 06:59 Intake Total 240 Balance 240 - Medications Medications: Current Medications Acetaminophen (Tylenol 325mg Tab) 650 mg PO Q6 PRN PRN Reason: Fever >100.4 F Last Admin: 02/06/18 09:26 Dose: 650 mg Albuterol/Ipratropium (Duoneb 3 Mg/0.5 Mg (3 Ml) Ud) 3 ml INH RQ6 PRN PRN Reason: Shortness of Breath Amlodipine Besylate (Norvasc) 10 mg PO DAILY [facility] Last Admin: 02/06/18 09:27 Dose: 10 mg Aspirin (Aspirin Chewable) 81 mg PO DAILY [facility] Last Admin: 02/06/18 09:27 Dose: 81 mg Clonidine HCl (Catapres) 0.3 mg PO BID [facility] Last Admin: 02/06/18 21:07 Dose: 0.3 mg Gabapentin (Neurontin) 100 mg PO HS [facility] Last Admin: 02/06/18 21:06 Dose: 100 mg Hydralazine HCl (Apresoline) 100 mg PO TID [facility] Last Admin: 02/06/18 21:07 Dose: 100 mg Piperacillin Sod/Tazobactam Sod (Zosyn 2.25 Gm Iv Premix) 2.25 gm in 50 mls @ 100 mls/hr IVPB Q8H [facility] PRN Reason: Protocol Last Admin: 02/06/18 21:10 Dose: 100 mls/hr Vancomycin/Sodium Chloride (Vancomycin 1 Gm/Ns 200 Ml) 1 gm in 200 mls @ 133 mls/hr IVPB MWF [facility] PRN Reason: Protocol Stop: 02/09/18 17:01 Metoprolol Succinate (Toprol Xl) 200 mg PO DAILY [facility] Rosuvastatin Calcium (Crestor) 10 mg PO HS [facility] Last Admin: 02/05/18 21:41 Dose: 10 mg Saccharomyces Boulardii (Florastor) 250 mg PO BID [facility] Last Admin: 02/06/18 21:07 Dose: 250 mg Sacubitril/Valsartan (Entresto 49 Mg-51 Mg) 1 tab PO BID [facility] Last Admin: 02/06/18 21:06 Dose: 1 tab Vitamin B Complex/Vit C/Folic Acid (Nephro-Duane) 1 tab PO DAILY [facility] - Labs Labs: 02/06/18 06:54 02/06/18 06:54 PT 13.6 SECONDS (9.7-12.2) H 02/02/18 00:52 INR 1.2 02/02/18 00:52 APTT 32 SECONDS (21-34) 02/02/18 00:52 - Constitutional Appears: Well, Non-toxic, No Acute Distress - Head Exam Head Exam: ATRAUMATIC, NORMAL INSPECTION - Eye Exam Eye Exam: EOMI, Normal appearance. absent: Conjunctival injection Pupil Exam: NORMAL ACCOMODATION, PERRL - Respiratory Exam Respiratory Exam: Decreased Breath Sounds, Clear to Ausculation Bilateral, Rales. absent: Accessory Muscle Use, Chest Wall Tenderness, Prolonged Expiratory Phase, Rhonchi, Wheezes - Cardiovascular Exam Cardiovascular Exam: REGULAR RHYTHM, RRR, +S1, +S2. absent: JVD - GI/Abdominal Exam GI & Abdominal Exam: Distended, Soft, Normal Bowel Sounds. absent: Firm, Guarding, Rigid - Back Exam Back Exam: absent: CVA tenderness (L), CVA tenderness (R) - Neurological Exam Neurological Exam: Alert, Altered, Awake, CN II-XII Intact, Motor Sensory Deficit, Normal Gait, Oriented x3 Assessment and Plan (1) Ascites Status: Acute (2) Dyspnea Status: Acute (3) Pleural effusion Status: Acute (4) Systolic dysfunction with acute on chronic heart failure Status: Acute (5) Volume overload Status: Acute (6) ESRD (end stage renal disease) on dialysis Status: Chronic - Assessment and Plan (Free Text) Assessment: Assessment/Plan: 1. Pleural effusion - Right-sided pleural effusion secondary to ascites - Continue monitoring - Continue hemodialysis 2. Ascites - Paracentesis 02/03: Note of many macrophages, occult mesothelial cells; Fluid WBC 340, Fluid RBC 69975, Fluid Total Cell Count 100, Fluid neutrophils 10, fluid lymphocytes 89 - Management per primary team 3. Bacteremia - Blood cx 02/02: Positive for Gram Positive Cocci - Management per primary team - Procalcitonin 0.68 4. ESRD - Managment per primary team
[2018-02-06 22:49] LABS: GLUCOSE PERITONEAL FLUID 94 mg/dL; LDH PERITONEAL FLUID 247 U/L (<63); TRIGLYCERIDES PERITONEAL FLUID 74 mg/dL (<65)
[2018-02-07 03:51] LABS: AMYLASE PERITONEAL FLUID 27 U/L
[2018-02-07] MEDS: Piperacill/Tazo 2.25gm in Dex 2.25 GM/50 ML BAG IVPB SCH ×2 (04:34→14:05)
--- NOTE | 2018-02-07 07:31 | CP.PCM.PN ---
Objective - Vital Signs/Intake and Output Vital Signs (last 24 hours): Temp Pulse Resp BP Pulse Ox 97.7 F 89 20 142/96 H 94 L 02/06/18 23:15 02/07/18 01:30 02/07/18 01:30 02/07/18 01:30 02/06/18 23:15 Intake and Output: 02/07/18 02/07/18 06:59 18:59 Intake Total 240 Balance 240 - Medications Medications: Current Medications Acetaminophen (Tylenol 325mg Tab) 650 mg PO Q6 PRN PRN Reason: Fever >100.4 F Last Admin: 02/07/18 05:45 Dose: 650 mg Albuterol/Ipratropium (Duoneb 3 Mg/0.5 Mg (3 Ml) Ud) 3 ml INH RQ6 PRN PRN Reason: Shortness of Breath Amlodipine Besylate (Norvasc) 10 mg PO DAILY [facility] Last Admin: 02/06/18 09:27 Dose: 10 mg Aspirin (Aspirin Chewable) 81 mg PO DAILY [facility] Last Admin: 02/06/18 09:27 Dose: 81 mg Clonidine HCl (Catapres) 0.3 mg PO BID [facility] Last Admin: 02/06/18 21:07 Dose: 0.3 mg Gabapentin (Neurontin) 100 mg PO HS [facility] Last Admin: 02/06/18 21:06 Dose: 100 mg Hydralazine HCl (Apresoline) 100 mg PO TID [facility] Last Admin: 02/06/18 21:07 Dose: 100 mg Piperacillin Sod/Tazobactam Sod (Zosyn 2.25 Gm Iv Premix) 2.25 gm in 50 mls @ 100 mls/hr IVPB Q8H [facility] PRN Reason: Protocol Last Admin: 02/07/18 04:34 Dose: 100 mls/hr Vancomycin/Sodium Chloride (Vancomycin 1 Gm/Ns 200 Ml) 1 gm in 200 mls @ 133 mls/hr IVPB MWF [facility] PRN Reason: Protocol Stop: 02/09/18 17:01 Metoprolol Succinate (Toprol Xl) 200 mg PO DAILY [facility] Pantoprazole Sodium (Protonix Inj) 40 mg IVP DAILY [facility] Rosuvastatin Calcium (Crestor) 10 mg PO HS [facility] Last Admin: 02/06/18 22:16 Dose: Not Given Saccharomyces Boulardii (Florastor) 250 mg PO BID [facility] Last Admin: 02/06/18 21:07 Dose: 250 mg Sacubitril/Valsartan (Entresto 49 Mg-51 Mg) 1 tab PO BID [facility] Last Admin: 02/06/18 21:06 Dose: 1 tab Vitamin B Complex/Vit C/Folic Acid (Nephro-Duane) 1 tab PO DAILY [facility] - Labs Labs: 02/06/18 06:54 02/06/18 06:54 PT 13.6 SECONDS (9.7-12.2) H 02/02/18 00:52 INR 1.2 02/02/18 00:52 APTT 32 SECONDS (21-34) 02/02/18 00:52
[2018-02-07] MEDS ORDERED: Vancomycin 1 gm/NS 200 ml 1 GM/200 ML BAG IVPB SCH (09:00)
[2018-02-07] MEDS ORDERED: Epoetin Alfa 10,000 unit/ml Dialysis IV SCH (09:00)
[2018-02-07 10:35] LABS: HEMOGLOBIN 9.3 g/dL (12.0-18.0); MEAN CORPUSCULAR HEMOGLOBIN 28.4 pg (27.0-31.0); MEAN CORPUSCULAR HGB CONC 32.7 g/dL (33.0-37.0); MEAN PLATELET VOLUME 8.6 fL (7.2-11.7); RBC 3.27 Mil/uL (4.40-5.90); WHITE BLOOD COUNT 3.7 K/uL (4.8-10.8)
[2018-02-07 10:52] LABS: ALB/GLOB RATIO 0.9 (1.0-2.1); ALBUMIN 3.9 g/dL (3.5-5.0); CALCIUM 9.6 mg/dl (8.6-10.4)
--- NOTE | 2018-02-07 13:32 | CP.PCM.PN ---
Subjective - Date & Time of Evaluation Date of Evaluation: 02/07/18 Time of Evaluation: 13:32 - Subjective Subjective: seen on hd Assessment: stable ESRD on terminal operator hemodialysis volume overload ascites chf Hypertensive Chronic Kidney Disease (I12.9) Anemia (D64.9), Hyperphosphatemia (E83.39), Secondary Hyperparathyroidism (E21.1 ), HTN (I12.9) Fluid overload, CHF, Plan HD continue per MWF, continue with nephrovite 1 tab/day Hypertension control with meds as ordered. continue binders anemia epo as needed with hd ascites: s/p paracentesis Physical Examination: General Appearance: Comfortable, in no acute respiratory distress, co-operative . Vitals reviewed and noted as below Head; Atraumatic, normocephalic ENT: no ulcers no thrush. EYES: Sclera is anicteric. Neck; supple Lungs: Normal respiratory rate/effort. Breath sounds bilateral clear Heart: Normal rate. s1s2 normal. No rub or gallop. Extremities: no edema. No varicose veins. Neurological: Patient is alert, awake and oriented to person, place and time. No focal deficit. Strength bilateral appropriate and equal Skin: Warm and dry. Normal turgor. Abdomen: Abdomen is soft. Bowel sounds +.distension+ Psych: normal insight and normal affect/mood Objective - Vital Signs/Intake and Output Vital Signs (last 24 hours): Temp Pulse Resp BP Pulse Ox 97.5 F L 90 19 163/105 H 98 02/07/18 09:00 02/07/18 09:00 02/07/18 09:00 02/07/18 12:00 02/07/18 09:00 Intake and Output: 02/07/18 02/07/18 06:59 18:59 Intake Total 240 Balance 240 - Medications Medications: Current Medications Acetaminophen (Tylenol 325mg Tab) 650 mg PO Q6 PRN PRN Reason: Fever >100.4 F Last Admin: 02/07/18 05:45 Dose: 650 mg Albuterol/Ipratropium (Duoneb 3 Mg/0.5 Mg (3 Ml) Ud) 3 ml INH RQ6 PRN PRN Reason: Shortness of Breath Amlodipine Besylate (Norvasc) 10 mg PO DAILY [facility] Last Admin: 02/07/18 08:02 Dose: 10 mg Aspirin (Aspirin Chewable) 81 mg PO DAILY [facility] Last Admin: 02/06/18 09:27 Dose: 81 mg Clonidine HCl (Catapres) 0.3 mg PO BID [facility] Last Admin: 02/07/18 11:04 Dose: 0.3 mg Gabapentin (Neurontin) 100 mg PO HS [facility] Last Admin: 02/06/18 21:06 Dose: 100 mg Hydralazine HCl (Apresoline) 100 mg PO TID [facility] Last Admin: 02/06/18 21:07 Dose: 100 mg Piperacillin Sod/Tazobactam Sod (Zosyn 2.25 Gm Iv Premix) 2.25 gm in 50 mls @ 100 mls/hr IVPB Q8H [facility] PRN Reason: Protocol Last Admin: 02/07/18 04:34 Dose: 100 mls/hr Vancomycin/Sodium Chloride (Vancomycin 1 Gm/Ns 200 Ml) 1 gm in 200 mls @ 133 mls/hr IVPB MWF [facility] PRN Reason: Protocol Stop: 02/09/18 17:01 Metoprolol Succinate (Toprol Xl) 200 mg PO DAILY [facility] Last Admin: 02/07/18 11:04 Dose: 200 mg Pantoprazole Sodium (Protonix Inj) 40 mg IVP DAILY [facility] Rosuvastatin Calcium (Crestor) 10 mg PO HS [facility] Last Admin: 02/06/18 22:16 Dose: Not Given Saccharomyces Boulardii (Florastor) 250 mg PO BID [facility] Last Admin: 02/06/18 21:07 Dose: 250 mg Sacubitril/Valsartan (Entresto 49 Mg-51 Mg) 1 tab PO BID [facility] Last Admin: 02/06/18 21:06 Dose: 1 tab Vitamin B Complex/Vit C/Folic Acid (Nephro-Duane) 1 tab PO DAILY [facility] - Labs Labs: 02/07/18 10:28 02/07/18 10:28 PT 13.6 SECONDS (9.7-12.2) H 02/02/18 00:52 INR 1.2 02/02/18 00:52 APTT 32 SECONDS (21-34) 02/02/18 00:52
[2018-02-07] MEDS: Saccharomyces Boulardi 250 mg Cap PO SCH (14:04)
[2018-02-07] MEDS: Sacubitril/Valsartan 49-51 Tab PO SCH (14:06)
[2018-02-07 14:34] VITALS: RESP 20; O2SAT 99
--- NOTE | 2018-02-07 16:44 | CP.PCM.DIS ---
<Nitza Santillan - Last Filed: 02/07/18 17:25> Provider - Provider Date of Admission: 02/02/18 04:33 Attending physician: Axel Kim MD Time Spent in preparation of Discharge (in minutes): 30 Hospital Course - Lab Results Lab Results: Micro Results 02/02/18 01:31 Blood Blood Culture - Final NO GROWTH AFTER 5 DAYS 02/02/18 01:31 Blood Gram Stain - Final TEST NOT PERFORMED 02/03/18 16:00 Blood-During Dialysis Blood Culture - Preliminary NO GROWTH AFTER 3 DAYS 02/03/18 15:30 Blood-During Dialysis Blood Culture - Preliminary NO GROWTH AFTER 3 DAYS 02/02/18 01:31 Blood S.aureus & Coag-Neg Staph PNA FISH - Final 02/02/18 01:31 Blood Blood Culture - Final Coagulase Neg Staphylococcus 02/02/18 01:31 Blood Gram Stain - Final 02/03/18 12:26 Abdominal Fluid Gram Stain - Final Most Recent Lab Values WBC 3.7 K/uL (4.8-10.8) L 02/07/18 10:28 RBC 3.27 Mil/uL (4.40-5.90) L 02/07/18 10:28 Hgb 9.3 g/dL (12.0-18.0) L 02/07/18 10:28 Hct 28.5 % (35.0-51.0) L 02/07/18 10:28 MCV 87.0 fL (80.0-94.0) 02/07/18 10:28 MCH 28.4 pg (27.0-31.0) 02/07/18 10:28 MCHC 32.7 g/dL (33.0-37.0) L 02/07/18 10:28 RDW 22.0 % (11.5-14.5) H 02/07/18 10:28 Plt Count 78 K/uL (130-400) L 02/07/18 10:28 MPV 8.6 fL (7.2-11.7) 02/07/18 10:28 Neut % (Auto) 63.0 % (50.0-75.0) 02/06/18 06:54 Lymph % (Auto) 21.3 % (20.0-40.0) 02/06/18 06:54 [place] % (Auto) 10.1 % (0.0-10.0) H 02/06/18 06:54 Eos % (Auto) 3.7 % (0.0-4.0) 02/06/18 06:54 Baso % (Auto) 1.9 % (0.0-2.0) 02/06/18 06:54 Neut # (Auto) 2.4 K/uL (1.8-7.0) 02/06/18 06:54 Lymph # (Auto) 0.8 K/uL (1.0-4.3) L 02/06/18 06:54 [place] # (Auto) 0.4 K/uL (0.0-0.8) 02/06/18 06:54 Eos # (Auto) 0.1 K/uL (0.0-0.7) 02/06/18 06:54 Baso # (Auto) 0.1 K/uL (0.0-0.2) 02/06/18 06:54 Differential Comment 02/02/18 01:12 PT 13.6 SECONDS (9.7-12.2) H 02/02/18 00:52 INR 1.2 02/02/18 00:52 APTT 32 SECONDS (21-34) 02/02/18 00:52 Puncture Site Right ra 02/02/18 16:00 pCO2 46 mm/Hg (35-45) H 02/02/18 16:00 pO2 96 mm/Hg (80-100) 02/02/18 16:00 HCO3 36.5 mmol/L (21-28) H 02/02/18 16:00 ABG pH 7.54 (7.35-7.45) H 02/02/18 16:00 ABG Total CO2 40.7 mmol/L (22-28) H 02/02/18 16:00 ABG O2 Saturation 99.1 % (95-98) H 02/02/18 16:00 ABG Base Excess 14.8 mmol/L (-2.0-3.0) H 02/02/18 16:00 Tucker Test Na 02/02/18 16:00 ABG Potassium 4.4 mmol/L (3.6-5.2) 02/02/18 16:00 VBG pH 7.46 (7.32-7.43) H 02/02/18 01:10 VBG pCO2 60 mmHg (40-60) 02/02/18 01:10 VBG HCO3 36.9 mmol/L 02/02/18 01:10 VBG Total CO2 44.5 mmol/L (22-28) H 02/02/18 01:10 VBG O2 Sat (Calc) 83.2 % (40-65) H 02/02/18 01:10 VBG Base Excess 15.8 mmol/L (0.0-2.0) H 02/02/18 01:10 VBG Potassium 4.1 mmol/L (3.6-5.2) 02/02/18 01:10 A-a O2 Difference 132.0 mm/Hg 02/02/18 16:00 Respiratory Index 1.4 02/02/18 16:00 Sodium 141.0 mmol/l (132-148) 02/02/18 16:00 Chloride 102.0 mmol/L (98-107) 02/02/18 16:00 Glucose 95 mg/dl (75-110) 02/02/18 16:00 Lactate 0.9 mmol/L (0.7-2.1) 02/02/18 16:00 Liter Flow 5.0 02/02/18 16:00 FiO2 40.0 % 02/02/18 16:00 Sodium 141 mmol/L (132-148) 02/07/18 10:28 Potassium 4.6 mmol/L (3.6-5.2) 02/07/18 10:28 Chloride 98 mmol/L (98-107) 02/07/18 10:28 Carbon Dioxide 31 mmol/L (22-30) H 02/07/18 10:28 Anion Gap 17 (10-20) 02/07/18 10:28 BUN 39 mg/dL (9-20) H 02/07/18 10:28 Creatinine 6.7 mg/dL (0.8-1.5) H 02/07/18 10:28 Est GFR ( Amer) 11 02/07/18 10:28 Est GFR (Non-Af Amer) 9 02/07/18 10:28 Random Glucose 98 mg/dL (75-110) 02/07/18 10:28 Hemoglobin A1c 4.5 % (4.2-6.5) 02/02/18 10:06 Calcium 9.6 mg/dl (8.6-10.4) 02/07/18 10:28 Phosphorus 3.9 mg/dL (2.5-4.5) 02/07/18 10:28 Magnesium 2.3 mg/dL (1.6-2.3) 02/07/18 10:28 Total Bilirubin 1.4 mg/dL (0.2-1.3) H 02/07/18 10:28 AST 42 U/L (17-59) 02/07/18 10:28 ALT 39 U/L (21-72) 02/07/18 10:28 Alkaline Phosphatase 164 U/L (38-126) H 02/07/18 10:28 Ammonia 65 umol/L (9-33) H 02/03/18 17:04 Total Creatine Kinase 131 U/L (55-170) 02/02/18 17:12 CK-MB (Mass) 4.18 ng/mL (0.0-3.38) H 02/02/18 17:12 Troponin I 0.0370 ng/mL (0.00-0.120) 02/02/18 17:12 NT-Pro-B Natriuret Pep [id number] pg/mL (0-450) H 02/02/18 00:52 Total Protein 8.3 g/dL (6.3-8.3) 02/07/18 10:28 Albumin 3.9 g/dL (3.5-5.0) 02/07/18 10:28 Globulin 4.3 gm/dL (2.2-3.9) H 02/07/18 10:28 Albumin/Globulin Ratio 0.9 (1.0-2.1) L 02/07/18 10:28 Triglycerides 44 mg/dL (0-149) 02/02/18 11:30 Cholesterol 142 mg/dL (0-199) 02/02/18 11:30 LDL Cholesterol Direct 54 mg/dL (0-129) 02/02/18 11:30 HDL Cholesterol 49 mg/dL (30-70) 02/02/18 11:30 Procalcitonin 1.35 NG/ML (0.19-0.49) H 02/07/18 10:28 Free T4 2.20 ng/dL (0.78-2.19) H 02/02/18 11:30 TSH 3rd Generation 2.00 mIU/L (0.46-4.68) 02/02/18 11:30 Arterial Blood Potassium 4.4 mmol/L (3.6-5.2) 02/02/18 16:00 Venous Blood Potassium 4.1 mmol/L (3.6-5.2) 02/02/18 01:10 Fluid Source Peritoneal/ascites 02/03/18 12:23 Fluid Appearance Bloody (CLEAR) 02/03/18 12:23 Fluid WBC 340.0 /mm3 (0.0-300.0) H 02/03/18 12:23 Fluid RBC 97393.0 /mm3 (0.0-0.0) H 02/03/18 12:23 Fluid Tot Cell Count 100 (0-0) H 02/03/18 12:23 Fluid Neutrophils 10.0 % (0-0) H 02/03/18 12:23 Fluid Lymphocytes 89.0 % (0-0) H 02/03/18 12:23 Fld Monocyte/Macrophag 1 % (0-0) H 02/03/18 12:23 Fluid Comment 02/03/18 12:23 Peritoneal LDH 247 U/L (<63) H 02/03/18 12:23 Peritoneal Glucose 94 mg/dL 02/03/18 12:23 Peritoneal Amylase 27 U/L 02/03/18 12:23 Peritoneal Triglycerid 74 mg/dL (<65) H 02/03/18 12:23 HIV 1&2 Ag/Ab, 4th Gen Nonreactive (Nonreactive) 02/04/18 11:20 Mycoplasma pneumon IgM Negative (NEGATIVE) 02/02/18 11:30 - Hospital Course Hospital Course: This is a 37 yo male with past medical hx of CHF, last EF unknown, valvular disease, ESRD on hemodialysis through left av fistula, cirrhosis of liver, chronic anemia, HTN, presenting with chief complaint of shortness of breath and abdominal pain. Pt states he gets his dialysis today and he does not miss sessions. He says he has been having chronic shortness of breath since his open heart surgery 1 year ago. He says that the shortness of breath was getting so bad he could not take it and he came in by ambulance. He says he would go to lie down in bed and every time he lied down, he became sob. He also reports abdominal pain and bloating feeling that has been going on for weeks. He says it is a "squeezing" sensation. The pain is diffusely located. It is 8/10 and getting worse. He also reports some substernal chest pain that went away prior to arrive. It was a pressure sensation. He took 2 asa and it went away. The pt does not make any urine. He denies current chest pain, fevers, chills, vomiting , diarrhea, nausea, blood in stool. He says he does not miss dialysis appts. PMD: Dr. Hu- last saw 3 weeks ago PMH: CHF, ESRD on HD wednesday, wednesday, , HTN EF unknown, no echo on file PSH: valvular open heart surgery, AICD, placement of AV fistula Allergies: NKDA Home meds: cannot name home meds; uses [facility] in [place] Social hx: Denies smoking. Denies drinking. Denies drug use. Not working. Born in . Lives at home with mother Family hx: Father- living- on dialysis mother-living- stroke No hx of cancer. Code status: unknown Hospital Course: Patient was admitted for shortness of breath secondary to fluid overload. Nephrology (Dr. El); Cardiology (Dr. Mora); Infectious disease (Dr. Parrish) and Pulmonary (Dr. Rose) were consulted. Patient refused ABG/ CT on admission in-spite risks. Paracentesis was completed on 02/03/[address] Kmuar and removed about 3.4L of fluid. Blood cultures on 02/02 showed coagulase negative staphylococcus and repeat blood cultures 02/03/18 showed no growth after 48 hours. Patient was started on Zosyn 2.25 q8h and Vancomycin 1gram with dialysis MWF. Patient was started on the following blood pressure medications Aspirin 81mg PO daily; Norvasc 10 mg PO QDaily; Hydralazine 100mg PO TID; Metoprolol XL 200 mg PO QD; Clonidine 0.3 mg PO BID; and Entresto. Images: - CT abdomen/pelvis (02/02/18): moderate to large amount of abdominal and pelvic free fluid, increased compared to prior CT 03/20/17. Moderate right pleural effusion. Diffuse subcutanous edema/anasarca. No evidence of significant acute process, Diffuse mild aneurysm; dilatation of the left common and external iliac arteries, up to 2.5cm in diameter, unchanged. no evidence of aneurysm rupture. Diffusely abnormal appearance of the bones, most likely secondary to renal osteodystrophy - CT chest ordered to view right pleural effusion-->Patient refused it. - Echocardiogram (02/03/18): mild concentric left ventricular hypertrophy, left ventricle systolic function is moderately to severely impaired. EF: 35-40%. Flattened septum consistent with right ventricle pressure. severe tricuspid regurgitation. Moderate-severe pulmonary hypertension Patient refused to stay in the hospital longer. Patient left against medical advice. Patient to continue medications: 1.) Vancomycin 1 g with dialysis MWF until February 25 2.) Norvasc 10mg one tablet daily 3.) Aspirin 81mg one tablet daily 4.) Lipitor 40mg one tablet in the evening 5.) Renal Caps Softgel one tablet daily 6.) Calcitriol 0.5mg one tablet daily 7.) Clonidine 0.3mg one tablet twice a day 8.) Procrit 8,500 units IV with dialysis MWF 9.) Gabapentin 100mg one tablet in the evening 10.) Hydralazine 100mg one tablet three times per day 11.) Metoprolol Succinate 200mg one tablet daily 12.) Pantoprazole 40mg one tablet daily 13.) Entresto one tablet twice per day Please follow up with your primary doctor Dr. Hu. Please follow up with well logging captain Dr. Mora. Please follow up with compliance consultant Dr. El. This is a summary of the patient's hospital course. Please refer to the EMR for a complete record. Discharge Exam - Head Exam Head Exam: ATRAUMATIC, NORMAL INSPECTION Discharge Plan - Discharge Medications Prescriptions: amLODIPine [Norvasc] 10 mg PO DAILY #30 tab Aspirin [Aspirin Chewable] 81 mg PO DAILY #30 chew Atorvastatin [Lipitor] 40 mg PO HS #30 tab B Complex W-C No.20/Folic Acid [Renal Caps Softgel] 1 mg PO DAILY #30 capsule Calcitriol [Rocaltrol] 0.5 mcg PO DAILY #30 sgl cloNIDine [Catapres] 0.3 mg PO BID #60 tab Epoetin Thomas [Procrit] 8,500 unit IV MWF 30 Days ml Gabapentin [Neurontin] 100 mg PO HS #30 capsule hydrALAZINE [Apresoline] 100 mg PO TID #90 tab Metoprolol Succinate [Toprol XL] 200 mg PO DAILY #30 tab Pantoprazole [Protonix EC Tab] 40 mg PO DAILY #30 ect Sacubitril/Valsartan [Entresto 49 mg-51 mg] 1 tab PO BID #60 tablet Vancomycin [Vancomycin Inj] 1 gm IVPB MWF #18 vial - Follow Up Plan Condition: GUARDED Disposition: AGAINST MEDICAL ADVICE <Axel Kim - Last Filed: 02/07/18 19:37> Provider - Provider Date of Admission: 02/02/18 04:33 Attending physician: Axel Kim MD Time Spent in preparation of Discharge (in minutes): 40 Hospital Course - Lab Results Lab Results: Micro Results 02/03/18 16:00 Blood-During Dialysis Blood Culture - Preliminary NO GROWTH AFTER 4 DAYS 02/03/18 15:30 Blood-During Dialysis Blood Culture - Preliminary NO GROWTH AFTER 4 DAYS 02/02/18 01:31 Blood Blood Culture - Final NO GROWTH AFTER 5 DAYS 02/02/18 01:31 Blood Gram Stain - Final TEST NOT PERFORMED 02/02/18 01:31 Blood S.aureus & Coag-Neg Staph PNA FISH - Final 02/02/18 01:31 Blood Blood Culture - Final Coagulase Neg Staphylococcus 02/02/18 01:31 Blood Gram Stain - Final 02/03/18 12:26 Abdominal Fluid Gram Stain - Final Most Recent Lab Values WBC 3.7 K/uL (4.8-10.8) L 02/07/18 10:28 RBC 3.27 Mil/uL (4.40-5.90) L 02/07/18 10:28 Hgb 9.3 g/dL (12.0-18.0) L 02/07/18 10:28 Hct 28.5 % (35.0-51.0) L 02/07/18 10:28 MCV 87.0 fL (80.0-94.0) 02/07/18 10:28 MCH 28.4 pg (27.0-31.0) 02/07/18 10:28 MCHC 32.7 g/dL (33.0-37.0) L 02/07/18 10:28 RDW 22.0 % (11.5-14.5) H 02/07/18 10:28 Plt Count 78 K/uL (130-400) L 02/07/18 10:28 MPV 8.6 fL (7.2-11.7) 02/07/18 10:28 Neut % (Auto) 63.0 % (50.0-75.0) 02/06/18 06:54 Lymph % (Auto) 21.3 % (20.0-40.0) 02/06/18 06:54 Tyler % (Auto) 10.1 % (0.0-10.0) H 02/06/18 06:54 Eos % (Auto) 3.7 % (0.0-4.0) 02/06/18 06:54 Baso % (Auto) 1.9 % (0.0-2.0) 02/06/18 06:54 Neut # (Auto) 2.4 K/uL (1.8-7.0) 02/06/18 06:54 Lymph # (Auto) 0.8 K/uL (1.0-4.3) L 02/06/18 06:54 [place] # (Auto) 0.4 K/uL (0.0-0.8) 02/06/18 06:54 Eos # (Auto) 0.1 K/uL (0.0-0.7) 02/06/18 06:54 Baso # (Auto) 0.1 K/uL (0.0-0.2) 02/06/18 06:54 Differential Comment 02/02/18 01:12 PT 13.6 SECONDS (9.7-12.2) H 02/02/18 00:52 INR 1.2 02/02/18 00:52 APTT 32 SECONDS (21-34) 02/02/18 00:52 Puncture Site Right ra 02/02/18 16:00 pCO2 46 mm/Hg (35-45) H 02/02/18 16:00 pO2 96 mm/Hg (80-100) 02/02/18 16:00 HCO3 36.5 mmol/L (21-28) H 02/02/18 16:00 ABG pH 7.54 (7.35-7.45) H 02/02/18 16:00 ABG Total CO2 40.7 mmol/L (22-28) H 02/02/18 16:00 ABG O2 Saturation 99.1 % (95-98) H 02/02/18 16:00 ABG Base Excess 14.8 mmol/L (-2.0-3.0) H 02/02/18 16:00 Tucker Test Na 02/02/18 16:00 ABG Potassium 4.4 mmol/L (3.6-5.2) 02/02/18 16:00 VBG pH 7.46 (7.32-7.43) H 02/02/18 01:10 VBG pCO2 60 mmHg (40-60) 02/02/18 01:10 VBG HCO3 36.9 mmol/L 02/02/18 01:10 VBG Total CO2 44.5 mmol/L (22-28) H 02/02/18 01:10 VBG O2 Sat (Calc) 83.2 % (40-65) H 02/02/18 01:10 VBG Base Excess 15.8 mmol/L (0.0-2.0) H 02/02/18 01:10 VBG Potassium 4.1 mmol/L (3.6-5.2) 02/02/18 01:10 A-a O2 Difference 132.0 mm/Hg 02/02/18 16:00 Respiratory Index 1.4 02/02/18 16:00 Sodium 141.0 mmol/l (132-148) 02/02/18 16:00 Chloride 102.0 mmol/L (98-107) 02/02/18 16:00 Glucose 95 mg/dl (75-110) 02/02/18 16:00 Lactate 0.9 mmol/L (0.7-2.1) 02/02/18 16:00 Liter Flow 5.0 02/02/18 16:00 FiO2 40.0 % 02/02/18 16:00 Sodium 141 mmol/L (132-148) 02/07/18 10:28 Potassium 4.6 mmol/L (3.6-5.2) 02/07/18 10:28 Chloride 98 mmol/L (98-107) 02/07/18 10:28 Carbon Dioxide 31 mmol/L (22-30) H 02/07/18 10:28 Anion Gap 17 (10-20) 02/07/18 10:28 BUN 39 mg/dL (9-20) H 02/07/18 10:28 Creatinine 6.7 mg/dL (0.8-1.5) H 02/07/18 10:28 Est GFR ( Amer) 11 02/07/18 10:28 Est GFR (Non-Af Amer) 9 02/07/18 10:28 Random Glucose 98 mg/dL (75-110) 02/07/18 10:28 Hemoglobin A1c 4.5 % (4.2-6.5) 02/02/18 10:06 Calcium 9.6 mg/dl (8.6-10.4) 02/07/18 10:28 Phosphorus 3.9 mg/dL (2.5-4.5) 02/07/18 10:28 Magnesium 2.3 mg/dL (1.6-2.3) 02/07/18 10:28 Total Bilirubin 1.4 mg/dL (0.2-1.3) H 02/07/18 10:28 AST 42 U/L (17-59) 02/07/18 10:28 ALT 39 U/L (21-72) 02/07/18 10:28 Alkaline Phosphatase 164 U/L (38-126) H 02/07/18 10:28 Ammonia 65 umol/L (9-33) H 02/03/18 17:04 Total Creatine Kinase 131 U/L (55-170) 02/02/18 17:12 CK-MB (Mass) 4.18 ng/mL (0.0-3.38) H 02/02/18 17:12 Troponin I 0.0370 ng/mL (0.00-0.120) 02/02/18 17:12 NT-Pro-B Natriuret Pep 306265 pg/mL (0-450) H 02/02/18 00:52 Total Protein 8.3 g/dL (6.3-8.3) 02/07/18 10:28 Albumin 3.9 g/dL (3.5-5.0) 02/07/18 10:28 Globulin 4.3 gm/dL (2.2-3.9) H 02/07/18 10:28 Albumin/Globulin Ratio 0.9 (1.0-2.1) L 02/07/18 10:28 Triglycerides 44 mg/dL (0-149) 02/02/18 11:30 Cholesterol 142 mg/dL (0-199) 02/02/18 11:30 LDL Cholesterol Direct 54 mg/dL (0-129) 02/02/18 11:30 HDL Cholesterol 49 mg/dL (30-70) 02/02/18 11:30 Procalcitonin 1.35 NG/ML (0.19-0.49) H 02/07/18 10:28 Free T4 2.20 ng/dL (0.78-2.19) H 02/02/18 11:30 TSH 3rd Generation 2.00 mIU/L (0.46-4.68) 02/02/18 11:30 Arterial Blood Potassium 4.4 mmol/L (3.6-5.2) 02/02/18 16:00 Venous Blood Potassium 4.1 mmol/L (3.6-5.2) 02/02/18 01:10 Fluid Source Peritoneal/ascites 02/03/18 12:23 Fluid Appearance Bloody (CLEAR) 02/03/18 12:23 Fluid WBC 340.0 /mm3 (0.0-300.0) H 02/03/18 12:23 Fluid RBC 89969.0 /mm3 (0.0-0.0) H 02/03/18 12:23 Fluid Tot Cell Count 100 (0-0) H 02/03/18 12:23 Fluid Neutrophils 10.0 % (0-0) H 02/03/18 12:23 Fluid Lymphocytes 89.0 % (0-0) H 02/03/18 12:23 Fld Monocyte/Macrophag 1 % (0-0) H 02/03/18 12:23 Fluid Comment 02/03/18 12:23 Peritoneal LDH 247 U/L (<63) H 02/03/18 12:23 Peritoneal Glucose 94 mg/dL 02/03/18 12:23 Peritoneal Amylase 27 U/L 02/03/18 12:23 Peritoneal Triglycerid 74 mg/dL (<65) H 02/03/18 12:23 HIV 1&2 Ag/Ab, 4th Gen Nonreactive (Nonreactive) 02/04/18 11:20 Mycoplasma pneumon IgM Negative (NEGATIVE) 02/02/18 11:30 Attending/Attestation - Attestation I have personally seen and examined this patient.: Yes I have fully participated in the care of the patient.: Yes I have reviewed all pertinent clinical information, including history, physical exam and plan: Yes Notes (Text): 02/07/18 19:36 Patient was seen and examined earlier today at 2:20 PM During rounds with resident Dr. Santillan, we were notified that patient wanted to sign AMA. Instructions for follow up were thoroughly gone over with Dr. Santillan. Axel Kim D.O.
--- NOTE | 2018-02-07 16:57 | CP.PCM.DIS ---
Provider - Provider Date of Admission: 02/02/18 04:33 Attending physician: Axel Kim MD Hospital Course - Lab Results Lab Results: Micro Results 02/02/18 01:31 Blood Blood Culture - Final NO GROWTH AFTER 5 DAYS 02/02/18 01:31 Blood Gram Stain - Final TEST NOT PERFORMED 02/03/18 16:00 Blood-During Dialysis Blood Culture - Preliminary NO GROWTH AFTER 3 DAYS 02/03/18 15:30 Blood-During Dialysis Blood Culture - Preliminary NO GROWTH AFTER 3 DAYS 02/02/18 01:31 Blood S.aureus & Coag-Neg Staph PNA FISH - Final 02/02/18 01:31 Blood Blood Culture - Final Coagulase Neg Staphylococcus 02/02/18 01:31 Blood Gram Stain - Final 02/03/18 12:26 Abdominal Fluid Gram Stain - Final Most Recent Lab Values WBC 3.7 K/uL (4.8-10.8) L 02/07/18 10:28 RBC 3.27 Mil/uL (4.40-5.90) L 02/07/18 10:28 Hgb 9.3 g/dL (12.0-18.0) L 02/07/18 10:28 Hct 28.5 % (35.0-51.0) L 02/07/18 10:28 MCV 87.0 fL (80.0-94.0) 02/07/18 10:28 MCH 28.4 pg (27.0-31.0) 02/07/18 10:28 MCHC 32.7 g/dL (33.0-37.0) L 02/07/18 10:28 RDW 22.0 % (11.5-14.5) H 02/07/18 10:28 Plt Count 78 K/uL (130-400) L 02/07/18 10:28 MPV 8.6 fL (7.2-11.7) 02/07/18 10:28 Neut % (Auto) 63.0 % (50.0-75.0) 02/06/18 06:54 Lymph % (Auto) 21.3 % (20.0-40.0) 02/06/18 06:54 [place] % (Auto) 10.1 % (0.0-10.0) H 02/06/18 06:54 Eos % (Auto) 3.7 % (0.0-4.0) 02/06/18 06:54 Baso % (Auto) 1.9 % (0.0-2.0) 02/06/18 06:54 Neut # (Auto) 2.4 K/uL (1.8-7.0) 02/06/18 06:54 Lymph # (Auto) 0.8 K/uL (1.0-4.3) L 02/06/18 06:54 [place] # (Auto) 0.4 K/uL (0.0-0.8) 02/06/18 06:54 Eos # (Auto) 0.1 K/uL (0.0-0.7) 02/06/18 06:54 Baso # (Auto) 0.1 K/uL (0.0-0.2) 02/06/18 06:54 Differential Comment 02/02/18 01:12 PT 13.6 SECONDS (9.7-12.2) H 02/02/18 00:52 INR 1.2 02/02/18 00:52 APTT 32 SECONDS (21-34) 02/02/18 00:52 Puncture Site Right ra 02/02/18 16:00 pCO2 46 mm/Hg (35-45) H 02/02/18 16:00 pO2 96 mm/Hg (80-100) 02/02/18 16:00 HCO3 36.5 mmol/L (21-28) H 02/02/18 16:00 ABG pH 7.54 (7.35-7.45) H 02/02/18 16:00 ABG Total CO2 40.7 mmol/L (22-28) H 02/02/18 16:00 ABG O2 Saturation 99.1 % (95-98) H 02/02/18 16:00 ABG Base Excess 14.8 mmol/L (-2.0-3.0) H 02/02/18 16:00 Tucker Test Na 02/02/18 16:00 ABG Potassium 4.4 mmol/L (3.6-5.2) 02/02/18 16:00 VBG pH 7.46 (7.32-7.43) H 02/02/18 01:10 VBG pCO2 60 mmHg (40-60) 02/02/18 01:10 VBG HCO3 36.9 mmol/L 02/02/18 01:10 VBG Total CO2 44.5 mmol/L (22-28) H 02/02/18 01:10 VBG O2 Sat (Calc) 83.2 % (40-65) H 02/02/18 01:10 VBG Base Excess 15.8 mmol/L (0.0-2.0) H 02/02/18 01:10 VBG Potassium 4.1 mmol/L (3.6-5.2) 02/02/18 01:10 A-a O2 Difference 132.0 mm/Hg 02/02/18 16:00 Respiratory Index 1.4 02/02/18 16:00 Sodium 141.0 mmol/l (132-148) 02/02/18 16:00 Chloride 102.0 mmol/L (98-107) 02/02/18 16:00 Glucose 95 mg/dl (75-110) 02/02/18 16:00 Lactate 0.9 mmol/L (0.7-2.1) 02/02/18 16:00 Liter Flow 5.0 02/02/18 16:00 FiO2 40.0 % 02/02/18 16:00 Sodium 141 mmol/L (132-148) 02/07/18 10:28 Potassium 4.6 mmol/L (3.6-5.2) 02/07/18 10:28 Chloride 98 mmol/L (98-107) 02/07/18 10:28 Carbon Dioxide 31 mmol/L (22-30) H 02/07/18 10:28 Anion Gap 17 (10-20) 02/07/18 10:28 BUN 39 mg/dL (9-20) H 02/07/18 10:28 Creatinine 6.7 mg/dL (0.8-1.5) H 02/07/18 10:28 Est GFR ( Amer) 11 02/07/18 10:28 Est GFR (Non-Af Amer) 9 02/07/18 10:28 Random Glucose 98 mg/dL (75-110) 02/07/18 10:28 Hemoglobin A1c 4.5 % (4.2-6.5) 02/02/18 10:06 Calcium 9.6 mg/dl (8.6-10.4) 02/07/18 10:28 Phosphorus 3.9 mg/dL (2.5-4.5) 02/07/18 10:28 Magnesium 2.3 mg/dL (1.6-2.3) 02/07/18 10:28 Total Bilirubin 1.4 mg/dL (0.2-1.3) H 02/07/18 10:28 AST 42 U/L (17-59) 02/07/18 10:28 ALT 39 U/L (21-72) 02/07/18 10:28 Alkaline Phosphatase 164 U/L (38-126) H 02/07/18 10:28 Ammonia 65 umol/L (9-33) H 02/03/18 17:04 Total Creatine Kinase 131 U/L (55-170) 02/02/18 17:12 CK-MB (Mass) 4.18 ng/mL (0.0-3.38) H 02/02/18 17:12 Troponin I 0.0370 ng/mL (0.00-0.120) 02/02/18 17:12 NT-Pro-B Natriuret Pep 980015 pg/mL (0-450) H 02/02/18 00:52 Total Protein 8.3 g/dL (6.3-8.3) 02/07/18 10:28 Albumin 3.9 g/dL (3.5-5.0) 02/07/18 10:28 Globulin 4.3 gm/dL (2.2-3.9) H 02/07/18 10:28 Albumin/Globulin Ratio 0.9 (1.0-2.1) L 02/07/18 10:28 Triglycerides 44 mg/dL (0-149) 02/02/18 11:30 Cholesterol 142 mg/dL (0-199) 02/02/18 11:30 LDL Cholesterol Direct 54 mg/dL (0-129) 02/02/18 11:30 HDL Cholesterol 49 mg/dL (30-70) 02/02/18 11:30 Procalcitonin 1.35 NG/ML (0.19-0.49) H 02/07/18 10:28 Free T4 2.20 ng/dL (0.78-2.19) H 02/02/18 11:30 TSH 3rd Generation 2.00 mIU/L (0.46-4.68) 02/02/18 11:30 Arterial Blood Potassium 4.4 mmol/L (3.6-5.2) 02/02/18 16:00 Venous Blood Potassium 4.1 mmol/L (3.6-5.2) 02/02/18 01:10 Fluid Source Peritoneal/ascites 02/03/18 12:23 Fluid Appearance Bloody (CLEAR) 02/03/18 12:23 Fluid WBC 340.0 /mm3 (0.0-300.0) H 02/03/18 12:23 Fluid RBC 42626.0 /mm3 (0.0-0.0) H 02/03/18 12:23 Fluid Tot Cell Count 100 (0-0) H 02/03/18 12:23 Fluid Neutrophils 10.0 % (0-0) H 02/03/18 12:23 Fluid Lymphocytes 89.0 % (0-0) H 02/03/18 12:23 Fld Monocyte/Macrophag 1 % (0-0) H 02/03/18 12:23 Fluid Comment 02/03/18 12:23 Peritoneal LDH 247 U/L (<63) H 02/03/18 12:23 Peritoneal Glucose 94 mg/dL 02/03/18 12:23 Peritoneal Amylase 27 U/L 02/03/18 12:23 Peritoneal Triglycerid 74 mg/dL (<65) H 02/03/18 12:23 HIV 1&2 Ag/Ab, 4th Gen Nonreactive (Nonreactive) 02/04/18 11:20 Mycoplasma pneumon IgM Negative (NEGATIVE) 02/02/18 11:30 Discharge Exam - Head Exam Head Exam: ATRAUMATIC, NORMAL INSPECTION Discharge Plan - Discharge Medications Prescriptions: amLODIPine [Norvasc] 10 mg PO DAILY #30 tab Aspirin [Aspirin Chewable] 81 mg PO DAILY #30 chew Atorvastatin [Lipitor] 40 mg PO HS #30 tab B Complex W-C No.20/Folic Acid [Renal Caps Softgel] 1 mg PO DAILY #30 capsule Calcitriol [Rocaltrol] 0.5 mcg PO DAILY #30 sgl cloNIDine [Catapres] 0.3 mg PO BID #60 tab Epoetin Thomas [Procrit] 8,500 unit IV MWF 30 Days ml Gabapentin [Neurontin] 100 mg PO HS #30 capsule hydrALAZINE [Apresoline] 100 mg PO TID #90 tab Metoprolol Succinate [Toprol XL] 200 mg PO DAILY #30 tab Pantoprazole [Protonix EC Tab] 40 mg PO DAILY #30 ect Sacubitril/Valsartan [Entresto 49 mg-51 mg] 1 tab PO BID #60 tablet Vancomycin [Vancomycin Inj] 1 gm IVPB MWF #18 vial - Follow Up Plan Condition: GUARDED Disposition: AGAINST MEDICAL ADVICE
[2018-02-07 17:58] VITALS: BP 136/82; PULSE 84; TEMP 98.5
== END 2018-02-07 17:30 | disposition left against medical advice (07) | DRG 544 ==
LOC: C.ER 00:06 → C.6T 04:33
PROVIDERS: ADMIT Family Medicine; ATTEND Family Medicine
PROC: 0W9G3ZZ Drainage of Peritoneal Cavity, Percutaneous Approach (ICD-10-PCS; principal; 2018-02-03)
DX: I13.2 Hypertensive heart and chronic kidney disease with heart failure and with stage 5 chronic kidney disease, or end stage renal disease (principal); I50.43 Acute on chronic combined systolic (congestive) and diastolic (congestive) heart failure; R78.81 Bacteremia; N18.6 End stage renal disease; I42.9 Cardiomyopathy, unspecified; R18.8 Other ascites; K74.60 Unspecified cirrhosis of liver; D69.6 Thrombocytopenia, unspecified; E87.0 Hyperosmolality and hypernatremia; E87.3 Alkalosis; I07.1 Rheumatic tricuspid insufficiency; Z99.2 Dependence on renal dialysis; D63.1 Anemia in chronic kidney disease; Z79.82 Long term (current) use of aspirin; Z95.1 Presence of aortocoronary bypass graft; Z95.2 Presence of prosthetic heart valve; Z95.0 Presence of cardiac pacemaker; Z95.810 Presence of automatic (implantable) cardiac defibrillator; E78.5 Hyperlipidemia, unspecified; B95.7 Other staphylococcus as the cause of diseases classified elsewhere; I16.0 Hypertensive urgency; I25.10 Atherosclerotic heart disease of native coronary artery without angina pectoris; I27.20 Pulmonary hypertension, unspecified; N25.0 Renal osteodystrophy; N25.81 Secondary hyperparathyroidism of renal origin; Z79.899 Other long term (current) drug therapy; Z82.3 Family history of stroke

== ENCOUNTER 2018-05-31 11:23 | Observation (INO) | payer OTHER ==
[2018-05-31 11:34] VITALS: BMI 21.8
[2018-05-31 12:23] LABS: BASO # 0.1 K/uL (0.0-0.2); BASO % 1.9 % (0.0-2.0); EOS # 0.1 K/uL (0.0-0.7); EOS % 3.6 % (0.0-4.0); HEMOGLOBIN 9.1 g/dL (12.0-18.0); LYMPH # 0.8 K/uL (1.0-4.3); LYMPH % 21.2 % (20.0-40.0); MEAN CORPUSCULAR HEMOGLOBIN 28.9 pg (27.0-31.0); MEAN CORPUSCULAR HGB CONC 32.2 g/dL (33.0-37.0); MEAN PLATELET VOLUME 8.6 fL (7.2-11.7); MONO # 0.4 K/uL (0.0-0.8); MONO % 9.5 % (0.0-10.0); NEUT # 2.4 K/uL (1.8-7.0); NEUT % 63.8 % (50.0-75.0); NRBC % 0.1 % (0.0-2.0); RBC 3.14 Mil/uL (4.40-5.90); RED CELL DISTRIBUTION WIDTH 19.2 % (11.5-14.5); WHITE BLOOD COUNT 3.7 K/uL (4.8-10.8)
[2018-05-31 12:25] LABS: MEAN CELL VOLUME 89.8 fL (80.0-94.0)
[2018-05-31 12:31] LABS: INR 1.3; PROTHROMBIN TIME 14.1 SECONDS (9.7-12.2)
--- NOTE | 2018-05-31 12:34 | C.PDOC ---
History Of Present Illness <Sujata Sims Alfonso - Last Filed: 05/31/18 13:23> <Roby Maddox Alfonso - Last Filed: 05/31/18 13:57> 37 y/o male presents to the ER complaining of chest pain and shortness of breath which began earlier today. Patient states that he has a portruding abdomen and his abdomen is usually tapped. His abdomen was last tapped 1 month ago. Patient also reports that he has a history of ESRD and he has dialysis on Mondays, Wednesdays, and Fridays. Of note, he missed his last dialysis appointment yesterday. (Roby Maddox) <SimsSujata M - Last Filed: 05/31/18 13:23> History Per: Patient History/Exam Limitations: no limitations Onset/Duration Of Symptoms: Hrs Current Symptoms Are (Timing): Still Present Severity: Moderate <Roby Maddox - Last Filed: 05/31/18 13:57> Time Seen by Provider: 05/31/18 11:49 Chief Complaint (Nursing): Chest Pain Past Medical History Reviewed: Historical Data, Nursing Documentation, Vital Signs - Medical History PMH: CHF, HTN, End Stage Renal Disease, Chronic Kidney Disease Other Surgeries: Hx of surgeries Family History: States: CAD - Social History Hx Tobacco Use: No (DENIED) Hx Alcohol Use: No Hx Substance Use: No (DENIED) - Immunization History Hx Tetanus Toxoid Vaccination: No Hx Influenza Vaccination: No Hx Pneumococcal Vaccination: No <Roby Maddox Alfonso - Last Filed: 05/31/18 13:57> Vital Signs: Last Vital Signs Temp 98.0 F 05/31/18 11:47 Pulse 79 05/31/18 12:13 Resp 18 05/31/18 12:22 BP 164/117 H 05/31/18 12:13 Pulse Ox 96 05/31/18 13:56 - [facility] Procedures (08/04/17) DRAINAGE OF PERITONEAL CAVITY, PERCUTANEOUS APPROACH (02/02/18) PERFORMANCE OF URINARY FILTRATION, MULTIPLE (03/20/17) ULTRASONOGRAPHY OF ABDOMEN (08/04/17) Review Of Systems Except As Marked, All Systems Reviewed And Found Negative. Constitutional: Negative for: Fever, Chills Cardiovascular: Positive for: Chest Pain Respiratory: Positive for: Shortness of Breath. Negative for: Cough Gastrointestinal: Negative for: Nausea, Vomiting <Roby Maddox - Last Filed: 05/31/18 13:57> Physical Exam - Physical Exam Appears: Non-toxic, No Acute Distress Skin: Normal Color, Warm, Dry Head: Atraumatic, Normacephalic Eye(s): bilateral: Normal Inspection Nose: Normal Oral Mucosa: Moist Neck: Supple Chest: Symmetrical Cardiovascular: Rhythm Regular Respiratory: Decreased Breath Sounds (diminished breath sounds bilaterally), No Rales, No Rhonchi, No Wheezing Gastrointestinal/Abdominal: Soft, No Tenderness, Distention, No Guarding, No Rebound, Ascites Extremity: Normal ROM, Other (+3 bilateral pitting edema) Neurological/Psych: Oriented x3, Normal Speech <Sylvain Maddoxpson Alfonso - Last Filed: 05/31/18 13:57> ED Course And Treatment - Laboratory Results Result Diagrams: 05/31/18 12:12 05/31/18 12:12 <LeviSujata Alfonso - Last Filed: 05/31/18 13:23> - Laboratory Results Result Diagrams: 05/31/18 12:12 05/31/18 12:12 ECG: Interpreted By Me, Viewed By Me ECG Rhythm: Sinus Rhythm Interpretation Of ECG: Normal Sinus Rhythm with normal axises, normal intervals , and non specific ST/T wave changes Rate From EC O2 Sat by Pulse Oximetry: 96 (RA) Pulse Ox Interpretation: Normal <Roby Maddox - Last Filed: 05/31/18 13:57> Medical Decision Making <LeviSujata Alfonso - Last Filed: 05/31/18 13:23> <TanCa M - Last Filed: 05/31/18 13:57> Medical Decision Making: Assessment: Ascites Plan: --Labs --EKG --CXR (TanCa M) Disposition <Sujata Sims Alfonso - Last Filed: 05/31/18 13:23> Discussed With : Axel Kim Doctor Will See Patient In The: Hospital Counseled Patient/Family Regarding: Studies Performed - Disposition Disposition Time: 13:09 <Sylvain Maddoxpson Alfonso - Last Filed: 05/31/18 13:57> - Disposition Disposition: HOSPITALIZED Condition: GUARDED - Clinical Impression Clinical Impression: Chest discomfort, Dyspnea, Volume overload, Abnormal blood pressure, Ascites <Sujata Sims M - Last Filed: 05/31/18 13:23> - Scribe Statement The provider has reviewed the documentation as recorded by the Scribe <Roby Maddox - Last Filed: 05/31/18 13:57> - Scribe Statement Penelope Bustillos (Roby Maddox) Provider Attestation: All medical record entries made by the Scribe were at my direction and personally dictated by me. I have reviewed the chart and agree that the record accurately reflects my personal performance of the history, physical exam, medical decision making, and the department course for this patient. I have also personally directed, reviewed, and agree with the discharge instructions and disposition. (Roby Maddox) Decision To Admit <Sujata Sims M - Last Filed: 05/31/18 13:23> - Pt Status Changed To: Hospital Disposition Of: Observation - InPatient: Physician Admission Certification: I certify that this patient requires 2 or more midnights of care for the following reason:: needs urgent HD, has cp, r/o acs - . Bed Request Type: Telemetry Admitting Physician: Lauro Nash <Roby Maddox - Last Filed: 05/31/18 13:57> - . Patient Diagnosis: Chest discomfort, Dyspnea, Volume overload, Abnormal blood pressure, Ascites
--- NOTE | 2018-05-31 12:42 | RAD ---
Date of service: 05/31/2018 PROCEDURE: CHEST RADIOGRAPH, 1 VIEW HISTORY: SOB COMPARISON: 02/06/2018 FINDINGS: LUNGS: Interval increased opacity over both lungs-worsening interstitial pulmonary edema and/or interstitial pneumonitis inferred. Concomitant coalescent patchy infiltrate left mid lung zone not excluded. PLEURA: No pneumothorax. Probable trace bilateral pleural effusions CARDIOVASCULAR: Cardiomegaly-similar. Central pulmonary venous congestion. Midline sternotomy, valvular prosthesis and defibrillator/pacemaker device in place as before- OSSEOUS STRUCTURES: No significant abnormalities. VISUALIZED UPPER ABDOMEN: Normal. OTHER FINDINGS: None. IMPRESSION: Worsening interstitial pulmonary edema and/or worsening interstitial pneumonitis. A coalescing from interstitial to mild airspace opacity in the left mid lung zone-possible. Follow-up recommended Other findings as above.
[2018-05-31 12:47] LABS: TROPONIN I 0.054 ng/mL (0.00-0.120)
[2018-05-31 12:50] LABS: ALB/GLOB RATIO 1.1 (1.0-2.1); ALBUMIN 3.8 g/dL (3.5-5.0); CALCIUM 8.8 mg/dl (8.6-10.4)
--- NOTE | 2018-05-31 13:43 | CP.PCM.HP ---
<Jessa Nieves - Last Filed: 05/31/18 15:26> History of Present Illness - History of Present Illness History of Present Illness: Medicine Note for Hospitalist Service CC: chest pain, shortness of breath HPI: This is a 37 year old male with PMHx of ESRD MWF with Left AVF, Hypertension, Systolic Heart Failure with LVEF 35-40% with AICD placement, valvular cardiomyopathy, s/p MVR who presents to the ED with chest pain and shortness of breath x 2 days. Patient report he missed his dialysis session yesterday due to not feeling well. Patient reports 2 days of body ache, nonproductive cough, and 3-4 episodes of nonbloody, nonbilious diarrhea. Patient reports he is compliant with his medications and attends his dialysis sessions. He has followed up with Dr. Mora - has scheduled appointment with the HF center at [facility] in June. He currently admits to abdominal pain 2/2 increase in abdominal girth due to ascites with associated shortness of breath. Denied fever, chills, headache, current chest pain, n/v/d/c/, or urinary symptoms. PMHx: As noted above PSHx: ;Left AVF, MVR Meds: As per NOV, reviewed and confirmed All: NKDA SHx: Denied any tobacco, alcohol, or illicit drug use FHx: Father alive with ESRD currently on dialysis. Mother from Stroke. PMD: Dr. Hu Chief Architect: Dr. Mora Firmware Software Verification Engineer: Dr. El Present on Admission - Present on Admission Any Indicators Present on Admission: No Past Patient History - Infectious Disease Hx of Infectious Diseases: None - Tetanus Immunizations Tetanus Immunization: Unknown - Past Medical History & Family History Past Medical History?: Yes - Past Social History Smoking Status: Never Smoked - CARDIAC Hx Congestive Heart Failure: Yes Hx Hypertension: Yes - PULMONARY Hx Respiratory Disorders: No - NEUROLOGICAL Hx Neurological Disorder: No - HEENT Hx HEENT Problems: No - RENAL Hx Chronic Kidney Disease: Yes - ENDOCRINE/METABOLIC Hx Endocrine Disorders: No - HEMATOLOGICAL/ONCOLOGICAL Hx Blood Disorders: Yes Hx Cirrhosis: Yes - INTEGUMENTARY Hx Dermatological Problems: No - MUSCULOSKELETAL/RHEUMATOLOGICAL Hx Musculoskeletal Disorders: No Hx Falls: No - GASTROINTESTINAL Hx Gastrointestinal Disorders: Yes Hx Liver Failure: Yes - GENITOURINARY/GYNECOLOGICAL Hx Genitourinary Disorders: No - PSYCHIATRIC Hx Substance Use: No (DENIED) - SURGICAL HISTORY Hx Surgeries: Yes Hx Arteriovenous Shunt: Yes (left arm(new) ,rt arm(old)) Hx Open Heart Surgery: Yes Hx Valve Replacement: Yes Hx Vascular Access Device: Yes Other/Comment: PACEMAKER - ANESTHESIA Hx Anesthesia: Yes Hx Anesthesia Reactions: No Hx Malignant Hyperthermia: No Meds Allergies/Adverse Reactions: Allergies Allergy/AdvReac Type Severity Reaction Status Date / Time No Known Allergies Allergy Verified 05/31/18 11:32 Physical Exam - Constitutional Appears: No Acute Distress, Chronically Ill - Head Exam Head Exam: NORMAL INSPECTION, NORMOCEPHALIC - Eye Exam Eye Exam: EOMI, Normal appearance. absent: Nystagmus, Scleral icterus Pupil Exam: NORMAL ACCOMODATION - ENT Exam ENT Exam: Mucous Membranes Moist - Respiratory Exam Respiratory Exam: Decreased Breath Sounds, Rales - Cardiovascular Exam Cardiovascular Exam: Tachycardia Additional comments: midline surgical scar noted, well healed - GI/Abdominal Exam GI & Abdominal Exam: Distended, Firm, Tenderness. absent: Hernia, Mass, Organomegaly Additional comments: ascites noted, + fluid wave shift - Rectal Exam Rectal Exam: Deferred - Extremities Exam Extremities exam: Positive for: pedal edema, pedal pulses present. Negative for : tenderness Additional comments: +2 pedal edema bilaterally - Neurological Exam Neurological exam: Alert, CN II-XII Intact, Oriented x3 - Psychiatric Exam Psychiatric exam: Normal Affect, Normal Mood - Skin Skin Exam: Dry, Intact, Normal Color, Warm Results - Vital Signs Recent Vital Signs: Last Vital Signs Temp 98.0 F 05/31/18 11:47 Pulse 79 05/31/18 12:13 Resp 18 05/31/18 12:22 BP 164/117 H 05/31/18 12:13 Pulse Ox 96 05/31/18 13:38 - Labs Result Diagrams: 05/31/18 12:12 05/31/18 12:12 Labs: Laboratory Results - last 24 hr 05/31/18 05/31/18 05/31/18 12:12 12:12 12:12 WBC 3.7 L RBC 3.14 L Hgb 9.1 L Hct 28.2 L MCV 89.8 D MCH 28.9 MCHC 32.2 L RDW 19.2 H Plt Count 87 L MPV 8.6 Neut % (Auto) 63.8 Lymph % (Auto) 21.2 [place] % (Auto) 9.5 Eos % (Auto) 3.6 Baso % (Auto) 1.9 Neut # (Auto) 2.4 Lymph # (Auto) 0.8 L [place] # (Auto) 0.4 Eos # (Auto) 0.1 Baso # (Auto) 0.1 PT 14.1 H INR 1.3 APTT 35 H Sodium 142 Potassium 5.8 H Chloride 98 Carbon Dioxide 31 H Anion Gap 19 BUN 65 H Creatinine 10.9 H* D Est GFR ( Amer) 6 Est GFR (Non-Af Amer) 5 Random Glucose 104 Calcium 8.8 Magnesium 1.9 Total Bilirubin 1.1 AST 41 ALT 36 Alkaline Phosphatase 115 Troponin I 0.0540 NT-Pro-B Natriuret Pep 804432 H Total Protein 7.4 Albumin 3.8 Globulin 3.6 Albumin/Globulin Ratio 1.1 Assessment & Plan - Assessment and Plan (Free Text) Plan: Dyspnea Chest Pain R/O ACS 2/2 fluid overload - Initial ROBIN - negative, f/u serial troponins - Initial EKG: , f/u serial EKGs - Labs from 01/2018 admission * HGBa1C: 4.5 * TSH and free t4: 2.00/2.20 * Lipid panel: T, cholerstrol: 142, LDL: 54, HDL: 49 Abdominal Pain 2/2 Ascites ---IR consulted for paracentesis - Patient required paracentesis in last admission about 3.4 Liters removed on Body Ache, Nonproductive Cough - Denied any sick contacts, last flu shot 2016 - F/U rapid flu Diarrhea - x 2 days, 3-4 episodes each day - F/U stool studies ESRD on HD (MWF) --- Nephrology (Dr. El) - Access located (Left AVF) - Current BNP 126,000, previous admission 167,000 - Dialysis today and scheduled MWF Medications: - Rocaltrol, Procrit, Nephrolite Anemia of Chronic Disease - Baseline hemoglobin is low 9s - Currently receives Procrit with dialysis Thrombocytopenia - VTE contraindicated Hypertension - Resumed home medications: * Norvasc 10 mg PO QDaily * Hydralazine 100mg PO TID * Metoprolol XL 200 mg PO QD * Clonidine 0.3 mg PO BID * Entresto 1 tab PO BID Systolic Heart Failure with LVEF 35-40% with AICD placement Valvular cardiomyopathy, s/p MVR - Echocardiogram (02/03/18): mild concentric left ventricular hypertrophy, left ventricle systolic function is moderately to severely impaired. EF: 35-40%. Flattened septum consistent with right ventricle pressure. severe tricuspid regurgitation. Moderate-severe pulmonary hypertension - Patient has appointment at HF center in [facility] scheduled in June 2018. Prophylactic Measures - GI PPX: Protonix - DVT PPX: SCDs, Heparin during dialysis (which will be held 2/2 thrombocytopenia) - PT eval - determine if home o2 needed DW Dr. Nash, Jessa Nieves DO, PGY2 <Lauro Nash - Last Filed: 05/31/18 17:28> Results - Vital Signs Recent Vital Signs: Last Vital Signs Temp 97.9 F 05/31/18 13:15 Pulse 80 05/31/18 14:08 Resp 22 05/31/18 14:08 BP 161/100 H 05/31/18 16:15 Pulse Ox 96 05/31/18 13:57 - Labs Result Diagrams: 05/31/18 12:12 05/31/18 12:12 Labs: Laboratory Results - last 24 hr 05/31/18 05/31/18 05/31/18 12:12 12:12 12:12 WBC 3.7 L RBC 3.14 L Hgb 9.1 L Hct 28.2 L MCV 89.8 D MCH 28.9 MCHC 32.2 L RDW 19.2 H Plt Count 87 L MPV 8.6 Neut % (Auto) 63.8 Lymph % (Auto) 21.2 [place] % (Auto) 9.5 Eos % (Auto) 3.6 Baso % (Auto) 1.9 Neut # (Auto) 2.4 Lymph # (Auto) 0.8 L [place] # (Auto) 0.4 Eos # (Auto) 0.1 Baso # (Auto) 0.1 PT 14.1 H INR 1.3 APTT 35 H Sodium 142 Potassium 5.8 H Chloride 98 Carbon Dioxide 31 H Anion Gap 19 BUN 65 H Creatinine 10.9 H* D Est GFR ( Amer) 6 Est GFR (Non-Af Amer) 5 Random Glucose 104 Calcium 8.8 Magnesium 1.9 Total Bilirubin 1.1 AST 41 ALT 36 Alkaline Phosphatase 115 Troponin I 0.0540 NT-Pro-B Natriuret Pep 359332 H Total Protein 7.4 Albumin 3.8 Globulin 3.6 Albumin/Globulin Ratio 1.1 Attending/Attestation - Attestation I have personally seen and examined this patient.: Yes I have fully participated in the care of the patient.: Yes I have reviewed all pertinent clinical information: Yes Notes (Text): 05/31/18 17:28 Medical consult: Patient was seen and examined by me during rounds with the medical staff assistant, agree with the the above note by the medical staff assistant. This is a 37-year-old male who despite his young age has unfortunately very significant medical history. As reported above he has a history of end-stage renal disease and requires hemodialysis. From what we were able to gather he was not able to get his dialysis yesterday and missed his dialysis treatment. He came in very short of breath, and dyspnea and exertion. So he's here now currently at hemodialysis getting treatment and I understand that he's can get another session of dialysis tomorrow. He's also had significant buildup of abdominal ascites. He's had several paracentesis done before in the past. Furthermore the patient has a history of AICD placement due to low ejection fraction from heart failure as well as mitral valve replacement done Because the patient tells us that he's been recently having body aches diarrhea were to check stool studies as well as check influenza studies. Thank you very much Lauro Nash
[2018-05-31] MEDS: Sacubitril/Valsartan 49-51 Tab PO SCH (18:21)
[2018-05-31 20:26] LABS: CK-MB 4.02 ng/mL (0.0-3.38)
[2018-05-31 20:31] LABS: TROPONIN I 0.051 ng/mL (0.00-0.120)
[2018-06-01] MEDS ORDERED: DiphenhydrAMINE 12.5 mg/5 ml LIQ UD (5 ml) PO STA (01:23)
[2018-06-01 05:22] LABS: CK-MB 4.78 ng/mL (0.0-3.38); TROPONIN I 0.053 ng/mL (0.00-0.120)
[2018-06-01] MEDS ORDERED: Epoetin Alfa 10,000 unit/ml Dialysis IV SCH (09:00)
--- NOTE | 2018-06-01 09:14 | CP.PCM.PN ---
<Holley Hayes - Last Filed: 06/01/18 12:23> Subjective - Date & Time of Evaluation Date of Evaluation: 06/01/18 Time of Evaluation: 09:11 - Subjective Subjective: PGY1- Progress Note for Dr. Charity Simpson Patient was seen and evaluated during dialysis session. Patient currently without new complaints. No acute events overnight. Patient is aware of possible paracentesis today. Patient complains of some abdominal pain, but was able to tolerate renal diet without issue. Otherwise patient denies fever, chills, nausea, vomiting, palpitations, chest pain, lower extremity pain, dysuria, back pain, headache, and/or dizziness. Objective - Vital Signs/Intake and Output Vital Signs (last 24 hours): Temp Pulse Resp BP Pulse Ox 97.5 F L 82 20 149/91 H 98 06/01/18 07:02 06/01/18 07:02 06/01/18 07:02 06/01/18 07:02 06/01/18 07:02 - Medications Medications: Current Medications Acetaminophen (Tylenol 325mg Tab) 650 mg PO Q6 PRN PRN Reason: Pain, moderate (4-7) Last Admin: 05/31/18 19:28 Dose: 650 mg Amlodipine Besylate (Norvasc) 10 mg PO DAILY [facility] Last Admin: 05/31/18 14:51 Dose: 10 mg Aspirin (Aspirin Chewable) 81 mg PO DAILY [facility] Calcitriol (Rocaltrol) 0.5 mcg PO DAILY [facility] Clonidine HCl (Catapres) 0.3 mg PO BID [facility] Last Admin: 05/31/18 18:21 Dose: 0.3 mg Epoetin Thomas (Procrit) 8,500 unit IV MWF [facility] Gabapentin (Neurontin) 100 mg PO HS [facility] Last Admin: 05/31/18 21:06 Dose: 100 mg Hydralazine HCl (Apresoline) 100 mg PO TID [facility] Last Admin: 05/31/18 18:21 Dose: 100 mg Metoprolol Succinate (Toprol Xl) 200 mg PO DAILY [facility] Pantoprazole Sodium (Protonix Ec Tab) 40 mg PO DAILY [facility] Rosuvastatin Calcium (Crestor) 20 mg PO HS [facility] Last Admin: 05/31/18 21:06 Dose: 20 mg Sacubitril/Valsartan (Entresto 49 Mg-51 Mg) 1 tab PO BID [facility] Last Admin: 05/31/18 18:21 Dose: 1 tab Vitamin B Complex/Vit C/Folic Acid (Nephro-Duane) 1 tab PO DAILY [facility] - Labs Labs: 05/31/18 12:12 05/31/18 12:12 PT 14.1 SECONDS (9.7-12.2) H 05/31/18 12:12 INR 1.3 05/31/18 12:12 APTT 35 SECONDS (21-34) H 05/31/18 12:12 - Additional Findings Additional findings: - Constitutional Appears: No Acute Distress, Chronically Ill - Head Exam Head Exam: NORMAL INSPECTION, NORMOCEPHALIC - Eye Exam Eye Exam: EOMI, Normal appearance. absent: Nystagmus, Scleral icterus Pupil Exam: NORMAL ACCOMODATION - ENT Exam ENT Exam: Mucous Membranes Moist - Respiratory Exam Respiratory Exam: Decreased Breath Sounds, Rales - Cardiovascular Exam Cardiovascular Exam: Additional comments: midline surgical scar noted, well healed - GI/Abdominal Exam GI & Abdominal Exam: Distended, Firm, Tenderness. absent: Hernia, Mass, Organomegaly Additional comments: ascites noted, + fluid wave shift - Rectal Exam Rectal Exam: Deferred - Extremities Exam Extremities exam: Positive for: pedal edema, pedal pulses present. Negative for : tenderness Additional comments: +2 pedal edema bilaterally. - Neurological Exam Neurological exam: Alert, CN II-XII Intact, Oriented x3 - Psychiatric Exam Psychiatric exam: Normal Affect, Normal Mood - Skin Skin Exam: Dry, Intact, Normal Color, Warm Assessment and Plan - Assessment and Plan (Free Text) Assessment: Dyspnea likely secondary to fluid overload, Chest Pain Rule-out ACS - ROBIN Panel: Negative x3 - Most recent EKG 06/01: DAz=370 Normal sinus @87bpm nonspecific T wave abnormality - Labs from 01/2018 admission * HGBa1C: 4.5 * TSH and free t4: 2.00/2.20 * Lipid panel: T, cholerstrol: 142, LDL: 54, HDL: 49 Abdominal Pain likely secondary to Ascites - IR consulted for paracentesis (Dr. Kumar) Recommendations appreciated - Patient required paracentesis in last admission about 3.4 Liters removed on Body Ache, Nonproductive Cough - Denied any sick contacts, last flu shot 2016 - F/U rapid flu Diarrhea, improved - x 2 days, 3-4 episodes each day - F/U stool studies ESRD on HD (MWF) - Nephrology (Dr. El) - Access located (Left AVF) - Current BNP 126,000, previous admission 167,000 - Dialysis today and scheduled MWF Medications: - Rocaltrol, Procrit, Nephrolite Anemia of Chronic Disease - Baseline hemoglobin is low 9s--> 8.3 06/01 - Currently receives Procrit with dialysis Thrombocytopenia - VTE contraindicated Hypertension - Resumed home medications: * Norvasc 10 mg PO QDaily * Hydralazine 100mg PO TID * Metoprolol XL 200 mg PO QD * Clonidine 0.3 mg PO BID * Entresto 1 tab PO BID Systolic Heart Failure with LVEF 35-40% with AICD placement Valvular cardiomyopathy, s/p MVR - Echocardiogram (02/03/18): mild concentric left ventricular hypertrophy, left ventricle systolic function is moderately to severely impaired. EF: 35-40%. Flattened septum consistent with right ventricle pressure. severe tricuspid regurgitation. Moderate-severe pulmonary hypertension - Patient has appointment at HF center in [facility] scheduled in June 2018. Prophylactic Measures - GI PPX: Protonix - DVT PPX: SCDs, Heparin during dialysis (which will be held 2/2 thrombocytopenia) - PT eval - determine if home o2 needed Patient seen and case discussed with Holley Grijalva PGY1 <Lauro Nash - Last Filed: 06/01/18 17:39> Objective - Vital Signs/Intake and Output Vital Signs (last 24 hours): Temp Pulse Resp BP Pulse Ox 98.4 F 84 18 150/107 H 100 06/01/18 17:16 06/01/18 17:16 06/01/18 17:16 06/01/18 17:16 06/01/18 17:16 - Medications Medications: Current Medications Acetaminophen (Tylenol 325mg Tab) 650 mg PO Q6 PRN PRN Reason: Pain, moderate (4-7) Last Admin: 05/31/18 19:28 Dose: 650 mg Amlodipine Besylate (Norvasc) 10 mg PO DAILY [facility] Last Admin: 06/01/18 14:28 Dose: 10 mg Aspirin (Aspirin Chewable) 81 mg PO DAILY [facility] Last Admin: 06/01/18 10:12 Dose: Not Given Calcitriol (Rocaltrol) 0.5 mcg PO DAILY [facility] Last Admin: 06/01/18 14:32 Dose: 0.5 mcg Clonidine HCl (Catapres) 0.3 mg PO BID [facility] Last Admin: 06/01/18 17:16 Dose: 0.3 mg Epoetin Thomas (Procrit) 8,500 unit IV MWF [facility] Last Admin: 06/01/18 12:47 Dose: 8,500 unit Gabapentin (Neurontin) 100 mg PO [facility] Last Admin: 05/31/18 21:06 Dose: 100 mg Hydralazine HCl (Apresoline) 100 mg PO TID [facility] Last Admin: 06/01/18 17:15 Dose: 100 mg Metoprolol Succinate (Toprol Xl) 200 mg PO DAILY [facility] Last Admin: 06/01/18 14:32 Dose: 200 mg Pantoprazole Sodium (Protonix Ec Tab) 40 mg PO DAILY [facility] Last Admin: 06/01/18 14:28 Dose: 40 mg Rosuvastatin Calcium (Crestor) 10 mg PO [facility] Sacubitril/Valsartan (Entresto 49 Mg-51 Mg) 1 tab PO BID [facility] Last Admin: 06/01/18 17:16 Dose: 1 tab Vitamin B Complex/Vit C/Folic Acid (Nephro-Duane) 1 tab PO DAILY [facility] Last Admin: 06/01/18 14:28 Dose: 1 tab - Labs Labs: 06/01/18 09:38 06/01/18 09:38 PT 14.1 SECONDS (9.7-12.2) H 05/31/18 12:12 INR 1.3 05/31/18 12:12 APTT 35 SECONDS (21-34) H 05/31/18 12:12 Attending/Attestation - Attestation I have personally seen and examined this patient.: Yes I have fully participated in the care of the patient.: Yes I have reviewed all pertinent clinical information, including history, physical exam and plan: Yes Notes (Text): 06/01/18 17:39 Medical attending: Patient was seen and examined by me, agrees the above note by the vp medical. When we saw the patient again, he was getting another session of hemodialysis. He was not in any acute distress when we saw him however we did note that he had elevated blood pressure. So we asked him to give the patient's blood pressure medication. When we saw the patient he had not yet had a paracentesis done, however later on during the day he had 3.5 L removed by IR. As mentioned previously this is a patient with a history of end-stage renal disease on hemodialysis, as well as history of mitral valve replacement and AICD for low ejection fraction CHF We're still pending on influenza study at this moment Thank you very much, Lauro Nash
[2018-06-01 09:52] LABS: BASO # 0.1 K/uL (0.0-0.2); BASO % 1.5 % (0.0-2.0); EOS # 0.1 K/uL (0.0-0.7); EOS % 3.2 % (0.0-4.0); HEMOGLOBIN 8.3 g/dL (12.0-18.0); LYMPH # 0.8 K/uL (1.0-4.3); LYMPH % 22.5 % (20.0-40.0); MEAN CELL VOLUME 87.9 fL (80.0-94.0); MEAN CORPUSCULAR HEMOGLOBIN 28.2 pg (27.0-31.0); MEAN CORPUSCULAR HGB CONC 32.1 g/dL (33.0-37.0); MEAN PLATELET VOLUME 8.6 fL (7.2-11.7); MONO # 0.3 K/uL (0.0-0.8); MONO % 8.3 % (0.0-10.0); NEUT # 2.2 K/uL (1.8-7.0); NEUT % 64.5 % (50.0-75.0); RBC 2.94 Mil/uL (4.40-5.90); RED CELL DISTRIBUTION WIDTH 19.3 % (11.5-14.5); WHITE BLOOD COUNT 3.4 K/uL (4.8-10.8)
[2018-06-01] MEDS: Sacubitril/Valsartan 49-51 Tab PO SCH ×2 (10:12→17:16)
[2018-06-01] MEDS: Pantoprazole 40 mg EC Tab PO SCH ×2 (10:13→14:28)
[2018-06-01] MEDS: Multivitamin Vitamin B Complex (Nephro-Vite) Tab PO SCH ×2 (10:13→14:28)
[2018-06-01] MEDS: Metoprolol Succinate 200 mg XL Tab PO SCH ×2 (10:14→14:32)
[2018-06-01 10:22] LABS: ALBUMIN 3.5 g/dL (3.5-5.0); CALCIUM 8.9 mg/dl (8.6-10.4)
[2018-06-01] MEDS ORDERED: Lidocaine Hydrochloride 5 ML INJ ONE (14:25)
--- NOTE | 2018-06-01 15:53 | PCM.SURG1 ---
Surgeon's Initial Post Op Note - Surgeon's Notes Surgeon: Krissy Lumber Press Operator: None Type of Anesthesia: Local Pre-Operative Diagnosis: Ascites. Operative Findings: Mildly bloody ascites. Post-Operative Diagnosis: Ascites. Operation Performed: Paracentesis Specimen/Specimens Removed: Approx 3.5L of bloody ascitic fluid aspirated. Estimated Blood Loss: EBL {In ML}: 1 Date of Surgery/Procedure: 06/01/18 Time of Surgery/Procedure: 15:45
[2018-06-01 16:24] VITALS: O2SAT 100
[2018-06-02 00:46] VITALS: RESP 20
--- NOTE | 2018-06-02 06:56 | CARD ---
APPROVED REPORT Date of service: 05/31/2018 EKG Measurement Heart [id number] [place] 156P88 [id number] <Conclusion> Normal sinus rhythm Rightward axis Nonspecific T wave abnormality Prolonged QT Abnormal ECG
--- NOTE | 2018-06-02 07:04 | CARD ---
APPROVED REPORT Date of service: 05/31/2018 EKG Measurement Heart [id number] [place] 136P20 [id number] <Conclusion> Normal sinus rhythm Nonspecific T wave abnormality Abnormal ECG
--- NOTE | 2018-06-02 07:28 | CP.PCM.PN ---
Subjective - Date & Time of Evaluation Date of Evaluation: 06/02/18 Time of Evaluation: 07:26 - Subjective Subjective: PGY1- Progress Note for Dr. Charity Simpson Patient was seen and evaluated at bedside. Patient currently without new complaints. No acute events overnight. Patient is aware of possible paracentesis today. Patient complains of some abdominal pain, but was able to tolerate renal diet without issue. Otherwise patient denies fever, chills, nausea, vomiting, palpitations, chest pain, lower extremity pain, dysuria, back pain, headache, and/or dizziness. Objective - Vital Signs/Intake and Output Vital Signs (last 24 hours): Temp Pulse Resp BP Pulse Ox 98.7 F 80 20 135/93 H 100 06/02/18 00:45 06/02/18 00:45 06/02/18 00:45 06/02/18 00:45 06/02/18 00:45 - Medications Medications: Current Medications Acetaminophen (Tylenol 325mg Tab) 650 mg PO Q6 PRN PRN Reason: Pain, moderate (4-7) Last Admin: 05/31/18 19:28 Dose: 650 mg Amlodipine Besylate (Norvasc) 10 mg PO DAILY [facility] Last Admin: 06/01/18 14:28 Dose: 10 mg Aspirin (Aspirin Chewable) 81 mg PO DAILY [facility] Last Admin: 06/01/18 10:12 Dose: Not Given Calcitriol (Rocaltrol) 0.5 mcg PO DAILY [facility] Last Admin: 06/01/18 14:32 Dose: 0.5 mcg Clonidine HCl (Catapres) 0.3 mg PO BID [facility] Last Admin: 06/01/18 17:16 Dose: 0.3 mg Epoetin Thomas (Procrit) 8,500 unit IV MWF [facility] Last Admin: 06/01/18 12:47 Dose: 8,500 unit Gabapentin (Neurontin) 100 mg PO HS [facility] Last Admin: 06/01/18 21:07 Dose: 100 mg Hydralazine HCl (Apresoline) 100 mg PO 0700,1300,1900 [facility] Last Admin: 06/02/18 06:53 Dose: 100 mg Metoprolol Succinate (Toprol Xl) 200 mg PO DAILY [facility] Last Admin: 06/01/18 14:32 Dose: 200 mg Pantoprazole Sodium (Protonix Ec Tab) 40 mg PO DAILY [facility] Last Admin: 06/01/18 14:28 Dose: 40 mg Rosuvastatin Calcium (Crestor) 10 mg PO HS [facility] Last Admin: 06/01/18 21:07 Dose: 10 mg Sacubitril/Valsartan (Entresto 49 Mg-51 Mg) 1 tab PO BID [facility] Last Admin: 06/01/18 17:16 Dose: 1 tab Vitamin B Complex/Vit C/Folic Acid (Nephro-Duane) 1 tab PO DAILY [facility] Last Admin: 06/01/18 14:28 Dose: 1 tab - Labs Labs: 06/01/18 09:38 06/01/18 09:38 PT 14.1 SECONDS (9.7-12.2) H 05/31/18 12:12 INR 1.3 05/31/18 12:12 APTT 35 SECONDS (21-34) H 05/31/18 12:12 - Additional Findings Additional findings: - Constitutional Appears: No Acute Distress, Chronically Ill - Head Exam Head Exam: NORMAL INSPECTION, NORMOCEPHALIC - Eye Exam Eye Exam: EOMI, Normal appearance. absent: Nystagmus, Scleral icterus Pupil Exam: NORMAL ACCOMODATION - ENT Exam ENT Exam: Mucous Membranes Moist - Respiratory Exam Respiratory Exam: Decreased Breath Sounds, Rales - Cardiovascular Exam Cardiovascular Exam: Additional comments: midline surgical scar noted, well healed - GI/Abdominal Exam GI & Abdominal Exam: Distended, Firm, Tenderness. absent: Hernia, Mass, Organomegaly Additional comments: ascites noted, + fluid wave shift - Rectal Exam Rectal Exam: Deferred - Extremities Exam Extremities exam: Positive for: pedal edema, pedal pulses present. Negative for : tenderness Additional comments: +2 pedal edema bilaterally. - Neurological Exam Neurological exam: Alert, CN II-XII Intact, Oriented x3 - Psychiatric Exam Psychiatric exam: Normal Affect, Normal Mood - Skin Skin Exam: Dry, Intact, Normal Color, Warm Assessment and Plan - Assessment and Plan (Free Text) Assessment: Dyspnea likely secondary to fluid overload, Chest Pain Rule-out ACS - ROBIN Panel: Negative x3 - Most recent EKG 06/01: UBi=650 Normal sinus @87bpm nonspecific T wave abnormality - Labs from 01/2018 admission * HGBa1C: 4.5 * TSH and free t4: 2.00/2.20 * Lipid panel: T, cholerstrol: 142, LDL: 54, HDL: 49 Abdominal Pain likely secondary to Ascites - IR consulted for paracentesis (Dr. Kumar) Recommendations appreciated - Patient required paracentesis in last admission about 3.4 Liters removed on Body Ache, Nonproductive Cough - Denied any sick contacts, last flu shot 2016 - F/U rapid flu Diarrhea, improved - x 2 days, 3-4 episodes each day - F/U stool studies ESRD on HD (MWF) - Nephrology (Dr. El) - Access located (Left AVF) - Current BNP 126,000, previous admission 167,000 - Dialysis today and scheduled MWF Medications: - Rocaltrol, Procrit, Nephrolite Anemia of Chronic Disease - Baseline hemoglobin is low 9s--> 8.3 06/01 - Currently receives Procrit with dialysis Thrombocytopenia - VTE contraindicated Hypertension - Resumed home medications: * Norvasc 10 mg PO QDaily * Hydralazine 100mg PO TID * Metoprolol XL 200 mg PO QD * Clonidine 0.3 mg PO BID * Entresto 1 tab PO BID Systolic Heart Failure with LVEF 35-40% with AICD placement Valvular cardiomyopathy, s/p MVR - Echocardiogram (02/03/18): mild concentric left ventricular hypertrophy, left ventricle systolic function is moderately to severely impaired. EF: 35-40%. Flattened septum consistent with right ventricle pressure. severe tricuspid regurgitation. Moderate-severe pulmonary hypertension - Patient has appointment at HF center in [facility] scheduled in June 2018. Prophylactic Measures - GI PPX: Protonix - DVT PPX: SCDs, Heparin during dialysis (which will be held 2/2 thrombocytopenia) - PT eval - determine if home o2 needed Patient seen and case discussed with Dr. Nash, Holley Hayes PGY1
[2018-06-02 07:51] VITALS: BP 152/102; PULSE 75; TEMP 98.4
[2018-06-02] MEDS: Sacubitril/Valsartan 49-51 Tab PO SCH (10:42)
[2018-06-02] MEDS: Multivitamin Vitamin B Complex (Nephro-Vite) Tab PO SCH (10:42)
[2018-06-02] MEDS: Pantoprazole 40 mg EC Tab PO SCH (10:42)
[2018-06-02] MEDS: Metoprolol Succinate 200 mg XL Tab PO SCH (10:43)
--- NOTE | 2018-06-02 11:14 | CP.PCM.DIS ---
<Holley Hayes - Last Filed: 06/02/18 18:53> Provider - Provider Date of Admission: 05/31/18 13:24 Attending physician: Lauro Nash DO Primary care physician: Dr. Hu Consults: Nephrology: Dr. El Paracentesis: Dr. Kumar (Dr. Rey covering 06/01) Time Spent in preparation of Discharge (in minutes): 45 Diagnosis - Discharge Diagnosis (1) Renal failure Status: Acute Priority: Medium (2) Hyperkalemia Status: Acute Priority: Medium (3) Ascites Status: Acute Priority: Medium (4) ESRD (end stage renal disease) on dialysis Status: Chronic Priority: Medium Hospital Course - Lab Results Lab Results: Micro Results 05/31/18 16:30 Blood-During Dialysis Blood Culture - Preliminary NO GROWTH AFTER 24 HOURS 05/31/18 15:40 Blood-During Dialysis Blood Culture - Preliminary NO GROWTH AFTER 24 HOURS Most Recent Lab Values WBC 3.4 K/uL (4.8-10.8) L 06/01/18 09:38 RBC 2.94 Mil/uL (4.40-5.90) L 06/01/18 09:38 Hgb 8.3 g/dL (12.0-18.0) L 06/01/18 09:38 Hct 25.8 % (35.0-51.0) L 06/01/18 09:38 MCV 87.9 fL (80.0-94.0) 06/01/18 09:38 MCH 28.2 pg (27.0-31.0) 06/01/18 09:38 MCHC 32.1 g/dL (33.0-37.0) L 06/01/18 09:38 RDW 19.3 % (11.5-14.5) H 06/01/18 09:38 Plt Count 90 K/uL (130-400) L 06/01/18 09:38 MPV 8.6 fL (7.2-11.7) 06/01/18 09:38 Neut % (Auto) 64.5 % (50.0-75.0) 06/01/18 09:38 Lymph % (Auto) 22.5 % (20.0-40.0) 06/01/18 09:38 Terry % (Auto) 8.3 % (0.0-10.0) 06/01/18 09:38 Eos % (Auto) 3.2 % (0.0-4.0) 06/01/18 09:38 Baso % (Auto) 1.5 % (0.0-2.0) 06/01/18 09:38 Neut # (Auto) 2.2 K/uL (1.8-7.0) 06/01/18 09:38 Lymph # (Auto) 0.8 K/uL (1.0-4.3) L 06/01/18 09:38 Terry # (Auto) 0.3 K/uL (0.0-0.8) 06/01/18 09:38 Eos # (Auto) 0.1 K/uL (0.0-0.7) 06/01/18 09:38 Baso # (Auto) 0.1 K/uL (0.0-0.2) 06/01/18 09:38 PT 14.1 SECONDS (9.7-12.2) H 05/31/18 12:12 INR 1.3 05/31/18 12:12 APTT 35 SECONDS (21-34) H 05/31/18 12:12 Sodium 141 mmol/L (132-148) 06/01/18 09:38 Potassium 5.0 mmol/L (3.6-5.2) 06/01/18 09:38 Chloride 98 mmol/L (98-107) 06/01/18 09:38 Carbon Dioxide 32 mmol/L (22-30) H 06/01/18 09:38 Anion Gap 16 (10-20) 06/01/18 09:38 BUN 41 mg/dL (9-20) H 06/01/18 09:38 Creatinine 8.4 mg/dL (0.8-1.5) H* D 06/01/18 09:38 Est GFR ( Amer) 9 06/01/18 09:38 Est GFR (Non-Af Amer) 7 06/01/18 09:38 Random Glucose 103 mg/dL (75-110) 06/01/18 09:38 Calcium 8.9 mg/dl (8.6-10.4) 06/01/18 09:38 Phosphorus 5.0 mg/dL (2.5-4.5) H 06/01/18 09:38 Magnesium 1.9 mg/dL (1.6-2.3) 06/01/18 09:38 Total Bilirubin 0.9 mg/dL (0.2-1.3) 06/01/18 09:38 AST 31 U/L (17-59) 06/01/18 09:38 ALT 32 U/L (21-72) 06/01/18 09:38 Alkaline Phosphatase 119 U/L (38-126) 06/01/18 09:38 Total Creatine Kinase 281 U/L (55-170) H 06/01/18 04:56 CK-MB (Mass) 4.78 ng/mL (0.0-3.38) H 06/01/18 04:56 Troponin I 0.0530 ng/mL (0.00-0.120) 06/01/18 04:56 NT-Pro-B Natriuret Pep [id number] pg/mL (0-450) H 05/31/18 12:12 Total Protein 6.9 g/dL (6.3-8.3) 06/01/18 09:38 Albumin 3.5 g/dL (3.5-5.0) 06/01/18 09:38 Globulin 3.5 gm/dL (2.2-3.9) 06/01/18 09:38 Albumin/Globulin Ratio 1.0 (1.0-2.1) 06/01/18 09:38 - Hospital Course Hospital Course: Discharge Summary and Hospital Course for Dr. Nash: CC: chest pain, shortness of breath History of Present Illness This is a 37 year old male with PMHx of ESRD MWF with Left AVF , Hypertension, Systolic Heart Failure with LVEF 35-40% with AICD placement, valvular cardiomyopathy, s/p MVR who presented to the ED on 05/31 with chest pain and shortness of breath x 2 days. Patient reported he missed his dialysis session the day prior due to not feeling well. Patient reported 2 days of body ache, nonproductive cough, and 3-4 episodes of nonbloody, nonbilious diarrhea. Patient reported he is compliant with his medications and attends his dialysis sessions. He has followed up with Dr. Mora - has scheduled appointment with the HF center at [facility] in June. Patient endorses associated abdominal pain due to increase in abdominal girth due to ascites with associated shortness of breath. Denied fever, chills, headache, current chest pain, n/v/d/c/, or urinary symptoms. Please see chart for complete summary of details. During Admission: Serial troponins were obtained to rule out ACS. ROBIN negative. EKG: ACS ruled out. Interventional Radiology was consulted for paracentesis (Dr. Kumar). Paracentesis was performed on 06/02 with 3.5 Liters removed. Following the aforementioned, the patient's abdominal pain improved. Patient complained of body ache and nonproductive cough, as such rapid flu test was ordered and received but not yet resulted as of 06/02. Patient complained of diarrhea x2 days. Thus, stool studies obtained, but have not been resulted as of 06/02. Patient has ESRD and is on Hemodialysis (MWF). Nephrology (Dr. El) was consulted and recommended dialysis while in the hospital via left AVF. Patient underwent 2 sessions of dialysis. BNP on admission 126,000, previous admission 167,000. Patient was also found to be hyperkalemic and was treated as ordered. On day of discharge AGAINST MEDICAL ADVICE, the patient refused bloodwork on . Thus, potassium levels on day of discharge were not known. Please see chart for complete summary of details. 06/02/18 - Patient Discharged Against Medical Advice The patient requested to sign out AGAINST MEDICAL ADVICE. This action is against my medical advice to the patient and the decision was made with informed refusal. The patient was told that further workup is necessary and a full explanation of the rationale was given. The risks of leaving were explained to the patient and include but are not limited to increased morbidity and mortality, , and worsening of known or unknown conditions. Patient was alert, and oriented to person, place, and time, and was able to make this informed decision and understood the clinical situation and my explanation of the risks of leaving. The patient voluntarily accepted these risks and signed an AGAINST MEDICAL ADVICE form documenting our conversation. The patient was given the opportunity ask questions and reconsider. The patient was encouraged to return to emergency room at any time for further care. He was advised to follow-up with his primary care doctor as soon as possible. Please see chart for complete summary of details. Case discussed with Dr. Charity Hayes PGY1 Discharge Exam - Head Exam Head Exam: ATRAUMATIC, NORMAL INSPECTION, NORMOCEPHALIC - Neurological Exam Neurological exam: Alert, Oriented x3 - Psychiatric Exam Psychiatric exam: Normal Affect, Normal Mood - Additional Findings Additional findings: Patient is alert to person, place, and time. Unable to perform a complete physical exam prior to discharge due to patient signing out AGAINST MEDICAL ADVICE. Discharge Plan - Follow Up Plan Condition: GUARDED Disposition: AGAINST MEDICAL ADVICE <Lauro Nash - Last Filed: 06/03/18 07:00> Provider - Provider Date of Admission: 05/31/18 13:24 Attending physician: Lauro Nash DO Hospital Course - Lab Results Lab Results: Micro Results 05/31/18 16:30 Blood-During Dialysis Blood Culture - Preliminary NO GROWTH AFTER 48 HOURS 05/31/18 15:40 Blood-During Dialysis Blood Culture - Preliminary NO GROWTH AFTER 48 HOURS Most Recent Lab Values WBC 3.4 K/uL (4.8-10.8) L 06/01/18 09:38 RBC 2.94 Mil/uL (4.40-5.90) L 06/01/18 09:38 Hgb 8.3 g/dL (12.0-18.0) L 06/01/18 09:38 Hct 25.8 % (35.0-51.0) L 06/01/18 09:38 MCV 87.9 fL (80.0-94.0) 06/01/18 09:38 MCH 28.2 pg (27.0-31.0) 06/01/18 09:38 MCHC 32.1 g/dL (33.0-37.0) L 06/01/18 09:38 RDW 19.3 % (11.5-14.5) H 06/01/18 09:38 Plt Count 90 K/uL (130-400) L 06/01/18 09:38 MPV 8.6 fL (7.2-11.7) 06/01/18 09:38 Neut % (Auto) 64.5 % (50.0-75.0) 06/01/18 09:38 Lymph % (Auto) 22.5 % (20.0-40.0) 06/01/18 09:38 Terry % (Auto) 8.3 % (0.0-10.0) 06/01/18 09:38 Eos % (Auto) 3.2 % (0.0-4.0) 06/01/18 09:38 Baso % (Auto) 1.5 % (0.0-2.0) 06/01/18 09:38 Neut # (Auto) 2.2 K/uL (1.8-7.0) 06/01/18 09:38 Lymph # (Auto) 0.8 K/uL (1.0-4.3) L 06/01/18 09:38 Terry # (Auto) 0.3 K/uL (0.0-0.8) 06/01/18 09:38 Eos # (Auto) 0.1 K/uL (0.0-0.7) 06/01/18 09:38 Baso # (Auto) 0.1 K/uL (0.0-0.2) 06/01/18 09:38 PT 14.1 SECONDS (9.7-12.2) H 05/31/18 12:12 INR 1.3 05/31/18 12:12 APTT 35 SECONDS (21-34) H 05/31/18 12:12 Sodium 141 mmol/L (132-148) 06/01/18 09:38 Potassium 5.0 mmol/L (3.6-5.2) 06/01/18 09:38 Chloride 98 mmol/L (98-107) 06/01/18 09:38 Carbon Dioxide 32 mmol/L (22-30) H 06/01/18 09:38 Anion Gap 16 (10-20) 06/01/18 09:38 BUN 41 mg/dL (9-20) H 06/01/18 09:38 Creatinine 8.4 mg/dL (0.8-1.5) H* D 06/01/18 09:38 Est GFR ( Amer) 9 06/01/18 09:38 Est GFR (Non-Af Amer) 7 06/01/18 09:38 Random Glucose 103 mg/dL (75-110) 06/01/18 09:38 Calcium 8.9 mg/dl (8.6-10.4) 06/01/18 09:38 Phosphorus 5.0 mg/dL (2.5-4.5) H 06/01/18 09:38 Magnesium 1.9 mg/dL (1.6-2.3) 06/01/18 09:38 Total Bilirubin 0.9 mg/dL (0.2-1.3) 06/01/18 09:38 AST 31 U/L (17-59) 06/01/18 09:38 ALT 32 U/L (21-72) 06/01/18 09:38 Alkaline Phosphatase 119 U/L (38-126) 06/01/18 09:38 Total Creatine Kinase 281 U/L (55-170) H 06/01/18 04:56 CK-MB (Mass) 4.78 ng/mL (0.0-3.38) H 06/01/18 04:56 Troponin I 0.0530 ng/mL (0.00-0.120) 06/01/18 04:56 NT-Pro-B Natriuret Pep [id number] pg/mL (0-450) H 05/31/18 12:12 Total Protein 6.9 g/dL (6.3-8.3) 06/01/18 09:38 Albumin 3.5 g/dL (3.5-5.0) 06/01/18 09:38 Globulin 3.5 gm/dL (2.2-3.9) 06/01/18 09:38 Albumin/Globulin Ratio 1.0 (1.0-2.1) 06/01/18 09:38 Attending/Attestation - Attestation I have personally seen and examined this patient.: Yes I have fully participated in the care of the patient.: Yes I have reviewed all pertinent clinical information, including history, physical exam and plan: Yes Notes (Text): Medical attending: I was notified that the patient later left AMA in the morning. I had seen the patient yesterday however he left before I could see him on 06/02. As mentioned previously he already had two sessions of HD and also paracentesis to remove 3.5 L.
--- NOTE | 2018-06-02 14:51 | US ---
Ultrasound guided paracentesis. Clinical History: Ascites with abdominal pain and distension. Technique: The relative risks and indications for the procedure were explained to the patient and informed written consent obtained. Sonography of the abdomen was performed in a supine position. This revealed a moderate amount of non-loculated, however complex ascites, greatest in the right lower quadrant. A puncture site was selected and the area was prepped and draped in the usual sterile fashion. 1% lidocaine was used to anesthetize the skin and soft tissues. A 5 Wolof paracentesis catheter was trocared into the right lower quadrant under real time ultrasound guidance with visualization of the needle tip. A permanent image was stored. 3500 cc of bloody fluid was aspirated. Impression: Ultrasound-guided paracentesis in the right lower quadrant.
--- NOTE | 2018-06-02 21:56 | CARD ---
APPROVED REPORT Date of service: 06/01/2018 EKG Measurement Heart [id number] 150P81 [id number] <Conclusion> Normal sinus rhythm Rightward axis Pulmonary disease pattern Nonspecific T wave abnormality Prolonged QT Abnormal ECG
== END 2018-06-02 10:35 | disposition left against medical advice (07) ==
LOC: C.ER 11:23 → C.9E 13:24 → C.5S 15:05
PROVIDERS: ADMIT Hospitalist; ATTEND Hospitalist
DX: I13.2 Hypertensive heart and chronic kidney disease with heart failure and with stage 5 chronic kidney disease, or end stage renal disease (principal); E87.5 Hyperkalemia; E87.70 Fluid overload, unspecified; R18.8 Other ascites; N18.6 End stage renal disease; I50.22 Chronic systolic (congestive) heart failure; K74.60 Unspecified cirrhosis of liver; I25.10 Atherosclerotic heart disease of native coronary artery without angina pectoris; I42.8 Other cardiomyopathies; Z95.810 Presence of automatic (implantable) cardiac defibrillator; Z99.2 Dependence on renal dialysis; Z95.2 Presence of prosthetic heart valve; Z82.3 Family history of stroke
CPT/HCPCS: 36415; 49083; 71045; 80053; 83735; 83880; 84100; 84484; 85025; 85610; 85730; 86710; 87040; 93005; 99285; G0257; G0378; J2270; Q4081